=== PATIENT | male | born 1940 | race Caucasian/White ===

== ENCOUNTER → 2016-08-09 | Outpatient (CLI) | payer MEDICARE ==
[~2016-08-09] MED LIST: 'XANAX0.5 MG PO; ALPRAZOLAM0.5 M3 PO; AMIODARONE HCL200 MG PO; APRESOLINE25 MG PO; ASCORBIC ACID500 M2 PO; ASPIRIN ADULT L81 M1; ASPIRIN ADULT L81 M1 PO; ASPIRIN81 M1 PO; B-COMPLEX1 CAP PO; B12-METHYL1000 MCG PO; CARVEDILOL12.5 MG; CARVEDILOL12.5 MG PO; CLOPIDOGREL75 MG PO; COQ1060 MG; COREG12.5 M1 PO; COREG12.5 MG PO; COREG25 MG PO; COREG3.125 MG PO; COREG6.25 MG; COREG6.25 MG PO; COUMADIN; COUMADIN0.5 MG PO; COUMADIN2 MG PO; COUMADIN3 M1 PO; COUMADIN4 M1 PO; COUMADIN4 M2 PO; COUMADIN5 M2 PO; Coumadin3 MG PO; Coumadin5 MG PO; D-1000 185 MG-11 TAB PO; DIGOXIN0.125 MG; DOXYCYCLINE MO100 M1 PO; DOXYCYCLINE100 M3 PO; FENOFIBRATE145 M1 PO; FISH OIL 10001000 MG; FISH OIL 500MG500 MG PO; FLONASE 0.05% 121 EA NS; FUROSEMIDE10 MG/ML IV; FUROSEMIDE20 M1 PO; FUROSEMIDE40 MG PO; IMDUR SA30 MG PO; IRON325 M1 PO; KEFTAB500 MG PO; LANOXIN0.125 MG PO; LASIX20 MG PO; LASIX40 MG PO; LEVOFLOXACIN500 MG PO; LOVAZA1 GM; LOVAZA1 GM PO; LOVENOX EASYINJ1 DEV SC; MAGNESIUM400 MG PO; METFORMIN500 MG PO; MIDODRINE HCL2.5 MG PO; MIRALAX POWDER255 G1 PO; PACERONE200 MG PO; PANTOPRAZOLE SO40 MG PO; PAROXETIN10 MG; PAROXETINE HCL10 MG PO; PAROXETINE10 MG PO; PLAVIX75 MG; PLAVIX75 MG PO; PRAVACHOL40 MG; PRAVACHOL80 MG PO; PRAVASTATIN SOD80 MG PO; PREDNISONE10 MG PO; PRILOSEC40 MG PO; PROTONIX40 MG PO; PROVENTIL0.09 MG/A1 INH; Proamatine PO; RESTORIL15 MG; RESTORIL15 MG PO; RESTORIL30 M1 PO; TRICOR145 MG; TRICOR145 MG PO; TRICOR48 MG PO; TYLENOL325 M1 PO; VITAMIN B121000 MC1 PO; VITAMIN C500 M4 PO; VITAMIN D-32000 UNIT PO; VITAMIN D1000 IU PO; XANAX XR0.5 MG; XANAX0.25 MG PO; XANAX0.5 MG PO
== END | disposition home or self-care (01) ==
LOC: RAD 13:33
DX: M48.00 Spinal stenosis, site unspecified (principal)

== ENCOUNTER 2016-08-25 17:51 | Emergency (ER) | payer MEDICARE ==
[~2016-08-25] VITALS: Ht 177.8 cm; Wt 85.3 kg
[2016-08-25 18:08] LABS: BASO # 0.1 10*3/uL (0.0-0.1); BASO % 0.8 % (0.0-1.0); EOS # 0.2 10*3/uL (0.0-0.4); EOS % 2.2 % (1.0-4.0); HEMATOCRIT 37.4 % (42.0-52.0); HEMOGLOBIN 12.4 g/dl (14.0-18.0); LYMPH # 2.1 10*3/uL (1.3-4.4); LYMPH % 27.4 % (27.0-41.0); MEAN CELL VOLUME 92.1 fl (80.0-94.0); MEAN CORPUSCULAR HGB 30.5 pg (27.0-31.0); MEAN CORPUSCULAR HGB CONC 33.2 g/dl (33.0-37.0); MEAN PLATELET VOLUME 10.8 fl (9.6-12.3); MONO # 0.6 10*3/uL (0.1-1.0); MONO % 7.1 % (3.0-9.0); NEUT # 4.8 10*3/uL (2.3-7.9); NEUT % 62.4 % (47.0-73.0); PLATELET COUNT AUTOMATED 172 10*3/uL (130-400); RED BLOOD COUNT 4.06 10*6/uL (4.50-5.90); RED CELL DISTRI WIDTH 14.9 % (0-14.5); WHITE BLOOD COUNT 7.7 10*3/uL (4.8-10.8)
[2016-08-25 18:18] LABS: INTERNATIONAL NORM RATIO 2.9 (2.0-3.5); PROTHROMBIN TIME 32.3 SECONDS (9.0-12.4)
[2016-08-25 18:25] LABS: ALBUMIN 3.3 gm/dl (3.1-4.5); BILIRUBIN, TOTAL 0.7 mg/dl (0.2-1.0); MAGNESIUM 1.7 mg/dL (1.5-2.1); POTASSIUM 4.2 mmol/L (3.5-5.1); TOTAL PROTEIN 6.8 gm/dL (6.4-8.2); TROPONIN I 0.033 ng/ml (<0.045)
[2016-08-25 19:19] VITALS: BP 118/79
== END 2016-08-25 20:00 | disposition short-term general hospital (02) ==
LOC: ED 17:51
PROVIDERS: Emergency Medicine
DX: I20.0 Unstable angina (principal); I25.2 Old myocardial infarction; I50.9 Heart failure, unspecified; I48.91 Unspecified atrial fibrillation; I12.9 Hypertensive chronic kidney disease with stage 1 through stage 4 chronic kidney disease, or unspecified chronic kidney disease; N18.3 Chronic kidney disease, stage 3 (moderate); I50.22 Chronic systolic (congestive) heart failure; E11.9 Type 2 diabetes mellitus without complications; I25.5 Ischemic cardiomyopathy; D53.9 Nutritional anemia, unspecified; Z88.8 Allergy status to other drugs, medicaments and biological substances; Z79.899 Other long term (current) drug therapy; Z79.82 Long term (current) use of aspirin

== ENCOUNTER 2016-09-10 20:32 | Emergency (ER) | payer MEDICARE ==
[~2016-09-10] VITALS: Ht 177.8 cm; Wt 85.3 kg
[2016-09-10 20:41] VITALS: BP 105/80
[2016-09-10 21:39] LABS: BASO # 0.1 10*3/uL (0.0-0.1); BASO % 0.4 % (0.0-1.0); EOS # 0.1 10*3/uL (0.0-0.4); EOS % 0.9 % (1.0-4.0); HEMATOCRIT 38.2 % (42.0-52.0); HEMOGLOBIN 12.4 g/dl (14.0-18.0); LYMPH # 1.6 10*3/uL (1.3-4.4); LYMPH % 13.8 % (27.0-41.0); MEAN CELL VOLUME 93.2 fl (80.0-94.0); MEAN CORPUSCULAR HGB 30.2 pg (27.0-31.0); MEAN CORPUSCULAR HGB CONC 32.5 g/dl (33.0-37.0); MEAN PLATELET VOLUME 10.7 fl (9.6-12.3); MONO # 0.9 10*3/uL (0.1-1.0); MONO % 7.8 % (3.0-9.0); NEUT # 8.7 10*3/uL (2.3-7.9); NEUT % 76.8 % (47.0-73.0); PLATELET COUNT AUTOMATED 177 10*3/uL (130-400); RED CELL DISTRI WIDTH 14.7 % (0-14.5); WHITE BLOOD COUNT 11.3 10*3/uL (4.8-10.8)
[2016-09-10 21:56] LABS: ALBUMIN 3.2 gm/dl (3.1-4.5); BILIRUBIN, TOTAL 0.7 mg/dl (0.2-1.0); POTASSIUM 4.4 mmol/L (3.5-5.1); TOTAL PROTEIN 6.6 gm/dL (6.4-8.2)
[2016-09-10 22:02] LABS: TROPONIN I 0.049 ng/ml (<0.045)
[2016-09-10] MEDS ORDERED: DUONEB 3 MG/3 ML3 M1 INH (22:46)
[2016-09-10] MEDS ORDERED: ROBITUSSIN AC 110 ML PO (22:46)
[2016-09-10] MEDS ORDERED: PREDNISONE10 MG PO (22:46)
== END 2016-09-10 22:46 | disposition home or self-care (01) ==
LOC: ED 20:32
PROVIDERS: Nurse Practitioner Family
DX: J20.9 Acute bronchitis, unspecified (principal); I48.91 Unspecified atrial fibrillation; I12.9 Hypertensive chronic kidney disease with stage 1 through stage 4 chronic kidney disease, or unspecified chronic kidney disease; N18.3 Chronic kidney disease, stage 3 (moderate); E11.9 Type 2 diabetes mellitus without complications; Z95.810 Presence of automatic (implantable) cardiac defibrillator; Z95.5 Presence of coronary angioplasty implant and graft; Z95.1 Presence of aortocoronary bypass graft; Z87.891 Personal history of nicotine dependence; Z88.8 Allergy status to other drugs, medicaments and biological substances; Z79.01 Long term (current) use of anticoagulants; Z79.82 Long term (current) use of aspirin; Z79.899 Other long term (current) drug therapy

== ENCOUNTER 2016-09-19 12:18 | Inpatient (IN) | payer MEDICARE ==
[~2016-09-19] VITALS: Ht 177.8 cm; Wt 83.9 kg
[~2016-09-19 12:18] MED LIST changes: +DUONEB 3 MG/3 ML3 M1 INH; +ROBITUSSIN AC 110 ML PO
[2016-09-19 12:28] VITALS: BP 108/74
[2016-09-19 12:58] LABS: BASO % 0.3 % (0.0-1.0); EOS # 0.2 10*3/uL (0.0-0.4); EOS % 2.5 % (1.0-4.0); HEMATOCRIT 40.2 % (42.0-52.0); HEMOGLOBIN 13.2 g/dl (14.0-18.0); IG # 0.1 10*3/uL (0.0-0.1); LYMPH # 1.7 10*3/uL (1.3-4.4); LYMPH % 20.7 % (27.0-41.0); MEAN CELL VOLUME 91.8 fl (80.0-94.0); MEAN CORPUSCULAR HGB 30.1 pg (27.0-31.0); MEAN CORPUSCULAR HGB CONC 32.8 g/dl (33.0-37.0); MEAN PLATELET VOLUME 9.7 fl (9.6-12.3); MONO # 0.7 10*3/uL (0.1-1.0); MONO % 8.6 % (3.0-9.0); NEUT # 5.3 10*3/uL (2.3-7.9); NEUT % 66.8 % (47.0-73.0); PLATELET COUNT AUTOMATED 197 10*3/uL (130-400); RED BLOOD COUNT 4.38 10*6/uL (4.50-5.90); RED CELL DISTRI WIDTH 14.4 % (0-14.5)
[2016-09-19 13:00] VITALS: BP 121/67
[2016-09-19 13:21] LABS: POTASSIUM 3.9 mmol/L (3.5-5.1); TROPONIN I 0.044 ng/ml (<0.045)
[2016-09-19 13:58] VITALS: BP 115/75
[2016-09-19 14:31] VITALS: BP 120/67
[2016-09-19 16:34] VITALS: BP 125/77
[2016-09-19 20:01] VITALS: BP 98/52
[2016-09-20] VITALS: BP 107/68
[2016-09-20 04:00] VITALS: BP 116/72
[2016-09-20 05:33] LABS: CKMB 1.4 ng/ml (0.5-3.6)
[2016-09-20 05:36] LABS: TROPONIN I 0.05 ng/ml (<0.045)
[2016-09-20 05:48] LABS: ALBUMIN 2.7 gm/dl (3.1-4.5); BILIRUBIN, TOTAL 0.8 mg/dl (0.2-1.0); FREE T4 1.21 ng/dl (0.76-1.46); PHOSPHOROUS 2.6 mg/dL (2.5-4.9); POTASSIUM 4.2 mmol/L (3.5-5.1); TOTAL PROTEIN 5.7 gm/dL (6.4-8.2)
[2016-09-20 05:53] LABS: THYROID STIM HORMONE (HS) 1.09 uIU/ml (0.358-4.75)
[2016-09-20 06:13] LABS: BASO % 0.6 % (0.0-1.0); EOS # 0.2 10*3/uL (0.0-0.4); EOS % 2.5 % (1.0-4.0); HEMATOCRIT 37.2 % (42.0-52.0); HEMOGLOBIN 12.4 g/dl (14.0-18.0); IG # 0.1 10*3/uL (0.0-0.1); LYMPH # 1.8 10*3/uL (1.3-4.4); MEAN CELL VOLUME 92.1 fl (80.0-94.0); MEAN CORPUSCULAR HGB 30.7 pg (27.0-31.0); MEAN CORPUSCULAR HGB CONC 33.3 g/dl (33.0-37.0); MEAN PLATELET VOLUME 9.6 fl (9.6-12.3); MONO # 0.6 10*3/uL (0.1-1.0); MONO % 8.5 % (3.0-9.0); NEUT # 4.5 10*3/uL (2.3-7.9); NEUT % 62.4 % (47.0-73.0); PLATELET COUNT AUTOMATED 163 10*3/uL (130-400); RED BLOOD COUNT 4.04 10*6/uL (4.50-5.90); RED CELL DISTRI WIDTH 14.5 % (0-14.5); WHITE BLOOD COUNT 7.2 10*3/uL (4.8-10.8)
[2016-09-20 06:24] LABS: VITAMIN D, 25-HYDROXY 25.1 ng/mL (30-100)
[2016-09-20 06:25] LABS: FOLIC ACID 15.72 ng/mL (>5.38)
[2016-09-20 06:34] LABS: INTERNATIONAL NORM RATIO 2.2 (2.0-3.5); PROTHROMBIN TIME 24.5 SECONDS (9.0-12.4)
[2016-09-20 08:00] VITALS: BP 118/74
[2016-09-20 11:09] LABS: CKMB 1.8 ng/ml (0.5-3.6)
[2016-09-20 11:13] LABS: TROPONIN I 0.048 ng/ml (<0.045)
[2016-09-20 12:00] VITALS: BP 122/80
[2016-09-20 16:00] VITALS: BP 115/62
[2016-09-20 17:10] LABS: CKMB 1.9 ng/ml (0.5-3.6)
[2016-09-20 17:12] LABS: TROPONIN I 0.044 ng/ml (<0.045)
[2016-09-20 20:00] VITALS: BP 112/59
[2016-09-21] VITALS: BP 115/50
[2016-09-21 06:33] LABS: BASO % 0.3 % (0.0-1.0); EOS # 0.2 10*3/uL (0.0-0.4); EOS % 2.3 % (1.0-4.0); HEMATOCRIT 37.2 % (42.0-52.0); IG # 0.1 10*3/uL (0.0-0.1); LYMPH # 1.7 10*3/uL (1.3-4.4); LYMPH % 24.3 % (27.0-41.0); MEAN CORPUSCULAR HGB CONC 32.3 g/dl (33.0-37.0); MEAN PLATELET VOLUME 10.2 fl (9.6-12.3); MONO # 0.5 10*3/uL (0.1-1.0); MONO % 6.9 % (3.0-9.0); NEUT # 4.5 10*3/uL (2.3-7.9); NEUT % 64.9 % (47.0-73.0); PLATELET COUNT AUTOMATED 169 10*3/uL (130-400); RED CELL DISTRI WIDTH 14.6 % (0-14.5)
[2016-09-21 07:12] LABS: POTASSIUM 4.4 mmol/L (3.5-5.1)
[2016-09-21 07:27] LABS: INTERNATIONAL NORM RATIO 2.1 (2.0-3.5); PROTHROMBIN TIME 23.4 SECONDS (9.0-12.4)
[2016-09-21 08:00] VITALS: BP 121/71
[2016-09-21 12:00] VITALS: BP 102/59
== END 2016-09-21 16:42 | disposition short-term general hospital (02) | DRG 291 ==
LOC: ED 12:18 → EDHOLD 14:57 → 5E 14:57
PROVIDERS: Emergency Medicine; Internal Medicine Cardiovascular Disease; Internal Medicine Hospice and Palliative Medicine
DX: I13.0 Hypertensive heart and chronic kidney disease with heart failure and stage 1 through stage 4 chronic kidney disease, or unspecified chronic kidney disease (principal); I50.43 Acute on chronic combined systolic (congestive) and diastolic (congestive) heart failure; E43 Unspecified severe protein-calorie malnutrition; E11.65 Type 2 diabetes mellitus with hyperglycemia; E11.22 Type 2 diabetes mellitus with diabetic chronic kidney disease; I48.2 Chronic atrial fibrillation; N18.3 Chronic kidney disease, stage 3 (moderate); E11.9 Type 2 diabetes mellitus without complications; D63.8 Anemia in other chronic diseases classified elsewhere; J98.11 Atelectasis; I25.5 Ischemic cardiomyopathy; D72.810 Lymphocytopenia; I25.10 Atherosclerotic heart disease of native coronary artery without angina pectoris; E78.2 Mixed hyperlipidemia; E55.9 Vitamin D deficiency, unspecified; K57.90 Diverticulosis of intestine, part unspecified, without perforation or abscess without bleeding; E78.1 Pure hyperglyceridemia; I08.0 Rheumatic disorders of both mitral and aortic valves; Z96.642 Presence of left artificial hip joint; Z96.612 Presence of left artificial shoulder joint; R91.1 Solitary pulmonary nodule; I95.1 Orthostatic hypotension; J20.9 Acute bronchitis, unspecified; Z95.810 Presence of automatic (implantable) cardiac defibrillator; Z88.8 Allergy status to other drugs, medicaments and biological substances; I25.2 Old myocardial infarction; Z87.01 Personal history of pneumonia (recurrent); Z95.2 Presence of prosthetic heart valve; Z95.1 Presence of aortocoronary bypass graft; Z87.891 Personal history of nicotine dependence; Z79.82 Long term (current) use of aspirin; Z79.01 Long term (current) use of anticoagulants; Z79.899 Other long term (current) drug therapy; Z79.84 Long term (current) use of oral hypoglycemic drugs; Z68.25 Body mass index [BMI] 25.0-25.9, adult; Z82.3 Family history of stroke; Z82.49 Family history of ischemic heart disease and other diseases of the circulatory system

== ENCOUNTER → 2016-11-16 | Day surgery (SDC) | payer MEDICARE | END | disposition home or self-care (01) | LOC: SDC 09:00 | DX: Z45.2 Encounter for adjustment and management of vascular access device (principal); I25.5 Ischemic cardiomyopathy; I25.10 Atherosclerotic heart disease of native coronary artery without angina pectoris; N18.3 Chronic kidney disease, stage 3 (moderate) ==

== ENCOUNTER → 2016-11-16 | Outpatient (CLI) | payer MEDICARE ==
[2016-11-16 12:37] LABS: BASO # 0.1 10*3/uL (0.0-0.1); BASO % 0.7 % (0.0-1.0); EOS # 0.5 10*3/uL (0.0-0.4); EOS % 6.4 % (1.0-4.0); HEMATOCRIT 34.2 % (42.0-52.0); HEMOGLOBIN 11.2 g/dl (14.0-18.0); LYMPH % 13.4 % (27.0-41.0); MEAN CORPUSCULAR HGB 30.8 pg (27.0-31.0); MEAN CORPUSCULAR HGB CONC 32.7 g/dl (33.0-37.0); MEAN PLATELET VOLUME 10.2 fl (9.6-12.3); MONO # 0.5 10*3/uL (0.1-1.0); MONO % 7.4 % (3.0-9.0); NEUT # 5.1 10*3/uL (2.3-7.9); NEUT % 71.8 % (47.0-73.0); PLATELET COUNT AUTOMATED 226 10*3/uL (130-400); RED BLOOD COUNT 3.64 10*6/uL (4.50-5.90); RED CELL DISTRI WIDTH 15.5 % (0-14.5); WHITE BLOOD COUNT 7.1 10*3/uL (4.8-10.8)
== END | disposition home or self-care (01) ==
LOC: LAB 10:41
PROVIDERS: Specialist
DX: I42.0 Dilated cardiomyopathy (principal); I25.5 Ischemic cardiomyopathy; I44.2 Atrioventricular block, complete; N18.3 Chronic kidney disease, stage 3 (moderate); D63.1 Anemia in chronic kidney disease

== ENCOUNTER → 2016-11-30 | Day surgery (SDC) | payer MEDICARE ==
[2016-11-30 12:48] LABS: BASO # 0.1 10*3/uL (0.0-0.1); BASO % 0.8 % (0.0-1.0); EOS # 0.4 10*3/uL (0.0-0.4); EOS % 6.7 % (1.0-4.0); HEMATOCRIT 34.6 % (42.0-52.0); HEMOGLOBIN 11.4 g/dl (14.0-18.0); LYMPH # 1.2 10*3/uL (1.3-4.4); MEAN CELL VOLUME 93.3 fl (80.0-94.0); MEAN CORPUSCULAR HGB 30.7 pg (27.0-31.0); MEAN CORPUSCULAR HGB CONC 32.9 g/dl (33.0-37.0); MEAN PLATELET VOLUME 10.3 fl (9.6-12.3); MONO # 0.5 10*3/uL (0.1-1.0); MONO % 8.1 % (3.0-9.0); NEUT # 4.2 10*3/uL (2.3-7.9); NEUT % 65.1 % (47.0-73.0); PLATELET COUNT AUTOMATED 209 10*3/uL (130-400); RED BLOOD COUNT 3.71 10*6/uL (4.50-5.90); RED CELL DISTRI WIDTH 14.9 % (0-14.5); WHITE BLOOD COUNT 6.5 10*3/uL (4.8-10.8)
[2016-11-30 13:08] LABS: POTASSIUM 4.4 mmol/L (3.5-5.1)
== END | disposition home or self-care (01) ==
LOC: SDC 00:52
PROVIDERS: Specialist
DX: Z48.01 Encounter for change or removal of surgical wound dressing (principal); I25.5 Ischemic cardiomyopathy; I25.10 Atherosclerotic heart disease of native coronary artery without angina pectoris; N18.3 Chronic kidney disease, stage 3 (moderate); I42.0 Dilated cardiomyopathy; I44.2 Atrioventricular block, complete; D64.9 Anemia, unspecified

== ENCOUNTER → 2016-12-07 | Day surgery (SDC) | payer MEDICARE ==
[~2016-12-07] MED LIST changes: +MILRINONE IV
[2016-12-07 12:29] LABS: BASO # 0.1 10*3/uL (0.0-0.1); BASO % 0.7 % (0.0-1.0); EOS # 0.7 10*3/uL (0.0-0.4); EOS % 9.7 % (1.0-4.0); HEMATOCRIT 33.6 % (42.0-52.0); LYMPH # 1.2 10*3/uL (1.3-4.4); LYMPH % 18.1 % (27.0-41.0); MEAN CELL VOLUME 93.1 fl (80.0-94.0); MEAN CORPUSCULAR HGB 30.5 pg (27.0-31.0); MEAN CORPUSCULAR HGB CONC 32.7 g/dl (33.0-37.0); MEAN PLATELET VOLUME 10.3 fl (9.6-12.3); MONO # 0.6 10*3/uL (0.1-1.0); MONO % 8.7 % (3.0-9.0); NEUT # 4.3 10*3/uL (2.3-7.9); NEUT % 62.7 % (47.0-73.0); PLATELET COUNT AUTOMATED 205 10*3/uL (130-400); RED BLOOD COUNT 3.61 10*6/uL (4.50-5.90); RED CELL DISTRI WIDTH 14.8 % (0-14.5); WHITE BLOOD COUNT 6.8 10*3/uL (4.8-10.8)
[2016-12-07 12:55] LABS: CREATININE 2.27 mg/dL (0.70-1.30); POTASSIUM 4.5 mmol/L (3.5-5.1)
--- NOTE | 2016-12-07 14:08 | NUR ---
patient presents to outpatient for piccline dressing change and blood draw. dressing changed and caps as well tolerated well done under sterile conditions
== END | disposition home or self-care (01) ==
LOC: SDC 09:00
PROVIDERS: Specialist
DX: I50.9 Heart failure, unspecified (principal); I25.10 Atherosclerotic heart disease of native coronary artery without angina pectoris; I25.5 Ischemic cardiomyopathy; I42.0 Dilated cardiomyopathy; N18.3 Chronic kidney disease, stage 3 (moderate)

== ENCOUNTER 2016-12-11 13:47 | Emergency (ER) | payer MEDICARE ==
[~2016-12-11 13:47] MED LIST changes: -MILRINONE IV
[2016-12-11 14:39] LABS: BASO # 0.1 10*3/uL (0.0-0.1); BASO % 0.9 % (0.0-1.0); EOS # 0.4 10*3/uL (0.0-0.4); EOS % 6.5 % (1.0-4.0); HEMATOCRIT 32.5 % (42.0-52.0); HEMOGLOBIN 10.8 g/dl (14.0-18.0); LYMPH # 1.3 10*3/uL (1.3-4.4); LYMPH % 19.9 % (27.0-41.0); MEAN CELL VOLUME 92.6 fl (80.0-94.0); MEAN CORPUSCULAR HGB 30.8 pg (27.0-31.0); MEAN CORPUSCULAR HGB CONC 33.2 g/dl (33.0-37.0); MONO # 0.5 10*3/uL (0.1-1.0); MONO % 7.3 % (3.0-9.0); NEUT # 4.3 10*3/uL (2.3-7.9); NEUT % 65.2 % (47.0-73.0); PLATELET COUNT AUTOMATED 179 10*3/uL (130-400); RED BLOOD COUNT 3.51 10*6/uL (4.50-5.90); RED CELL DISTRI WIDTH 15.1 % (0-14.5); WHITE BLOOD COUNT 6.6 10*3/uL (4.8-10.8)
[2016-12-11 14:52] LABS: ACT PARTIAL THROMBO TIME 31.5 SECONDS (20.8-31.5); INTERNATIONAL NORM RATIO 1.7 (2.0-3.5)
[2016-12-11 14:55] LABS: ALBUMIN 2.9 gm/dl (3.1-4.5); CREATININE 2.5 mg/dL (0.70-1.30); POTASSIUM 4.3 mmol/L (3.5-5.1); TOTAL PROTEIN 5.9 gm/dL (6.4-8.2)
[2016-12-11 14:56] LABS: TROPONIN I 0.039 ng/ml (<0.045)
[2016-12-11] MEDS ORDERED: MILRINONE IV (19:52)
[2016-12-11 23:00] VITALS: BP 106/67
== END 2016-12-12 00:34 | disposition short-term general hospital (02) ==
LOC: ED 13:47
PROVIDERS: Physician Assistant
DX: I50.9 Heart failure, unspecified (principal); N28.9 Disorder of kidney and ureter, unspecified; Z88.8 Allergy status to other drugs, medicaments and biological substances; Z79.899 Other long term (current) drug therapy; Z79.02 Long term (current) use of antithrombotics/antiplatelets; Z79.82 Long term (current) use of aspirin; Z87.891 Personal history of nicotine dependence

== ENCOUNTER → 2016-12-21 | Outpatient (CLI) | payer MEDICARE ==
[~2016-12-21] MED LIST changes: +MILRINONE IV
[2016-12-21 11:55] LABS: BASO # 0.1 10*3/uL (0.0-0.1); BASO % 0.9 % (0.0-1.0); EOS # 0.4 10*3/uL (0.0-0.4); EOS % 5.8 % (1.0-4.0); HEMATOCRIT 34.7 % (42.0-52.0); HEMOGLOBIN 11.4 g/dl (14.0-18.0); LYMPH # 1.2 10*3/uL (1.3-4.4); LYMPH % 18.1 % (27.0-41.0); MEAN CELL VOLUME 92.5 fl (80.0-94.0); MEAN CORPUSCULAR HGB 30.4 pg (27.0-31.0); MEAN CORPUSCULAR HGB CONC 32.9 g/dl (33.0-37.0); MEAN PLATELET VOLUME 10.4 fl (9.6-12.3); MONO # 0.5 10*3/uL (0.1-1.0); MONO % 7.9 % (3.0-9.0); NEUT # 4.4 10*3/uL (2.3-7.9); NEUT % 67.1 % (47.0-73.0); PLATELET COUNT AUTOMATED 191 10*3/uL (130-400); RED BLOOD COUNT 3.75 10*6/uL (4.50-5.90); RED CELL DISTRI WIDTH 14.5 % (0-14.5); WHITE BLOOD COUNT 6.6 10*3/uL (4.8-10.8)
[2016-12-21 12:25] LABS: CREATININE 2.41 mg/dL (0.70-1.30); POTASSIUM 3.9 mmol/L (3.5-5.1)
== END | disposition home or self-care (01) ==
LOC: LAB 00:15 → SDC 09:00 → EDSTATUS 09:00 → LAB 09:00
PROVIDERS: Specialist
DX: Z45.2 Encounter for adjustment and management of vascular access device (principal); I25.10 Atherosclerotic heart disease of native coronary artery without angina pectoris

== ENCOUNTER → 2016-12-28 | Day surgery (SDC) | payer MEDICARE ==
--- NOTE | 2016-12-28 11:53 | NUR ---
PT HERE FOR PICC LINE DRESSING CHANGE AND BLOOD DRAW DONE ORDERED. PROMPT BLOOD RETURN. LABS SENT TO MAIN LAB WITH ORDER. TOLERATED WELL. SITE ASYMPTOMATIC. ORLANDO HOOD RN
== END | disposition home or self-care (01) ==
LOC: SDC 02:49
DX: I50.9 Heart failure, unspecified (principal)

== ENCOUNTER → 2017-01-04 | Outpatient (CLI) | payer MEDICARE ==
[2017-01-04 12:09] LABS: BASO # 0.1 10*3/uL (0.0-0.1); BASO % 0.8 % (0.0-1.0); EOS # 0.3 10*3/uL (0.0-0.4); EOS % 5.4 % (1.0-4.0); HEMATOCRIT 35.2 % (42.0-52.0); HEMOGLOBIN 11.9 g/dl (14.0-18.0); LYMPH # 1.1 10*3/uL (1.3-4.4); LYMPH % 18.6 % (27.0-41.0); MEAN CELL VOLUME 92.1 fl (80.0-94.0); MEAN CORPUSCULAR HGB 31.2 pg (27.0-31.0); MEAN CORPUSCULAR HGB CONC 33.8 g/dl (33.0-37.0); MEAN PLATELET VOLUME 10.3 fl (9.6-12.3); MONO # 0.5 10*3/uL (0.1-1.0); MONO % 8.4 % (3.0-9.0); NEUT # 3.9 10*3/uL (2.3-7.9); NEUT % 66.5 % (47.0-73.0); PLATELET COUNT AUTOMATED 192 10*3/uL (130-400); RED BLOOD COUNT 3.82 10*6/uL (4.50-5.90); RED CELL DISTRI WIDTH 14.5 % (0-14.5); WHITE BLOOD COUNT 5.9 10*3/uL (4.8-10.8)
[2017-01-04 12:23] LABS: CREATININE 2.8 mg/dL (0.70-1.30); POTASSIUM 3.9 mmol/L (3.5-5.1)
== END | disposition home or self-care (01) ==
LOC: EDSTATUS 10:00 → SDC 10:00 → LAB 11:07
PROVIDERS: Specialist
DX: I48.2 Chronic atrial fibrillation (principal); I25.10 Atherosclerotic heart disease of native coronary artery without angina pectoris; I25.5 Ischemic cardiomyopathy; N18.3 Chronic kidney disease, stage 3 (moderate); I42.0 Dilated cardiomyopathy

== ENCOUNTER → 2017-01-18 | Outpatient (CLI) | payer MEDICARE ==
--- NOTE | 2016-12-21 11:40 | NUR ---
PT. CAME TO OPS FOR DRESSING CHANGE UNDER STERILE POSITION PER POLICY SITE ASYMPTOMATIC. PT. TOLERATED WELL VITAL SIGNS STALBE.
--- NOTE | 2017-01-18 11:45 | NUR ---
PT HERE FOR LAB DRAW AND PICC DRESSING CHANGE. LABS TAKEN FROM PICC LINE WITHOUT DIFFUCULTY. SENT TO MAIN LAB. DRESSING APPLIED WITH NEW CAPS. MILRINONE INFUSION CONTINOUS. PT TOLERATED WELL. ORLANDO HOOD RN
[2017-01-18 12:02] LABS: BASO # 0.1 10*3/uL (0.0-0.1); BASO % 0.7 % (0.0-1.0); EOS # 0.4 10*3/uL (0.0-0.4); EOS % 4.9 % (1.0-4.0); HEMOGLOBIN 11.9 g/dl (14.0-18.0); LYMPH # 1.8 10*3/uL (1.3-4.4); LYMPH % 25.7 % (27.0-41.0); MEAN CELL VOLUME 90.5 fl (80.0-94.0); MEAN CORPUSCULAR HGB 29.9 pg (27.0-31.0); MEAN CORPUSCULAR HGB CONC 33.1 g/dl (33.0-37.0); MONO # 0.6 10*3/uL (0.1-1.0); MONO % 8.9 % (3.0-9.0); NEUT # 4.2 10*3/uL (2.3-7.9); NEUT % 59.5 % (47.0-73.0); PLATELET COUNT AUTOMATED 185 10*3/uL (130-400); RED BLOOD COUNT 3.98 10*6/uL (4.50-5.90); RED CELL DISTRI WIDTH 14.1 % (0-14.5); WHITE BLOOD COUNT 7.1 10*3/uL (4.8-10.8)
[2017-01-18 12:35] LABS: CREATININE 2.74 mg/dL (0.70-1.30); POTASSIUM 3.9 mmol/L (3.5-5.1)
== END | disposition home or self-care (01) ==
LOC: LAB 00:19 → EDSTATUS 10:00 → SDC 10:00
PROVIDERS: Specialist
DX: I25.10 Atherosclerotic heart disease of native coronary artery without angina pectoris (principal); I25.5 Ischemic cardiomyopathy; I42.0 Dilated cardiomyopathy; I48.2 Chronic atrial fibrillation; N18.3 Chronic kidney disease, stage 3 (moderate)

== ENCOUNTER → 2017-01-25 | Outpatient (CLI) | payer MEDICARE ==
--- NOTE | 2017-01-25 11:48 | NUR ---
patient presented for piccline dressing change. changed prepolicy. tolerated well. asymptomatic . done under sterlie technique. will return in one week.
[2017-01-25 12:07] LABS: BASO % 0.8 % (0.0-1.0); EOS # 0.1 10*3/uL (0.0-0.4); EOS % 2.1 % (1.0-4.0); HEMATOCRIT 36.9 % (42.0-52.0); HEMOGLOBIN 12.5 g/dl (14.0-18.0); LYMPH % 18.7 % (27.0-41.0); MEAN CELL VOLUME 91.1 fl (80.0-94.0); MEAN CORPUSCULAR HGB 30.9 pg (27.0-31.0); MEAN CORPUSCULAR HGB CONC 33.9 g/dl (33.0-37.0); MONO # 0.7 10*3/uL (0.1-1.0); MONO % 12.9 % (3.0-9.0); NEUT # 3.4 10*3/uL (2.3-7.9); NEUT % 65.3 % (47.0-73.0); PLATELET COUNT AUTOMATED 174 10*3/uL (130-400); RED BLOOD COUNT 4.05 10*6/uL (4.50-5.90); RED CELL DISTRI WIDTH 14.4 % (0-14.5); WHITE BLOOD COUNT 5.2 10*3/uL (4.8-10.8)
[2017-01-25 12:24] LABS: CREATININE 3.12 mg/dL (0.70-1.30)
== END | disposition home or self-care (01) ==
LOC: LAB 11:19
PROVIDERS: Specialist
DX: I25.10 Atherosclerotic heart disease of native coronary artery without angina pectoris (principal); I25.5 Ischemic cardiomyopathy; N18.3 Chronic kidney disease, stage 3 (moderate); R50.9 Fever, unspecified

== ENCOUNTER → 2017-01-31 | Day surgery (SDC) | payer MEDICARE ==
--- NOTE | 2017-01-31 12:22 | NUR ---
PATIENT PRESENTS TO OPS FOR PICC LINE DRESSING CHANGE. OLD DRESSING REMOVED UNDER STERILE CONDITIONS SITE CLEANED AND REDESSED TOLERATED WELL.
[2017-01-31 12:54] LABS: BASO # 0.1 10*3/uL (0.0-0.1); BASO % 0.7 % (0.0-1.0); EOS # 0.3 10*3/uL (0.0-0.4); EOS % 4.6 % (1.0-4.0); HEMATOCRIT 36.6 % (42.0-52.0); HEMOGLOBIN 11.9 g/dl (14.0-18.0); LYMPH # 1.3 10*3/uL (1.3-4.4); LYMPH % 18.8 % (27.0-41.0); MEAN CORPUSCULAR HGB 29.6 pg (27.0-31.0); MEAN CORPUSCULAR HGB CONC 32.5 g/dl (33.0-37.0); MONO # 0.5 10*3/uL (0.1-1.0); MONO % 6.8 % (3.0-9.0); NEUT # 4.8 10*3/uL (2.3-7.9); NEUT % 68.7 % (47.0-73.0); PLATELET COUNT AUTOMATED 206 10*3/uL (130-400); RED BLOOD COUNT 4.02 10*6/uL (4.50-5.90); RED CELL DISTRI WIDTH 14.6 % (0-14.5)
[2017-01-31 13:05] LABS: CREATININE 2.42 mg/dL (0.70-1.30); POTASSIUM 4.2 mmol/L (3.5-5.1)
== END | disposition home or self-care (01) ==
LOC: SDC 12:43
PROVIDERS: Specialist
DX: Z43.8 Encounter for attention to other artificial openings (principal); I50.9 Heart failure, unspecified

== ENCOUNTER → 2017-02-08 | Day surgery (SDC) | payer MEDICARE ==
--- NOTE | 2017-02-08 12:05 | NUR ---
CLIENT AMBULATORY TO TREATMENT AREA FOR BLOOD DRAW VIA PICC AND PICC DRESSING AND CAP CHANGE. PICC CAP WAS PREPPED AND ACCESSED BY SYRINGE. BRISK BLOOD RETURN WAS NOTED. APPROPRIATE AMOUNT OF BLOOD WAS WASTED THEN SPECIMEN WAS OBTAINED AND SENT TO LAB. PICC DRESSING AND CAPS WERE CHANGED USING STERILE TECHNIQUE. PICC WAS THEN FLUSHED WITH SALINE FOLLOWED BY HEPARIN. CLIENT THEN AMBULATED FROM TREATMENT AREA IN STABLE CONDITION.
[2017-02-08 12:07] LABS: BASO # 0.1 10*3/uL (0.0-0.1); BASO % 0.8 % (0.0-1.0); EOS # 0.2 10*3/uL (0.0-0.4); EOS % 3.8 % (1.0-4.0); HEMATOCRIT 34.3 % (42.0-52.0); HEMOGLOBIN 11.5 g/dl (14.0-18.0); LYMPH # 1.1 10*3/uL (1.3-4.4); LYMPH % 17.9 % (27.0-41.0); MEAN CELL VOLUME 89.8 fl (80.0-94.0); MEAN CORPUSCULAR HGB 30.1 pg (27.0-31.0); MEAN CORPUSCULAR HGB CONC 33.5 g/dl (33.0-37.0); MEAN PLATELET VOLUME 9.9 fl (9.6-12.3); MONO # 0.6 10*3/uL (0.1-1.0); MONO % 9.4 % (3.0-9.0); NEUT # 4.1 10*3/uL (2.3-7.9); NEUT % 67.9 % (47.0-73.0); PLATELET COUNT AUTOMATED 217 10*3/uL (130-400); RED BLOOD COUNT 3.82 10*6/uL (4.50-5.90); RED CELL DISTRI WIDTH 14.7 % (0-14.5); WHITE BLOOD COUNT 6.1 10*3/uL (4.8-10.8)
[2017-02-08 12:20] LABS: CREATININE 2.57 mg/dL (0.70-1.30); POTASSIUM 3.6 mmol/L (3.5-5.1)
== END | disposition home or self-care (01) ==
LOC: SDC 10:00
PROVIDERS: Specialist
DX: I50.9 Heart failure, unspecified (principal)

== ENCOUNTER → 2017-02-15 | Outpatient (CLI) | payer MEDICARE ==
[2017-02-15 12:27] LABS: BASO # 0.1 10*3/uL (0.0-0.1); EOS # 0.4 10*3/uL (0.0-0.4); EOS % 6.1 % (1.0-4.0); HEMATOCRIT 36.9 % (42.0-52.0); HEMOGLOBIN 12.1 g/dl (14.0-18.0); LYMPH # 1.2 10*3/uL (1.3-4.4); MEAN CELL VOLUME 91.8 fl (80.0-94.0); MEAN CORPUSCULAR HGB 30.1 pg (27.0-31.0); MEAN CORPUSCULAR HGB CONC 32.8 g/dl (33.0-37.0); MEAN PLATELET VOLUME 10.1 fl (9.6-12.3); MONO # 0.5 10*3/uL (0.1-1.0); MONO % 8.2 % (3.0-9.0); NEUT # 3.7 10*3/uL (2.3-7.9); NEUT % 64.4 % (47.0-73.0); PLATELET COUNT AUTOMATED 187 10*3/uL (130-400); RED BLOOD COUNT 4.02 10*6/uL (4.50-5.90); WHITE BLOOD COUNT 5.8 10*3/uL (4.8-10.8)
[2017-02-15 12:53] LABS: CREATININE 2.39 mg/dL (0.70-1.30); POTASSIUM 4.2 mmol/L (3.5-5.1)
== END | disposition home or self-care (01) ==
LOC: LAB 11:58
PROVIDERS: Specialist
DX: I44.2 Atrioventricular block, complete (principal); N18.3 Chronic kidney disease, stage 3 (moderate); I25.5 Ischemic cardiomyopathy; I42.0 Dilated cardiomyopathy; D64.9 Anemia, unspecified; I25.10 Atherosclerotic heart disease of native coronary artery without angina pectoris; I48.2 Chronic atrial fibrillation

== ENCOUNTER → 2017-02-22 | Day surgery (SDC) | payer MEDICARE ==
[2017-02-22 13:09] LABS: BASO # 0.1 10*3/uL (0.0-0.1); BASO % 0.7 % (0.0-1.0); EOS # 0.3 10*3/uL (0.0-0.4); EOS % 4.3 % (1.0-4.0); HEMATOCRIT 34.8 % (42.0-52.0); HEMOGLOBIN 11.5 g/dl (14.0-18.0); LYMPH # 1.4 10*3/uL (1.3-4.4); LYMPH % 19.5 % (27.0-41.0); MEAN CELL VOLUME 90.9 fl (80.0-94.0); MEAN PLATELET VOLUME 9.9 fl (9.6-12.3); MONO # 0.7 10*3/uL (0.1-1.0); MONO % 9.5 % (3.0-9.0); NEUT # 4.6 10*3/uL (2.3-7.9); NEUT % 65.7 % (47.0-73.0); PLATELET COUNT AUTOMATED 176 10*3/uL (130-400); RED BLOOD COUNT 3.83 10*6/uL (4.50-5.90); RED CELL DISTRI WIDTH 15.5 % (0-14.5)
--- NOTE | 2017-02-22 13:09 | NUR ---
1259-10CC OF BLOOD WITHDRAWN FROM PICC LINE AND DISCARDED BY ROBINSON LALA RN. ORDERED TUBES OF BLOOD DRAWN AND PICC FLUSHED PER POLICY. PICC DRESSING CHANGED USING STERILE TECHNIQUE. PICC SITE IS ASYMPTOMATIC. DISCHARGED AMBULATORY.
--- NOTE | 2017-02-28 11:50 | NUR ---
CLIENT AMBULATORY TO TREATMENT AREA FOR PICC BLOOD DRAW, DRESSING AND CAP CHANGE. NO BLOOD COULD BE ASPIRATED FROM PICC, SO CLIENT WAS REGISTERED FOR LAB TODAY. DRESSING AND CAPS WERE CHANGED USING ASEPTIC TECHNIQUE. PICC WAS FLUSHED PER POLICY THEN CLIENT LEFT TREATMENT AREA IN STABLE CONDITION
== END | disposition home or self-care (01) ==
LOC: EDSTATUS 10:00 → SDC 10:00
PROVIDERS: Specialist
DX: I50.9 Heart failure, unspecified (principal)

== ENCOUNTER → 2017-02-28 | Day surgery (SDC) | payer MEDICARE ==
[2017-02-28 12:13] LABS: BASO % 0.6 % (0.0-1.0); EOS # 0.3 10*3/uL (0.0-0.4); EOS % 4.3 % (1.0-4.0); LYMPH # 1.3 10*3/uL (1.3-4.4); LYMPH % 18.5 % (27.0-41.0); MEAN CELL VOLUME 91.6 fl (80.0-94.0); MEAN CORPUSCULAR HGB 30.5 pg (27.0-31.0); MEAN CORPUSCULAR HGB CONC 33.3 g/dl (33.0-37.0); MEAN PLATELET VOLUME 9.6 fl (9.6-12.3); MONO # 0.6 10*3/uL (0.1-1.0); MONO % 9.1 % (3.0-9.0); NEUT # 4.7 10*3/uL (2.3-7.9); NEUT % 67.4 % (47.0-73.0); PLATELET COUNT AUTOMATED 190 10*3/uL (130-400); RED BLOOD COUNT 3.93 10*6/uL (4.50-5.90); RED CELL DISTRI WIDTH 15.4 % (0-14.5); WHITE BLOOD COUNT 6.9 10*3/uL (4.8-10.8)
[2017-02-28 12:16] LABS: CREATININE 2.46 mg/dL (0.70-1.30); POTASSIUM 4.3 mmol/L (3.5-5.1)
--- NOTE | 2017-02-28 13:15 | NUR ---
CLIENT TO TREATMENT AREA FOR BLOOD DRAW VIA PICC THEN PICC DRESSING AND CAP CHANGE WELL PICC FLUSH. NO BLOOD WAS ABLE TO BE ASPIRATED FROM PICC AND LAB CAME TO TREATMENT AREA AND OBTAINED BLOOD ORDERED. PICC DRESSING AND CAPS WERE CHANGED USING ASEPTIC TECHNIQUE. PICC PORT WAS FLUSHED WITH SALINE FOLLOWED BY HEPARIN. ONE PICC PORT CONTINUOUSLY IN USE AND WAS NOT FLUSHED. CLIENT THEN AMBULATED FROM TREATMENT AREA IN STABLE CONDITION
== END | disposition home or self-care (01) ==
LOC: SDC 11:10
PROVIDERS: Specialist
DX: Z48.01 Encounter for change or removal of surgical wound dressing (principal); I50.9 Heart failure, unspecified

== ENCOUNTER → 2017-03-08 | Day surgery (SDC) | payer MEDICARE ==
--- NOTE | 2017-03-08 12:16 | NUR ---
1207- LABS DRAWN FROM PICC LINE PER ORDER AND SENT TO LAB VIA TUBE TRANSPORT SYSTEM. PICC FLUSHED PER POLICY. DRESSING CHANGED USING STERILE TECHNIQUE. SITE ASYMPTOMATIC.
[2017-03-08 13:01] LABS: BASO # 0.1 10*3/uL (0.0-0.1); BASO % 0.8 % (0.0-1.0); EOS # 0.3 10*3/uL (0.0-0.4); EOS % 5.1 % (1.0-4.0); HEMATOCRIT 35.9 % (42.0-52.0); HEMOGLOBIN 11.8 g/dl (14.0-18.0); LYMPH # 1.4 10*3/uL (1.3-4.4); MEAN CELL VOLUME 91.6 fl (80.0-94.0); MEAN CORPUSCULAR HGB 30.1 pg (27.0-31.0); MEAN CORPUSCULAR HGB CONC 32.9 g/dl (33.0-37.0); MEAN PLATELET VOLUME 10.2 fl (9.6-12.3); MONO # 0.6 10*3/uL (0.1-1.0); MONO % 8.9 % (3.0-9.0); NEUT # 4.3 10*3/uL (2.3-7.9); PLATELET COUNT AUTOMATED 209 10*3/uL (130-400); RED BLOOD COUNT 3.92 10*6/uL (4.50-5.90); RED CELL DISTRI WIDTH 15.6 % (0-14.5); WHITE BLOOD COUNT 6.7 10*3/uL (4.8-10.8)
[2017-03-08 13:36] LABS: POTASSIUM 4.7 mmol/L (3.5-5.1)
[2017-03-08 13:38] LABS: CREATININE 2.44 mg/dL (0.70-1.30)
== END | disposition home or self-care (01) ==
LOC: SDC 08:49
PROVIDERS: Specialist
DX: Z48.01 Encounter for change or removal of surgical wound dressing (principal); I50.9 Heart failure, unspecified; Z88.8 Allergy status to other drugs, medicaments and biological substances

== ENCOUNTER → 2017-03-14 | Day surgery (SDC) | payer MEDICARE ==
[2017-03-14 10:23] LABS: BASO # 0.1 10*3/uL (0.0-0.1); BASO % 1.1 % (0.0-1.0); EOS # 0.3 10*3/uL (0.0-0.4); EOS % 5.9 % (1.0-4.0); HEMATOCRIT 35.5 % (42.0-52.0); HEMOGLOBIN 11.6 g/dl (14.0-18.0); LYMPH # 1.1 10*3/uL (1.3-4.4); MEAN CELL VOLUME 91.5 fl (80.0-94.0); MEAN CORPUSCULAR HGB 29.9 pg (27.0-31.0); MEAN CORPUSCULAR HGB CONC 32.7 g/dl (33.0-37.0); MEAN PLATELET VOLUME 9.7 fl (9.6-12.3); MONO # 0.4 10*3/uL (0.1-1.0); MONO % 7.2 % (3.0-9.0); NEUT # 3.7 10*3/uL (2.3-7.9); NEUT % 66.4 % (47.0-73.0); PLATELET COUNT AUTOMATED 185 10*3/uL (130-400); RED BLOOD COUNT 3.88 10*6/uL (4.50-5.90); RED CELL DISTRI WIDTH 15.5 % (0-14.5); WHITE BLOOD COUNT 5.6 10*3/uL (4.8-10.8)
[2017-03-14 10:34] LABS: CREATININE 2.54 mg/dL (0.70-1.30); POTASSIUM 3.9 mmol/L (3.5-5.1)
--- NOTE | 2017-03-14 11:49 | NUR ---
CLIENT AMBULATORY TO TREATMENT AREA FOR PICC DRESSING AND CAP CHANGE WELL BLOOD DRAW FOR LAB. BRISK BLOOD RETURN WAS NOTED FROM PICC. APPROPRIATE AMOUNT OF BLOOD WAS WASTED THEN SPECIMEN OBTAINED AND SENT TO LAB. DRESSING AND CAP CHANGE WAS COMPLETED USING ASEPTIC TECHNIQUE. PORT X 1 WAS FLUSHED PER POLICY THEN CLIENT AMBULATED FROM TREATMENT AREA IN STABLE CONDITION
== END ==
LOC: SDC 02:16
PROVIDERS: Specialist
DX: Z48.01 Encounter for change or removal of surgical wound dressing (principal)

== ENCOUNTER → 2017-03-22 | Day surgery (SDC) | payer MEDICARE ==
--- NOTE | 2017-03-22 11:59 | NUR ---
CLIENT AMBULATORY TO TREATMENT AREA FOR LAB DRAW VIA PICC, PICC DRESSING AND PICC CAP CHANGE. BRISK BLOOD RETURN WAS NOTED FROM PICC. APPROPRIATE AMOUNT OF BLOOD WAS WASTED THEN SPECIMEN OBTAINED AND SENT TO LAB. DRESSING AND CAP CHANGE WAS COMPLETED USING ASEPTIC TECHNIQUE. CLIENT THEN AMBULATED FROM TREATMENT AREA IN STABLE CONDITION
[2017-03-22 12:50] LABS: BASO # 0.1 10*3/uL (0.0-0.1); BASO % 0.8 % (0.0-1.0); EOS # 0.2 10*3/uL (0.0-0.4); EOS % 3.6 % (1.0-4.0); HEMOGLOBIN 11.6 g/dl (14.0-18.0); LYMPH % 15.2 % (27.0-41.0); MEAN CELL VOLUME 91.4 fl (80.0-94.0); MEAN CORPUSCULAR HGB 30.3 pg (27.0-31.0); MEAN CORPUSCULAR HGB CONC 33.1 g/dl (33.0-37.0); MEAN PLATELET VOLUME 10.5 fl (9.6-12.3); MONO # 0.6 10*3/uL (0.1-1.0); MONO % 9.4 % (3.0-9.0); NEUT # 4.5 10*3/uL (2.3-7.9); NEUT % 70.7 % (47.0-73.0); PLATELET COUNT AUTOMATED 175 10*3/uL (130-400); RED BLOOD COUNT 3.83 10*6/uL (4.50-5.90); RED CELL DISTRI WIDTH 15.5 % (0-14.5); WHITE BLOOD COUNT 6.4 10*3/uL (4.8-10.8)
[2017-03-22 13:11] LABS: CREATININE 2.67 mg/dL (0.70-1.30); POTASSIUM 3.8 mmol/L (3.5-5.1)
== END | disposition home or self-care (01) ==
LOC: SDC 01:55
PROVIDERS: Specialist
DX: Z48.01 Encounter for change or removal of surgical wound dressing (principal); Z88.8 Allergy status to other drugs, medicaments and biological substances

== ENCOUNTER → 2017-03-27 | Outpatient (CLI) | payer MEDICARE | END | disposition home or self-care (01) | LOC: CT 16:41 | DX: G93.89 Other specified disorders of brain (principal); R79.1 Abnormal coagulation profile; H05.231 Hemorrhage of right orbit ==

== ENCOUNTER → 2017-03-29 | Day surgery (SDC) | payer MEDICARE ==
[2017-03-29 12:22] LABS: BASO # 0.1 10*3/uL (0.0-0.1); BASO % 0.8 % (0.0-1.0); EOS # 0.2 10*3/uL (0.0-0.4); EOS % 2.8 % (1.0-4.0); HEMATOCRIT 35.2 % (42.0-52.0); HEMOGLOBIN 11.8 g/dl (14.0-18.0); LYMPH % 16.1 % (27.0-41.0); MEAN CELL VOLUME 92.4 fl (80.0-94.0); MEAN CORPUSCULAR HGB CONC 33.5 g/dl (33.0-37.0); MEAN PLATELET VOLUME 9.8 fl (9.6-12.3); MONO # 0.5 10*3/uL (0.1-1.0); MONO % 8.3 % (3.0-9.0); NEUT # 4.3 10*3/uL (2.3-7.9); NEUT % 71.7 % (47.0-73.0); PLATELET COUNT AUTOMATED 186 10*3/uL (130-400); RED BLOOD COUNT 3.81 10*6/uL (4.50-5.90); RED CELL DISTRI WIDTH 15.5 % (0-14.5)
--- NOTE | 2017-03-29 12:22 | NUR ---
CLIENT AMBULATORY TO TREATMENT AREA FOR PICC BLOOD DRAW, DRESSING CHANGE AND FLUSH. BRISK BLOOD RETURN WAS NOTED FROM PICC. APPROPRIATE AMOUNT OF BLOOD WAS WASTED THEN SPECIMEN WAS OBTAINED AND SENT TO LAB. PICC WAS THEN FLUSHED PER POLICY. DRESSING WAS CHANGED USING ASEPTIC TECHNIQUE. CLIENT TOLERATED PROCEDURES WELL AND AMBULATED FROM TREATMENT AREA IN STABLE CONDITION
[2017-03-29 12:55] LABS: CREATININE 2.35 mg/dL (0.70-1.30); POTASSIUM 4.1 mmol/L (3.5-5.1)
== END | disposition home or self-care (01) ==
LOC: SDC 03-27 03:59
PROVIDERS: Specialist
DX: I50.9 Heart failure, unspecified (principal)

== ENCOUNTER → 2017-04-05 | Day surgery (SDC) | payer MEDICARE ==
[2017-04-05 11:31] LABS: BASO # 0.1 10*3/uL (0.0-0.1); BASO % 0.9 % (0.0-1.0); EOS # 0.2 10*3/uL (0.0-0.4); EOS % 2.6 % (1.0-4.0); HEMATOCRIT 34.8 % (42.0-52.0); HEMOGLOBIN 11.5 g/dl (14.0-18.0); LYMPH % 16.4 % (27.0-41.0); MEAN CELL VOLUME 92.6 fl (80.0-94.0); MEAN CORPUSCULAR HGB 30.6 pg (27.0-31.0); MEAN PLATELET VOLUME 9.7 fl (9.6-12.3); MONO # 0.5 10*3/uL (0.1-1.0); MONO % 8.6 % (3.0-9.0); NEUT # 4.2 10*3/uL (2.3-7.9); NEUT % 71.3 % (47.0-73.0); PLATELET COUNT AUTOMATED 178 10*3/uL (130-400); RED BLOOD COUNT 3.76 10*6/uL (4.50-5.90); RED CELL DISTRI WIDTH 15.4 % (0-14.5); WHITE BLOOD COUNT 5.8 10*3/uL (4.8-10.8)
[2017-04-05 11:58] LABS: CREATININE 2.46 mg/dL (0.70-1.30); POTASSIUM 4.2 mmol/L (3.5-5.1)
--- NOTE | 2017-04-05 12:38 | NUR ---
CLIENT AMBULATORY TO TREATMENT AREA FOR PICC FLUSH, CAP AND DRESSING CHANGE ALONG WITH BLOOD DRAW FROM PICC. BRISK BLOOD RETURN WAS NOTED FROM PICC. APPROPRIATE AMOUNT OF BLOOD WAS WASTED THEN SENT TO LAB. PICC WAS FLUSHED WITH SALINE FOLLOWED BY HEPARIN. DRESSING AND CAP WAS CHANGED USING ASEPTIC TECHNIQUE. CLIENT THEN AMBULATED FROM THE TREATMENT AREA IN STABLE CONDITION
== END | disposition home or self-care (01) ==
LOC: SDC 04-03 10:30
PROVIDERS: Specialist
DX: Z48.01 Encounter for change or removal of surgical wound dressing (principal); Z88.8 Allergy status to other drugs, medicaments and biological substances

== ENCOUNTER → 2017-04-19 | Day surgery (SDC) | payer MEDICARE ==
[2017-04-19 12:49] LABS: BASO # 0.1 10*3/uL (0.0-0.1); EOS # 0.2 10*3/uL (0.0-0.4); EOS % 3.8 % (1.0-4.0); HEMATOCRIT 35.2 % (42.0-52.0); HEMOGLOBIN 11.7 g/dl (14.0-18.0); LYMPH # 1.2 10*3/uL (1.3-4.4); LYMPH % 19.4 % (27.0-41.0); MEAN CELL VOLUME 94.6 fl (80.0-94.0); MEAN CORPUSCULAR HGB 31.5 pg (27.0-31.0); MEAN CORPUSCULAR HGB CONC 33.2 g/dl (33.0-37.0); MEAN PLATELET VOLUME 10.3 fl (9.6-12.3); MONO # 0.4 10*3/uL (0.1-1.0); MONO % 6.5 % (3.0-9.0); NEUT # 4.3 10*3/uL (2.3-7.9); PLATELET COUNT AUTOMATED 159 10*3/uL (130-400); RED BLOOD COUNT 3.72 10*6/uL (4.50-5.90); RED CELL DISTRI WIDTH 17.5 % (0-14.5); WHITE BLOOD COUNT 6.3 10*3/uL (4.8-10.8)
[2017-04-19 13:22] LABS: CREATININE 2.28 mg/dL (0.70-1.30); POTASSIUM 4.3 mmol/L (3.5-5.1)
== END | disposition home or self-care (01) ==
LOC: SDC 04-17 10:00
PROVIDERS: Specialist
DX: Z48.01 Encounter for change or removal of surgical wound dressing (principal); I50.9 Heart failure, unspecified

== ENCOUNTER → 2017-04-26 | Day surgery (SDC) | payer MEDICARE ==
[2017-04-26 12:29] LABS: BASO # 0.1 10*3/uL (0.0-0.1); BASO % 0.8 % (0.0-1.0); EOS # 0.2 10*3/uL (0.0-0.4); EOS % 3.2 % (1.0-4.0); HEMOGLOBIN 12.2 g/dl (14.0-18.0); LYMPH # 1.3 10*3/uL (1.3-4.4); MEAN CELL VOLUME 94.9 fl (80.0-94.0); MEAN CORPUSCULAR HGB 31.3 pg (27.0-31.0); MEAN PLATELET VOLUME 10.1 fl (9.6-12.3); MONO # 0.6 10*3/uL (0.1-1.0); MONO % 8.4 % (3.0-9.0); NEUT # 4.5 10*3/uL (2.3-7.9); NEUT % 67.1 % (47.0-73.0); PLATELET COUNT AUTOMATED 173 10*3/uL (130-400); RED CELL DISTRI WIDTH 17.6 % (0-14.5); WHITE BLOOD COUNT 6.7 10*3/uL (4.8-10.8)
[2017-04-26 12:55] LABS: CREATININE 2.48 mg/dL (0.70-1.30); POTASSIUM 4.6 mmol/L (3.5-5.1)
== END | disposition home or self-care (01) ==
LOC: SDC 12:00
PROVIDERS: Specialist
DX: Z48.01 Encounter for change or removal of surgical wound dressing (principal); I50.9 Heart failure, unspecified

== ENCOUNTER → 2017-05-03 | Day surgery (SDC) | payer MEDICARE ==
[2017-05-03 12:05] LABS: BASO % 0.7 % (0.0-1.0); EOS # 0.2 10*3/uL (0.0-0.4); EOS % 3.5 % (1.0-4.0); HEMOGLOBIN 11.5 g/dl (14.0-18.0); LYMPH # 1.1 10*3/uL (1.3-4.4); MEAN CELL VOLUME 94.1 fl (80.0-94.0); MEAN CORPUSCULAR HGB 30.9 pg (27.0-31.0); MEAN CORPUSCULAR HGB CONC 32.9 g/dl (33.0-37.0); MEAN PLATELET VOLUME 10.2 fl (9.6-12.3); MONO # 0.5 10*3/uL (0.1-1.0); MONO % 9.3 % (3.0-9.0); NEUT # 3.8 10*3/uL (2.3-7.9); PLATELET COUNT AUTOMATED 179 10*3/uL (130-400); RED BLOOD COUNT 3.72 10*6/uL (4.50-5.90); RED CELL DISTRI WIDTH 17.4 % (0-14.5); WHITE BLOOD COUNT 5.7 10*3/uL (4.8-10.8)
[2017-05-03 12:43] LABS: CREATININE 2.56 mg/dL (0.70-1.30); POTASSIUM 4.2 mmol/L (3.5-5.1)
== END ==
LOC: SDC 05-01 01:07
PROVIDERS: Specialist
DX: Z48.01 Encounter for change or removal of surgical wound dressing (principal); I50.9 Heart failure, unspecified; Z88.8 Allergy status to other drugs, medicaments and biological substances

== ENCOUNTER → 2017-05-10 | Day surgery (SDC) | payer MEDICARE ==
[2017-05-10 12:21] LABS: BASO % 0.7 % (0.0-1.0); EOS # 0.2 10*3/uL (0.0-0.4); EOS % 3.7 % (1.0-4.0); HEMATOCRIT 36.6 % (42.0-52.0); HEMOGLOBIN 12.1 g/dl (14.0-18.0); LYMPH % 16.3 % (27.0-41.0); MEAN CELL VOLUME 95.8 fl (80.0-94.0); MEAN CORPUSCULAR HGB 31.7 pg (27.0-31.0); MEAN CORPUSCULAR HGB CONC 33.1 g/dl (33.0-37.0); MEAN PLATELET VOLUME 9.8 fl (9.6-12.3); MONO # 0.5 10*3/uL (0.1-1.0); MONO % 7.6 % (3.0-9.0); NEUT # 4.2 10*3/uL (2.3-7.9); NEUT % 71.4 % (47.0-73.0); PLATELET COUNT AUTOMATED 184 10*3/uL (130-400); RED BLOOD COUNT 3.82 10*6/uL (4.50-5.90); WHITE BLOOD COUNT 5.9 10*3/uL (4.8-10.8)
[2017-05-10 12:44] LABS: CREATININE 2.3 mg/dL (0.70-1.30); POTASSIUM 4.6 mmol/L (3.5-5.1)
== END | disposition home or self-care (01) ==
LOC: SDC 05-08 10:00
PROVIDERS: Specialist
DX: Z48.01 Encounter for change or removal of surgical wound dressing (principal)

== ENCOUNTER → 2017-05-17 | Day surgery (SDC) | payer MEDICARE ==
[2017-05-17 12:39] LABS: BASO # 0.1 10*3/uL (0.0-0.1); EOS # 0.2 10*3/uL (0.0-0.4); EOS % 3.3 % (1.0-4.0); HEMATOCRIT 37.4 % (42.0-52.0); HEMOGLOBIN 12.5 g/dl (14.0-18.0); LYMPH # 1.1 10*3/uL (1.3-4.4); LYMPH % 19.8 % (27.0-41.0); MEAN CORPUSCULAR HGB 31.4 pg (27.0-31.0); MEAN CORPUSCULAR HGB CONC 33.4 g/dl (33.0-37.0); MEAN PLATELET VOLUME 10.1 fl (9.6-12.3); MONO # 0.5 10*3/uL (0.1-1.0); NEUT # 3.8 10*3/uL (2.3-7.9); NEUT % 66.6 % (47.0-73.0); PLATELET COUNT AUTOMATED 182 10*3/uL (130-400); RED BLOOD COUNT 3.98 10*6/uL (4.50-5.90); RED CELL DISTRI WIDTH 16.4 % (0-14.5); WHITE BLOOD COUNT 5.8 10*3/uL (4.8-10.8)
[2017-05-17 12:50] LABS: CREATININE 2.95 mg/dL (0.70-1.30)
== END ==
LOC: SDC 05-15 10:00
PROVIDERS: Specialist
DX: Z48.01 Encounter for change or removal of surgical wound dressing (principal); I50.9 Heart failure, unspecified

== ENCOUNTER → 2017-05-24 | Day surgery (SDC) | payer MEDICARE ==
[2017-05-24 12:34] LABS: BASO % 0.6 % (0.0-1.0); EOS # 0.2 10*3/uL (0.0-0.4); EOS % 3.4 % (1.0-4.0); HEMATOCRIT 36.2 % (42.0-52.0); LYMPH # 1.2 10*3/uL (1.3-4.4); LYMPH % 17.7 % (27.0-41.0); MEAN CELL VOLUME 95.3 fl (80.0-94.0); MEAN CORPUSCULAR HGB 31.6 pg (27.0-31.0); MEAN CORPUSCULAR HGB CONC 33.1 g/dl (33.0-37.0); MEAN PLATELET VOLUME 10.4 fl (9.6-12.3); MONO # 0.5 10*3/uL (0.1-1.0); MONO % 7.8 % (3.0-9.0); NEUT # 4.6 10*3/uL (2.3-7.9); NEUT % 70.2 % (47.0-73.0); PLATELET COUNT AUTOMATED 183 10*3/uL (130-400); RED CELL DISTRI WIDTH 15.9 % (0-14.5); WHITE BLOOD COUNT 6.5 10*3/uL (4.8-10.8)
[2017-05-24 12:55] LABS: CREATININE 2.3 mg/dL (0.70-1.30); POTASSIUM 4.1 mmol/L (3.5-5.1)
== END ==
LOC: SDC 02:27
PROVIDERS: Specialist
DX: Z48.01 Encounter for change or removal of surgical wound dressing (principal)

== ENCOUNTER 2017-05-30 17:08 | Emergency (ER) | payer MEDICARE ==
[~2017-05-30] VITALS: Ht 182.8 cm; Wt 90.7 kg
[2017-05-30 17:44] LABS: BASO # 0.1 10*3/uL (0.0-0.1); BASO % 0.9 % (0.0-1.0); EOS # 0.2 10*3/uL (0.0-0.4); EOS % 3.6 % (1.0-4.0); HEMATOCRIT 37.7 % (42.0-52.0); HEMOGLOBIN 12.8 g/dl (14.0-18.0); LYMPH # 1.7 10*3/uL (1.3-4.4); MEAN CELL VOLUME 92.6 fl (80.0-94.0); MEAN CORPUSCULAR HGB 31.4 pg (27.0-31.0); MEAN PLATELET VOLUME 9.9 fl (9.6-12.3); MONO # 0.6 10*3/uL (0.1-1.0); MONO % 8.3 % (3.0-9.0); NEUT # 4.1 10*3/uL (2.3-7.9); NEUT % 61.9 % (47.0-73.0); PLATELET COUNT AUTOMATED 193 10*3/uL (130-400); RED BLOOD COUNT 4.07 10*6/uL (4.50-5.90); RED CELL DISTRI WIDTH 15.5 % (0-14.5); WHITE BLOOD COUNT 6.6 10*3/uL (4.8-10.8)
[2017-05-30 17:51] LABS: INTERNATIONAL NORM RATIO 3.4 (2.0-3.5)
[2017-05-30 18:02] LABS: ALBUMIN 3.2 gm/dl (3.1-4.5); CREATININE 2.76 mg/dL (0.70-1.30); POTASSIUM 4.2 mmol/L (3.5-5.1); TOTAL PROTEIN 6.3 gm/dL (6.4-8.2)
[2017-05-30 18:08] LABS: TROPONIN I 0.056 ng/ml (<0.045)
[2017-05-30 19:18] VITALS: BP 109/60
== END 2017-05-30 22:20 | disposition short-term general hospital (02) ==
LOC: ED 17:08
PROVIDERS: Physician Assistant
DX: Z45.1 Encounter for adjustment and management of infusion pump (principal); I50.9 Heart failure, unspecified; I25.2 Old myocardial infarction; I48.91 Unspecified atrial fibrillation; Z95.1 Presence of aortocoronary bypass graft; Z96.642 Presence of left artificial hip joint; Z98.890 Other specified postprocedural states; Z87.891 Personal history of nicotine dependence; Z79.01 Long term (current) use of anticoagulants; Z79.82 Long term (current) use of aspirin; Z79.899 Other long term (current) drug therapy; Z88.8 Allergy status to other drugs, medicaments and biological substances

== ENCOUNTER → 2017-06-07 | Day surgery (SDC) | payer MEDICARE ==
[2017-06-07 11:42] LABS: BASO # 0.1 10*3/uL (0.0-0.1); BASO % 0.9 % (0.0-1.0); EOS # 0.3 10*3/uL (0.0-0.4); EOS % 4.6 % (1.0-4.0); HEMATOCRIT 36.2 % (42.0-52.0); HEMOGLOBIN 12.3 g/dl (14.0-18.0); LYMPH % 17.6 % (27.0-41.0); MEAN CELL VOLUME 94.3 fl (80.0-94.0); MEAN PLATELET VOLUME 9.8 fl (9.6-12.3); MONO # 0.5 10*3/uL (0.1-1.0); MONO % 9.4 % (3.0-9.0); NEUT # 3.8 10*3/uL (2.3-7.9); NEUT % 67.3 % (47.0-73.0); PLATELET COUNT AUTOMATED 166 10*3/uL (130-400); RED BLOOD COUNT 3.84 10*6/uL (4.50-5.90); RED CELL DISTRI WIDTH 15.2 % (0-14.5); WHITE BLOOD COUNT 5.6 10*3/uL (4.8-10.8)
[2017-06-07 11:52] LABS: CREATININE 2.44 mg/dL (0.70-1.30); POTASSIUM 4.2 mmol/L (3.5-5.1)
== END | disposition home or self-care (01) ==
LOC: SDC 01:35
PROVIDERS: Specialist
DX: Z48.01 Encounter for change or removal of surgical wound dressing (principal)

== ENCOUNTER → 2017-06-14 | Day surgery (SDC) | payer MEDICARE ==
[2017-06-14 12:10] LABS: BASO # 0.1 10*3/uL (0.0-0.1); BASO % 0.9 % (0.0-1.0); EOS # 0.3 10*3/uL (0.0-0.4); EOS % 4.4 % (1.0-4.0); HEMATOCRIT 39.2 % (42.0-52.0); LYMPH # 1.1 10*3/uL (1.3-4.4); LYMPH % 19.8 % (27.0-41.0); MEAN CELL VOLUME 93.8 fl (80.0-94.0); MEAN CORPUSCULAR HGB 31.1 pg (27.0-31.0); MEAN CORPUSCULAR HGB CONC 33.2 g/dl (33.0-37.0); MEAN PLATELET VOLUME 9.8 fl (9.6-12.3); MONO # 0.5 10*3/uL (0.1-1.0); MONO % 8.4 % (3.0-9.0); NEUT # 3.8 10*3/uL (2.3-7.9); NEUT % 66.2 % (47.0-73.0); PLATELET COUNT AUTOMATED 172 10*3/uL (130-400); RED BLOOD COUNT 4.18 10*6/uL (4.50-5.90); WHITE BLOOD COUNT 5.7 10*3/uL (4.8-10.8)
== END | disposition home or self-care (01) ==
LOC: SDC 00:34
PROVIDERS: Specialist
DX: Z48.01 Encounter for change or removal of surgical wound dressing (principal); I50.9 Heart failure, unspecified

== ENCOUNTER → 2017-06-21 | Day surgery (SDC) | payer MEDICARE ==
[2017-06-21 12:26] LABS: BASO # 0.1 10*3/uL (0.0-0.1); BASO % 0.7 % (0.0-1.0); EOS # 0.2 10*3/uL (0.0-0.4); EOS % 2.9 % (1.0-4.0); HEMATOCRIT 38.4 % (42.0-52.0); HEMOGLOBIN 12.7 g/dl (14.0-18.0); LYMPH # 1.1 10*3/uL (1.3-4.4); LYMPH % 15.8 % (27.0-41.0); MEAN CORPUSCULAR HGB 31.4 pg (27.0-31.0); MEAN CORPUSCULAR HGB CONC 33.1 g/dl (33.0-37.0); MEAN PLATELET VOLUME 10.3 fl (9.6-12.3); MONO # 0.7 10*3/uL (0.1-1.0); NEUT # 5.1 10*3/uL (2.3-7.9); NEUT % 71.2 % (47.0-73.0); PLATELET COUNT AUTOMATED 182 10*3/uL (130-400); RED BLOOD COUNT 4.04 10*6/uL (4.50-5.90); RED CELL DISTRI WIDTH 14.8 % (0-14.5); WHITE BLOOD COUNT 7.2 10*3/uL (4.8-10.8)
[2017-06-21 12:43] LABS: CREATININE 2.15 mg/dL (0.70-1.30); POTASSIUM 4.1 mmol/L (3.5-5.1)
== END ==
LOC: SDC 03:30
PROVIDERS: Specialist
DX: Z48.01 Encounter for change or removal of surgical wound dressing (principal); I48.2 Chronic atrial fibrillation; I25.10 Atherosclerotic heart disease of native coronary artery without angina pectoris; N18.3 Chronic kidney disease, stage 3 (moderate)

== ENCOUNTER → 2017-06-28 | Day surgery (SDC) | payer MEDICARE ==
[2017-06-28 12:01] LABS: BASO # 0.1 10*3/uL (0.0-0.1); BASO % 0.9 % (0.0-1.0); EOS # 0.2 10*3/uL (0.0-0.4); EOS % 2.6 % (1.0-4.0); HEMATOCRIT 37.6 % (42.0-52.0); HEMOGLOBIN 12.5 g/dl (14.0-18.0); LYMPH # 1.2 10*3/uL (1.3-4.4); LYMPH % 17.7 % (27.0-41.0); MEAN CELL VOLUME 94.7 fl (80.0-94.0); MEAN CORPUSCULAR HGB 31.5 pg (27.0-31.0); MEAN CORPUSCULAR HGB CONC 33.2 g/dl (33.0-37.0); MEAN PLATELET VOLUME 9.9 fl (9.6-12.3); MONO # 0.6 10*3/uL (0.1-1.0); MONO % 8.1 % (3.0-9.0); NEUT # 4.9 10*3/uL (2.3-7.9); NEUT % 70.4 % (47.0-73.0); PLATELET COUNT AUTOMATED 178 10*3/uL (130-400); RED BLOOD COUNT 3.97 10*6/uL (4.50-5.90); RED CELL DISTRI WIDTH 14.3 % (0-14.5); WHITE BLOOD COUNT 6.9 10*3/uL (4.8-10.8)
[2017-06-28 12:23] LABS: CREATININE 2.48 mg/dL (0.70-1.30); POTASSIUM 4.3 mmol/L (3.5-5.1)
== END | disposition home or self-care (01) ==
LOC: SDC 00:24
PROVIDERS: Specialist
DX: Z48.01 Encounter for change or removal of surgical wound dressing (principal); I50.9 Heart failure, unspecified

== ENCOUNTER → 2017-07-06 | Day surgery (SDC) | payer MEDICARE ==
[2017-07-06 12:24] VITALS: BP 104/50
== END | disposition home or self-care (01) ==
LOC: SDC 07-05 02:36
DX: Z48.01 Encounter for change or removal of surgical wound dressing (principal); Z88.8 Allergy status to other drugs, medicaments and biological substances; I25.10 Atherosclerotic heart disease of native coronary artery without angina pectoris; N18.3 Chronic kidney disease, stage 3 (moderate); I12.9 Hypertensive chronic kidney disease with stage 1 through stage 4 chronic kidney disease, or unspecified chronic kidney disease

== ENCOUNTER → 2017-07-12 | Day surgery (SDC) | payer MEDICARE ==
[2017-07-12 13:05] LABS: BASO # 0.1 10*3/uL (0.0-0.1); EOS # 0.2 10*3/uL (0.0-0.4); EOS % 3.4 % (1.0-4.0); HEMATOCRIT 38.7 % (42.0-52.0); HEMOGLOBIN 12.7 g/dl (14.0-18.0); LYMPH # 1.1 10*3/uL (1.3-4.4); LYMPH % 18.2 % (27.0-41.0); MEAN CELL VOLUME 95.3 fl (80.0-94.0); MEAN CORPUSCULAR HGB 31.3 pg (27.0-31.0); MEAN CORPUSCULAR HGB CONC 32.8 g/dl (33.0-37.0); MEAN PLATELET VOLUME 9.9 fl (9.6-12.3); MONO # 0.6 10*3/uL (0.1-1.0); MONO % 9.5 % (3.0-9.0); NEUT # 4.2 10*3/uL (2.3-7.9); NEUT % 67.4 % (47.0-73.0); PLATELET COUNT AUTOMATED 164 10*3/uL (130-400); RED BLOOD COUNT 4.06 10*6/uL (4.50-5.90); RED CELL DISTRI WIDTH 14.2 % (0-14.5); WHITE BLOOD COUNT 6.2 10*3/uL (4.8-10.8)
[2017-07-12 13:32] LABS: CREATININE 2.19 mg/dL (0.70-1.30); POTASSIUM 4.1 mmol/L (3.5-5.1)
== END | disposition home or self-care (01) ==
LOC: SDC 00:46
PROVIDERS: Specialist
DX: Z48.01 Encounter for change or removal of surgical wound dressing (principal); I50.9 Heart failure, unspecified; Z88.8 Allergy status to other drugs, medicaments and biological substances

== ENCOUNTER → 2017-07-19 | Day surgery (SDC) | payer MEDICARE | END | disposition home or self-care (01) | LOC: SDC 02:06 | DX: Z48.01 Encounter for change or removal of surgical wound dressing (principal); I48.2 Chronic atrial fibrillation; N18.3 Chronic kidney disease, stage 3 (moderate); I25.10 Atherosclerotic heart disease of native coronary artery without angina pectoris ==

== ENCOUNTER 2017-07-26 10:05 | Inpatient (IN) | payer MEDICARE ==
[~2017-07-26] VITALS: Ht 182.8 cm; Wt 86.7 kg
--- NOTE | ~2017-07-26 | PR ---
[place], [place] PROGRESS NOTE NAME: [id number] UNIT #: [id number] ROOM: 510 DOCTOR: DWAYNE ISABEL MD BIRTHDATE: [birth year] DOS: 08/04/2017 SUBJECTIVE: The patient noted comfortable at this time, resting in the bed, cough has been still noted. He has been planned for home discharge since the long-term facility denied for this patient because of the milrinone use on a daily basis. He has been noted without symptoms of acute shortness of breath. There was no chest pain. OBJECTIVE: VITAL SIGNS: For the patient which has been recorded showed normal temperature, respiratory rate 20, heart rate 69, blood pressure 119/64. Pulse oxygen saturation on room air 95% saturation. HEENT: Examination shows head was atraumatic. Eyes nonicterus. NECK: Supple. CARDIOVASCULAR: S1, S2 is audible. LUNGS: The patient was noted without any crackles, rhonchi, or wheezing. ABDOMEN: Soft, nontender. EXTREMITIES: Without acute edema. LABORATORY DATA: INR 2.7 today noted, which is in the therapeutic range. IMPRESSION: 1. Acute Staph aureus, tracheobronchitis as well as acute pneumonia. 2. History of chronic long-term systolic dysfunction, cardiomyopathy, on milrinone drip for this patient on a daily basis. 3. Chronic anticoagulation. The patient noted therapeutic INR. PLAN OF MANAGEMENT: The patient has been considered for home discharge on oral antibiotics. Milrinone will be continued. Continuation of bronchodilator as a treatment plan of management. Additional treatment changes to be made for the patient based on progression of the illness. The patient was ordered the cough medication in the form of Tessalon Perles 200 mg b.i.d. for the management of the cough. [place], [place] PROGRESS NOTE NAME: NORM DOWNS JR [facility] UNIT #: [id number] ROOM: 510 DOCTOR: DWAYNE ISABEL MD BIRTHDATE: [birth year] DWAYNE THOMAS MD CM:PNTRANS [id number] DWAYNE REID MD 08/05/17 0048 interface
--- NOTE | ~2017-07-26 | CON ---
[place], [place] REPORT OF CONSULTATION NAME: NORM DOWNS JR [facility] #: [id number] UNIT #: [id number] ROOM: 510 DOCTOR: DWAYNE ISABEL MD BIRTHDATE: [birth year] DOS: 07/30/2017 PULMONARY CONSULTATION, EVALUATION AND MANAGEMENT REASON FOR CONSULTATION: Assessment of symptoms of cough and other medical problem. HISTORY OF PRESENT ILLNESS: This is a 77-year-old white male with history of severe cardiomyopathy, known and getting intravenous milrinone infusion by pump for this patient for the past 1 year, under the care of a energy conservation technician. The patient developed symptoms of fever with the chills. He was seen as an outpatient in the office of primary care physician, rapid influenza testing was done, which was noted negative. The patient was started on Medrol Dosepak. He presented to the Emergency on 07/26/2017 accompanied with his . The patient's symptoms has been noted progressively worsened. He was also noted progressive general weakness, fatigue with excessive chest congestion with cough. The cough has been noted with minimal sputum expectoration. The patient's temperature was also described at home as 102 degrees Fahrenheit associated with chills. The patient has been hospitalized and currently treated as he was noted positive for influenza infection. This morning as the patient was seen, he was still noted chest congestion for the patient and unable to expectorate any sputum. Denies symptoms of hemoptysis. Denies any symptoms of chest pain, shortness breath was noted mild for the patient at rest. REVIEW OF SYSTEMS: CONSTITUTIONAL SYMPTOMS: Fatigue and tiredness still remains persistent at the present time. Symptoms of fever or chills for the patient noted previously on admission and was noted absent this morning. EYES: Denies any burning, redness, discharge, or pain. EARS, NOSE AND THROAT SYMPTOMS: No sore throat, hoarseness, otalgia, postnasal drainage or epistaxis. CARDIOVASCULAR SYSTEM: Denies angina pain, edema or pain of the lower extremities. GASTROINTESTINAL: Denies dysphagia, nausea, vomiting, diarrhea, abdominal pain, hematemesis, melena or hematochezia. GENITOURINARY: Denies dysuria, suprapubic pain, hematuria. MUSCULOSKELETAL SYMPTOMS: Denies acute symptoms of acute joint pain, redness, or tenderness. CENTRAL NERVOUS SYSTEM: General weakness and fatigue, recent imbalance of the patient with dizziness, but there were no focal neurologic deficits reported. Remaining systems were reviewed with the patient, they were noted all negative. PAST MEDICAL HISTORY: 1. Severe cardiomyopathy with systolic dysfunction. 2. Coronary artery disease. 3. Aortic stenosis. 4. Coronary artery disease with past myocardial infarction. 5. The mitral valve insufficiency. 6. Mixed hyperlipidemia. [place], [place] REPORT OF CONSULTATION NAME: NORM DOWNS JR [facility] #: [id number] UNIT #: [id number] ROOM: [facility] DOCTOR: STEPHANI ISABEL MDM BIRTHDATE: [birth year] 7. History of orthostatic hypotension. 8. Type 2 diabetes mellitus. 9. Vitamin D deficiency. PAST SURGICAL HISTORY: 1. Cardiac catheterization. 2. AICD insertion. 3. Left hip replacement. 4. The left shoulder replacement. 5. Surgery of the mandible. 6. Coronary artery bypass grafting for this patient as well as a mitral valve replacement as well. 7. Cardiac catheterization and coronary artery stents insertion. SOCIAL HISTORY: The patient is and lives at home. He has been noted history of tobacco use for the patient a pack of cigarettes per day, started as a teenager that was discontinued 25 years ago. He occasionally smokes cigars. There was no history of alcohol use or illicit drugs. FAMILY HISTORY: The patient's father at 61 years old, complication of myocardial infarction. Mother at the age of 7070 years old with complications of stroke. HOME MEDICATIONS: List on admission, use of Xanax, amiodarone, vitamin C, aspirin, Coreg, vitamin D, vitamin B12, fenofibrate, ferrous sulfate, fish oil, Lasix, magnesium oxide, Protonix, potassium chloride, pravastatin, sertraline, temazepam, Coumadin and intravenous milrinone infusions. DRUG ALLERGY HISTORY: REPORTED ALLERGY TO THE LISINOPRIL WITH SEVERE ANAPHYLAXIS. PHYSICAL EXAMINATION: GENERAL: This is a 77-year-old white male who has been noted currently awake and alert, lying in the bed without any acute distress. The patient has been noted with coughing, chest congestion, no sputum expectoration. Height for the patient noted 6 feet, weight of 199 pounds, BMI 27. VITAL SIGNS: Temperature 100.9 degrees Fahrenheit noted on 07/28/2017 and 103 degree Fahrenheit on 07/27/2017. After that, the patient was noted with low-grade fever of 99.9 degree Fahrenheit to normal temperature. Respiration 18-20, heart rate 72-69, blood pressure 136/65-128/57. The pulse oxygen saturation on 2-liter nasal cannula was 95% saturation. HEENT: Examination shows head was atraumatic. Eyes nonicterus, age-related changes. Oral mucosa was moist. CARDIOVASCULAR: S1, S2 is audible. LUNGS: The patient was noted without any wheezing or crackles at the present time. ABDOMEN: Soft, nontender. Bowel sounds present. EXTREMITIES: The patient was noted without any acute edema, clubbing or cyanosis. CENTRAL NERVOUS SYSTEM: The patient was noted generally weak and fatigued [place], [place] REPORT OF CONSULTATION NAME: NORM DOWNS JR UNIT #: [id number] ROOM: [facility] DOCTOR: WILLIAM REID MDDWAYNE BIRTHDATE: [birth year] without any focal neurologic deficit. MUSCULOSKELETAL SYMPTOMS: Without any acute deformities. LABORATORY DATA: Labs on this patient. Lactic acid on admission 0.9. CBC on admission, WBC count normal, platelet count normal, hemoglobin 12.5. CMP of the patient on 07/26/2017, BUN 42, creatinine 2.32. Troponin 0.894. Influenza A and B, nasal washing antigen noted positive, influenza B infection. The PT/INR for the patient on 07/28/2017 was 2.2. The BMP of the patient on 07/28/2017, BUN 41, creatinine 2.07. The PT/INR of the patient that was done this morning noted as 3.0. Yesterday, INR was 2.9. Blood cultures, no bacterial growth. Chest x-ray that was done for this patient on 07/27/2017, 1 view was noted cardiomegaly with the post coronary artery bypass grafting changes, the AICD noted in the left chest. Evidence of left shoulder arthroplasty as well. IMPRESSION: 1. The patient who has been currently noted with persistent respiratory symptoms, coughing with acute bronchitis for the patient, possibly retained secretion of the airways or any interval development of pneumonia cannot be completely excluded. 2. Acute influenza B infection. 3. Acute kidney injury for the patient, which is improving. 4. Chronic anticoagulation of the patient with history of cardiac dysrhythmias noted with a therapeutic PT/INR. PLAN OF MANAGEMENT: I have ordered a new chest x-ray for the patient to reassess the progression of any illness to assess for the current ongoing cough. Continue previous other medication as ordered. Sputum for Gram stain and culture will be ordered. Empirical use of antibiotic ____ superimposed infection such as doxycycline orally use of 100 mg p.o. b.i.d. will be ordered. After the assessment of chest x-ray of the patient, any additional treatment change if necessary will be ordered accordingly. If necessary, bronchoscopy could be considered and done on this admission if the symptom remains persistent and does not resolve for the patient to the conservative treatment. The flutter valve was also ordered. Thanks for allowing me to participate in the care of this patient. DWAYNE THOMAS MD CM:CONSTR:REPORT OF CONSULTATION [id number] 07/31/17 0013 interface
--- NOTE | ~2017-07-26 | PR ---
[place], [place] PROGRESS NOTE NAME: NORM DOWNS JR [facility] #: [id number] UNIT #: [id number] ROOM: 510 DOCTOR: WILLIAM REID MD,DWAYNE BIRTHDATE: [birth year] DOS: 08/03/2017 SUBJECTIVE: He has been noted with gradual reduction in symptoms of cough. Denies symptoms of chest pain or any hemoptysis. He was noted generalized weakness and fatigue, at the present time. Shortness of breath, the patient has been improving progressively. OBJECTIVE: VITAL SIGNS: Normal temperature, respiratory rate 20, heart rate of 70, blood pressure 114/52. Pulse oxygen saturation on room air 95% saturation. HEENT: Examination shows head was atraumatic. Eyes nonicterus. NECK: Supple. CARDIOVASCULAR: S1, S2 audible. LUNGS: The patient was noted scattered occasional wheezing, no crackles. ABDOMEN: Soft, nontender. EXTREMITIES: Without any acute edema. LABORATORY DATA: Culture of the bronchial washing also confirmed the presence of moderate growth of Staph aureus. The INR today noted as 2.2, which is therapeutic. IMPRESSION: Debility and acute pneumonia with Staphylococcus aureus. The patient with the respiratory symptoms after the influenza infection, which has been improving progressively. PLAN OF MANAGEMENT: Considered placement in the fpc facility for rehabilitation prior to final home discharge consideration. DWAYNE THOMAS MD CM:PNTRANS [id number] DWAYNE REID MD 08/03/172117 interface
--- NOTE | ~2017-07-26 | PR ---
[place], [place] PROGRESS NOTE NAME: NORM DOWNS JR [facility] #: [id number] UNIT #: [id number] ROOM: 510 DOCTOR: DHARA COURTNEY BIRTHDATE: [birth year] DOS: 08/01/2017 SUBJECTIVE: The patient is seen in his bed today, sitting upright. He is status post bronchoscopy at the time of the exam and is having a pretty persistent cough with some mucus production. The patient is still somewhat weak and fatigued, this may still be due in part to the sedation used for the bronchoscopy and also likely due in part to his infection with influenza. He denies any chest pain, fever, chills, nausea, vomiting at this time. OBJECTIVE: VITAL SIGNS: At time of exam, most recent temperature is 97.8, pulse 70, respirations 24, blood pressure 107/80, bedside pulse ox 96% on 3 liters via nasal cannula. HEENT: Normocephalic, atraumatic. Eyes are nonicteric. Nares are patent. NECK: Supple, nontender. CARDIOVASCULAR: Regular rate and rhythm with no rubs, murmurs or gallops. LUNGS: Coarse breath sounds bilaterally with some faint wheeze noted on expiration in the upper lung lozoya bilaterally. ABDOMEN: Soft, nontender, nondistended. Bowel sounds are positive. EXTREMITIES: No clubbing, no cyanosis, no erythema, no edema. NEUROLOGIC: Grossly intact without focal neuro deficits. Sensation grossly intact. SKIN: Warm and dry, no rashes. There are multiple areas of ecchymoses present to the extremities and trunk, particularly left posterior flank. LABORATORY AND DIAGNOSTIC DATA: CBC shows white blood cell count 6.7, hemoglobin 10.6, hematocrit 32.9, platelet count 207. PT and INR today showed PT at 19.9 and INR is 1.8. BMP today shows sodium 138, potassium 4.7, chloride 104, bicarbonate 26, BUN 36, creatinine 1.94, glucose 103, and calcium 9.4. Blood cultures are negative. Sputum culture shows moderate GPCs identified as Staph aureus that is sensitive to methicillin, also sensitive to Cipro, Levaquin, clindamycin, doxycycline, Bactrim and vancomycin, but resistant to penicillin. Bronchial washing cultures have been ordered and are pending. IMPRESSION: 1. Acute right lower lobe pneumonia. 2. Influenza B infection. 3. Atrial fibrillation with subtherapeutic INR, on Coumadin. 4. 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 PLAN OF MANAGEMENT AND TREATMENT PLAN: The patient is status post bronchoscopy today. Cultures have been sent from the bronchial washings. Added Mucinex DM 1 tab q. 12 to help the patient with his harsh cough. Continue antibiotics with p.o. doxycycline, and await results of bronchial washing cultures. Continue DuoNeb breathing treatments. COURTNEY JULES DO [place], [place] PROGRESS NOTE NAME: NORM DOWNS JR UNIT #: [id number] ROOM: [facility] DOCTOR: COURTNEY JULES DO BIRTHDATE: [birth year] DWAYNE THOMAS MD CM:LI [id number] COURTNEY JULES DO 08/01/17 1300 interface
--- NOTE | ~2017-07-26 | CON ---
[place], [place] REPORT OF CONSULTATION NAME: NORM DOWNS JR [facility] #: [id number] UNIT #: [id number] ROOM: 510 DOCTOR: TOVA GRANT MD BIRTHDATE: [birth year] DOS: 07/26/2017 REASON FOR CONSULTATION: Elevated troponin. HISTORY OF PRESENT ILLNESS: The patient is a 77-year-old gentleman with history of coronary artery disease, valvular heart disease, severe end-stage cardiomyopathy, presented to the Emergency Room because of malaise. He also comes in with shortness of breath and some cough. He noted to be in some congestive heart failure and also diagnosed with influenza B and was admitted to the hospital in a Cardiology consult for his elevated troponin. He has history of atrial fibrillation and chronic kidney disease after he had an ICD implanted in the past. He is also reportedly having high temperatures at home with some chills. He was seen by Dr. Baez, his family physician, and he was given some Medrol Dosepak, but he denies any PND, orthopnea. No nausea, vomiting, diarrhea. No blurred vision or double vision. No headache. No bladder symptoms. The patient was also having chronic borderline low blood pressures. He was on IV milrinone drip. REVIEW OF SYSTEMS: Review of the 10 system negative except as mentioned. PAST MEDICAL HISTORY: 1. Coronary artery disease, status post bypass surgery. 2. Valvular heart disease, status post mitral valve replacement. 3. Paroxysmal atrial fibrillation. 4. Severe ischemic cardiomyopathy. 5. Chronic kidney disease, stage 4. 6. Status post ICD with status post multiple generator replacements. 7. Anemia. PAST SURGICAL HISTORY: History of bypass surgery and history of mitral valve replacement and history of ICD implant. HOME MEDICATIONS: Reviewed. FAMILY HISTORY: Noncontributory due to his significant coronary artery disease. ALLERGIES: Reviewed. PHYSICAL EXAMINATION: VITAL SIGNS: Blood pressure 93/43, pulse 70, respiratory rate of 18, weight 90.2 kilos with a BMI of 27. GENERAL: Alert, comfortable, in no acute distress. NECK: Supple. No distended neck veins. No carotid bruit. CHEST: Nontender. LUNGS: A few scattered rhonchi. HEART: Regular rhythm, no S3, grade 2/6 systolic murmur. No palpable thrills. ABDOMEN: Benign, nontender. Bowel sounds normal. EXTREMITIES: Showed trace edema. Distal pulses palpable. SKIN: Warm and dry. No cyanosis, no clubbing. RECTAL: Deferred. [place], [place] REPORT OF CONSULTATION NAME: NORM DOWNS JR UNIT #: [id number] ROOM: [facility] DOCTOR: TOVA GRANT MD BIRTHDATE: [birth year] GENITOURINARY: Deferred. REVIEW OF THE DIAGNOSTIC TESTS: His rhythm strip showed ventricular pacing. His labs and imaging studies reviewed. Hemoglobin 12.1, creatinine 2.32. INR 2.4. Troponin 0.89. IMPRESSION: 1. Borderline elevation of troponin with normal CK-MB, most likely due to chronic kidney disease. However type 2 NSTEMI cannot be ruled out due to his influenza B with shortness of breath. The patient denies any chest pain. 2. Paroxysmal atrial fibrillation, on Coumadin with INR 2.4. 3. Influenza B. 4. Coronary artery disease, status post bypass surgery. 5. Valvular disease, status post mitral regurgitation. 6. Chronic kidney disease stage 4. 7. Anemia. 8. Chronic low blood pressure. 9. The patient is on milrinone IV drip. RECOMMENDATIONS: 1. He denies any chest pain. Blood pressure borderline low, which is his baseline. Resume his amiodarone 200 every other day and Coreg 6.125 twice a day and continue Coumadin at 2 mg per day until his next INR. 2. Again, the patient would like to go back on his home medications since the systolic pressures runs around 90-100, no further cardiac testing and the patient and his who is at bedside are agreeable for my recommendations. 3. Continue current cardiac medications and he will followed by his combination building inspector in [place]. 4. The patient is not on LILIANE, ARBS or Aldactone due to his chronic kidney disease. TOVA GRANT MD CM:CONSTR:REPORT OF CONSULTATION 2218 07/27/17 0023 interface
--- NOTE | ~2017-07-26 | PR ---
[place], [place] PROGRESS NOTE NAME: NORM DOWNS JR [facility] [facility] #: [id number] UNIT #: [id number] ROOM: 510 DOCTOR: DWAYNE ISABEL MD BIRTHDATE: [birth year] DOS: 08/02/2017 SUBJECTIVE: The patient had successful completion of bronchoscopy yesterday with copious amount of mucopurulent material removed from the endobronchial tree bilaterally. The patient has not been noted with any symptoms of chest pain or any abdominal pain. The shortness of breath of the patient has been still noted and is unchanged. Denies symptoms of abdominal pain. OBJECTIVE: VITAL SIGNS: For the patient, which have been recorded shows the temperature noted normal, respiratory rate 20, heart rate of 70, blood pressure 114/56-121/57. Pulse oxygen saturation on room air was 94% saturation. HEENT: Head was atraumatic. Eyes nonicterus. NECK: Supple. CARDIOVASCULAR: S1, S2 audible. LUNGS: Scattered crackles noted in the lungs bilaterally. ABDOMEN: Soft, nontender. Bowel sounds present. EXTREMITIES: Without any acute edema. LABORATORY DATA: The culture of the bronchial washing of the patient from yesterday shows moderate growth of gram-positive cocci. Gram stain, few epithelial cells, many white blood cells, moderate gram-positive cocci in pairs with few gram-positive cocci in clusters, rare budding yeast, and rare gram-negative bacilli. IMPRESSION: 1. Acute severe tracheobronchitis with acute pneumonia with Staphylococcus aureus and post-viral syndrome for the patient after the acute influenza infection. 2. History of chronic cardiomyopathy of the patient noted, treated with IV milrinone infusions. PLAN OF MANAGEMENT: Continue antibiotics of the, patient bronchodilators. Monitor respiratory status. Oxygen supplementation. Continuation of his anticoagulation. Supportive therapy, plan of management as previously. Usual care. [place], [place] PROGRESS NOTE NAME: DOWNS JRNORM [place] ACC #: [id number] UNIT #: [id number] ROOM: 510 DOCTOR: DWAYNE ISABEL MD BIRTHDATE: [birth year] DWAYNE THOMAS MD CM:PNTRANS [id number] DWAYNE REID MD 08/03/17 0042 interface
--- NOTE | ~2017-07-26 | EKG ---
[place], [place] ELECTROCARDIOGRAM REPORT NAME: NORM DOWNS JR UNIT #: [id number] ROOM: [facility] DOCTOR: WILLIAM REID MD,DWAYNE BIRTHDATE: [birth year] DOS: 07/31/2017 TIME: 9:34 a.m. EKG shows paced rhythm for the patient with ventricular pacing, heart rate of 70 beats per minute. DWAYNE THOMAS MD CM:EKGRPT:ELECTROCARDIOGRAM REPORT [id number] DWAYNE REID MD
--- NOTE | ~2017-07-26 | PROC NOTE ---
[place], [place] PROCEDURE NOTE NAME: N[facility] DOWNS JR [facility] [id number] UNIT #: [id number] ROOM: 510 DOCTOR: WILLIAM REID MD,DWAYNE BIRTHDATE: [birth year] DOS: 08/01/2017 PROCEDURE: Bronchoscopy note. PREOPERATIVE DIAGNOSES: The patient has excessive severe chest congestion and coughing. The patient with wheezing, not responding to current maximum medical therapy, recent isolation Staph aureus from the sputum culture for the acute pneumonia as well. POSTOPERATIVE DIAGNOSES: Severe purulent pneumonia for the patient was noted with copious amount of bilious secretions, removed the endobronchial tree much greater on the right than the left endobronchial tree. PROCEDURE DESCRIPTION: Informed consent obtained for the patient. The patient brought to the OR and placed in supine position. Conscious administered by the Anesthesia Department. After that, airway introduced the mouth. Bronchoscope advanced to the airway into laryngeal area. Epiglottis and vocal cords were seen. Vocal cord moving symmetrical movement. Bronchoscope entered vocal cords into the tracheal lumen. The tracheal lumen noted to be full of copious purulent secretion for this patient, which were noted very purulent patient up to the marybeth level. All secretions suctioned out with half normal saline wash. The patient was noted with similar secretion, which has been failing the right main stem bronchus significantly as impaction of the mucus and significant secretions. Right endobronchial tree. Small amount of secretion through the left endobronchial tree was noted all secretions. Findings clear of the patient after normal saline wash. Inflammatory changes noted in the mucosa of the trachea in the endobronchial tree. Procedure well tolerated by the patient except transient hypoxia, treated with additional supplementation of oxygen. Postoperative findings were discussed with patient's in detail. No change in treatment at this time will be necessary. Continue current plan of management for the patient as in progress. DWAYNE THOMAS MD CM:PROCNOTE:PROCEDURE NOTE [id number] DWAYNE REID MD
--- NOTE | ~2017-07-26 | PR ---
[place], [place] PROGRESS NOTE NAME: NORM DOWNS JR [facility] #: [id number] UNIT #: [id number] ROOM: 510 DOCTOR: DWAYNE ISABEL MD BIRTHDATE: [birth year] DOS: 08/01/2017 SUBJECTIVE: He has been n.p.o. past midnight for bronchoscopy. He was noted severe excessive chest congestion and coughing and inability to expectorate any sputum. He is n.p.o. past midnight. The patient denies symptoms of hemoptysis. There were symptoms of chest pain, shortness of breath, was not noted at rest. The patient was noted or decreased mobility with general weakness, fatigue. Denies symptoms of headache, nausea, vomiting, diarrhea, or hematuria. Remaining systems were reviewed. They were noted all negative. OBJECTIVE: VITAL SIGNS: Shows a normal temperature, respiratory rate of 20, heart rate 70, blood pressure 118/69 ____. Pulse oxygen saturation of the patient recorded on 3 liters nasal cannula was 96% saturation. HEENT: Examination shows head was atraumatic. Eye nonicterus. NECK: Supple. CARDIOVASCULAR: S1, S2 audible. LUNGS: Decreased breath sounds, scattered crackles in the lungs with expiratory wheezing. ABDOMEN: Soft, nontender. EXTREMITIES: Without any acute edema. SKIN: With the dryness of the skin scattered, bruising, which is chronic. MUSCULOSKELETAL: General weakness, fatigue. No focal deficit. GENITOURINARY: The patient was noted and otherwise intact. LABORATORY DATA: The culture of the sputum, the patient noted moderate growth of Staph aureus noted with methicillin-sensitive species. BMP this morning, BUN 36, creatinine 1.94, glucose 103. Remaining electrolytes normal. The INR noted 1.8, subtherapeutic. The patient administered oral vitamin K, low dose. CBC: WBC count 6.7, hemoglobin 10.6, hematocrit 32.9, and platelet count 207,000. IMPRESSION: 1. The patient is noted with acute viral illness with acute pneumonia with Staphylococcus aureus, superinfection. The patient has bacterial infection after current influenza infection would be considered very likely. 2. Severe chest congestion, if patient coughing with expectorate sputum, persistent respiratory symptoms with wheezing as well at times. PLAN OF MANAGEMENT: Continue bronchodilators, oxygen supplementation, antibiotics. The patient for the coverage of current infection. Proceed with the bronchoscopy. After bronchoscopy, additional changes in treatment if necessary will be made accordingly. The patient has been getting the doxycycline 100 mg p.o. b.i.d. that will be continued as the main antibiotic. The patient at this time changes the treatment to be done based on the new culture results of bronchial washings; other supportive therapy, plan of management and care. [place], [place] PROGRESS NOTE NAME[id number] UNIT #: [id number] ROOM: [facility] DOCTOR: DWAYNE ISABEL MD BIRTHDATE: [birth year] DWAYNE THOMAS MD CM:PNTRANS [id number] DWAYNE REID MD 08/02/17 0022 interface
--- NOTE | ~2017-07-26 | PR ---
[place], [place] PROGRESS NOTE NAME: NORM DOWNS JR [facility] #: [id number] UNIT #: [id number] ROOM: 510 DOCTOR: WILLIAM REID MDDWAYNE BIRTHDATE: [birth year] DOS: 07/31/2017 SUBJECTIVE: He was still noted excessive chest congestion at the present time. He has not been noted symptoms of abdominal pain, nausea, vomiting, diarrhea or any abdominal pain. The patient denies symptoms of hemoptysis and symptoms of fever or chills. The coughing has been noted moderate to severe, nonproductive. He has not reported any abdominal pain. General weakness, fatigue was reported with symptoms of dizziness, headache. Remaining systems were reviewed, they were noted all negative. OBJECTIVE: VITAL SIGNS: Normal temperature, respiratory rate 18, heart rate 79, blood pressure 97/55 to 153/73. Pulse oxygen saturation of the patient noted on 2 liters nasal cannula 95% saturation. HEENT: Examination shows head was atraumatic. Eyes nonicterus. NECK: Supple. CARDIOVASCULAR: S1, S2 is audible. LUNGS: The patient was noted with moderate decreased breath sounds in the lungs bilaterally. EXTREMITIES: Noted without any edema, clubbing, cyanosis. SKIN: Visible skin was noted without any lesions or rashes. MUSCULOSKELETAL SYMPTOMS: The patient noted without any acute deformities. CENTRAL NERVOUS SYSTEM: The patient's general weakness and fatigue was noted. LABORATORY DATA: The INR for the patient today was noted as 3.8 in the labs. The culture of the sputum for the patient preliminary showing normal aamir. Final culture results remain pending. IMPRESSION: 1. The patient with ongoing acute right lower lobe pneumonia. 2. Isolation of influenza infection. 3. The patient's Coumadin toxicity, secondary to drug interaction. 4. Acute kidney injury for the patient as well. 5. History of cardiac dysrhythmias. PLAN OF MANAGEMENT: The patient was suggested fiberoptic bronchoscopy because of severe chest congestion, coughing, not resolving at the present time with current medical management. Reversal of the PT/INR will be done for the patient ____ do the bronchoscopy tomorrow with the current Coumadin toxicity, a 2.5 mg oral vitamin K was administered. Risk and benefits of procedure have been discussed with the patient. Continue to monitor acute kidney injury for the patient and other medical management. Continuation of bronchodilators as previously ordered. No change in antibiotic would be necessary. Supportive therapy, plan of management and other care and treatment. Usual treatment, other supportive therapy and care plan. [place], [place] PROGRESS NOTE NAME: NORM DOWNS JR UNIT #: [id number] ROOM: [facility] DOCTOR: DWAYNE ISABEL MD BIRTHDATE: [birth year] DWAYNE THOMAS MD CM:PNTRANS 1259 DWAYNE REID MD 08/01/1750 interface
[2017-07-26 10:15] VITALS: BP 97/57
[2017-07-26 10:46] LABS: BASO % 0.1 % (0.0-1.0); EOS % 0.1 % (1.0-4.0); HEMATOCRIT 37.7 % (42.0-52.0); HEMOGLOBIN 12.5 g/dl (14.0-18.0); LYMPH # 1.1 10*3/uL (1.3-4.4); LYMPH % 11.1 % (27.0-41.0); MEAN CORPUSCULAR HGB 31.2 pg (27.0-31.0); MEAN CORPUSCULAR HGB CONC 33.2 g/dl (33.0-37.0); MEAN PLATELET VOLUME 9.9 fl (9.6-12.3); MONO # 0.8 10*3/uL (0.1-1.0); NEUT # 8.2 10*3/uL (2.3-7.9); NEUT % 80.4 % (47.0-73.0); PLATELET COUNT AUTOMATED 151 10*3/uL (130-400); RED BLOOD COUNT 4.01 10*6/uL (4.50-5.90); RED CELL DISTRI WIDTH 14.2 % (0-14.5); WHITE BLOOD COUNT 10.1 10*3/uL (4.8-10.8)
[2017-07-26 11:04] LABS: ALBUMIN 3.1 gm/dl (3.1-4.5); CREATININE 2.32 mg/dL (0.70-1.30); POTASSIUM 4.5 mmol/L (3.5-5.1); TOTAL PROTEIN 6.3 gm/dL (6.4-8.2)
[2017-07-26 11:07] LABS: TROPONIN I 0.894 ng/ml (<0.045)
[2017-07-26 12:19] LABS: INTERNATIONAL NORM RATIO 2.6 (2.0-3.5)
[2017-07-26] MEDS ORDERED: KLOR-CON M2020 ME1 PO (13:49)
[2017-07-26] MEDS ORDERED: MEDROL DOSEPAK4 MG PO (13:50)
[2017-07-26 14:00] VITALS: BP 122/62
[2017-07-26] MEDS ORDERED: OMEGA-3-ACID ETH1 GM PO (14:00)
[2017-07-26] MEDS ORDERED: FUROSEMIDE40 MG PO (14:02)
[2017-07-26] MEDS ORDERED: SERTRALINE HYDR25 MG PO (14:03)
[2017-07-26] MEDS ORDERED: FENOFIBRATE145 M1 PO (14:04)
[2017-07-26] MEDS ORDERED: PRAVASTATIN SOD80 MG PO (14:06)
[2017-07-26] MEDS ORDERED: COREG6.25 MG PO (14:06)
[2017-07-26] MEDS ORDERED: COUMADIN1 M1 PO (14:07)
[2017-07-26 14:30] VITALS: BP 93/45
[2017-07-26] MEDS ORDERED: PROTONIX40 MG PO (14:37)
[2017-07-26] MEDS ORDERED: MAGNESIUM400 M1 PO (14:57)
[2017-07-26 15:00] VITALS: BP 93/45
[2017-07-26] MEDS ORDERED: XANAX0.25 MG PO (15:00)
[2017-07-26] MEDS ORDERED: FISH OIL (15:02)
[2017-07-26 16:00] VITALS: BP 99/54
[2017-07-26 20:00] VITALS: BP 100/62
[2017-07-27] VITALS: BP 131/61
[2017-07-27 06:23] LABS: BASO % 0.3 % (0.0-1.0); EOS % 0.3 % (1.0-4.0); HEMOGLOBIN 12.2 g/dl (14.0-18.0); LYMPH # 0.7 10*3/uL (1.3-4.4); LYMPH % 10.3 % (27.0-41.0); MEAN CORPUSCULAR HGB 31.5 pg (27.0-31.0); MEAN CORPUSCULAR HGB CONC 33.9 g/dl (33.0-37.0); MEAN PLATELET VOLUME 10.3 fl (9.6-12.3); MONO # 0.6 10*3/uL (0.1-1.0); MONO % 7.9 % (3.0-9.0); NEUT # 5.8 10*3/uL (2.3-7.9); NEUT % 80.9 % (47.0-73.0); PLATELET COUNT AUTOMATED 143 10*3/uL (130-400); RED BLOOD COUNT 3.87 10*6/uL (4.50-5.90); RED CELL DISTRI WIDTH 13.9 % (0-14.5); WHITE BLOOD COUNT 7.2 10*3/uL (4.8-10.8)
[2017-07-27 07:01] LABS: CREATININE 2.53 mg/dL (0.70-1.30); PHOSPHOROUS 1.7 mg/dL (2.5-4.9); POTASSIUM 4.2 mmol/L (3.5-5.1)
[2017-07-27 07:07] LABS: THYROID STIM HORMONE (HS) 1.28 uIU/ml (0.358-4.75)
[2017-07-27 07:51] LABS: VITAMIN D, 25-HYDROXY 16.2 ng/mL (30-100)
[2017-07-27 08:00] VITALS: BP 135/62
[2017-07-27 13:00] VITALS: BP 109/50
[2017-07-27 14:00] VITALS: BP 118/57
[2017-07-27 20:00] VITALS: BP 142/59
[2017-07-28] VITALS: BP 113/49
[2017-07-28 06:51] LABS: BASO % 0.2 % (0.0-1.0); EOS % 0.1 % (1.0-4.0); HEMOGLOBIN 12.5 g/dl (14.0-18.0); LYMPH # 0.9 10*3/uL (1.3-4.4); LYMPH % 10.2 % (27.0-41.0); MEAN CELL VOLUME 93.4 fl (80.0-94.0); MEAN CORPUSCULAR HGB 31.6 pg (27.0-31.0); MEAN CORPUSCULAR HGB CONC 33.8 g/dl (33.0-37.0); MEAN PLATELET VOLUME 10.3 fl (9.6-12.3); MONO # 0.5 10*3/uL (0.1-1.0); MONO % 6.2 % (3.0-9.0); NEUT # 6.9 10*3/uL (2.3-7.9); NEUT % 82.9 % (47.0-73.0); PLATELET COUNT AUTOMATED 139 10*3/uL (130-400); RED BLOOD COUNT 3.96 10*6/uL (4.50-5.90); RED CELL DISTRI WIDTH 13.9 % (0-14.5); WHITE BLOOD COUNT 8.4 10*3/uL (4.8-10.8)
[2017-07-28 06:56] LABS: INTERNATIONAL NORM RATIO 2.2 (2.0-3.5)
[2017-07-28 07:05] LABS: CREATININE 2.07 mg/dL (0.70-1.30); POTASSIUM 4.4 mmol/L (3.5-5.1)
[2017-07-28 08:00] VITALS: BP 106/56
[2017-07-28 13:13] LABS: BILIRUBIN NEGATIVE (NEGATIVE); BLOOD NEGATIVE (NEGATIVE); CLARITY CLEAR (CLEAR); COLOR YELLOW (YELLOW); GLUCOSE NEGATIVE (NEGATIVE); KETONE NEGATIVE (NEGATIVE); LEUKO ESTERASE NEGATIVE (NEGATIVE); NITRITE NEGATIVE (NEGATIVE); PH 5.5 (5.0-9.0); UROBILINOGEN 0.2 E.U./dl (0.2-1.0)
[2017-07-28 13:25] LABS: BACTERIA TRACE
[2017-07-28 13:26] LABS: MUCOUS 1+
[2017-07-28 16:00] VITALS: BP 101/48
[2017-07-28 20:00] VITALS: BP 116/79
[2017-07-29 01:30] VITALS: BP 113/51
[2017-07-29 06:44] LABS: INTERNATIONAL NORM RATIO 2.9 (2.0-3.5)
[2017-07-29 08:00] VITALS: BP 126/52
[2017-07-29 12:00] VITALS: BP 110/70
[2017-07-29 16:00] VITALS: BP 128/57
[2017-07-29 20:00] VITALS: BP 168/68
[2017-07-30] VITALS: BP 168/68
[2017-07-30 08:00] VITALS: BP 136/65
[2017-07-30 12:00] VITALS: BP 100/45
[2017-07-30 16:00] VITALS: BP 109/51
[2017-07-30 20:00] VITALS: BP 108/48
[2017-07-31] VITALS: BP 153/73
[2017-07-31 07:26] LABS: INTERNATIONAL NORM RATIO 3.8 (2.0-3.5)
[2017-07-31 08:00] VITALS: BP 97/55
[2017-07-31 10:20] VITALS: BP 112/58
[2017-07-31 17:06] VITALS: BP 111/52
[2017-07-31 20:00] VITALS: BP 111/52
[2017-08-01] VITALS (8 sets, daily range): BP systolic 89–118; BP diastolic 54–80
[2017-08-01 06:56] LABS: BASO % 0.1 % (0.0-1.0); EOS # 0.1 10*3/uL (0.0-0.4); EOS % 1.3 % (1.0-4.0); HEMATOCRIT 32.9 % (42.0-52.0); HEMOGLOBIN 10.6 g/dl (14.0-18.0); LYMPH # 0.6 10*3/uL (1.3-4.4); LYMPH % 9.6 % (27.0-41.0); MEAN CORPUSCULAR HGB 30.3 pg (27.0-31.0); MEAN CORPUSCULAR HGB CONC 32.2 g/dl (33.0-37.0); MEAN PLATELET VOLUME 9.8 fl (9.6-12.3); MONO # 0.6 10*3/uL (0.1-1.0); MONO % 9.1 % (3.0-9.0); NEUT # 5.2 10*3/uL (2.3-7.9); PLATELET COUNT AUTOMATED 207 10*3/uL (130-400); RED CELL DISTRI WIDTH 13.3 % (0-14.5); WHITE BLOOD COUNT 6.7 10*3/uL (4.8-10.8)
[2017-08-01 07:13] LABS: INTERNATIONAL NORM RATIO 1.8 (2.0-3.5)
[2017-08-01 07:20] LABS: CREATININE 1.94 mg/dL (0.70-1.30); POTASSIUM 4.7 mmol/L (3.5-5.1)
[2017-08-02] VITALS: BP 121/57
[2017-08-02 08:00] VITALS: BP 114/56
[2017-08-02 12:00] VITALS: BP 117/53
[2017-08-02 12:09] LABS: ACID FAST SPEC PROCESSING Concentration (.)
[2017-08-02 20:00] VITALS: BP 103/58; BP 113/57
[2017-08-03] VITALS: BP 140/65
[2017-08-03 07:18] LABS: INTERNATIONAL NORM RATIO 2.2 (2.0-3.5)
[2017-08-03 08:00] VITALS: BP 114/52
[2017-08-03 12:00] VITALS: BP 128/69
[2017-08-03] MEDS ORDERED: COUMADIN2 M1 PO (14:20)
[2017-08-03] MEDS ORDERED: DUONEB 3 MG/3 ML3 M1 NEB (14:20)
[2017-08-03] MEDS ORDERED: DOXYCYCLINE MO100 M1 PO (14:20)
[2017-08-03] MEDS ORDERED: TEMAZEPAM15 M1 PO (14:22)
[2017-08-03] MEDS ORDERED: ALPRAZOLAM0.25 M2 PO (14:22)
[2017-08-03 16:00] VITALS: BP 132/50; BP 139/70
[2017-08-03 20:00] VITALS: BP 104/60
[2017-08-04] VITALS: BP 92/50; BP 98/62
[2017-08-04 04:00] VITALS: BP 119/61
[2017-08-04 06:29] LABS: INTERNATIONAL NORM RATIO 2.7 (2.0-3.5)
[2017-08-04 08:00] VITALS: BP 117/68
[2017-08-04 12:00] VITALS: BP 119/64
[2017-08-04] MEDS ORDERED: AVIDOXY100 MG PO (15:47)
[2017-08-04] MEDS ORDERED: COUMADIN2 MG PO (15:47)
[2017-08-04] MEDS ORDERED: DUONEB 3 MG/3 ML3 M1 INH (15:47)
== END 2017-08-04 16:26 | disposition home health service (06) | DRG 178 ==
LOC: ED 10:05 → EDHOLD 12:44 → 5E 12:44
PROVIDERS: Internal Medicine; Internal Medicine Critical Care Medicine; Physician Assistant; Student in an Organized Health Care Education/Training Program
PROC: 0BC18ZZ Extirpation of Matter from Trachea, Via Natural or Artificial Opening Endoscopic (ICD-10-PCS; principal; 2017-08-01)
PROC: 0BC98ZZ Extirpation of Matter from Lingula Bronchus, Via Natural or Artificial Opening Endoscopic (ICD-10-PCS; 2017-08-01)
PROC: 0BC48ZZ Extirpation of Matter from Right Upper Lobe Bronchus, Via Natural or Artificial Opening Endoscopic (ICD-10-PCS; 2017-08-01)
PROC: 0BC88ZZ Extirpation of Matter from Left Upper Lobe Bronchus, Via Natural or Artificial Opening Endoscopic (ICD-10-PCS; 2017-08-01)
PROC: 0BC58ZZ Extirpation of Matter from Right Middle Lobe Bronchus, Via Natural or Artificial Opening Endoscopic (ICD-10-PCS; 2017-08-01)
PROC: 0BC38ZZ Extirpation of Matter from Right Main Bronchus, Via Natural or Artificial Opening Endoscopic (ICD-10-PCS; 2017-08-01)
PROC: 0BC78ZZ Extirpation of Matter from Left Main Bronchus, Via Natural or Artificial Opening Endoscopic (ICD-10-PCS; 2017-08-01)
PROC: 0BC68ZZ Extirpation of Matter from Right Lower Lobe Bronchus, Via Natural or Artificial Opening Endoscopic (ICD-10-PCS; 2017-08-01)
PROC: 0BCB8ZZ Extirpation of Matter from Left Lower Lobe Bronchus, Via Natural or Artificial Opening Endoscopic (ICD-10-PCS; 2017-08-01)
DX: J10.08 Influenza due to other identified influenza virus with other specified pneumonia (principal); E44.0 Moderate protein-calorie malnutrition; J15.211 Pneumonia due to Methicillin susceptible Staphylococcus aureus; N18.4 Chronic kidney disease, stage 4 (severe); T17.590A Other foreign object in bronchus causing asphyxiation, initial encounter; T17.490A Other foreign object in trachea causing asphyxiation, initial encounter; I48.0 Paroxysmal atrial fibrillation; N17.9 Acute kidney failure, unspecified; E11.22 Type 2 diabetes mellitus with diabetic chronic kidney disease; I50.42 Chronic combined systolic (congestive) and diastolic (congestive) heart failure; I13.0 Hypertensive heart and chronic kidney disease with heart failure and stage 1 through stage 4 chronic kidney disease, or unspecified chronic kidney disease; E83.39 Other disorders of phosphorus metabolism; J44.0 Chronic obstructive pulmonary disease with (acute) lower respiratory infection; B34.9 Viral infection, unspecified; D64.9 Anemia, unspecified; D72.810 Lymphocytopenia; E78.2 Mixed hyperlipidemia; I25.5 Ischemic cardiomyopathy; I25.10 Atherosclerotic heart disease of native coronary artery without angina pectoris; J20.9 Acute bronchitis, unspecified; K57.90 Diverticulosis of intestine, part unspecified, without perforation or abscess without bleeding; R74.0 Nonspecific elevation of levels of transaminase and lactic acid dehydrogenase [LDH]; I35.0 Nonrheumatic aortic (valve) stenosis; J18.1 Lobar pneumonia, unspecified organism; T45.515A Adverse effect of anticoagulants, initial encounter; Z96.642 Presence of left artificial hip joint; R53.81 Other malaise; X58.XXXA Exposure to other specified factors, initial encounter; Z96.612 Presence of left artificial shoulder joint; Z95.2 Presence of prosthetic heart valve; Z95.5 Presence of coronary angioplasty implant and graft; Z82.49 Family history of ischemic heart disease and other diseases of the circulatory system; Z82.3 Family history of stroke; Z87.891 Personal history of nicotine dependence; I25.2 Old myocardial infarction; Z95.1 Presence of aortocoronary bypass graft; Y92.89 Other specified places as the place of occurrence of the external cause; Z79.899 Other long term (current) drug therapy; Z79.82 Long term (current) use of aspirin; Z88.8 Allergy status to other drugs, medicaments and biological substances; Z95.810 Presence of automatic (implantable) cardiac defibrillator; Z79.01 Long term (current) use of anticoagulants; Z68.27 Body mass index [BMI] 27.0-27.9, adult; Y93.89 Activity, other specified; Y99.8 Other external cause status

== ENCOUNTER → 2017-08-16 | Day surgery (SDC) | payer MEDICARE ==
[~2017-08-16] MED LIST changes: +ALPRAZOLAM0.25 M2 PO; +AVIDOXY100 MG PO; +COUMADIN1 M1 PO; +COUMADIN2 M1 PO; +DUONEB 3 MG/3 ML3 M1 NEB; +FISH OIL; +KLOR-CON M2020 ME1 PO; +MAGNESIUM400 M1 PO; +MEDROL DOSEPAK4 MG PO; +OMEGA-3-ACID ETH1 GM PO; +SERTRALINE HYDR25 MG PO; +TEMAZEPAM15 M1 PO
== END | disposition home or self-care (01) ==
LOC: SDC 04:19
DX: Z48.01 Encounter for change or removal of surgical wound dressing (principal)

== ENCOUNTER → 2017-08-23 | Day surgery (SDC) | payer MEDICARE ==
[2017-08-23 12:08] LABS: BASO % 0.8 % (0.0-1.0); EOS # 0.2 10*3/uL (0.0-0.4); EOS % 4.5 % (1.0-4.0); HEMATOCRIT 34.8 % (42.0-52.0); HEMOGLOBIN 11.4 g/dl (14.0-18.0); LYMPH # 1.1 10*3/uL (1.3-4.4); MEAN CELL VOLUME 95.6 fl (80.0-94.0); MEAN CORPUSCULAR HGB 31.3 pg (27.0-31.0); MEAN CORPUSCULAR HGB CONC 32.8 g/dl (33.0-37.0); MEAN PLATELET VOLUME 10.2 fl (9.6-12.3); MONO # 0.5 10*3/uL (0.1-1.0); MONO % 9.2 % (3.0-9.0); NEUT # 3.2 10*3/uL (2.3-7.9); NEUT % 63.1 % (47.0-73.0); PLATELET COUNT AUTOMATED 139 10*3/uL (130-400); RED BLOOD COUNT 3.64 10*6/uL (4.50-5.90); RED CELL DISTRI WIDTH 15.7 % (0-14.5); WHITE BLOOD COUNT 5.1 10*3/uL (4.8-10.8)
[2017-08-23 12:33] LABS: CREATININE 2.5 mg/dL (0.70-1.30); POTASSIUM 4.2 mmol/L (3.5-5.1)
== END | disposition home or self-care (01) ==
LOC: SDC 00:27
PROVIDERS: Specialist
DX: Z48.01 Encounter for change or removal of surgical wound dressing (principal); I50.9 Heart failure, unspecified

== ENCOUNTER → 2017-08-30 | Day surgery (SDC) | payer MEDICARE | END | disposition home or self-care (01) | LOC: SDC 02:27 | DX: Z48.01 Encounter for change or removal of surgical wound dressing (principal) ==

== ENCOUNTER → 2017-09-06 | Outpatient (CLI) | payer MEDICARE ==
[2017-09-06 11:38] VITALS: BP 105/68
== END | disposition home or self-care (01) ==
LOC: PICC 11:30
DX: I13.0 Hypertensive heart and chronic kidney disease with heart failure and stage 1 through stage 4 chronic kidney disease, or unspecified chronic kidney disease (principal); I50.22 Chronic systolic (congestive) heart failure; N18.3 Chronic kidney disease, stage 3 (moderate); N17.9 Acute kidney failure, unspecified; I25.10 Atherosclerotic heart disease of native coronary artery without angina pectoris; I48.2 Chronic atrial fibrillation; Z95.1 Presence of aortocoronary bypass graft

== ENCOUNTER → 2017-09-11 | Outpatient (CLI) | payer MEDICARE ==
[2017-09-11 12:36] LABS: CREATININE 2.6 mg/dL (0.70-1.30); POTASSIUM 4.3 mmol/L (3.5-5.1)
== END | disposition home or self-care (01) ==
LOC: LAB 11:13
PROVIDERS: Specialist
DX: I25.5 Ischemic cardiomyopathy (principal); I42.0 Dilated cardiomyopathy; I50.22 Chronic systolic (congestive) heart failure

== ENCOUNTER → 2017-09-21 | Day surgery (SDC) | payer MEDICARE ==
[~2017-09-21] MED LIST changes: +VANCO 1.751.75 GM/25 IV; +WARFARIN2 MG PO
== END | disposition home or self-care (01) ==
LOC: SDC 12:00
DX: Z48.01 Encounter for change or removal of surgical wound dressing (principal); I25.5 Ischemic cardiomyopathy; I25.10 Atherosclerotic heart disease of native coronary artery without angina pectoris; N18.3 Chronic kidney disease, stage 3 (moderate)

== ENCOUNTER → 2017-09-27 | Day surgery (SDC) | payer MEDICARE ==
[2017-09-27 11:54] LABS: BASO # 0.1 10*3/uL (0.0-0.1); BASO % 0.9 % (0.0-1.0); EOS # 0.2 10*3/uL (0.0-0.4); EOS % 3.3 % (1.0-4.0); HEMOGLOBIN 12.6 g/dl (14.0-18.0); LYMPH # 1.2 10*3/uL (1.3-4.4); LYMPH % 18.4 % (27.0-41.0); MEAN CELL VOLUME 95.6 fl (80.0-94.0); MEAN CORPUSCULAR HGB 30.9 pg (27.0-31.0); MEAN CORPUSCULAR HGB CONC 32.3 g/dl (33.0-37.0); MEAN PLATELET VOLUME 10.1 fl (9.6-12.3); MONO # 0.5 10*3/uL (0.1-1.0); MONO % 7.6 % (3.0-9.0); NEUT # 4.4 10*3/uL (2.3-7.9); NEUT % 69.6 % (47.0-73.0); PLATELET COUNT AUTOMATED 183 10*3/uL (130-400); RED BLOOD COUNT 4.08 10*6/uL (4.50-5.90); RED CELL DISTRI WIDTH 15.3 % (0-14.5); WHITE BLOOD COUNT 6.3 10*3/uL (4.8-10.8)
[2017-09-27 12:23] LABS: CREATININE 2.14 mg/dL (0.70-1.30); POTASSIUM 4.1 mmol/L (3.5-5.1)
== END | disposition home or self-care (01) ==
LOC: SDC 02:55
PROVIDERS: Specialist
DX: I50.9 Heart failure, unspecified (principal); Z88.8 Allergy status to other drugs, medicaments and biological substances

== ENCOUNTER → 2017-10-04 | Day surgery (SDC) | payer MEDICARE ==
[2017-10-04 12:46] LABS: ALBUMIN 3.3 gm/dl (3.1-4.5); BILIRUBIN, DIRECT 0.2 mg/dL (0.0-0.2); TOTAL PROTEIN 6.5 gm/dL (6.4-8.2)
== END | disposition home or self-care (01) ==
LOC: SDC 00:35
PROVIDERS: Specialist
DX: I50.9 Heart failure, unspecified (principal); Z88.8 Allergy status to other drugs, medicaments and biological substances

== ENCOUNTER → 2017-10-11 | Day surgery (SDC) | payer MEDICARE | END | disposition home or self-care (01) | LOC: SDC 07:45 | DX: Z48.01 Encounter for change or removal of surgical wound dressing (principal); I25.5 Ischemic cardiomyopathy; I25.10 Atherosclerotic heart disease of native coronary artery without angina pectoris; N18.3 Chronic kidney disease, stage 3 (moderate) ==

== ENCOUNTER → 2017-10-18 | Day surgery (SDC) | payer MEDICARE | END | disposition home or self-care (01) | LOC: SDC 01:08 | DX: Z48.01 Encounter for change or removal of surgical wound dressing (principal); I25.5 Ischemic cardiomyopathy; I25.10 Atherosclerotic heart disease of native coronary artery without angina pectoris; N18.3 Chronic kidney disease, stage 3 (moderate) ==

== ENCOUNTER → 2017-10-26 | Day surgery (SDC) | payer MEDICARE ==
[2017-10-26 12:52] LABS: BASO # 0.1 10*3/uL (0.0-0.1); BASO % 0.7 % (0.0-1.0); EOS # 0.3 10*3/uL (0.0-0.4); EOS % 3.7 % (1.0-4.0); HEMATOCRIT 37.1 % (42.0-52.0); HEMOGLOBIN 12.4 g/dl (14.0-18.0); LYMPH % 14.5 % (27.0-41.0); MEAN CELL VOLUME 94.2 fl (80.0-94.0); MEAN CORPUSCULAR HGB 31.5 pg (27.0-31.0); MEAN CORPUSCULAR HGB CONC 33.4 g/dl (33.0-37.0); MONO # 0.6 10*3/uL (0.1-1.0); MONO % 8.3 % (3.0-9.0); NEUT % 72.5 % (47.0-73.0); PLATELET COUNT AUTOMATED 181 10*3/uL (130-400); RED BLOOD COUNT 3.94 10*6/uL (4.50-5.90); RED CELL DISTRI WIDTH 14.8 % (0-14.5)
[2017-10-26 13:10] LABS: CREATININE 2.2 mg/dL (0.70-1.30); POTASSIUM 4.5 mmol/L (3.5-5.1)
== END | disposition home or self-care (01) ==
LOC: SDC 10-25 04:16
PROVIDERS: Specialist
DX: Z48.01 Encounter for change or removal of surgical wound dressing (principal); I50.9 Heart failure, unspecified

== ENCOUNTER 2017-10-29 11:12 | Inpatient (IN) | payer MEDICARE ==
[~2017-10-29] VITALS: Ht 177.8 cm; Wt 87.1 kg
[2017-10-29] VITALS (7 sets, daily range): BP systolic 102–130; BP diastolic 49–78
[~2017-10-29 11:12] MED LIST changes: -VANCO 1.751.75 GM/25 IV; -WARFARIN2 MG PO
[2017-10-29 12:03] LABS: BASO # 0.1 10*3/uL (0.0-0.1); BASO % 0.7 % (0.0-1.0); EOS # 0.2 10*3/uL (0.0-0.4); EOS % 3.1 % (1.0-4.0); HEMATOCRIT 36.2 % (42.0-52.0); LYMPH # 1.1 10*3/uL (1.3-4.4); LYMPH % 14.8 % (27.0-41.0); MEAN CELL VOLUME 94.3 fl (80.0-94.0); MEAN CORPUSCULAR HGB 31.3 pg (27.0-31.0); MEAN CORPUSCULAR HGB CONC 33.1 g/dl (33.0-37.0); MEAN PLATELET VOLUME 9.7 fl (9.6-12.3); MONO # 0.7 10*3/uL (0.1-1.0); MONO % 9.4 % (3.0-9.0); NEUT # 5.3 10*3/uL (2.3-7.9); NEUT % 71.6 % (47.0-73.0); PLATELET COUNT AUTOMATED 171 10*3/uL (130-400); RED BLOOD COUNT 3.84 10*6/uL (4.50-5.90); RED CELL DISTRI WIDTH 14.5 % (0-14.5); WHITE BLOOD COUNT 7.4 10*3/uL (4.8-10.8)
[2017-10-29 12:12] LABS: ACT PARTIAL THROMBO TIME 29.9 SECONDS (20.8-31.5); INTERNATIONAL NORM RATIO 1.9 (2.0-3.5)
[2017-10-29 12:15] LABS: ALBUMIN 3.1 gm/dl (3.1-4.5); CREATININE 2.19 mg/dL (0.70-1.30); TOTAL PROTEIN 6.4 gm/dL (6.4-8.2); TROPONIN I 0.037 ng/ml (<0.045)
[2017-10-29 12:19] LABS: BILIRUBIN NEGATIVE (NEGATIVE); BLOOD NEGATIVE (NEGATIVE); CLARITY CLEAR (CLEAR); COLOR YELLOW (YELLOW); GLUCOSE NEGATIVE (NEGATIVE); KETONE NEGATIVE (NEGATIVE); LEUKO ESTERASE NEGATIVE (NEGATIVE); NITRITE NEGATIVE (NEGATIVE); PH 5.5 (5.0-9.0); UROBILINOGEN 0.2 E.U./dl (0.2-1.0)
[2017-10-29 12:28] LABS: BACTERIA 1+; EPITHELIAL CELLS 0-2; WBC 0-2 wbc/hpf (0-5)
[2017-10-29] MEDS ORDERED: MILRINONE IV (13:44)
[2017-10-30] VITALS: BP 131/71
[2017-10-30 07:07] LABS: BASO # 0.1 10*3/uL (0.0-0.1); BASO % 0.8 % (0.0-1.0); EOS # 0.4 10*3/uL (0.0-0.4); EOS % 5.7 % (1.0-4.0); HEMATOCRIT 37.9 % (42.0-52.0); HEMOGLOBIN 12.5 g/dl (14.0-18.0); LYMPH # 1.3 10*3/uL (1.3-4.4); LYMPH % 19.4 % (27.0-41.0); MEAN CELL VOLUME 93.3 fl (80.0-94.0); MEAN CORPUSCULAR HGB 30.8 pg (27.0-31.0); MEAN PLATELET VOLUME 9.2 fl (9.6-12.3); MONO # 0.6 10*3/uL (0.1-1.0); MONO % 9.5 % (3.0-9.0); NEUT # 4.2 10*3/uL (2.3-7.9); NEUT % 64.1 % (47.0-73.0); PLATELET COUNT AUTOMATED 172 10*3/uL (130-400); RED BLOOD COUNT 4.06 10*6/uL (4.50-5.90); RED CELL DISTRI WIDTH 14.1 % (0-14.5); WHITE BLOOD COUNT 6.5 10*3/uL (4.8-10.8)
[2017-10-30 07:29] LABS: CREATININE 2.03 mg/dL (0.70-1.30); PHOSPHOROUS 2.1 mg/dL (2.5-4.9); POTASSIUM 4.2 mmol/L (3.5-5.1)
[2017-10-30 08:00] VITALS: BP 135/72
== END 2017-10-30 13:48 | disposition home or self-care (01) | DRG 312 ==
LOC: ED 11:12 → EDHOLD 13:03 → 4E 13:03
PROVIDERS: Emergency Medicine; Student in an Organized Health Care Education/Training Program
DX: I95.1 Orthostatic hypotension (principal); E44.0 Moderate protein-calorie malnutrition; E11.65 Type 2 diabetes mellitus with hyperglycemia; E11.22 Type 2 diabetes mellitus with diabetic chronic kidney disease; N18.4 Chronic kidney disease, stage 4 (severe); I13.0 Hypertensive heart and chronic kidney disease with heart failure and stage 1 through stage 4 chronic kidney disease, or unspecified chronic kidney disease; I48.0 Paroxysmal atrial fibrillation; D63.8 Anemia in other chronic diseases classified elsewhere; I50.42 Chronic combined systolic (congestive) and diastolic (congestive) heart failure; D72.810 Lymphocytopenia; E86.0 Dehydration; R79.1 Abnormal coagulation profile; R79.82 Elevated C-reactive protein (CRP); R79.89 Other specified abnormal findings of blood chemistry; R82.71 Bacteriuria; I25.10 Atherosclerotic heart disease of native coronary artery without angina pectoris; E78.2 Mixed hyperlipidemia; J44.9 Chronic obstructive pulmonary disease, unspecified; K57.90 Diverticulosis of intestine, part unspecified, without perforation or abscess without bleeding; Z96.642 Presence of left artificial hip joint; Z96.612 Presence of left artificial shoulder joint; I25.2 Old myocardial infarction; Z95.810 Presence of automatic (implantable) cardiac defibrillator; Z95.2 Presence of prosthetic heart valve; Z95.1 Presence of aortocoronary bypass graft; Z88.8 Allergy status to other drugs, medicaments and biological substances; Z79.899 Other long term (current) drug therapy; Z79.82 Long term (current) use of aspirin; Z79.01 Long term (current) use of anticoagulants; Z82.49 Family history of ischemic heart disease and other diseases of the circulatory system; Z82.3 Family history of stroke; Z68.27 Body mass index [BMI] 27.0-27.9, adult

== ENCOUNTER → 2017-11-01 | Day surgery (SDC) | payer MEDICARE ==
[~2017-11-01] MED LIST changes: +VANCO 1.751.75 GM/25 IV; +WARFARIN2 MG PO
== END | disposition home or self-care (01) ==
LOC: SDC 01:45
DX: Z48.01 Encounter for change or removal of surgical wound dressing (principal); I25.10 Atherosclerotic heart disease of native coronary artery without angina pectoris; I25.5 Ischemic cardiomyopathy; N18.3 Chronic kidney disease, stage 3 (moderate)

== ENCOUNTER 2017-11-04 07:35 | Inpatient (IN) | payer MEDICARE ==
[2017-11-04] VITALS (11 sets, daily range): BP systolic 82–128; BP diastolic 50–65
[~2017-11-04] VITALS: Ht 177.8 cm; Wt 93.2 kg
--- NOTE | ~2017-11-04 | EKG ---
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
[~2017-11-04 07:35] MED LIST changes: -VANCO 1.751.75 GM/25 IV; -WARFARIN2 MG PO
[2017-11-04 08:01] LABS: BASO % 0.3 % (0.0-1.0); EOS % 0.2 % (1.0-4.0); HEMATOCRIT 37.4 % (42.0-52.0); HEMOGLOBIN 12.2 g/dl (14.0-18.0); LYMPH # 0.4 10*3/uL (1.3-4.4); LYMPH % 4.3 % (27.0-41.0); MEAN CELL VOLUME 93.5 fl (80.0-94.0); MEAN CORPUSCULAR HGB 30.5 pg (27.0-31.0); MEAN CORPUSCULAR HGB CONC 32.6 g/dl (33.0-37.0); MEAN PLATELET VOLUME 8.8 fl (9.6-12.3); MONO # 0.6 10*3/uL (0.1-1.0); MONO % 5.9 % (3.0-9.0); NEUT # 8.8 10*3/uL (2.3-7.9); PLATELET COUNT AUTOMATED 145 10*3/uL (130-400); RED CELL DISTRI WIDTH 14.3 % (0-14.5); WHITE BLOOD COUNT 9.9 10*3/uL (4.8-10.8)
[2017-11-04 08:10] LABS: ACT PARTIAL THROMBO TIME 25.9 SECONDS (20.8-31.5); INTERNATIONAL NORM RATIO 1.7 (2.0-3.5)
[2017-11-04 08:19] LABS: ALBUMIN 2.9 gm/dl (3.1-4.5); CREATININE 2.46 mg/dL (0.70-1.30); POTASSIUM 4.4 mmol/L (3.5-5.1); TOTAL PROTEIN 6.2 gm/dL (6.4-8.2)
[2017-11-04 08:21] LABS: TROPONIN I 0.088 ng/ml (<0.045)
[2017-11-04 09:39] LABS: BILIRUBIN NEGATIVE (NEGATIVE); BLOOD NEGATIVE (NEGATIVE); CLARITY CLEAR (CLEAR); COLOR YELLOW (YELLOW); GLUCOSE NEGATIVE (NEGATIVE); KETONE NEGATIVE (NEGATIVE); LEUKO ESTERASE NEGATIVE (NEGATIVE); NITRITE NEGATIVE (NEGATIVE); PH 5.5 (5.0-9.0); SPECIFIC GRAVITY 1.015 (1.005-1.030); UROBILINOGEN 0.2 E.U./dl (0.2-1.0)
[2017-11-04 09:49] LABS: EPITHELIAL CELLS 0-2; WBC 0-2 wbc/hpf (0-5)
[2017-11-04] MEDS ORDERED: WARFARIN2 MG PO (10:21)
[2017-11-05] VITALS: BP 104/52
[2017-11-05 01:00] VITALS: BP 102/56
[2017-11-05 05:00] VITALS: BP 122/62
[2017-11-05 06:37] LABS: BASO % 0.4 % (0.0-1.0); EOS % 0.3 % (1.0-4.0); HEMATOCRIT 36.2 % (42.0-52.0); HEMOGLOBIN 11.7 g/dl (14.0-18.0); LYMPH # 0.6 10*3/uL (1.3-4.4); LYMPH % 8.1 % (27.0-41.0); MEAN CELL VOLUME 94.5 fl (80.0-94.0); MEAN CORPUSCULAR HGB 30.5 pg (27.0-31.0); MEAN CORPUSCULAR HGB CONC 32.3 g/dl (33.0-37.0); MEAN PLATELET VOLUME 9.3 fl (9.6-12.3); MONO # 0.5 10*3/uL (0.1-1.0); MONO % 6.6 % (3.0-9.0); NEUT % 84.3 % (47.0-73.0); PLATELET COUNT AUTOMATED 111 10*3/uL (130-400); RED BLOOD COUNT 3.83 10*6/uL (4.50-5.90); RED CELL DISTRI WIDTH 14.2 % (0-14.5); WHITE BLOOD COUNT 7.2 10*3/uL (4.8-10.8)
[2017-11-05 07:00] LABS: ALBUMIN 2.6 gm/dl (3.1-4.5); POTASSIUM 4.2 mmol/L (3.5-5.1)
[2017-11-05 07:14] LABS: CREATININE 2.29 mg/dL (0.70-1.30); PHOSPHOROUS 2.1 mg/dL (2.5-4.9); THYROID STIM HORMONE (HS) 1.2 uIU/ml (0.358-4.75); TOTAL PROTEIN 5.9 gm/dL (6.4-8.2)
[2017-11-05 07:20] LABS: INTERNATIONAL NORM RATIO 1.9 (2.0-3.5)
[2017-11-05 08:00] VITALS: BP 142/64
[2017-11-05 12:00] VITALS: BP 152/70
[2017-11-05] MEDS ORDERED: VANCO 1.751.75 GM/25 IV (14:59)
[2017-11-05 16:00] VITALS: BP 110/53
== END 2017-11-05 18:32 | disposition short-term general hospital (02) | DRG 314 ==
LOC: ED 07:35 → 4E 08:40 → EDHOLD 08:40 → 4E 09:28
PROVIDERS: Emergency Medicine; Internal Medicine
DX: T82.7XXA Infection and inflammatory reaction due to other cardiac and vascular devices, implants and grafts, initial encounter (principal); A41.9 Sepsis, unspecified organism; E44.0 Moderate protein-calorie malnutrition; G93.41 Metabolic encephalopathy; E11.65 Type 2 diabetes mellitus with hyperglycemia; E11.22 Type 2 diabetes mellitus with diabetic chronic kidney disease; I42.9 Cardiomyopathy, unspecified; I48.2 Chronic atrial fibrillation; I13.0 Hypertensive heart and chronic kidney disease with heart failure and stage 1 through stage 4 chronic kidney disease, or unspecified chronic kidney disease; I50.42 Chronic combined systolic (congestive) and diastolic (congestive) heart failure; N18.4 Chronic kidney disease, stage 4 (severe); E55.9 Vitamin D deficiency, unspecified; I25.10 Atherosclerotic heart disease of native coronary artery without angina pectoris; E78.2 Mixed hyperlipidemia; Y83.8 Other surgical procedures as the cause of abnormal reaction of the patient, or of later complication, without mention of misadventure at the time of the procedure; J44.9 Chronic obstructive pulmonary disease, unspecified; Z96.642 Presence of left artificial hip joint; Z96.612 Presence of left artificial shoulder joint; R74.8 Abnormal levels of other serum enzymes; Z79.01 Long term (current) use of anticoagulants; Z88.8 Allergy status to other drugs, medicaments and biological substances; Z79.82 Long term (current) use of aspirin; Z95.810 Presence of automatic (implantable) cardiac defibrillator; Z95.1 Presence of aortocoronary bypass graft; I25.2 Old myocardial infarction; Z95.2 Presence of prosthetic heart valve; Z95.5 Presence of coronary angioplasty implant and graft; Z82.49 Family history of ischemic heart disease and other diseases of the circulatory system; Z82.3 Family history of stroke; Y92.89 Other specified places as the place of occurrence of the external cause; Z68.28 Body mass index [BMI] 28.0-28.9, adult

== ENCOUNTER → 2018-01-10 | Day surgery (SDC) | payer MEDICARE ==
[~2018-01-10] MED LIST changes: +AMIODARONE HYD200 MG PO; -FISH OIL; +FISH OIL PO; +MERREM IV1 GM IV; +VANCO 1.751.75 GM/25 IV; +WARFARIN2 MG PO
[2018-01-10 12:05] LABS: BASO % 0.7 % (0.0-1.0); EOS # 0.3 10*3/uL (0.0-0.4); EOS % 4.8 % (1.0-4.0); HEMATOCRIT 37.2 % (42.0-52.0); HEMOGLOBIN 12.3 g/dl (14.0-18.0); LYMPH # 1.1 10*3/uL (1.3-4.4); LYMPH % 20.4 % (27.0-41.0); MEAN CELL VOLUME 95.6 fl (80.0-94.0); MEAN CORPUSCULAR HGB 31.6 pg (27.0-31.0); MEAN CORPUSCULAR HGB CONC 33.1 g/dl (33.0-37.0); MEAN PLATELET VOLUME 9.5 fl (9.6-12.3); MONO # 0.5 10*3/uL (0.1-1.0); MONO % 9.5 % (3.0-9.0); NEUT # 3.5 10*3/uL (2.3-7.9); NEUT % 64.4 % (47.0-73.0); PLATELET COUNT AUTOMATED 173 10*3/uL (130-400); RED BLOOD COUNT 3.89 10*6/uL (4.50-5.90); RED CELL DISTRI WIDTH 14.6 % (0-14.5); WHITE BLOOD COUNT 5.4 10*3/uL (4.8-10.8)
[2018-01-10 12:19] LABS: CREATININE 2.49 mg/dL (0.70-1.30); POTASSIUM 4.1 mmol/L (3.5-5.1)
== END | disposition home or self-care (01) ==
LOC: SDC 03:45
PROVIDERS: Specialist
DX: Z48.01 Encounter for change or removal of surgical wound dressing (principal); I48.2 Chronic atrial fibrillation; I25.10 Atherosclerotic heart disease of native coronary artery without angina pectoris; I42.0 Dilated cardiomyopathy; N18.3 Chronic kidney disease, stage 3 (moderate)

== ENCOUNTER → 2018-01-24 | Day surgery (SDC) | payer MEDICARE ==
[2018-01-24 12:02] LABS: BASO # 0.1 10*3/uL (0.0-0.1); BASO % 0.8 % (0.0-1.0); EOS # 0.4 10*3/uL (0.0-0.4); EOS % 5.5 % (1.0-4.0); HEMATOCRIT 36.3 % (42.0-52.0); HEMOGLOBIN 11.9 g/dl (14.0-18.0); LYMPH # 1.3 10*3/uL (1.3-4.4); LYMPH % 19.8 % (27.0-41.0); MEAN CELL VOLUME 95.8 fl (80.0-94.0); MEAN CORPUSCULAR HGB 31.4 pg (27.0-31.0); MEAN CORPUSCULAR HGB CONC 32.8 g/dl (33.0-37.0); MEAN PLATELET VOLUME 9.6 fl (9.6-12.3); MONO # 0.6 10*3/uL (0.1-1.0); MONO % 8.4 % (3.0-9.0); NEUT # 4.3 10*3/uL (2.3-7.9); NEUT % 65.2 % (47.0-73.0); PLATELET COUNT AUTOMATED 202 10*3/uL (130-400); RED BLOOD COUNT 3.79 10*6/uL (4.50-5.90); RED CELL DISTRI WIDTH 14.2 % (0-14.5); WHITE BLOOD COUNT 6.6 10*3/uL (4.8-10.8)
[2018-01-24 12:24] LABS: CREATININE 2.1 mg/dL (0.70-1.30); POTASSIUM 4.8 mmol/L (3.5-5.1)
== END | disposition home or self-care (01) ==
LOC: SDC 04:43
PROVIDERS: Specialist
DX: Z48.01 Encounter for change or removal of surgical wound dressing (principal); Z88.8 Allergy status to other drugs, medicaments and biological substances

== ENCOUNTER → 2018-01-30 | Day surgery (SDC) | payer MEDICARE ==
[2018-01-30 14:09] LABS: BASO # 0.1 10*3/uL (0.0-0.1); BASO % 1.2 % (0.0-1.0); EOS # 0.3 10*3/uL (0.0-0.4); EOS % 4.4 % (1.0-4.0); HEMATOCRIT 35.8 % (42.0-52.0); HEMOGLOBIN 11.9 g/dl (14.0-18.0); LYMPH # 1.3 10*3/uL (1.3-4.4); LYMPH % 20.5 % (27.0-41.0); MEAN CORPUSCULAR HGB 31.6 pg (27.0-31.0); MEAN CORPUSCULAR HGB CONC 33.2 g/dl (33.0-37.0); MEAN PLATELET VOLUME 10.1 fl (9.6-12.3); MONO # 0.7 10*3/uL (0.1-1.0); MONO % 10.2 % (3.0-9.0); NEUT # 4.1 10*3/uL (2.3-7.9); NEUT % 62.8 % (47.0-73.0); PLATELET COUNT AUTOMATED 186 10*3/uL (130-400); RED BLOOD COUNT 3.77 10*6/uL (4.50-5.90); RED CELL DISTRI WIDTH 13.8 % (0-14.5); WHITE BLOOD COUNT 6.6 10*3/uL (4.8-10.8)
[2018-01-30 14:33] LABS: CREATININE 2.08 mg/dL (0.70-1.30); POTASSIUM 4.9 mmol/L (3.5-5.1)
== END | disposition home or self-care (01) ==
LOC: SDC 08:44
PROVIDERS: Specialist
DX: Z48.01 Encounter for change or removal of surgical wound dressing (principal); Z88.8 Allergy status to other drugs, medicaments and biological substances

== ENCOUNTER → 2018-02-06 | Day surgery (SDC) | payer MEDICARE ==
[2018-02-06 11:36] LABS: BASO # 0.1 10*3/uL (0.0-0.1); BASO % 1.3 % (0.0-1.0); EOS # 0.3 10*3/uL (0.0-0.4); EOS % 6.1 % (1.0-4.0); HEMATOCRIT 37.1 % (42.0-52.0); HEMOGLOBIN 12.2 g/dl (14.0-18.0); LYMPH # 1.2 10*3/uL (1.3-4.4); LYMPH % 21.4 % (27.0-41.0); MEAN CELL VOLUME 96.1 fl (80.0-94.0); MEAN CORPUSCULAR HGB 31.6 pg (27.0-31.0); MEAN CORPUSCULAR HGB CONC 32.9 g/dl (33.0-37.0); MEAN PLATELET VOLUME 10.3 fl (9.6-12.3); MONO # 0.6 10*3/uL (0.1-1.0); MONO % 10.8 % (3.0-9.0); NEUT # 3.3 10*3/uL (2.3-7.9); NEUT % 60.2 % (47.0-73.0); PLATELET COUNT AUTOMATED 174 10*3/uL (130-400); RED BLOOD COUNT 3.86 10*6/uL (4.50-5.90); RED CELL DISTRI WIDTH 13.6 % (0-14.5); WHITE BLOOD COUNT 5.6 10*3/uL (4.8-10.8)
[2018-02-06 11:54] LABS: POTASSIUM 4.8 mmol/L (3.5-5.1)
== END | disposition home or self-care (01) ==
LOC: SDC 10:00
PROVIDERS: Specialist
DX: Z48.01 Encounter for change or removal of surgical wound dressing (principal); I48.2 Chronic atrial fibrillation; I25.10 Atherosclerotic heart disease of native coronary artery without angina pectoris; I42.0 Dilated cardiomyopathy; N18.3 Chronic kidney disease, stage 3 (moderate); I50.22 Chronic systolic (congestive) heart failure; Z45.2 Encounter for adjustment and management of vascular access device

== ENCOUNTER → 2018-02-28 | Day surgery (SDC) | payer MEDICARE ==
[2018-02-28 11:23] LABS: BASO # 0.1 10*3/uL (0.0-0.1); EOS # 0.2 10*3/uL (0.0-0.4); EOS % 4.2 % (1.0-4.0); HEMATOCRIT 36.7 % (42.0-52.0); HEMOGLOBIN 12.3 g/dl (14.0-18.0); MEAN CELL VOLUME 93.9 fl (80.0-94.0); MEAN CORPUSCULAR HGB 31.5 pg (27.0-31.0); MEAN CORPUSCULAR HGB CONC 33.5 g/dl (33.0-37.0); MONO # 0.5 10*3/uL (0.1-1.0); MONO % 8.3 % (3.0-9.0); NEUT % 69.3 % (47.0-73.0); PLATELET COUNT AUTOMATED 179 10*3/uL (130-400); RED BLOOD COUNT 3.91 10*6/uL (4.50-5.90); RED CELL DISTRI WIDTH 13.5 % (0-14.5); WHITE BLOOD COUNT 5.8 10*3/uL (4.8-10.8)
[2018-02-28 11:55] LABS: CREATININE 2.64 mg/dL (0.70-1.30); POTASSIUM 4.1 mmol/L (3.5-5.1)
== END | disposition home or self-care (01) ==
LOC: SDC 07:46
PROVIDERS: Specialist
DX: Z48.01 Encounter for change or removal of surgical wound dressing (principal); Z88.8 Allergy status to other drugs, medicaments and biological substances

== ENCOUNTER → 2018-03-05 | Outpatient (CLI) | payer MEDICARE | END | disposition home or self-care (01) | LOC: RESCLI 02:36 | DX: I25.810 Atherosclerosis of coronary artery bypass graft(s) without angina pectoris (principal); R68.89 Other general symptoms and signs; R53.1 Weakness; E83.41 Hypermagnesemia; R74.0 Nonspecific elevation of levels of transaminase and lactic acid dehydrogenase [LDH]; N18.4 Chronic kidney disease, stage 4 (severe); I50.22 Chronic systolic (congestive) heart failure; I15.0 Renovascular hypertension; I48.2 Chronic atrial fibrillation; F33.41 Major depressive disorder, recurrent, in partial remission; E78.2 Mixed hyperlipidemia; F51.04 Psychophysiologic insomnia; Z79.899 Other long term (current) drug therapy ==

== ENCOUNTER → 2018-03-07 | Day surgery (SDC) | payer MEDICARE ==
[2018-03-07 13:14] LABS: BASO # 0.1 10*3/uL (0.0-0.1); BASO % 1.3 % (0.0-1.0); EOS # 0.3 10*3/uL (0.0-0.4); EOS % 4.1 % (1.0-4.0); HEMATOCRIT 37.5 % (42.0-52.0); HEMOGLOBIN 12.3 g/dl (14.0-18.0); LYMPH # 1.2 10*3/uL (1.3-4.4); LYMPH % 19.2 % (27.0-41.0); MEAN CELL VOLUME 95.2 fl (80.0-94.0); MEAN CORPUSCULAR HGB 31.2 pg (27.0-31.0); MEAN CORPUSCULAR HGB CONC 32.8 g/dl (33.0-37.0); MEAN PLATELET VOLUME 10.1 fl (9.6-12.3); MONO # 0.6 10*3/uL (0.1-1.0); MONO % 9.8 % (3.0-9.0); NEUT # 4.2 10*3/uL (2.3-7.9); NEUT % 65.1 % (47.0-73.0); PLATELET COUNT AUTOMATED 184 10*3/uL (130-400); RED BLOOD COUNT 3.94 10*6/uL (4.50-5.90); RED CELL DISTRI WIDTH 13.5 % (0-14.5); WHITE BLOOD COUNT 6.4 10*3/uL (4.8-10.8)
[2018-03-07 13:16] LABS: CREATININE 2.26 mg/dL (0.70-1.30); POTASSIUM 4.4 mmol/L (3.5-5.1)
== END | disposition home or self-care (01) ==
LOC: SDC 00:55
PROVIDERS: Specialist
DX: Z48.01 Encounter for change or removal of surgical wound dressing (principal); I48.2 Chronic atrial fibrillation; I25.10 Atherosclerotic heart disease of native coronary artery without angina pectoris; I42.0 Dilated cardiomyopathy; N18.3 Chronic kidney disease, stage 3 (moderate)

== ENCOUNTER → 2018-03-15 | Day surgery (SDC) | payer MEDICARE ==
[2018-03-15 12:27] LABS: CREATININE 2.39 mg/dL (0.70-1.30); POTASSIUM 4.2 mmol/L (3.5-5.1)
[2018-03-15 12:29] LABS: BASO % 0.6 % (0.0-1.0); EOS # 0.2 10*3/uL (0.0-0.4); EOS % 3.7 % (1.0-4.0); HEMATOCRIT 36.3 % (42.0-52.0); HEMOGLOBIN 11.5 g/dl (14.0-18.0); LYMPH % 18.8 % (27.0-41.0); MEAN CELL VOLUME 95.5 fl (80.0-94.0); MEAN CORPUSCULAR HGB 30.3 pg (27.0-31.0); MEAN CORPUSCULAR HGB CONC 31.7 g/dl (33.0-37.0); MONO # 0.5 10*3/uL (0.1-1.0); MONO % 8.8 % (3.0-9.0); NEUT # 3.5 10*3/uL (2.3-7.9); NEUT % 67.9 % (47.0-73.0); PLATELET COUNT AUTOMATED 162 10*3/uL (130-400); WHITE BLOOD COUNT 5.1 10*3/uL (4.8-10.8)
== END | disposition home or self-care (01) ==
LOC: SDC 03-13 07:52
PROVIDERS: Specialist
DX: Z48.01 Encounter for change or removal of surgical wound dressing (principal); I48.2 Chronic atrial fibrillation; I25.10 Atherosclerotic heart disease of native coronary artery without angina pectoris; I42.0 Dilated cardiomyopathy; N18.3 Chronic kidney disease, stage 3 (moderate)

== ENCOUNTER → 2018-03-21 | Day surgery (SDC) | payer MEDICARE ==
[2018-03-21 12:28] LABS: BASO # 0.1 10*3/uL (0.0-0.1); BASO % 1.2 % (0.0-1.0); EOS # 0.3 10*3/uL (0.0-0.4); EOS % 5.7 % (1.0-4.0); HEMATOCRIT 33.9 % (42.0-52.0); HEMOGLOBIN 11.3 g/dl (14.0-18.0); LYMPH # 0.9 10*3/uL (1.3-4.4); LYMPH % 18.2 % (27.0-41.0); MEAN CELL VOLUME 94.4 fl (80.0-94.0); MEAN CORPUSCULAR HGB 31.5 pg (27.0-31.0); MEAN CORPUSCULAR HGB CONC 33.3 g/dl (33.0-37.0); MEAN PLATELET VOLUME 10.1 fl (9.6-12.3); MONO # 0.5 10*3/uL (0.1-1.0); MONO % 10.2 % (3.0-9.0); NEUT # 3.2 10*3/uL (2.3-7.9); NEUT % 64.3 % (47.0-73.0); PLATELET COUNT AUTOMATED 163 10*3/uL (130-400); RED BLOOD COUNT 3.59 10*6/uL (4.50-5.90); RED CELL DISTRI WIDTH 14.1 % (0-14.5); WHITE BLOOD COUNT 4.9 10*3/uL (4.8-10.8)
[2018-03-21 12:48] LABS: CREATININE 2.16 mg/dL (0.70-1.30)
== END | disposition home or self-care (01) ==
LOC: SDC 01:15
PROVIDERS: Specialist
DX: Z48.01 Encounter for change or removal of surgical wound dressing (principal); I48.2 Chronic atrial fibrillation; I25.10 Atherosclerotic heart disease of native coronary artery without angina pectoris; I42.0 Dilated cardiomyopathy; N18.3 Chronic kidney disease, stage 3 (moderate)

== ENCOUNTER → 2018-03-28 | Day surgery (SDC) | payer MEDICARE ==
[2018-03-28 12:07] LABS: BASO # 0.1 10*3/uL (0.0-0.1); BASO % 1.4 % (0.0-1.0); EOS # 0.2 10*3/uL (0.0-0.4); EOS % 4.5 % (1.0-4.0); HEMATOCRIT 37.9 % (42.0-52.0); HEMOGLOBIN 12.6 g/dl (14.0-18.0); LYMPH % 19.6 % (27.0-41.0); MEAN CELL VOLUME 93.3 fl (80.0-94.0); MEAN CORPUSCULAR HGB CONC 33.2 g/dl (33.0-37.0); MONO # 0.4 10*3/uL (0.1-1.0); MONO % 8.5 % (3.0-9.0); NEUT # 3.4 10*3/uL (2.3-7.9); NEUT % 65.6 % (47.0-73.0); PLATELET COUNT AUTOMATED 206 10*3/uL (130-400); RED BLOOD COUNT 4.06 10*6/uL (4.50-5.90); RED CELL DISTRI WIDTH 14.4 % (0-14.5); WHITE BLOOD COUNT 5.2 10*3/uL (4.8-10.8)
[2018-03-28 12:27] LABS: CREATININE 2.66 mg/dL (0.70-1.30); POTASSIUM 3.6 mmol/L (3.5-5.1)
== END | disposition home or self-care (01) ==
LOC: SDC 04:01
PROVIDERS: Specialist
DX: Z48.01 Encounter for change or removal of surgical wound dressing (principal)

== ENCOUNTER → 2018-04-04 | Day surgery (SDC) | payer MEDICARE ==
[2018-04-04 12:22] LABS: BASO % 0.8 % (0.0-1.0); EOS # 0.2 10*3/uL (0.0-0.4); EOS % 3.2 % (1.0-4.0); HEMATOCRIT 37.4 % (42.0-52.0); LYMPH # 0.9 10*3/uL (1.3-4.4); LYMPH % 19.7 % (27.0-41.0); MEAN CELL VOLUME 94.2 fl (80.0-94.0); MEAN CORPUSCULAR HGB 30.2 pg (27.0-31.0); MEAN CORPUSCULAR HGB CONC 32.1 g/dl (33.0-37.0); MEAN PLATELET VOLUME 10.1 fl (9.6-12.3); MONO # 0.4 10*3/uL (0.1-1.0); MONO % 8.5 % (3.0-9.0); NEUT # 3.2 10*3/uL (2.3-7.9); NEUT % 67.6 % (47.0-73.0); PLATELET COUNT AUTOMATED 167 10*3/uL (130-400); RED BLOOD COUNT 3.97 10*6/uL (4.50-5.90); RED CELL DISTRI WIDTH 14.5 % (0-14.5); WHITE BLOOD COUNT 4.7 10*3/uL (4.8-10.8)
[2018-04-04 12:44] LABS: CREATININE 2.53 mg/dL (0.70-1.30)
== END | disposition home or self-care (01) ==
LOC: SDC 01:20
PROVIDERS: Specialist
DX: Z48.01 Encounter for change or removal of surgical wound dressing (principal); I50.9 Heart failure, unspecified

== ENCOUNTER → 2018-04-11 | Day surgery (SDC) | payer MEDICARE ==
[~2018-04-11] MED LIST changes: +FISH OIL 1,0001 EAC1 PO
--- NOTE | 2018-04-11 11:20 | NUR ---
PATIENT ARRIVED TO OPS WALKING W/ NO C/O. CONDITION STABLE. PATIENT FOR BLOOD DRAW VIA PICC LINE. BLOOD SAMPLE OBTAINED PER POLICY AND SENT TO LAB. LAB PHONED TO INFORM BLOOD IN TUBES. DRESSING CHANGED TO PICC LINE SITE PER POLICY/PROCEDURE. SITE ASYMPTOMATIC.
[2018-04-11 12:10] LABS: BASO # 0.1 10*3/uL (0.0-0.1); BASO % 0.9 % (0.0-1.0); EOS # 0.2 10*3/uL (0.0-0.4); HEMATOCRIT 34.8 % (42.0-52.0); HEMOGLOBIN 11.3 g/dl (14.0-18.0); LYMPH # 0.9 10*3/uL (1.3-4.4); LYMPH % 15.7 % (27.0-41.0); MEAN CELL VOLUME 94.3 fl (80.0-94.0); MEAN CORPUSCULAR HGB 30.6 pg (27.0-31.0); MEAN CORPUSCULAR HGB CONC 32.5 g/dl (33.0-37.0); MEAN PLATELET VOLUME 10.4 fl (9.6-12.3); MONO # 0.6 10*3/uL (0.1-1.0); MONO % 9.8 % (3.0-9.0); NEUT % 69.3 % (47.0-73.0); PLATELET COUNT AUTOMATED 180 10*3/uL (130-400); RED BLOOD COUNT 3.69 10*6/uL (4.50-5.90); WHITE BLOOD COUNT 5.7 10*3/uL (4.8-10.8)
[2018-04-11 12:48] LABS: CREATININE 2.33 mg/dL (0.70-1.30); POTASSIUM 4.4 mmol/L (3.5-5.1)
== END | disposition home or self-care (01) ==
LOC: SDC 04:05
PROVIDERS: Specialist
DX: Z48.00 Encounter for change or removal of nonsurgical wound dressing (principal)

== ENCOUNTER 2018-04-25 14:38 | Inpatient (IN) | payer MEDICARE ==
[~2018-04-25] VITALS: Ht 177.8 cm; Wt 88.6 kg
--- NOTE | ~2018-04-25 | EKG ---
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
--- NOTE | ~2018-04-25 | EKG ---
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
--- NOTE | ~2018-04-25 | CON ---
[place], [place] REPORT OF CONSULTATION NAME: NORM DOWNS JR [facility] #: [id number] UNIT #: [id number] ROOM: 405 DOCTOR: KAYCE XIE MD BIRTHDATE: [birth year] DOS: 04/26/2018 CHIEF COMPLAINT: Lightheadedness and chest discomfort. 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 The patient is status post mitral valve replacement utilizing a tissue prosthesis, bypass surgery, and placement of a biventricular ICD. He is in permanent atrial fibrillation. He does have a continuous infusion of milrinone, which has been in place for several months. Despite his poor left ventricular function, he has been doing well and has been relatively stable with this regimen over the last several months. He presented to the hospital on this occasion after feeling poorly yesterday. He noted that he felt fluid overloaded and therefore took an extra dose of furosemide on 04/24/2018. With that he became lightheaded and developed some chest heaviness with some abdominal discomfort. His blood pressure was low and therefore he came to the Emergency Room. He denied any fevers or chills and did not have nausea, vomiting, diarrhea or urinary complaints. Since he has been in the hospital, his troponin levels have been stable. He does have mild chronic elevation in troponin, but this has not increased over his baseline. His chest x-ray does not show any acute changes, although it does show the presence of his biventricular pacemaker, cardiomegaly, and slight blunting of his costophrenic angles. All these findings were present in the past. His weight has been stable lately and he denies any orthopnea or peripheral edema. PAST MEDICAL HISTORY: Includes: 1. Atherosclerotic heart disease, status post bypass surgery in 1982 at [facility] with left internal mammary artery graft to LAD, saphenous vein graft to obtuse marginal and saphenous vein graft to right coronary artery. 2. Essential hypertension. 3. Hyperlipidemia. 4. Chronic renal insufficiency. Baseline creatinine is about 2.5. 5. Permanent atrial fibrillation, on warfarin anticoagulation. 6. History of transient ischemic attack in the past. 7. Type 2 diabetes mellitus. 8. History of mitral valve replacement and bypass surgery at [facility]. A tissue prosthesis was used in the mitral position. 9. Status post placement of biventricular ICD. 10. Type 2 diabetes mellitus. 11. Chronic heart failure therapy with milrinone infusion. 12. Echocardiogram 01/14/2018, moderately dilated left ventricle with left ventricular apical thrombus present. Ejection fraction 15-20%, stage 1 diastolic relaxation abnormalities. Borderline dilation of right ventricle, mildly dilated left atrium, prosthetic valve in the mitral position appeared to be functioning normally. [place], [place] REPORT OF CONSULTATION NAME: NORM DOWNS JR UNIT #: [id number] ROOM: 405 DOCTOR: KAYCE XIE MD BIRTHDATE: [birth year] REVIEW OF SYSTEMS: The patient denies diplopia or loss of vision. He denies lightheadedness or syncope today, but he was lightheaded on admission. He denies fevers, chills, sweats or recent weight change and does monitor his weight on a daily basis. He denies nausea or vomiting. He denies change in bowel or bladder habits. He denies blood in his stools or urine. He denies any focal weakness. He denies hemoptysis or hematemesis. He denies any skin rashes. He denies any peripheral edema, orthopnea or PND. He has not had any palpitations or syncope. He did have some chest heaviness prior to admission, but this has since resolved. Remainder of the review of systems is negative except as noted above. MEDICATIONS: Prior to admission, milrinone by continuous infusion 46 mg per 24 hours, alprazolam 0.25 mg at bedtime, amiodarone 200 mg daily, ascorbic acid 500 mg daily, aspirin 81 mg daily, carvedilol 6.25 mg b.i.d., cholecalciferol 2000 units daily, cyanocobalamin 1000 mcg p.o. daily, fenofibrate 145 mg daily, iron sulfate 325 mg daily, furosemide 40 mg p.o. every other day, magnesium oxide 400 mg b.i.d., omega-3 fish oil b.i.d., pantoprazole 40 mg daily, potassium 20 mEq b.i.d., pravastatin 80 mg at bedtime, sertraline 50 mg daily, temazepam 30 mg at bedtime p.r.n. insomnia and warfarin on an adjusted dose schedule to maintain an INR between 2 and 3. ALLERGIES: HE LISTED AN ALLERGY TO LISINOPRIL. FAMILY HISTORY: Negative for early coronary artery disease. SOCIAL HISTORY: The patient is and lives with his . He was a smoker in the distant past, but has quit. He does not consume alcohol or illegal substances. PHYSICAL EXAMINATION: GENERAL: The patient is a well-nourished white male who is awake, alert and oriented. VITAL SIGNS: Pulse is 72 and regular, blood pressure is 110/47. He is afebrile. He weighs 88.6 kg and has a body mass index of 28. HEENT: Normocephalic and atraumatic. Extraocular muscles are intact. Sclerae are clear. Pupils equal, round and react to light. The oral mucosa is moist. Tongue is midline. NECK: His neck is supple. He has no jugular distention or hepatojugular reflux. Carotids are full. There are no bruits. He has no neck or supraclavicular masses and no thyromegaly. LUNGS: Respirations are unlabored. His chest has decreased breath sounds at the bases, but no wheezes or rales. He has no presacral edema or chest wall tenderness. HEART: His heart has a regular rhythm. He does have a grade 2/6 systolic murmur along the left sternal border. There is no diastolic murmur. He has a third heart sound, but no fourth heart sound. The PMI is laterally displaced, but there is no precordial heave, lift or thrill. ABDOMEN: Soft and normally active without masses, organomegaly or bruits. EXTREMITIES: Showed no edema. Peripheral pulses are diminished, but palpable in the feet. [place], [place] REPORT OF CONSULTATION NAME: NORM DOWNS JR UNIT #: [id number] ROOM: 405 DOCTOR: KAYCE XIE MD BIRTHDATE: [birth year] I reviewed his electrocardiogram, it showed an underlying atrial fibrillation. The ventricle is 100% paced. LABORATORY DATA: Hemoglobin is 11.6, white count 5800, platelet count 180,000. Blood gases showed a pH of 7.44 with a pCO2 of 34.5 and a pO2 of 97.2. INR is 3.9 today, it was 4.3 on admission. Sodium is 142, potassium 3.7, chloride 108, CO2 of 27, BUN 42, creatinine 2.6. Estimated GFR is 24. Troponin levels are 0.04 x 3. IMPRESSION: 1. Ischemic cardiomyopathy. 2. Chronic heart failure with reduced ejection fraction. 3. Valvular heart disease, status post mitral valve replacement utilizing tissue prosthesis. 4. History of coronary artery disease, status post bypass surgery. 5. Left ventricular apical thrombus. 6. Status post biventricular ICD placement for cardiac resynchronization therapy. 7. End-stage heart failure with reduced ejection fraction on milrinone therapy followed by heart failure specialist in [facility]. PLAN: The patient appears clinically stable at this time and shows no signs of acute decompensation or acute myocardial injury. No other cardiac evaluation is appropriate at this time and I think he may be discharged to home for further followup with his heart failure specialist. We remain available to see him if needed. He should continue his previous medications including his milrinone infusion. He should remain on hold with his warfarin until the INR is between 2 and 3. I thank the hospitalist physicians for asking our advice regarding his care. KAYCE XIE MD CM:CONSTR:REPORT OF CONSULTATION 1107 04/27/18 0826 interface
--- NOTE | ~2018-04-25 | EKG ---
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
[~2018-04-25 14:38] MED LIST changes: -FISH OIL 1,0001 EAC1 PO
[2018-04-25 14:40] VITALS: BP 110/55
[2018-04-25 15:00] VITALS: BP 110/55; BP 98/80
[2018-04-25 15:20] LABS: BASO # 0.1 10*3/uL (0.0-0.1); BASO % 0.9 % (0.0-1.0); EOS # 0.3 10*3/uL (0.0-0.4); EOS % 4.1 % (1.0-4.0); HEMATOCRIT 38.1 % (42.0-52.0); HEMOGLOBIN 12.6 g/dl (14.0-18.0); LYMPH # 1.1 10*3/uL (1.3-4.4); LYMPH % 17.1 % (27.0-41.0); MEAN CELL VOLUME 93.8 fl (80.0-94.0); MEAN CORPUSCULAR HGB CONC 33.1 g/dl (33.0-37.0); MEAN PLATELET VOLUME 9.2 fl (9.6-12.3); MONO # 0.6 10*3/uL (0.1-1.0); MONO % 8.7 % (3.0-9.0); NEUT # 4.4 10*3/uL (2.3-7.9); NEUT % 68.9 % (47.0-73.0); PLATELET COUNT AUTOMATED 181 10*3/uL (130-400); RED BLOOD COUNT 4.06 10*6/uL (4.50-5.90); RED CELL DISTRI WIDTH 15.4 % (0-14.5); WHITE BLOOD COUNT 6.3 10*3/uL (4.8-10.8)
[2018-04-25 15:30] VITALS: BP 101/59
[2018-04-25 15:36] LABS: ALBUMIN 3.3 gm/dl (3.1-4.5); CREATININE 2.87 mg/dL (0.70-1.30); POTASSIUM 4.4 mmol/L (3.5-5.1); TOTAL PROTEIN 6.7 gm/dL (6.4-8.2)
[2018-04-25 15:37] LABS: TROPONIN I 0.042 ng/ml (<0.045)
[2018-04-25 15:40] LABS: INTERNATIONAL NORM RATIO 4.3 (2.0-3.5)
--- NOTE | 2018-04-25 18:07 | NUR ---
PATIENT DENIES ANY WOUNDS AT THIS TIME. A&OX4 AT THIS TIME.
[2018-04-25 19:18] VITALS: BP 88/53
[2018-04-25 19:30] VITALS: BP 95/56
--- NOTE | 2018-04-25 19:30 | NUR ---
Time: A 78 year old M admitted to 4E under services of ALEJANDRA NÚÑEZ DO, Pt. arrived via bed from ER. Chief complaint: ANGINA. 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
[2018-04-25 20:00] VITALS: BP 95/50
[2018-04-25] MEDS ORDERED: FISH OIL 1,0001 EAC1 PO (21:11)
--- NOTE | 2018-04-25 21:30 | NUR ---
RESIDENT NOTIFIED OF UPDATED MEDRX. ORDERS PENDING.
--- NOTE | 2018-04-25 22:02 | NUR ---
DR. GUERRA NOTIFIED OF CONSULT. NO ORDERS AT THIS TIME. WILL CONTNIUE TO MONITOR
[2018-04-25 23:08] LABS: ABG HCO3 23.3 mmol/l (22-26); ABG O2 SATURATION 97.4 % (95-97); ARTERIAL BLOOD GAS PCO2 34.5 mmHg (35-45); ARTERIAL BLOOD GAS PH 7.442 (7.35-7.45); ARTERIAL BLOOD GAS PO2 97.2 mmHg (80-90)
[2018-04-25] MEDS ORDERED: RESTORIL30 M1 PO (23:26)
[2018-04-26] VITALS: BP 110/47
--- NOTE | 2018-04-26 04:45 | NUR ---
INTO SEE PT. PT RESTING AT THIS TIME. BREATHING EASY
[2018-04-26 06:27] LABS: BASO # 0.1 10*3/uL (0.0-0.1); BASO % 0.9 % (0.0-1.0); EOS # 0.3 10*3/uL (0.0-0.4); HEMATOCRIT 36.3 % (42.0-52.0); HEMOGLOBIN 11.6 g/dl (14.0-18.0); LYMPH # 1.2 10*3/uL (1.3-4.4); LYMPH % 20.2 % (27.0-41.0); MEAN CELL VOLUME 93.1 fl (80.0-94.0); MEAN CORPUSCULAR HGB 29.7 pg (27.0-31.0); MEAN PLATELET VOLUME 9.7 fl (9.6-12.3); MONO # 0.5 10*3/uL (0.1-1.0); MONO % 9.2 % (3.0-9.0); NEUT # 3.7 10*3/uL (2.3-7.9); NEUT % 64.4 % (47.0-73.0); PLATELET COUNT AUTOMATED 180 10*3/uL (130-400); RED CELL DISTRI WIDTH 15.1 % (0-14.5); WHITE BLOOD COUNT 5.8 10*3/uL (4.8-10.8)
[2018-04-26 06:36] LABS: ACT PARTIAL THROMBO TIME 37.6 SECONDS (20.8-31.5); INTERNATIONAL NORM RATIO 3.9 (2.0-3.5)
[2018-04-26 06:38] LABS: CREATININE 2.6 mg/dL (0.70-1.30); PHOSPHOROUS 2.8 mg/dL (2.5-4.9); POTASSIUM 3.7 mmol/L (3.5-5.1); TOTAL PROTEIN 6.1 gm/dL (6.4-8.2)
[2018-04-26 06:40] LABS: FREE T4 1.33 ng/dl (0.76-1.46)
[2018-04-26 06:44] LABS: THYROID STIM HORMONE (HS) 2.87 uIU/ml (0.358-4.75)
--- NOTE | 2018-04-26 09:00 | NUR ---
Metal Hanging Helper in to talk to patient. Patient states lives at home with . There are few steps in the home. Physician: [facility] Home health services: none Patient's level of ADLs: INDEPENDENT Patient has working utilities: all working DME: none Follow-up physician's appointment after d/c: will be made by hospitalist nurse director upon discharge Does patient want to access PORTAL?: no Discharge plan discussed with patient, patient states he lives at home with , patient stated he will be going back home when able. discussed with him VNA and he stated that he had [place] in the past but didn't want any services at this time. FUAD BABIN
[2018-04-26 09:38] LABS: VITAMIN D, 25-HYDROXY 20.9 ng/mL (30-100)
[2018-04-26 12:00] VITALS: BP 113/58
--- NOTE | 2018-04-26 12:15 | NUR ---
Discharge instructions reviewed with patient/family. Patient receptive and verbalizes understanding. Follow-up care arranged. Written instructions given to patient/family. KAREN GARCIA
== END 2018-04-26 12:15 | disposition home or self-care (01) | DRG 682 ==
LOC: ED 14:38 → 4E 17:51 → EDHOLD 17:51 → 4E 18:44
PROVIDERS: Emergency Medicine; Family Medicine; ADMIT Internal Medicine
DX: N17.0 Acute kidney failure with tubular necrosis (principal); J96.01 Acute respiratory failure with hypoxia; K21.9 Gastro-esophageal reflux disease without esophagitis; I13.0 Hypertensive heart and chronic kidney disease with heart failure and stage 1 through stage 4 chronic kidney disease, or unspecified chronic kidney disease; I50.42 Chronic combined systolic (congestive) and diastolic (congestive) heart failure; E44.0 Moderate protein-calorie malnutrition; I51.3 Intracardiac thrombosis, not elsewhere classified; D68.9 Coagulation defect, unspecified; N18.4 Chronic kidney disease, stage 4 (severe); R07.89 Other chest pain; I35.0 Nonrheumatic aortic (valve) stenosis; I48.2 Chronic atrial fibrillation; E55.9 Vitamin D deficiency, unspecified; E11.65 Type 2 diabetes mellitus with hyperglycemia; Z96.642 Presence of left artificial hip joint; E11.22 Type 2 diabetes mellitus with diabetic chronic kidney disease; Z96.612 Presence of left artificial shoulder joint; E78.2 Mixed hyperlipidemia; K57.90 Diverticulosis of intestine, part unspecified, without perforation or abscess without bleeding; F41.9 Anxiety disorder, unspecified; J44.9 Chronic obstructive pulmonary disease, unspecified; E78.5 Hyperlipidemia, unspecified; I25.5 Ischemic cardiomyopathy; I25.708 Atherosclerosis of coronary artery bypass graft(s), unspecified, with other forms of angina pectoris; I34.0 Nonrheumatic mitral (valve) insufficiency; D63.8 Anemia in other chronic diseases classified elsewhere; Z95.810 Presence of automatic (implantable) cardiac defibrillator; Z88.8 Allergy status to other drugs, medicaments and biological substances; I25.2 Old myocardial infarction; Z95.1 Presence of aortocoronary bypass graft; Z95.2 Presence of prosthetic heart valve; Z95.5 Presence of coronary angioplasty implant and graft; Z87.891 Personal history of nicotine dependence; Z83.438 Family history of other disorder of lipoprotein metabolism and other lipidemia; Z82.3 Family history of stroke; Z86.73 Personal history of transient ischemic attack (TIA), and cerebral infarction without residual deficits; Z79.899 Other long term (current) drug therapy; Z79.82 Long term (current) use of aspirin; Z68.28 Body mass index [BMI] 28.0-28.9, adult

== ENCOUNTER → 2018-05-02 | Day surgery (SDC) | payer MEDICARE ==
[~2018-05-02] MED LIST changes: +FISH OIL 1,0001 EAC1 PO
--- NOTE | 2018-05-02 12:12 | NUR ---
PT HERE FOR PICC LINE DRESSING CHANGE AND LAB DRAW. PROMPT BLOOD RETURN NOTED FROM PICC LINE. LABS SENT TO MAIN LAB. PICC SITE ASYMPTOMATIC. NO SWELLING OR DRAINAGE NOTED FROM SITE. STERILE DRESSING APPLIED ALONG WITH STERILE CAPS. TOLERATED WELL. ORLANDO HOOD RN
[2018-05-02 12:27] LABS: BASO # 0.1 10*3/uL (0.0-0.1); BASO % 0.9 % (0.0-1.0); EOS # 0.2 10*3/uL (0.0-0.4); EOS % 3.8 % (1.0-4.0); HEMOGLOBIN 12.2 g/dl (14.0-18.0); LYMPH # 0.9 10*3/uL (1.3-4.4); LYMPH % 14.7 % (27.0-41.0); MEAN CELL VOLUME 95.1 fl (80.0-94.0); MEAN CORPUSCULAR HGB 31.4 pg (27.0-31.0); MONO # 0.5 10*3/uL (0.1-1.0); MONO % 8.3 % (3.0-9.0); NEUT # 4.2 10*3/uL (2.3-7.9); NEUT % 71.8 % (47.0-73.0); PLATELET COUNT AUTOMATED 172 10*3/uL (130-400); RED BLOOD COUNT 3.89 10*6/uL (4.50-5.90); RED CELL DISTRI WIDTH 15.6 % (0-14.5); WHITE BLOOD COUNT 5.8 10*3/uL (4.8-10.8)
[2018-05-02 12:38] LABS: CREATININE 2.3 mg/dL (0.70-1.30); POTASSIUM 4.2 mmol/L (3.5-5.1)
== END | disposition home or self-care (01) ==
LOC: SDC 02:48
PROVIDERS: Specialist
DX: Z45.2 Encounter for adjustment and management of vascular access device (principal)

== ENCOUNTER → 2018-05-09 | Day surgery (SDC) | payer MEDICARE ==
--- NOTE | 2018-05-09 12:00 | NUR ---
PT HERE FOR PICC LINE DRESSING CHANGE AND LAB DRAW. LABS SENT TO MAIN LAB WITH ORDER. SITE ASYMPTOMATIC NO REDNESS OR DRAINAGE NOTED. STERILE DRESSING APPLIED. CAPS CHANGED. PATIENT TOLERATED WELL. OR[place]O HOOD RN
[2018-05-09 12:36] LABS: BASO % 0.7 % (0.0-1.0); EOS # 0.2 10*3/uL (0.0-0.4); EOS % 3.6 % (1.0-4.0); HEMATOCRIT 37.7 % (42.0-52.0); HEMOGLOBIN 11.9 g/dl (14.0-18.0); LYMPH # 0.9 10*3/uL (1.3-4.4); LYMPH % 15.5 % (27.0-41.0); MEAN CELL VOLUME 96.4 fl (80.0-94.0); MEAN CORPUSCULAR HGB 30.4 pg (27.0-31.0); MEAN CORPUSCULAR HGB CONC 31.6 g/dl (33.0-37.0); MONO # 0.4 10*3/uL (0.1-1.0); MONO % 7.3 % (3.0-9.0); NEUT # 4.2 10*3/uL (2.3-7.9); NEUT % 72.6 % (47.0-73.0); PLATELET COUNT AUTOMATED 187 10*3/uL (130-400); RED BLOOD COUNT 3.91 10*6/uL (4.50-5.90); RED CELL DISTRI WIDTH 15.6 % (0-14.5); WHITE BLOOD COUNT 5.8 10*3/uL (4.8-10.8)
[2018-05-09 12:46] LABS: CREATININE 2.43 mg/dL (0.70-1.30); POTASSIUM 4.2 mmol/L (3.5-5.1)
== END | disposition home or self-care (01) ==
LOC: SDC 02:01
PROVIDERS: Specialist
DX: Z45.2 Encounter for adjustment and management of vascular access device (principal)

== ENCOUNTER → 2018-05-16 | Outpatient (CLI) | payer MEDICARE | END | disposition home or self-care (01) | LOC: RESCLI 01:39 → ORTHO 20:02 → RESCLI 20:04 | DX: I25.810 Atherosclerosis of coronary artery bypass graft(s) without angina pectoris (principal); I15.0 Renovascular hypertension; E11.22 Type 2 diabetes mellitus with diabetic chronic kidney disease; N18.4 Chronic kidney disease, stage 4 (severe); I50.22 Chronic systolic (congestive) heart failure; I48.2 Chronic atrial fibrillation; F33.41 Major depressive disorder, recurrent, in partial remission; E78.2 Mixed hyperlipidemia; R68.89 Other general symptoms and signs; R53.1 Weakness; E83.41 Hypermagnesemia; R74.0 Nonspecific elevation of levels of transaminase and lactic acid dehydrogenase [LDH]; F51.04 Psychophysiologic insomnia; F41.9 Anxiety disorder, unspecified; Z79.899 Other long term (current) drug therapy; Z95.1 Presence of aortocoronary bypass graft; Z88.8 Allergy status to other drugs, medicaments and biological substances ==

== ENCOUNTER → 2018-05-16 | Day surgery (SDC) | payer MEDICARE ==
[2018-05-16 12:21] LABS: BASO # 0.1 10*3/uL (0.0-0.1); EOS # 0.2 10*3/uL (0.0-0.4); EOS % 3.3 % (1.0-4.0); HEMATOCRIT 38.2 % (42.0-52.0); HEMOGLOBIN 12.3 g/dl (14.0-18.0); LYMPH # 1.3 10*3/uL (1.3-4.4); MEAN CORPUSCULAR HGB 30.9 pg (27.0-31.0); MEAN CORPUSCULAR HGB CONC 32.2 g/dl (33.0-37.0); MEAN PLATELET VOLUME 9.6 fl (9.6-12.3); MONO # 0.6 10*3/uL (0.1-1.0); MONO % 8.8 % (3.0-9.0); NEUT # 4.9 10*3/uL (2.3-7.9); NEUT % 68.6 % (47.0-73.0); PLATELET COUNT AUTOMATED 186 10*3/uL (130-400); RED BLOOD COUNT 3.98 10*6/uL (4.50-5.90); RED CELL DISTRI WIDTH 15.7 % (0-14.5); WHITE BLOOD COUNT 7.2 10*3/uL (4.8-10.8)
[2018-05-16 12:53] LABS: CREATININE 2.33 mg/dL (0.70-1.30); POTASSIUM 4.6 mmol/L (3.5-5.1)
== END | disposition home or self-care (01) ==
LOC: SDC 05-09 11:00
PROVIDERS: Specialist
DX: Z45.2 Encounter for adjustment and management of vascular access device (principal)

== ENCOUNTER → 2018-05-24 | Day surgery (SDC) | payer MEDICARE ==
--- NOTE | 2018-05-24 13:41 | NUR ---
1330- PICC LINE DRESSING CHANGED USING STERILE TECHNIQUE. SITE IS ASYMPTOMATIC.
[2018-05-24 13:46] LABS: BASO # 0.1 10*3/uL (0.0-0.1); EOS # 0.2 10*3/uL (0.0-0.4); HEMATOCRIT 39.4 % (42.0-52.0); HEMOGLOBIN 12.5 g/dl (14.0-18.0); LYMPH # 1.1 10*3/uL (1.3-4.4); LYMPH % 17.6 % (27.0-41.0); MEAN CELL VOLUME 96.3 fl (80.0-94.0); MEAN CORPUSCULAR HGB 30.6 pg (27.0-31.0); MEAN CORPUSCULAR HGB CONC 31.7 g/dl (33.0-37.0); MEAN PLATELET VOLUME 10.3 fl (9.6-12.3); MONO # 0.7 10*3/uL (0.1-1.0); MONO % 10.4 % (3.0-9.0); NEUT # 4.2 10*3/uL (2.3-7.9); NEUT % 67.7 % (47.0-73.0); PLATELET COUNT AUTOMATED 191 10*3/uL (130-400); RED BLOOD COUNT 4.09 10*6/uL (4.50-5.90); RED CELL DISTRI WIDTH 15.5 % (0-14.5); WHITE BLOOD COUNT 6.3 10*3/uL (4.8-10.8)
[2018-05-24 13:53] LABS: CREATININE 2.64 mg/dL (0.70-1.30); POTASSIUM 4.4 mmol/L (3.5-5.1)
--- NOTE | 2018-05-24 14:27 | NUR ---
CLIENT AMBULATORY TO TREATMENT AREA FOR PICC BLOOD DRAW FROM PICC THEN PICC DRESSING AND CAP CHANGE. BRISK BLOOD RETURN WAS NOTED FROM PICC. 10ML OF BLOOD WAS WASTED THEN SPECIMEN WAS OBTAINED AND SENT TO LAB. DRESSING AND CAP CHANGE WAS COMPLETED USING ASEPTIC TECHNIQUE AND WAS TOLERATED WELL. CLIENT THEN LEFT TREATMENT AREA IN STABLE CONDITION
== END | disposition home or self-care (01) ==
LOC: SDC 05-23 03:19
PROVIDERS: Specialist
DX: Z45.2 Encounter for adjustment and management of vascular access device (principal)

== ENCOUNTER → 2018-05-31 | Day surgery (SDC) | payer MEDICARE ==
--- NOTE | 2018-05-31 12:27 | NUR ---
client ambulatory to treatment area for picc blood draw then picc cap and dressing change. procedure was completed using aseptic technique and was tolerated well. client then left treatment area in stable condiion
[2018-05-31 12:37] LABS: BASO % 0.7 % (0.0-1.0); EOS # 0.2 10*3/uL (0.0-0.4); EOS % 3.7 % (1.0-4.0); HEMATOCRIT 37.5 % (42.0-52.0); HEMOGLOBIN 12.4 g/dl (14.0-18.0); LYMPH % 17.9 % (27.0-41.0); MEAN CELL VOLUME 95.9 fl (80.0-94.0); MEAN CORPUSCULAR HGB 31.7 pg (27.0-31.0); MEAN CORPUSCULAR HGB CONC 33.1 g/dl (33.0-37.0); MEAN PLATELET VOLUME 10.3 fl (9.6-12.3); MONO # 0.5 10*3/uL (0.1-1.0); MONO % 8.9 % (3.0-9.0); NEUT # 3.9 10*3/uL (2.3-7.9); NEUT % 68.4 % (47.0-73.0); PLATELET COUNT AUTOMATED 180 10*3/uL (130-400); RED CELL DISTRI WIDTH 15.5 % (0-14.5); WHITE BLOOD COUNT 5.6 10*3/uL (4.8-10.8)
[2018-05-31 12:46] LABS: CREATININE 2.52 mg/dL (0.70-1.30); POTASSIUM 4.6 mmol/L (3.5-5.1)
[2018-05-31 13:08] LABS: RED BLOOD COUNT 3.91 10*6/uL (4.50-5.90)
== END | disposition home or self-care (01) ==
LOC: SDC 05-30 08:03
PROVIDERS: Specialist
DX: Z48.01 Encounter for change or removal of surgical wound dressing (principal); I48.2 Chronic atrial fibrillation; I25.10 Atherosclerotic heart disease of native coronary artery without angina pectoris; I42.0 Dilated cardiomyopathy; N18.3 Chronic kidney disease, stage 3 (moderate)

== ENCOUNTER → 2018-06-06 | Day surgery (SDC) | payer MEDICARE ==
[2018-06-06 12:43] LABS: BASO # 0.1 10*3/uL (0.0-0.1); BASO % 0.9 % (0.0-1.0); EOS # 0.2 10*3/uL (0.0-0.4); EOS % 4.2 % (1.0-4.0); HEMATOCRIT 37.5 % (42.0-52.0); HEMOGLOBIN 12.2 g/dl (14.0-18.0); LYMPH % 17.4 % (27.0-41.0); MEAN CELL VOLUME 95.9 fl (80.0-94.0); MEAN CORPUSCULAR HGB 31.2 pg (27.0-31.0); MEAN CORPUSCULAR HGB CONC 32.5 g/dl (33.0-37.0); MEAN PLATELET VOLUME 10.3 fl (9.6-12.3); MONO # 0.5 10*3/uL (0.1-1.0); MONO % 9.4 % (3.0-9.0); NEUT # 3.7 10*3/uL (2.3-7.9); NEUT % 67.7 % (47.0-73.0); PLATELET COUNT AUTOMATED 184 10*3/uL (130-400); RED BLOOD COUNT 3.91 10*6/uL (4.50-5.90); RED CELL DISTRI WIDTH 15.4 % (0-14.5); WHITE BLOOD COUNT 5.5 10*3/uL (4.8-10.8)
--- NOTE | 2018-06-06 12:45 | NUR ---
PT HERE FOR PICC LINE FLUSH DRESSING CHANGE AND LAB DRAW. ALL COMPLETE UNDER STERILE TECHNIQUE. PT TOLERATED WELL. JUANA HAYES RN
[2018-06-06 13:19] LABS: CREATININE 2.52 mg/dL (0.70-1.30); POTASSIUM 4.1 mmol/L (3.5-5.1)
== END | disposition home or self-care (01) ==
LOC: SDC 11:00
PROVIDERS: Specialist
DX: Z45.2 Encounter for adjustment and management of vascular access device (principal)

== ENCOUNTER → 2018-06-14 | Day surgery (SDC) | payer MEDICARE ==
--- NOTE | 2018-06-14 14:35 | NUR ---
CLIENT TO TREATMENT AREA VIA WHEELCHAIR WITH ASSISTANCE FROM HIS FOR PICC BLOOD DRAW AND PICC DRESSING AND CAP CHANGE. BRISK BLOOD RETURN WAS NOTED FROM PICC. 10ML BLOOD WAS WASTED THEN SPECIMEN WAS OBTAINED AND SENT TO LAB. PICC DRESSING, CAP CHANGE AND FLUSH WERE COMPLETED USING ASEPTIC TECHNIQUE AND WERE TOLERATED WELL. CLIENT C/O SOB. PULSE OX UPPER 90'S ON ROOM AIR. HEART RATE WAS NORMAL AND BP112/50. CLIENT WAS INSTRUCTED TO GO TO ER, BUT CLIENT AND SPOUSE ELECTED TO GO HOME AND REST FIRST. CLIENT AND THEN LEFT TREATMENT AREA IN FAIR CONDITION
[2018-06-14 14:45] LABS: BASO % 0.7 % (0.0-1.0); EOS # 0.3 10*3/uL (0.0-0.4); EOS % 4.3 % (1.0-4.0); HEMATOCRIT 37.3 % (42.0-52.0); HEMOGLOBIN 12.1 g/dl (14.0-18.0); LYMPH # 1.1 10*3/uL (1.3-4.4); LYMPH % 19.5 % (27.0-41.0); MEAN CELL VOLUME 95.2 fl (80.0-94.0); MEAN CORPUSCULAR HGB 30.9 pg (27.0-31.0); MEAN CORPUSCULAR HGB CONC 32.4 g/dl (33.0-37.0); MEAN PLATELET VOLUME 10.1 fl (9.6-12.3); MONO # 0.5 10*3/uL (0.1-1.0); MONO % 8.5 % (3.0-9.0); NEUT # 3.9 10*3/uL (2.3-7.9); NEUT % 66.7 % (47.0-73.0); PLATELET COUNT AUTOMATED 187 10*3/uL (130-400); RED BLOOD COUNT 3.92 10*6/uL (4.50-5.90); RED CELL DISTRI WIDTH 14.9 % (0-14.5); WHITE BLOOD COUNT 5.8 10*3/uL (4.8-10.8)
[2018-06-14 15:09] LABS: CREATININE 2.92 mg/dL (0.70-1.30); POTASSIUM 4.7 mmol/L (3.5-5.1)
== END | disposition home or self-care (01) ==
LOC: SDC 06-13 11:00
PROVIDERS: Specialist
DX: Z48.01 Encounter for change or removal of surgical wound dressing (principal); I48.2 Chronic atrial fibrillation; I25.10 Atherosclerotic heart disease of native coronary artery without angina pectoris; I42.0 Dilated cardiomyopathy; N18.3 Chronic kidney disease, stage 3 (moderate)

== ENCOUNTER → 2018-06-20 | Day surgery (SDC) | payer MEDICARE ==
--- NOTE | 2018-06-20 11:40 | NUR ---
PATIENT ARRIVED TO OPS WALKING W/ NO C/O. CONDITION STABLE. PATIENT FOR BLOOD DRAW VIA PICC LINE. SPECIMEN OBTAINED PER [facility] POLICY/PROCEDURE AND SENT TO LAB. CALLED LAB TO INFORM SPECIMEN IN TUBES. DRESSING TO PICC LINE CHANGED PER [facility] POLICY/PROCEDURE. SITE ASYMPTOMATIC.
[2018-06-20 12:25] LABS: CREATININE 2.35 mg/dL (0.70-1.30); POTASSIUM 4.4 mmol/L (3.5-5.1)
[2018-06-20 12:27] LABS: BASO % 0.7 % (0.0-1.0); EOS # 0.2 10*3/uL (0.0-0.4); EOS % 4.5 % (1.0-4.0); HEMATOCRIT 37.5 % (42.0-52.0); LYMPH # 0.9 10*3/uL (1.3-4.4); LYMPH % 17.4 % (27.0-41.0); MEAN CELL VOLUME 95.7 fl (80.0-94.0); MEAN CORPUSCULAR HGB 30.6 pg (27.0-31.0); MEAN PLATELET VOLUME 10.4 fl (9.6-12.3); MONO # 0.5 10*3/uL (0.1-1.0); NEUT # 3.7 10*3/uL (2.3-7.9); PLATELET COUNT AUTOMATED 168 10*3/uL (130-400); RED BLOOD COUNT 3.92 10*6/uL (4.50-5.90); RED CELL DISTRI WIDTH 14.6 % (0-14.5); WHITE BLOOD COUNT 5.4 10*3/uL (4.8-10.8)
== END | disposition home or self-care (01) ==
LOC: SDC 01:10
PROVIDERS: Specialist
DX: Z45.2 Encounter for adjustment and management of vascular access device (principal)

== ENCOUNTER → 2018-07-04 | Day surgery (SDC) | payer MEDICARE ==
[2018-07-04 11:35] LABS: BASO # 0.1 10*3/uL (0.0-0.1); BASO % 0.9 % (0.0-1.0); EOS # 0.2 10*3/uL (0.0-0.4); EOS % 3.8 % (1.0-4.0); HEMATOCRIT 39.9 % (42.0-52.0); HEMOGLOBIN 13.2 g/dl (14.0-18.0); LYMPH % 16.7 % (27.0-41.0); MEAN CELL VOLUME 93.2 fl (80.0-94.0); MEAN CORPUSCULAR HGB 30.8 pg (27.0-31.0); MEAN CORPUSCULAR HGB CONC 33.1 g/dl (33.0-37.0); MONO # 0.6 10*3/uL (0.1-1.0); MONO % 9.7 % (3.0-9.0); NEUT % 68.6 % (47.0-73.0); PLATELET COUNT AUTOMATED 194 10*3/uL (130-400); RED BLOOD COUNT 4.28 10*6/uL (4.50-5.90); RED CELL DISTRI WIDTH 14.6 % (0-14.5); WHITE BLOOD COUNT 5.8 10*3/uL (4.8-10.8)
--- NOTE | 2018-07-04 11:35 | NUR ---
PT HERE FOR BLOOD DRAW AND PICC LINE DRESSING CHANGE ORDERED. LAB DRAW FROM [facility] PICC LINE. SENT TO MAIN LAB. PICC LINE DRESSING AND END CAPS CHANGED PER POLICY. SITE ASYMPTOMACTIC. TOLERATED WELL. ORLANDO HOOD RN
[2018-07-04 12:13] LABS: CREATININE 2.97 mg/dL (0.70-1.30); POTASSIUM 3.8 mmol/L (3.5-5.1)
== END | disposition home or self-care (01) ==
LOC: SDC 03:03
PROVIDERS: Specialist
DX: Z45.2 Encounter for adjustment and management of vascular access device (principal)

== ENCOUNTER → 2018-07-10 | Day surgery (SDC) | payer MEDICARE ==
[2018-07-10 12:02] LABS: BASO # 0.1 10*3/uL (0.0-0.1); EOS # 0.2 10*3/uL (0.0-0.4); EOS % 4.2 % (1.0-4.0); HEMATOCRIT 38.3 % (42.0-52.0); HEMOGLOBIN 12.4 g/dl (14.0-18.0); LYMPH % 18.8 % (27.0-41.0); MEAN CELL VOLUME 95.5 fl (80.0-94.0); MEAN CORPUSCULAR HGB 30.9 pg (27.0-31.0); MEAN CORPUSCULAR HGB CONC 32.4 g/dl (33.0-37.0); MEAN PLATELET VOLUME 10.3 fl (9.6-12.3); MONO # 0.5 10*3/uL (0.1-1.0); MONO % 9.3 % (3.0-9.0); NEUT # 3.4 10*3/uL (2.3-7.9); NEUT % 66.3 % (47.0-73.0); PLATELET COUNT AUTOMATED 182 10*3/uL (130-400); RED BLOOD COUNT 4.01 10*6/uL (4.50-5.90); WHITE BLOOD COUNT 5.1 10*3/uL (4.8-10.8)
[2018-07-10 12:37] LABS: CREATININE 2.5 mg/dL (0.70-1.30); POTASSIUM 4.3 mmol/L (3.5-5.1)
== END | disposition home or self-care (01) ==
LOC: SDC 10:25
PROVIDERS: Specialist
DX: Z48.01 Encounter for change or removal of surgical wound dressing (principal); I48.2 Chronic atrial fibrillation; I25.10 Atherosclerotic heart disease of native coronary artery without angina pectoris; I42.0 Dilated cardiomyopathy; N18.3 Chronic kidney disease, stage 3 (moderate); Z98.890 Other specified postprocedural states; Z79.899 Other long term (current) drug therapy

== ENCOUNTER → 2018-08-01 | Day surgery (SDC) | payer MEDICARE ==
[2018-08-01 12:18] LABS: BASO # 0.1 10*3/uL (0.0-0.1); BASO % 0.9 % (0.0-1.0); EOS # 0.2 10*3/uL (0.0-0.4); EOS % 2.8 % (1.0-4.0); HEMOGLOBIN 13.1 g/dl (14.0-18.0); LYMPH # 1.2 10*3/uL (1.3-4.4); LYMPH % 15.3 % (27.0-41.0); MEAN CELL VOLUME 93.8 fl (80.0-94.0); MEAN PLATELET VOLUME 10.3 fl (9.6-12.3); MONO # 0.8 10*3/uL (0.1-1.0); MONO % 9.8 % (3.0-9.0); NEUT # 5.6 10*3/uL (2.3-7.9); NEUT % 70.9 % (47.0-73.0); PLATELET COUNT AUTOMATED 195 10*3/uL (130-400); RED BLOOD COUNT 4.37 10*6/uL (4.50-5.90); WHITE BLOOD COUNT 7.8 10*3/uL (4.8-10.8)
[2018-08-01 12:30] LABS: CREATININE 2.4 mg/dL (0.70-1.30); POTASSIUM 4.6 mmol/L (3.5-5.1)
== END | disposition home or self-care (01) ==
LOC: SDC 10:51
PROVIDERS: Specialist
DX: Z45.2 Encounter for adjustment and management of vascular access device (principal)

== ENCOUNTER → 2018-08-15 | Day surgery (SDC) | payer MEDICARE ==
--- NOTE | 2018-08-15 11:45 | NUR ---
PT HERE FOR PICC LINE DRESSING CHANGE AND LAB WORK. SITE ASYMPTOMACTIC AT PRESENT. STERILE DRESSING APPLIED. LABS SENT TO MAIN LAB. PATIENT TOLERATED WELL. ORLANDO HOOD RN
[2018-08-15 11:59] LABS: BASO # 0.1 10*3/uL (0.0-0.1); BASO % 0.9 % (0.0-1.0); EOS # 0.2 10*3/uL (0.0-0.4); EOS % 3.3 % (1.0-4.0); HEMATOCRIT 38.9 % (42.0-52.0); HEMOGLOBIN 12.6 g/dl (14.0-18.0); LYMPH # 1.2 10*3/uL (1.3-4.4); LYMPH % 19.3 % (27.0-41.0); MEAN CELL VOLUME 93.5 fl (80.0-94.0); MEAN CORPUSCULAR HGB 30.3 pg (27.0-31.0); MEAN CORPUSCULAR HGB CONC 32.4 g/dl (33.0-37.0); MEAN PLATELET VOLUME 9.5 fl (9.6-12.3); MONO # 0.7 10*3/uL (0.1-1.0); MONO % 11.1 % (3.0-9.0); NEUT # 4.2 10*3/uL (2.3-7.9); NEUT % 64.9 % (47.0-73.0); PLATELET COUNT AUTOMATED 177 10*3/uL (130-400); RED BLOOD COUNT 4.16 10*6/uL (4.50-5.90); WHITE BLOOD COUNT 6.4 10*3/uL (4.8-10.8)
[2018-08-15 12:29] LABS: CREATININE 2.32 mg/dL (0.70-1.30); POTASSIUM 4.6 mmol/L (3.5-5.1)
== END | disposition home or self-care (01) ==
LOC: SDC 01:34
PROVIDERS: Specialist
DX: Z45.2 Encounter for adjustment and management of vascular access device (principal)

== ENCOUNTER → 2018-08-29 | Day surgery (SDC) | payer MEDICARE ==
--- NOTE | 2018-08-29 11:54 | NUR ---
PT PRESENTED FOR LAB DRAW AND PICC LINE DRESSING CHANGE. LABS OBTAINED VIA PICC LINE WITH FLUSH BEING PROVIDED PRIOR TO AND AFTER BLOOD OBTAINED PER PROTOCOL. PICC SITE DRESSING CHANGED PER PROTOCOL, SITE ASYMPTOMATIC PRE AND POST DRESSING CHANGE. PT TOLERATED WELL AND SPECIMENS SENT TO LAB. THE LAB WAS CALLED TO NOTIFY THEM THAT BLOOD WAS ON THE WAY. PT WILL RETURN NEXT WEEK ORDERED.-VALORIE SNIDER RN
[2018-08-29 12:15] LABS: BASO # 0.1 10*3/uL (0.0-0.1); BASO % 0.8 % (0.0-1.0); EOS # 0.2 10*3/uL (0.0-0.4); EOS % 3.2 % (1.0-4.0); HEMATOCRIT 37.5 % (42.0-52.0); HEMOGLOBIN 12.2 g/dl (14.0-18.0); LYMPH % 16.4 % (27.0-41.0); MEAN CELL VOLUME 94.9 fl (80.0-94.0); MEAN CORPUSCULAR HGB 30.9 pg (27.0-31.0); MEAN CORPUSCULAR HGB CONC 32.5 g/dl (33.0-37.0); MEAN PLATELET VOLUME 10.3 fl (9.6-12.3); MONO # 0.6 10*3/uL (0.1-1.0); NEUT # 4.2 10*3/uL (2.3-7.9); NEUT % 69.3 % (47.0-73.0); PLATELET COUNT AUTOMATED 170 10*3/uL (130-400); RED BLOOD COUNT 3.95 10*6/uL (4.50-5.90); RED CELL DISTRI WIDTH 14.9 % (0-14.5)
[2018-08-29 12:35] LABS: CREATININE 2.69 mg/dL (0.70-1.30); POTASSIUM 3.7 mmol/L (3.5-5.1)
== END | disposition home or self-care (01) ==
LOC: SDC 08-22 11:46
PROVIDERS: Specialist
DX: Z45.2 Encounter for adjustment and management of vascular access device (principal); Z88.8 Allergy status to other drugs, medicaments and biological substances

== ENCOUNTER → 2018-09-04 | Day surgery (SDC) | payer MEDICARE ==
--- NOTE | 2018-09-04 10:40 | NUR ---
PATIENT ARRIVED TO OPS WALKING W/ NO C/O. CONDITION STABLE. PATIENT FOR DRESSING CHANGE TO PICC LINE AND BLOOD DRAW. SPECIMEN OBTAINED VIA PICC LINE DIRECTED. SPECIMEN SENT TO LAB AND LAB INFORMED SPECIMEN IN TUBES. DRESSING CHANGED TO PICC LINE PER [facility] POLICY/PROCEDURE. SITE ASYMPTOMATIC.
[2018-09-04 11:02] LABS: BASO % 0.8 % (0.0-1.0); EOS # 0.2 10*3/uL (0.0-0.4); HEMATOCRIT 37.3 % (42.0-52.0); HEMOGLOBIN 12.2 g/dl (14.0-18.0); LYMPH # 0.9 10*3/uL (1.3-4.4); LYMPH % 16.6 % (27.0-41.0); MEAN CELL VOLUME 95.2 fl (80.0-94.0); MEAN CORPUSCULAR HGB 31.1 pg (27.0-31.0); MEAN CORPUSCULAR HGB CONC 32.7 g/dl (33.0-37.0); MEAN PLATELET VOLUME 9.6 fl (9.6-12.3); MONO # 0.5 10*3/uL (0.1-1.0); NEUT # 3.6 10*3/uL (2.3-7.9); NEUT % 68.2 % (47.0-73.0); PLATELET COUNT AUTOMATED 172 10*3/uL (130-400); RED BLOOD COUNT 3.92 10*6/uL (4.50-5.90); RED CELL DISTRI WIDTH 15.2 % (0-14.5); WHITE BLOOD COUNT 5.3 10*3/uL (4.8-10.8)
[2018-09-04 11:29] LABS: CREATININE 2.72 mg/dL (0.70-1.30)
== END | disposition home or self-care (01) ==
LOC: SDC 10:51
PROVIDERS: Specialist
DX: Z45.2 Encounter for adjustment and management of vascular access device (principal); Z88.8 Allergy status to other drugs, medicaments and biological substances

== ENCOUNTER → 2018-09-19 | Day surgery (SDC) | payer MEDICARE ==
[2018-09-19 13:27] LABS: BASO # 0.1 10*3/uL (0.0-0.1); BASO % 1.1 % (0.0-1.0); EOS # 0.3 10*3/uL (0.0-0.4); HEMOGLOBIN 12.7 g/dl (14.0-18.0); LYMPH # 0.9 10*3/uL (1.3-4.4); LYMPH % 14.9 % (27.0-41.0); MEAN CELL VOLUME 95.1 fl (80.0-94.0); MEAN CORPUSCULAR HGB CONC 32.6 g/dl (33.0-37.0); MEAN PLATELET VOLUME 10.4 fl (9.6-12.3); MONO # 0.6 10*3/uL (0.1-1.0); MONO % 9.2 % (3.0-9.0); NEUT # 4.4 10*3/uL (2.3-7.9); NEUT % 70.5 % (47.0-73.0); PLATELET COUNT AUTOMATED 195 10*3/uL (130-400); RED CELL DISTRI WIDTH 15.1 % (0-14.5); WHITE BLOOD COUNT 6.3 10*3/uL (4.8-10.8)
[2018-09-19 13:42] LABS: CREATININE 2.62 mg/dL (0.70-1.30); POTASSIUM 4.2 mmol/L (3.5-5.1)
== END | disposition home or self-care (01) ==
LOC: SDC 00:58
PROVIDERS: Specialist
DX: Z45.2 Encounter for adjustment and management of vascular access device (principal); Z88.8 Allergy status to other drugs, medicaments and biological substances

== ENCOUNTER → 2018-09-26 | Day surgery (SDC) | payer MEDICARE ==
--- NOTE | 2018-09-26 11:35 | NUR ---
PT HERE FOR PICC LINE DRESSING CHANGE AND BLOOD DRAW. SITE ASYMPTOMATIC. STERILE DRESSING APPLIED. BLOOD DRAW SENT TO LAB. TOLERATED WELL. ORLANDO HOOD RN
[2018-09-26 12:03] LABS: BASO # 0.1 10*3/uL (0.0-0.1); EOS # 0.2 10*3/uL (0.0-0.4); EOS % 3.1 % (1.0-4.0); HEMATOCRIT 40.5 % (42.0-52.0); HEMOGLOBIN 13.2 g/dl (14.0-18.0); LYMPH # 1.1 10*3/uL (1.3-4.4); LYMPH % 16.7 % (27.0-41.0); MEAN CORPUSCULAR HGB 31.3 pg (27.0-31.0); MEAN CORPUSCULAR HGB CONC 32.6 g/dl (33.0-37.0); MONO # 0.7 10*3/uL (0.1-1.0); NEUT # 4.7 10*3/uL (2.3-7.9); NEUT % 68.8 % (47.0-73.0); PLATELET COUNT AUTOMATED 197 10*3/uL (130-400); RED BLOOD COUNT 4.22 10*6/uL (4.50-5.90); RED CELL DISTRI WIDTH 15.3 % (0-14.5); WHITE BLOOD COUNT 6.8 10*3/uL (4.8-10.8)
[2018-09-26 12:28] LABS: CREATININE 2.5 mg/dL (0.70-1.30); POTASSIUM 4.6 mmol/L (3.5-5.1)
== END | disposition home or self-care (01) ==
LOC: SDC 08:25
PROVIDERS: Specialist
DX: Z45.2 Encounter for adjustment and management of vascular access device (principal); Z88.8 Allergy status to other drugs, medicaments and biological substances

== ENCOUNTER → 2018-10-03 | Outpatient (CLI) | payer MEDICARE | END | disposition home or self-care (01) | LOC: RESCLI 00:53 | DX: I25.810 Atherosclerosis of coronary artery bypass graft(s) without angina pectoris (principal); R68.89 Other general symptoms and signs; R53.1 Weakness; E83.41 Hypermagnesemia; R74.0 Nonspecific elevation of levels of transaminase and lactic acid dehydrogenase [LDH]; I48.2 Chronic atrial fibrillation; F33.41 Major depressive disorder, recurrent, in partial remission; E78.2 Mixed hyperlipidemia; F51.04 Psychophysiologic insomnia; N18.4 Chronic kidney disease, stage 4 (severe); I50.22 Chronic systolic (congestive) heart failure; F41.9 Anxiety disorder, unspecified; K21.9 Gastro-esophageal reflux disease without esophagitis; G47.00 Insomnia, unspecified; Z79.899 Other long term (current) drug therapy ==

== ENCOUNTER → 2018-10-10 | Day surgery (SDC) | payer MEDICARE ==
--- NOTE | 2018-10-10 12:44 | NUR ---
1215- PT. ARRIVED FOR PICC LINE DRESSING CHANGE AND BLOOD DRAW C/O "NOT FEELING WELL" TODAY AND ALSO C/O SOME MIDSTERNAL CHEST DISCOMFORT. HE STATES "THIS HAPPENS SOMETIMES". [facility] CALLED AND PT. TO BE SEEN AT 1300 TODAY. BP 114/54, HR 66 POX 94% TEMP ORALLY 98.5. RESTING IN LOUNGE CHAIR WITH PRESENT. PICC LINE DRESSING CHANGED USING STERILE TECHNIQUE. SITE IS ASYMPTOMATIC. WAITING TO DRAW LABS UNTIL BEING SEEN IN CLINIC.
== END | disposition home or self-care (01) ==
LOC: SDC 10-03 08:27
DX: Z45.2 Encounter for adjustment and management of vascular access device (principal); I25.10 Atherosclerotic heart disease of native coronary artery without angina pectoris; I48.2 Chronic atrial fibrillation; I42.0 Dilated cardiomyopathy; N18.3 Chronic kidney disease, stage 3 (moderate)

== ENCOUNTER → 2018-10-22 | Day surgery (SDC) | payer MEDICARE ==
--- NOTE | 2018-10-22 15:18 | NUR ---
PICC LINE DRESSING CHANGED USING STERILE TECHNIQUE. SITE IS ASYMPTOMATIC. 10CC OF BLOOD WITHDRAWN AND DISCARDED. PURPLE AND GREEN TOP TUBES FILLED AND SENT TO LAB VIA TUBE TRANSPORT SYSTEM. PORT FLUSHED PER POLICY, END CAP APPLIED , AND DISCHARGED AMBULATORY.
[2018-10-22 17:33] LABS: BASO # 0.1 10*3/uL (0.0-0.1); BASO % 0.8 % (0.0-1.0); EOS # 0.3 10*3/uL (0.0-0.4); EOS % 3.9 % (1.0-4.0); HEMATOCRIT 39.1 % (42.0-52.0); HEMOGLOBIN 12.6 g/dl (14.0-18.0); LYMPH # 1.1 10*3/uL (1.3-4.4); LYMPH % 17.1 % (27.0-41.0); MEAN CELL VOLUME 95.8 fl (80.0-94.0); MEAN CORPUSCULAR HGB 30.9 pg (27.0-31.0); MEAN CORPUSCULAR HGB CONC 32.2 g/dl (33.0-37.0); MEAN PLATELET VOLUME 10.5 fl (9.6-12.3); MONO # 0.6 10*3/uL (0.1-1.0); MONO % 9.5 % (3.0-9.0); NEUT # 4.6 10*3/uL (2.3-7.9); NEUT % 68.2 % (47.0-73.0); PLATELET COUNT AUTOMATED 200 10*3/uL (130-400); RED BLOOD COUNT 4.08 10*6/uL (4.50-5.90); RED CELL DISTRI WIDTH 15.1 % (0-14.5); WHITE BLOOD COUNT 6.7 10*3/uL (4.8-10.8)
[2018-10-22 17:42] LABS: CREATININE 2.81 mg/dL (0.70-1.30); POTASSIUM 4.4 mmol/L (3.5-5.1)
== END | disposition home or self-care (01) ==
LOC: SDC 11:00
PROVIDERS: Specialist
DX: Z48.01 Encounter for change or removal of surgical wound dressing (principal); I48.2 Chronic atrial fibrillation; I25.10 Atherosclerotic heart disease of native coronary artery without angina pectoris; I42.0 Dilated cardiomyopathy; N18.3 Chronic kidney disease, stage 3 (moderate); Z79.01 Long term (current) use of anticoagulants

== ENCOUNTER 2018-11-15 13:33 | Inpatient (IN) | payer MEDICARE ==
[~2018-11-15] VITALS: Ht 177.8 cm; Wt 87.3 kg
--- NOTE | ~2018-11-15 | CON ---
[place], [place] REPORT OF CONSULTATION [id number] #: [id number] ROOM: 406 DOCTOR: KATHY DAVIS MD BIRTHDATE: [birth year] DOS: 11/16/2018 REASON FOR CONSULTATION: Bloodstream infection. HISTORY OF PRESENT ILLNESS: This is a 78-year-old male who has past medical history of heart failure, end-stage, currently on Primacor for last 1 year through a right arm PICC line that has not been changed and is following with Dr. Dunbar heart failure specialist at [facility]. He presented to the hospital when he had 1-day history of shaking chills, abdominal pain. After his presentation, he was having dysuria with micturition throughout the duration. No hematuria. He has no history of UTIs in the past. His UA shows 0-2 wbc's, hyaline cast. Labs revealed no leukocytosis. His blood cultures on admission 07/25 bottles drawn from peripheral venous were negative; however, repeat blood culture on , one set from the PICC line, one set from peripheral venous were positive for gram-negative bacilli. Urine cultures have not been sent. He underwent a CT scan of abdomen and pelvis without contrast that was unremarkable, although did mention multiple cysts anterior inferior to the right kidney. Suboptimal evaluation of kidneys because of noncontrast imaging. Currently, the patient is on vancomycin and Zosyn. ID has been consulted for further management. PAST MEDICAL HISTORY: Significant for aortic stenosis, atherosclerotic heart disease, combined systolic, diastolic heart failure, CKD, ICD in place. Diverticulosis, type 2 diabetes. PAST SURGICAL HISTORY: Includes ICD placement, left hip replacement, left shoulder replacement, mandibular surgery, open heart surgery, mitral valve replacement, CABG in 10/2015. History of coronary artery bypass graft in 2001. SOCIAL HISTORY: Previous smoker, quit 25 years ago, nonalcoholic, no illicit drug use. FAMILY HISTORY: Father at the age of 61 because of HI. Mother at the age of 70 because of stroke. ALLERGIES: LISINOPRIL CAUSES SEVERE ANAPHYLAXIS. HOME MEDICATIONS: Reviewed. REVIEW OF SYSTEMS: A 12-point review of systems has been done. Pertinent negative positive included in HPI, rest are noncontributory. PHYSICAL EXAMINATION: CURRENT VITAL SIGNS: Temperature 98.9, pulse rate 69, respiratory rate 18, blood pressure 120/64, oxygen saturation 96% on room air. GENERAL: The patient is alert, oriented x 3, not in acute distress. HEENT: Atraumatic, normocephalic. PERRLA, EOMI. RESPIRATORY: Air entry bilaterally equal. No wheeze or crackles. CARDIOVASCULAR: S1, S2 normal. No murmur, rubs or gallop. ABDOMEN: Soft, tender to deep palpation over the bilateral lower quadrants. [place], [place] REPORT OF CONSULTATION NAME: NORM DOWNS JR UNIT #: [id number] ROOM: [facility] DOCTOR: KATHY DAVIS MD BIRTHDATE: [birth year] SKIN: Facial redness, questionable sunburn. Right upper arm PICC line in place. Currently, no redness, minimal tenderness around the exit site, no drainage. LABORATORY DATA AND IMAGING: Reviewed in HPI. ASSESSMENT AND PLAN: 1. Gram-negative bacteremia, urinary tract infection versus catheter-related bloodstream infection. 2. Coronary artery disease. 3. Aortic stenosis/mitral valve replacement. 4. Coronary artery bypass graft. 5. ICD placement. 6. UTI suspected. PLAN: At this time, the patient does have urinary symptoms, although his UA was not impressive. He has dysuria, lower abdominal pain and tenderness on palpation. I would wait and finalize what is a gram-negative bacilli growing. Typically PICC lines do not get infected with gram negatives commonly, especially for the line which has been functioning well for the last 1 year; however, he has shortness of breath and with his ICD in place and valve replacement he will end up needing a MATHEUS to rule out ICD infection. At this time, I would request is transfer to [facility] and call Dr. Dunbar about his current status: I discussed the case with Cardiology in detail. Thank you for your consult. Please call for any questions. Kathy Davis MD CM:CONSTR:REPORT OF CONSULTATION 2130 11/17/18 0148 interface
--- NOTE | ~2018-11-15 | PR ---
[place], [place] PROGRESS NOTE NAME: NORM DOWNS JR [facility] #: [id number] UNIT #: [id number] ROOM: 406 DOCTOR: TOVA GRANT MD BIRTHDATE: [birth year] DOS: 11/17/2018 REASON FOR VISIT: Congestive heart failure. HISTORY OF PRESENT ILLNESS: The patient denies any chest pain. His breathing is about the same or slightly better. No PND, no orthopnea. He feels like his abdomen is bloated. No fever or chills. No palpitation or dizziness. Dr. Lyon, his admitting physician told him that the patient will be transferred to [place] for further management due to his positive blood cultures. REVIEW OF SYSTEMS: Review of 10 systems negative except as mentioned above. PHYSICAL EXAMINATION: VITAL SIGNS: Blood pressure 130/60, pulse 70, respiratory rate 18, weight 87.3 kilos. RHYTHM STRIPS: The patient was ventricular pacing with underlying atrial fibrillation, occasional PVCs. GENERAL: Alert, comfortable, in no acute distress. HEENT: Pupils are round and equal. No jaundice. Tongue was moist. NECK: Supple, no distended neck veins, no carotid bruit. CHEST: Symmetrical, nontender. ICD site is unremarkable near the left infraclavicular area. LUNGS: A few scattered rhonchi, but good air entry bilaterally. HEART: Mostly regular, no S3. Grade 1/6 systolic murmur. ABDOMEN: Slightly distended, nontender. Bowel sounds normal. EXTREMITIES: Showed trace edema. Distal pulses palpable. SKIN: Warm and dry. The patient had dressing to the right arm with some mild swelling of his upper extremities. Distal pulses are fair. NEUROLOGIC: He is alert with no focal neurologic deficit. RECTAL: Deferred. GENITOURINARY: Deferred. PSYCHIATRIC: The patient is alert with good mood and affect. REVIEW OF DIAGNOSTIC TESTS: Labs and medications reviewed. IMPRESSION: 1. Acute on chronic systolic heart failure. 2. Severe ischemic cardiomyopathy, EF 15-20%. 3. Coronary artery disease, status post bypass in the remote past, status post 2-vessel bypass along with mitral valve replacement in 09/2016. 4. Valvular heart disease, status post mitral valve replacement with bioprosthetic valve in September 2016. 5. Status post ICD implant, status post generator replacements. 6. Permanent atrial fibrillation. 7. History of left ventricular apical thrombus. 8. Chronic kidney disease. 9. Bacteremia with gram-negative bacilli. 10. Dysuria, possible urinary tract infection, currently symptoms improved. 11. Diabetes type 2. [place], [place] PROGRESS NOTE NAME: NORM DOWNS JR UNIT #: [id number] ROOM: [facility] DOCTOR: RUDY DUMONT,TOVA BIRTHDATE: [birth year] RECOMMENDATIONS: 1. Continue current medications including his diuretics and Primacor. 2. His labs today revealed a white cell count 7000, hemoglobin 12.5 and creatinine 2.5 and this also discussed with him and his at bedside. 3. Per ID consultants and ____ Dr. Lyon, the patient will be transferred to [place] due to his multiple comorbidities and high risk profile for any interventional procedures. 4. The patient to follow up with his supervisor force adjustment, Dr. Dunbar after his transfer. 5. The decision regarding his PICC and a MATHEUS will be discussed in [place]. 6. Above recommendations and treatment plan discussed with the patient and his and all questions were answered. TOVA GRANT MD CM:LI [id number] TOVA GRANT MD 11/18/18 1304 interface
--- NOTE | ~2018-11-15 | EKG ---
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 Sinus rhythm Bundle branch block vs. Ventricular paced Baseline wander in lead(s) I,II,aVR Compared to ECG 10/10/2018 19:51:27 Short RI interval now present Left bundle-branch block now present Ventricular-paced complex(es) or rhythm no longer present Electronically Signed On 11-17-2018 8:54:57 PDT by Jimmy Javier CM:EKGRPT:ELECTROCARDIOGRAM REPORT [id number] KILEY TRIPATHI DRAFT REPORT KILEY ARTEAGA MD
--- NOTE | ~2018-11-15 | EKG ---
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
--- NOTE | ~2018-11-15 | EKG ---
[place], [place] ELECTROCARDIOGRAM REPORT NAME: NORM DOWNS JR UNIT #: [id number] ROOM: 406 DOCTOR: DEUCE DRAFT REPORT BIRTHDATE: [birth year] [facility] Test Date: 2018-11-15 Test Time: 19:49:16 Pat Name: NORM DOWNS Department: Room: 406 Gender: M Case Management Director: : 1940 Requested By: KILEY ARTEAGA Order Number: [id number] Reading MD: Jimmy Javier Measurements Intervals [place] Rate: 69 P: 0 MO: 262 QRS: -76 QRSD: 163 T: 125 QT: 469 QTc: 503 Interpretive Statements Ventricular-paced complexes A Fib Compared to ECG 10/10/2018 19:51:27 No significant changes Electronically Signed On 11-17-2018 8:57:12 PDT by Jimmy Javier CM:EKGRPT:ELECTROCARDIOGRAM REPORT [id number] KILEY TRIPATHI DRAFT REPORT KILEY ARTEAGA MD
--- NOTE | ~2018-11-15 | CON ---
[place], [place] REPORT OF CONSULTATION NAME: NORM DOWNS JR [facility] #: [id number] UNIT #: [id number] ROOM: 406 DOCTOR: TOVA GRANT MD BIRTHDATE: [birth year] DOS: 11/16/2018 REASON FOR CONSULTATION: CHF and elevated troponin. HISTORY OF PRESENT ILLNESS: The patient is a 78-year-old gentleman with extensive cardiac history including coronary artery disease, status post bypass, redo bypass, status post mitral valve replacement, severe ischemic cardiomyopathy, status post ICD implant with multiple device changes, chronic kidney disease, was presented to the hospital for chills and some abdominal pain. He noted a sudden onset of chills all over his body as well as some pain in the abdomen and was admitted to the hospital and Cardiology consulted for his chronic CHF as well as elevated troponin. His temperature was 103 in the Emergency Room. He denies any chest pain but he is complaining of mild shortness of breath on exertion, which is chronic due to severe ischemic cardiomyopathy. He denies any PND or orthopnea. No nausea, vomiting, or diarrhea. No chest pain or palpitations. No syncope. No neurologic symptoms. The patient did have some mild dysuria, but no hematuria. Again, from the cardiac standpoint, only the patient complains of chronic dyspnea which is slightly worse recently. REVIEW OF SYSTEMS: Review of 10 systems negative except as mentioned above. PAST MEDICAL HISTORY: 1. Coronary artery disease, status post bypass surgery, status post redo bypass with mitral valve replacement in 09/2016. 2. Valvular heart disease, status post mitral valve replacement in 09/2016. 3. Severe ischemic cardiomyopathy with EF 15-20%. 4. Status post ICD. 5. History of apical thrombus. 6. Chronic kidney disease. 7. Aortic stenosis. 8. Diverticulosis. 9. Diabetes type 2. 10. Dyslipidemia. PAST SURGICAL HISTORY: History of bypass surgery, history of mitral valve replacement, history of ICD implant, history of left shoulder surgery, left hip replacement. SOCIAL HISTORY: The patient does not smoke, does not drink, does not use illicit drugs. FAMILY HISTORY: Nil contributory due to his extensive history. Father at age 61 from heart attack. Mother in her 70s from a stroke. ALLERGIES: The patient is allergic to LISINOPRIL. HOME MEDICATIONS: Reviewed including Lasix, amiodarone, Coreg, Coumadin, pravastatin and Primacor infusion. [place], [place] REPORT OF CON[facility]ULTATION [facility]: [id number] #: [id number] ROOM: 406 DOCTOR: RUDY DUMONT,TOVA BIRTHDATE: [birth year] PHYSICAL EXAMINATION: VITAL SIGNS: Blood pressure 108/60, pulse 70, respiratory rate 18, weight 87.3 kg, BMI 27.6. GENERAL: Alert, comfortable, in no acute distress. HEENT: Pupils are round and equal. No jaundice. Tongue was moist. NECK: Supple. The patient has elevated neck veins. No carotid bruit. CHEST: Symmetrical, nontender. LUNGS: A few basilar rales. HEART: Mostly irregular, grade 1/6 systolic murmur. No palpable thrills. ABDOMEN: Benign, nontender. Bowel sounds normal. EXTREMITIES: Showed trace to 1+ edema. Distal pulses palpable. SKIN: Warm and dry. No cyanosis, no clubbing. RECTAL: Deferred. GENITOURINARY: Deferred. NEUROLOGIC: The patient is alert. No focal neurologic deficit. SKIN: The patient has dressing to the right arm as well as some swelling of his upper extremities. PSYCHIATRIC: The patient is alert with good mood and affect. REVIEW OF THE DIAGNOSTIC TESTS: EKG, sinus rhythm with bundle branch block. CBC, chemistry, labs and imaging studies reviewed. Cardiac troponins showed 0.066, 0.139, 0.112. His cardiac troponins also found to be elevated in 08/2016, 07/2017 and 10/2017 admissions. INR 4.4. IMPRESSION: 1. Acute on chronic systolic heart failure. 2. Borderline elevation of troponin, which is chronic. The patient is chest pain free, likely due to his chronic kidney disease. 3. Febrile illness, rule out sepsis. 4. Severe ischemic cardiomyopathy, EF 15-20%. 5. Status post ICD, status post mitral valve replacement in 09/2016. 6. Coronary artery disease, status post bypass surgery and redo bypass in 09/2016. 7. History of apical laminated thrombus. 8. Chronic kidney disease. 9. Dyslipidemia. 10. Diabetes type 2. 11. Coagulopathy. RECOMMENDATIONS: The patient's fever came down. He denies any chest pain. The patient is slightly short of breath. Continue his Lasix 20 mg and 40 mg alternating. Based on his symptoms tomorrow, I might give IV Lasix 1 dose tomorrow. Continue current cardiac medications. Hold his Coumadin since his INR is 4.4. If the patient is persistently febrile and positive blood cultures, he will need [place], [place] REPORT OF CONSULTATION NAME: NORM DOWNS JR UNIT #: [id number] ROOM: [facility] DOCTOR: TOVA GRANT MD BIRTHDATE: [birth year] a MATHEUS to rule out endocarditis. 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 Dunbar if he needs any further invasive testing. Above recommendation discussed with the patient and his who is at bedside and all questions were answered. ID was consulted for his febrile illness. TOVA GRANT MD CM:CONSTR:REPORT OF CONSULTATION 1632 12/02/18 0734 interface
[2018-11-15 14:31] LABS: HEMATOCRIT 43.9 % (42.0-52.0); HEMOGLOBIN 14.2 g/dl (14.0-18.0); MEAN CELL VOLUME 96.5 fl (80.0-94.0); MEAN CORPUSCULAR HGB 31.2 pg (27.0-31.0); MEAN CORPUSCULAR HGB CONC 32.3 g/dl (33.0-37.0); MEAN PLATELET VOLUME 9.8 fl (9.6-12.3); PLATELET COUNT AUTOMATED 214 10*3/uL (130-400); RED BLOOD COUNT 4.55 10*6/uL (4.50-5.90); RED CELL DISTRI WIDTH 14.7 % (0-14.5); WHITE BLOOD COUNT 9.9 10*3/uL (4.8-10.8)
[2018-11-15 14:41] LABS: ACT PARTIAL THROMBO TIME 31.2 SECONDS (20.0-32.1); INTERNATIONAL NORM RATIO 4.5 (2.0-3.5)
[2018-11-15 14:55] LABS: BASOPHILS 1 % (0-1); PLATELET SUFFICIENCY NORMAL (NORMAL); TOTAL CELLS COUNTED 100 #CELLS
[2018-11-15 14:56] LABS: OVALOCYTES FEW
[2018-11-15 15:01] VITALS: BP 140/52
[2018-11-15 15:08] LABS: ALBUMIN 3.4 gm/dl (3.1-4.5); CREATININE 2.34 mg/dL (0.70-1.30)
[2018-11-15 15:09] LABS: TROPONIN I 0.043 ng/ml (<0.045)
[2018-11-15 15:18] LABS: POTASSIUM 5.2 mmol/L (3.5-5.1)
[2018-11-15 15:40] VITALS: BP 168/52
[2018-11-15 15:55] VITALS: BP 129/57
[2018-11-15] MEDS ORDERED: LASIX20 MG PO (17:05)
[2018-11-15] MEDS ORDERED: COUMADIN2 MG PO (17:07)
[2018-11-15 18:58] LABS: BILIRUBIN NEGATIVE (NEGATIVE); BLOOD NEGATIVE (NEGATIVE); CLARITY CLEAR (CLEAR); COLOR YELLOW (YELLOW); GLUCOSE NEGATIVE (NEGATIVE); KETONE NEGATIVE (NEGATIVE); LEUKO ESTERASE NEGATIVE (NEGATIVE); NITRITE NEGATIVE (NEGATIVE); PH 5.5 (5.0-9.0); SPECIFIC GRAVITY 1.015 (1.005-1.030); UROBILINOGEN 0.2 E.U./dl (0.2-1.0)
[2018-11-15 19:24] LABS: HYALINE CAST 0-2
[2018-11-15 19:25] LABS: MUCOUS 1+; WBC 0-2 wbc/hpf (0-5)
[2018-11-15 20:00] VITALS: BP 90/40
[2018-11-15 22:30] VITALS: BP 102/42
[2018-11-16] VITALS (7 sets, daily range): BP systolic 89–142; BP diastolic 48–72
[2018-11-16 07:08] LABS: BASO % 0.4 % (0.0-1.0); EOS # 0.1 10*3/uL (0.0-0.4); EOS % 0.6 % (1.0-4.0); LYMPH # 0.5 10*3/uL (1.3-4.4); LYMPH % 4.6 % (27.0-41.0); MEAN CORPUSCULAR HGB 31.1 pg (27.0-31.0); MEAN CORPUSCULAR HGB CONC 32.7 g/dl (33.0-37.0); MEAN PLATELET VOLUME 10.3 fl (9.6-12.3); MONO # 0.5 10*3/uL (0.1-1.0); MONO % 4.7 % (3.0-9.0); NEUT # 8.8 10*3/uL (2.3-7.9); NEUT % 89.4 % (47.0-73.0); PLATELET COUNT AUTOMATED 158 10*3/uL (130-400); RED BLOOD COUNT 3.83 10*6/uL (4.50-5.90); RED CELL DISTRI WIDTH 14.9 % (0-14.5); WHITE BLOOD COUNT 9.9 10*3/uL (4.8-10.8)
[2018-11-16 07:11] LABS: HEMATOCRIT 36.4 % (42.0-52.0); HEMOGLOBIN 11.9 g/dl (14.0-18.0)
[2018-11-16 07:12] LABS: CREATININE 2.67 mg/dL (0.70-1.30); PHOSPHOROUS 2.8 mg/dL (2.5-4.9)
[2018-11-16 07:15] LABS: INTERNATIONAL NORM RATIO 4.4 (2.0-3.5)
[2018-11-16 07:18] LABS: THYROID STIM HORMONE (HS) 0.943 uIU/ml (0.358-4.75)
[2018-11-16 07:20] LABS: VITAMIN D, 25-HYDROXY 22.4 ng/mL (30-100)
[2018-11-16 07:30] LABS: POTASSIUM 4.1 mmol/L (3.5-5.1)
[2018-11-17] VITALS: BP 144/64
[2018-11-17 06:47] LABS: BASO % 0.6 % (0.0-1.0); EOS # 0.3 10*3/uL (0.0-0.4); EOS % 4.7 % (1.0-4.0); HEMATOCRIT 37.7 % (42.0-52.0); HEMOGLOBIN 12.5 g/dl (14.0-18.0); LYMPH # 0.8 10*3/uL (1.3-4.4); LYMPH % 11.8 % (27.0-41.0); MEAN CELL VOLUME 93.1 fl (80.0-94.0); MEAN CORPUSCULAR HGB 30.9 pg (27.0-31.0); MEAN CORPUSCULAR HGB CONC 33.2 g/dl (33.0-37.0); MEAN PLATELET VOLUME 9.7 fl (9.6-12.3); MONO # 0.6 10*3/uL (0.1-1.0); MONO % 8.5 % (3.0-9.0); NEUT # 5.2 10*3/uL (2.3-7.9); NEUT % 74.1 % (47.0-73.0); PLATELET COUNT AUTOMATED 157 10*3/uL (130-400); RED BLOOD COUNT 4.05 10*6/uL (4.50-5.90); RED CELL DISTRI WIDTH 14.6 % (0-14.5)
[2018-11-17 06:56] LABS: BILIRUBIN NEGATIVE (NEGATIVE); BLOOD NEGATIVE (NEGATIVE); CLARITY CLEAR (CLEAR); COLOR YELLOW (YELLOW); GLUCOSE NEGATIVE (NEGATIVE); KETONE NEGATIVE (NEGATIVE); LEUKO ESTERASE NEGATIVE (NEGATIVE); NITRITE NEGATIVE (NEGATIVE); UROBILINOGEN 0.2 E.U./dl (0.2-1.0)
[2018-11-17 07:13] LABS: INTERNATIONAL NORM RATIO 3.2 (2.0-3.5)
[2018-11-17 07:13] LABS: BACTERIA TRACE; EPITHELIAL CELLS 0-2; RBC 0-2 rbc/hpf (0-2); WBC 0-2 wbc/hpf (0-5)
[2018-11-17 07:15] LABS: ALBUMIN 2.8 gm/dl (3.1-4.5); CREATININE 2.51 mg/dL (0.70-1.30); PHOSPHOROUS 2.1 mg/dL (2.5-4.9); POTASSIUM 3.8 mmol/L (3.5-5.1)
[2018-11-17 08:00] VITALS: BP 130/60
[2018-11-17 12:00] VITALS: BP 139/65
== END 2018-11-17 15:49 | disposition short-term general hospital (02) | DRG 871 ==
LOC: ED 13:33 → EDHOLD 15:09 → 4E 15:09
PROVIDERS: Emergency Medicine; Internal Medicine; ADMIT Emergency Medicine
DX: R78.81 Bacteremia (principal); N17.0 Acute kidney failure with tubular necrosis; I50.43 Acute on chronic combined systolic (congestive) and diastolic (congestive) heart failure; N18.4 Chronic kidney disease, stage 4 (severe); D68.59 Other primary thrombophilia; I13.0 Hypertensive heart and chronic kidney disease with heart failure and stage 1 through stage 4 chronic kidney disease, or unspecified chronic kidney disease; D68.9 Coagulation defect, unspecified; K57.90 Diverticulosis of intestine, part unspecified, without perforation or abscess without bleeding; R10.84 Generalized abdominal pain; E87.5 Hyperkalemia; E87.8 Other disorders of electrolyte and fluid balance, not elsewhere classified; R30.0 Dysuria; Z96.612 Presence of left artificial shoulder joint; Z96.642 Presence of left artificial hip joint; I08.0 Rheumatic disorders of both mitral and aortic valves; E55.9 Vitamin D deficiency, unspecified; N28.1 Cyst of kidney, acquired; D75.89 Other specified diseases of blood and blood-forming organs; I44.7 Left bundle-branch block, unspecified; E78.2 Mixed hyperlipidemia; E11.22 Type 2 diabetes mellitus with diabetic chronic kidney disease; I48.2 Chronic atrial fibrillation; B96.89 Other specified bacterial agents as the cause of diseases classified elsewhere; I25.10 Atherosclerotic heart disease of native coronary artery without angina pectoris; I25.5 Ischemic cardiomyopathy; Z95.1 Presence of aortocoronary bypass graft; Z95.5 Presence of coronary angioplasty implant and graft; Z87.891 Personal history of nicotine dependence; Z95.810 Presence of automatic (implantable) cardiac defibrillator; Z95.2 Presence of prosthetic heart valve; Z79.01 Long term (current) use of anticoagulants; Z88.8 Allergy status to other drugs, medicaments and biological substances; Z82.49 Family history of ischemic heart disease and other diseases of the circulatory system; Z82.3 Family history of stroke; Z79.899 Other long term (current) drug therapy; Z79.82 Long term (current) use of aspirin

== ENCOUNTER → 2018-11-25 | Outpatient (CLI) | payer MEDICARE ==
[2018-11-25 13:49] LABS: BASO % 0.5 % (0.0-1.0); EOS # 0.3 10*3/uL (0.0-0.4); EOS % 3.2 % (1.0-4.0); HEMATOCRIT 38.1 % (42.0-52.0); HEMOGLOBIN 12.4 g/dl (14.0-18.0); LYMPH # 1.2 10*3/uL (1.3-4.4); LYMPH % 15.1 % (27.0-41.0); MEAN CELL VOLUME 94.5 fl (80.0-94.0); MEAN CORPUSCULAR HGB 30.8 pg (27.0-31.0); MEAN CORPUSCULAR HGB CONC 32.5 g/dl (33.0-37.0); MONO # 0.7 10*3/uL (0.1-1.0); MONO % 9.1 % (3.0-9.0); NEUT # 5.7 10*3/uL (2.3-7.9); NEUT % 71.5 % (47.0-73.0); PLATELET COUNT AUTOMATED 193 10*3/uL (130-400); RED BLOOD COUNT 4.03 10*6/uL (4.50-5.90); RED CELL DISTRI WIDTH 14.8 % (0-14.5)
[2018-11-25 14:15] LABS: CREATININE 2.33 mg/dL (0.70-1.30); POTASSIUM 5.3 mmol/L (3.5-5.1)
== END | disposition home or self-care (01) ==
LOC: LAB 12:26
PROVIDERS: Specialist
DX: A41.9 Sepsis, unspecified organism (principal); I50.20 Unspecified systolic (congestive) heart failure

== ENCOUNTER → 2018-11-28 | Day surgery (SDC) | payer MEDICARE ==
--- NOTE | 2018-11-28 12:37 | NUR ---
PICC LINE DRESSING VIA USING ASEPTIC TECHNIQUE. PT TOLERATED PROCEDURE WELL. SITE AYSMPTOMATIC. PICC LINE FLUSHES WELL. NO BLOOD RETURN.
[2018-11-28 13:15] LABS: BASO % 0.6 % (0.0-1.0); EOS # 0.3 10*3/uL (0.0-0.4); EOS % 3.7 % (1.0-4.0); HEMATOCRIT 35.9 % (42.0-52.0); HEMOGLOBIN 11.7 g/dl (14.0-18.0); LYMPH % 14.1 % (27.0-41.0); MEAN CELL VOLUME 95.7 fl (80.0-94.0); MEAN CORPUSCULAR HGB 31.2 pg (27.0-31.0); MEAN CORPUSCULAR HGB CONC 32.6 g/dl (33.0-37.0); MEAN PLATELET VOLUME 9.6 fl (9.6-12.3); MONO # 0.7 10*3/uL (0.1-1.0); MONO % 9.5 % (3.0-9.0); NEUT # 5.2 10*3/uL (2.3-7.9); NEUT % 71.7 % (47.0-73.0); PLATELET COUNT AUTOMATED 169 10*3/uL (130-400); RED BLOOD COUNT 3.75 10*6/uL (4.50-5.90); RED CELL DISTRI WIDTH 14.8 % (0-14.5); WHITE BLOOD COUNT 7.2 10*3/uL (4.8-10.8)
[2018-11-28 13:39] LABS: CREATININE 2.11 mg/dL (0.70-1.30); POTASSIUM 4.9 mmol/L (3.5-5.1)
== END | disposition home or self-care (01) ==
LOC: SDC 03:45
PROVIDERS: Specialist
DX: Z45.2 Encounter for adjustment and management of vascular access device (principal); I48.0 Paroxysmal atrial fibrillation; I42.0 Dilated cardiomyopathy; I25.10 Atherosclerotic heart disease of native coronary artery without angina pectoris; N18.3 Chronic kidney disease, stage 3 (moderate)

== ENCOUNTER → 2018-12-06 | Outpatient (CLI) | payer MEDICARE ==
[2018-12-06 14:44] LABS: BASO # 0.1 10*3/uL (0.0-0.1); EOS # 0.3 10*3/uL (0.0-0.4); EOS % 4.5 % (1.0-4.0); HEMATOCRIT 39.6 % (42.0-52.0); HEMOGLOBIN 12.9 g/dl (14.0-18.0); LYMPH # 1.1 10*3/uL (1.3-4.4); LYMPH % 18.1 % (27.0-41.0); MEAN CELL VOLUME 95.2 fl (80.0-94.0); MEAN CORPUSCULAR HGB CONC 32.6 g/dl (33.0-37.0); MEAN PLATELET VOLUME 9.8 fl (9.6-12.3); MONO # 0.4 10*3/uL (0.1-1.0); NEUT # 4.2 10*3/uL (2.3-7.9); NEUT % 69.1 % (47.0-73.0); PLATELET COUNT AUTOMATED 173 10*3/uL (130-400); RED BLOOD COUNT 4.16 10*6/uL (4.50-5.90); RED CELL DISTRI WIDTH 14.9 % (0-14.5)
[2018-12-06 14:55] LABS: CREATININE 2.23 mg/dL (0.70-1.30); POTASSIUM 3.9 mmol/L (3.5-5.1)
== END | disposition home or self-care (01) ==
LOC: LAB 11:17
PROVIDERS: Nurse Practitioner
DX: I25.5 Ischemic cardiomyopathy (principal); I42.0 Dilated cardiomyopathy; D72.829 Elevated white blood cell count, unspecified

== ENCOUNTER → 2018-12-12 | Day surgery (SDC) | payer MEDICARE ==
--- NOTE | 2018-12-12 12:00 | NUR ---
1140- ORDERED LABS DRAWN FROM PICC PER POLICY AND SENT TO LAB VIA TUBE TRANSPORT SYSTEM. PICC DRESSING LEFT ARM CHANGED PER POLICY USING STERILE TECHNIQUE. SITE IS ASYMPMTOMATIC. DISCHARGED AMBULATORY.
[2018-12-12 13:16] LABS: CREATININE 2.3 mg/dL (0.70-1.30)
[2018-12-12 13:18] LABS: BASO % 0.8 % (0.0-1.0); EOS # 0.2 10*3/uL (0.0-0.4); EOS % 4.4 % (1.0-4.0); HEMATOCRIT 36.8 % (42.0-52.0); HEMOGLOBIN 11.9 g/dl (14.0-18.0); LYMPH % 18.4 % (27.0-41.0); MEAN CELL VOLUME 95.3 fl (80.0-94.0); MEAN CORPUSCULAR HGB 30.8 pg (27.0-31.0); MEAN CORPUSCULAR HGB CONC 32.3 g/dl (33.0-37.0); MEAN PLATELET VOLUME 10.5 fl (9.6-12.3); MONO # 0.5 10*3/uL (0.1-1.0); MONO % 9.3 % (3.0-9.0); NEUT # 3.5 10*3/uL (2.3-7.9); NEUT % 66.3 % (47.0-73.0); PLATELET COUNT AUTOMATED 160 10*3/uL (130-400); RED BLOOD COUNT 3.86 10*6/uL (4.50-5.90); RED CELL DISTRI WIDTH 14.7 % (0-14.5); WHITE BLOOD COUNT 5.3 10*3/uL (4.8-10.8)
== END | disposition home or self-care (01) ==
LOC: SDC 00:39
PROVIDERS: Specialist
DX: Z45.2 Encounter for adjustment and management of vascular access device (principal); I48.2 Chronic atrial fibrillation; I25.10 Atherosclerotic heart disease of native coronary artery without angina pectoris; N18.3 Chronic kidney disease, stage 3 (moderate); I42.0 Dilated cardiomyopathy

== ENCOUNTER → 2018-12-19 | Day surgery (SDC) | payer MEDICARE ==
--- NOTE | 2018-12-19 12:00 | NUR ---
PT HERE FOR PICC LINE DRESSING CHANGE AND BLOOD DRAW ORDERED. SITE ASYMPTOMACTIC. BLOOD DRAW SENT TO MAIN LAB. STERILE DRESSING AND CAPS CHANGED. TOLERATED WELL. ORLANDO HOOD RN
[2018-12-19 12:34] LABS: BASO # 0.1 10*3/uL (0.0-0.1); BASO % 0.7 % (0.0-1.0); EOS # 0.2 10*3/uL (0.0-0.4); EOS % 3.6 % (1.0-4.0); HEMATOCRIT 37.9 % (42.0-52.0); HEMOGLOBIN 12.4 g/dl (14.0-18.0); LYMPH # 0.9 10*3/uL (1.3-4.4); LYMPH % 13.8 % (27.0-41.0); MEAN CELL VOLUME 94.3 fl (80.0-94.0); MEAN CORPUSCULAR HGB 30.8 pg (27.0-31.0); MEAN CORPUSCULAR HGB CONC 32.7 g/dl (33.0-37.0); MEAN PLATELET VOLUME 10.4 fl (9.6-12.3); MONO # 0.5 10*3/uL (0.1-1.0); MONO % 7.1 % (3.0-9.0); NEUT % 74.1 % (47.0-73.0); PLATELET COUNT AUTOMATED 181 10*3/uL (130-400); RED BLOOD COUNT 4.02 10*6/uL (4.50-5.90); RED CELL DISTRI WIDTH 14.6 % (0-14.5); WHITE BLOOD COUNT 6.7 10*3/uL (4.8-10.8)
[2018-12-19 12:56] LABS: CREATININE 2.19 mg/dL (0.70-1.30); POTASSIUM 3.9 mmol/L (3.5-5.1)
== END | disposition home or self-care (01) ==
LOC: SDC 01:47
PROVIDERS: Specialist
DX: Z45.2 Encounter for adjustment and management of vascular access device (principal); I25.10 Atherosclerotic heart disease of native coronary artery without angina pectoris; N18.3 Chronic kidney disease, stage 3 (moderate); I42.0 Dilated cardiomyopathy; I48.2 Chronic atrial fibrillation

== ENCOUNTER → 2018-12-26 | Outpatient (CLI) | payer MEDICARE | END | disposition home or self-care (01) | LOC: RESCLI 01:51 | DX: G47.00 Insomnia, unspecified (principal); F41.9 Anxiety disorder, unspecified; R91.1 Solitary pulmonary nodule; I25.810 Atherosclerosis of coronary artery bypass graft(s) without angina pectoris; I48.2 Chronic atrial fibrillation; F33.41 Major depressive disorder, recurrent, in partial remission; K21.9 Gastro-esophageal reflux disease without esophagitis; E78.5 Hyperlipidemia, unspecified; I50.22 Chronic systolic (congestive) heart failure; F17.210 Nicotine dependence, cigarettes, uncomplicated; Z79.899 Other long term (current) drug therapy ==

== ENCOUNTER → 2018-12-26 | Day surgery (SDC) | payer MEDICARE ==
[~2018-12-26] MED LIST changes: +ATIVAN1 MG PO
[2018-12-26 12:03] LABS: BASO # 0.1 10*3/uL (0.0-0.1); EOS # 0.2 10*3/uL (0.0-0.4); EOS % 3.2 % (1.0-4.0); HEMATOCRIT 37.8 % (42.0-52.0); HEMOGLOBIN 12.5 g/dl (14.0-18.0); LYMPH # 0.9 10*3/uL (1.3-4.4); LYMPH % 14.9 % (27.0-41.0); MEAN CELL VOLUME 92.6 fl (80.0-94.0); MEAN CORPUSCULAR HGB 30.6 pg (27.0-31.0); MEAN CORPUSCULAR HGB CONC 33.1 g/dl (33.0-37.0); MEAN PLATELET VOLUME 10.2 fl (9.6-12.3); MONO # 0.6 10*3/uL (0.1-1.0); MONO % 9.2 % (3.0-9.0); NEUT # 4.4 10*3/uL (2.3-7.9); NEUT % 71.4 % (47.0-73.0); PLATELET COUNT AUTOMATED 197 10*3/uL (130-400); RED BLOOD COUNT 4.08 10*6/uL (4.50-5.90); RED CELL DISTRI WIDTH 14.8 % (0-14.5); WHITE BLOOD COUNT 6.2 10*3/uL (4.8-10.8)
--- NOTE | 2018-12-26 12:07 | NUR ---
LABS DRAWN FROM PICC LINE AND DRESSING CHANGED AND LINE FLUSHED UNDER ASEPTIC TECHNIQUE. PT TOLERATED WELL. LAB TUBES LABLED AND SENT TO MAIN LAB. JUANA HAYES RN.
[2018-12-26 12:29] LABS: CREATININE 2.73 mg/dL (0.70-1.30)
== END | disposition home or self-care (01) ==
LOC: SDC 01:52
PROVIDERS: Specialist
DX: Z45.2 Encounter for adjustment and management of vascular access device (principal); I48.2 Chronic atrial fibrillation; I25.10 Atherosclerotic heart disease of native coronary artery without angina pectoris; N18.3 Chronic kidney disease, stage 3 (moderate); I42.0 Dilated cardiomyopathy

== ENCOUNTER → 2019-01-02 | Day surgery (SDC) | payer MEDICARE ==
--- NOTE | 2019-01-02 12:04 | NUR ---
Patient here for PICC line dressing change. Changed per policy. Site asymptomatic. LAB draw done and sent to main lab. Patient tolerated well. Nakia Macias RN
[2019-01-02 14:03] LABS: BASO # 0.1 10*3/uL (0.0-0.1); BASO % 0.9 % (0.0-1.0); EOS # 0.3 10*3/uL (0.0-0.4); EOS % 5.1 % (1.0-4.0); HEMATOCRIT 35.7 % (42.0-52.0); HEMOGLOBIN 11.7 g/dl (14.0-18.0); LYMPH # 0.9 10*3/uL (1.3-4.4); LYMPH % 15.2 % (27.0-41.0); MEAN CELL VOLUME 95.5 fl (80.0-94.0); MEAN CORPUSCULAR HGB 31.3 pg (27.0-31.0); MEAN CORPUSCULAR HGB CONC 32.8 g/dl (33.0-37.0); MEAN PLATELET VOLUME 10.4 fl (9.6-12.3); MONO # 0.5 10*3/uL (0.1-1.0); MONO % 8.1 % (3.0-9.0); NEUT % 70.3 % (47.0-73.0); PLATELET COUNT AUTOMATED 182 10*3/uL (130-400); RED BLOOD COUNT 3.74 10*6/uL (4.50-5.90); RED CELL DISTRI WIDTH 14.9 % (0-14.5); WHITE BLOOD COUNT 5.7 10*3/uL (4.8-10.8)
[2019-01-02 14:30] LABS: CREATININE 2.37 mg/dL (0.70-1.30); POTASSIUM 3.8 mmol/L (3.5-5.1)
== END | disposition home or self-care (01) ==
LOC: SDC 11:00
PROVIDERS: Specialist
DX: Z43.2 Encounter for attention to ileostomy (principal); N18.3 Chronic kidney disease, stage 3 (moderate); I48.2 Chronic atrial fibrillation; I25.10 Atherosclerotic heart disease of native coronary artery without angina pectoris; I42.0 Dilated cardiomyopathy

== ENCOUNTER → 2019-01-09 | Day surgery (SDC) | payer MEDICARE ==
--- NOTE | 2019-01-09 11:55 | NUR ---
Pt here for PICC LINE dressing change and lab draw. Site asymptomatic. Sterile dressing reapplied. Blood brian from PICC LINE and sent to main lab. Tolerated well. Tolerated well. Nakia Macias Rn
[2019-01-09 12:08] LABS: BASO % 0.4 % (0.0-1.0); EOS # 0.2 10*3/uL (0.0-0.4); EOS % 3.3 % (1.0-4.0); HEMATOCRIT 35.8 % (42.0-52.0); HEMOGLOBIN 11.7 g/dl (14.0-18.0); LYMPH % 13.5 % (27.0-41.0); MEAN CELL VOLUME 94.7 fl (80.0-94.0); MEAN CORPUSCULAR HGB CONC 32.7 g/dl (33.0-37.0); MEAN PLATELET VOLUME 9.9 fl (9.6-12.3); MONO # 0.7 10*3/uL (0.1-1.0); MONO % 9.6 % (3.0-9.0); NEUT # 5.2 10*3/uL (2.3-7.9); NEUT % 72.9 % (47.0-73.0); PLATELET COUNT AUTOMATED 182 10*3/uL (130-400); RED BLOOD COUNT 3.78 10*6/uL (4.50-5.90); RED CELL DISTRI WIDTH 15.1 % (0-14.5); WHITE BLOOD COUNT 7.2 10*3/uL (4.8-10.8)
[2019-01-09 12:39] LABS: CREATININE 2.72 mg/dL (0.70-1.30); POTASSIUM 3.9 mmol/L (3.5-5.1)
== END | disposition home or self-care (01) ==
LOC: SDC 11:00
PROVIDERS: Specialist
DX: Z45.2 Encounter for adjustment and management of vascular access device (principal); I48.2 Chronic atrial fibrillation; I25.10 Atherosclerotic heart disease of native coronary artery without angina pectoris; I42.0 Dilated cardiomyopathy; N18.3 Chronic kidney disease, stage 3 (moderate)

== ENCOUNTER → 2019-01-17 | Day surgery (SDC) | payer MEDICARE ==
--- NOTE | 2019-01-17 11:43 | NUR ---
PATIENT AMBULATED IN TO OUTPATIENT TREATMENT AREA FOR A PICC LINE DRESSING CHANGE AND FOR A BLOOD DRAW. REMOVED DRESSING AND CLEANED AREA PER POLICY. APPLIED NEW DRESSING. CHANGED CAPS ON ENDS. THEN PROCEEDED TO DRAW BLOOD PER POLICY. FINISHED WITH A HEPARIN FLUSH. PATIENT TOLERATED WELL. PATIENT DENIES ANY PAIN OR DISCOMFORT. PATIENT AMBULATED TO THE EXIT WITHOUT DIFFICULTY WITH HIS . PATIENT IS DISCHARGED HOME.
[2019-01-17 11:53] LABS: BASO # 0.1 10*3/uL (0.0-0.1); EOS # 0.2 10*3/uL (0.0-0.4); EOS % 4.5 % (1.0-4.0); HEMATOCRIT 34.8 % (42.0-52.0); HEMOGLOBIN 11.5 g/dl (14.0-18.0); LYMPH # 0.8 10*3/uL (1.3-4.4); LYMPH % 15.7 % (27.0-41.0); MEAN CELL VOLUME 94.8 fl (80.0-94.0); MEAN CORPUSCULAR HGB 31.3 pg (27.0-31.0); MEAN PLATELET VOLUME 9.6 fl (9.6-12.3); MONO # 0.5 10*3/uL (0.1-1.0); MONO % 10.4 % (3.0-9.0); NEUT # 3.3 10*3/uL (2.3-7.9); PLATELET COUNT AUTOMATED 193 10*3/uL (130-400); RED BLOOD COUNT 3.67 10*6/uL (4.50-5.90); RED CELL DISTRI WIDTH 15.2 % (0-14.5); WHITE BLOOD COUNT 4.9 10*3/uL (4.8-10.8)
[2019-01-17 12:15] LABS: CREATININE 2.62 mg/dL (0.70-1.30)
== END | disposition home or self-care (01) ==
LOC: SDC 01-16 11:00
PROVIDERS: Specialist
DX: Z48.01 Encounter for change or removal of surgical wound dressing (principal); Z88.8 Allergy status to other drugs, medicaments and biological substances

== ENCOUNTER → 2019-01-23 | Day surgery (SDC) | payer MEDICARE ==
--- NOTE | 2019-01-23 11:45 | NUR ---
PATIENT PRESENTED TO OUTPATIENT AREA FOR PICCLINE DRESSING CHANGE. PATIENT TOLERATED WELL. AREA IS ASYMPTOMATIC . WILL RETURN IN ONE WEEK FOR DRESSING CHANGE.
[2019-01-23 12:20] LABS: BASO # 0.1 10*3/uL (0.0-0.1); BASO % 0.9 % (0.0-1.0); EOS # 0.3 10*3/uL (0.0-0.4); HEMATOCRIT 34.9 % (42.0-52.0); HEMOGLOBIN 11.3 g/dl (14.0-18.0); LYMPH % 15.4 % (27.0-41.0); MEAN CELL VOLUME 95.9 fl (80.0-94.0); MEAN CORPUSCULAR HGB CONC 32.4 g/dl (33.0-37.0); MONO # 0.6 10*3/uL (0.1-1.0); MONO % 9.1 % (3.0-9.0); NEUT # 4.6 10*3/uL (2.3-7.9); NEUT % 70.1 % (47.0-73.0); PLATELET COUNT AUTOMATED 201 10*3/uL (130-400); RED BLOOD COUNT 3.64 10*6/uL (4.50-5.90); RED CELL DISTRI WIDTH 15.5 % (0-14.5); WHITE BLOOD COUNT 6.6 10*3/uL (4.8-10.8)
[2019-01-23 12:36] LABS: CREATININE 2.59 mg/dL (0.70-1.30); POTASSIUM 4.1 mmol/L (3.5-5.1)
== END | disposition home or self-care (01) ==
LOC: SDC 10:11
PROVIDERS: Specialist
DX: Z48.01 Encounter for change or removal of surgical wound dressing (principal); Z98.890 Other specified postprocedural states

== ENCOUNTER 2019-01-24 21:10 | Emergency (ER) | payer MEDICARE ==
[~2019-01-24] VITALS: Ht 172.7 cm; Wt 86.2 kg
[~2019-01-24 21:10] MED LIST changes: -ATIVAN1 MG PO
[2019-01-24 21:30] LABS: BASO # 0.1 10*3/uL (0.0-0.1); EOS # 0.3 10*3/uL (0.0-0.4); EOS % 4.6 % (1.0-4.0); HEMATOCRIT 35.1 % (42.0-52.0); HEMOGLOBIN 11.5 g/dl (14.0-18.0); LYMPH # 1.2 10*3/uL (1.3-4.4); LYMPH % 17.4 % (27.0-41.0); MEAN CELL VOLUME 94.1 fl (80.0-94.0); MEAN CORPUSCULAR HGB 30.8 pg (27.0-31.0); MEAN CORPUSCULAR HGB CONC 32.8 g/dl (33.0-37.0); MEAN PLATELET VOLUME 9.7 fl (9.6-12.3); MONO # 0.6 10*3/uL (0.1-1.0); MONO % 7.8 % (3.0-9.0); NEUT # 4.8 10*3/uL (2.3-7.9); NEUT % 68.6 % (47.0-73.0); PLATELET COUNT AUTOMATED 215 10*3/uL (130-400); RED BLOOD COUNT 3.73 10*6/uL (4.50-5.90); RED CELL DISTRI WIDTH 15.2 % (0-14.5)
[2019-01-24 21:41] LABS: ACT PARTIAL THROMBO TIME 35.5 SECONDS (20.0-32.1)
[2019-01-24 21:47] LABS: ALBUMIN 3.3 gm/dl (3.1-4.5); CREATININE 2.95 mg/dL (0.70-1.30); POTASSIUM 4.2 mmol/L (3.5-5.1); TOTAL PROTEIN 6.8 gm/dL (6.4-8.2)
[2019-01-24 21:49] LABS: TROPONIN I 0.065 ng/ml (<0.045)
[2019-01-25 00:11] LABS: BILIRUBIN NEGATIVE (NEGATIVE); BLOOD NEGATIVE (NEGATIVE); CLARITY CLEAR (CLEAR); COLOR YELLOW (YELLOW); GLUCOSE NEGATIVE (NEGATIVE); KETONE NEGATIVE (NEGATIVE); LEUKO ESTERASE NEGATIVE (NEGATIVE); NITRITE NEGATIVE (NEGATIVE); PH 6.5 (5.0-9.0); SPECIFIC GRAVITY <= 1.005 (1.005-1.030); UROBILINOGEN 0.2 E.U./dl (0.2-1.0)
[2019-01-25 00:17] VITALS: BP 102/51; BP 103/52; BP 116/46; BP 123/48; BP 124/46
[2019-01-25 00:28] LABS: EPITHELIAL CELLS 0-2; WBC 0-2 wbc/hpf (0-5)
[2019-01-25 01:39] VITALS: BP 111/52; BP 123/56
== END 2019-01-25 01:34 | disposition short-term general hospital (02) ==
LOC: ED 21:10
PROVIDERS: Emergency Medicine Emergency Medical Services
DX: R07.89 Other chest pain (principal); I25.5 Ischemic cardiomyopathy; I48.91 Unspecified atrial fibrillation; I13.0 Hypertensive heart and chronic kidney disease with heart failure and stage 1 through stage 4 chronic kidney disease, or unspecified chronic kidney disease; E11.22 Type 2 diabetes mellitus with diabetic chronic kidney disease; N18.4 Chronic kidney disease, stage 4 (severe); I50.9 Heart failure, unspecified; J44.9 Chronic obstructive pulmonary disease, unspecified; F17.210 Nicotine dependence, cigarettes, uncomplicated; E78.2 Mixed hyperlipidemia; Z98.890 Other specified postprocedural states; Z95.1 Presence of aortocoronary bypass graft; Z79.82 Long term (current) use of aspirin; Z79.01 Long term (current) use of anticoagulants; Z79.899 Other long term (current) drug therapy; Z88.8 Allergy status to other drugs, medicaments and biological substances

== ENCOUNTER → 2019-02-06 | Day surgery (SDC) | payer MEDICARE ==
[~2019-02-06] MED LIST changes: +ATIVAN1 MG PO
--- NOTE | 2019-02-06 12:37 | NUR ---
1225- LABS DRAWN VIA PICC LINE AND TUBES TO LAB VIA TUBE TRANSPORT SYSTEM. PICC LINE DRESSING CHANGED USING STERILE TECHNIQUE. SMALL AMT. OF SKIN IS NOTED TO BE MISSING ABOVE PICC LINE INSERTION SITE. NO DRAINAGE OR SIGNS OF INFECTION ARE NOTED.
[2019-02-06 13:16] LABS: BASO # 0.1 10*3/uL (0.0-0.1); EOS # 0.3 10*3/uL (0.0-0.4); EOS % 3.9 % (1.0-4.0); HEMATOCRIT 36.6 % (42.0-52.0); HEMOGLOBIN 11.8 g/dl (14.0-18.0); LYMPH % 14.1 % (27.0-41.0); MEAN CELL VOLUME 95.8 fl (80.0-94.0); MEAN CORPUSCULAR HGB 30.9 pg (27.0-31.0); MEAN CORPUSCULAR HGB CONC 32.2 g/dl (33.0-37.0); MEAN PLATELET VOLUME 9.8 fl (9.6-12.3); MONO # 0.6 10*3/uL (0.1-1.0); MONO % 8.9 % (3.0-9.0); NEUT % 71.7 % (47.0-73.0); PLATELET COUNT AUTOMATED 208 10*3/uL (130-400); RED BLOOD COUNT 3.82 10*6/uL (4.50-5.90); RED CELL DISTRI WIDTH 15.4 % (0-14.5)
[2019-02-06 13:42] LABS: CREATININE 2.14 mg/dL (0.70-1.30); POTASSIUM 3.5 mmol/L (3.5-5.1)
== END | disposition home or self-care (01) ==
LOC: SDC 11:00
PROVIDERS: Specialist
DX: Z48.01 Encounter for change or removal of surgical wound dressing (principal)

== ENCOUNTER → 2019-02-13 | Day surgery (SDC) | payer MEDICARE ==
--- NOTE | 2019-02-13 12:27 | NUR ---
1210- BLOOD DRAWN FROM PICC LINE AND SENT TO ;AB VIA TUBE TRANSPORT SYSTEM. PICC LINE FLUSHED PER POLICY. PICC DRESSING CHANGED USING STERILE TECHNIQUE. SITE IS ASYYMPTOMATIC. DICHAGED AMBULATORY WITH .
[2019-02-13 12:57] LABS: BASO % 0.6 % (0.0-1.0); EOS # 0.3 10*3/uL (0.0-0.4); EOS % 3.7 % (1.0-4.0); HEMATOCRIT 35.4 % (42.0-52.0); HEMOGLOBIN 11.3 g/dl (14.0-18.0); LYMPH # 0.8 10*3/uL (1.3-4.4); LYMPH % 12.4 % (27.0-41.0); MEAN CELL VOLUME 95.4 fl (80.0-94.0); MEAN CORPUSCULAR HGB 30.5 pg (27.0-31.0); MEAN CORPUSCULAR HGB CONC 31.9 g/dl (33.0-37.0); MEAN PLATELET VOLUME 9.8 fl (9.6-12.3); MONO # 0.6 10*3/uL (0.1-1.0); MONO % 9.5 % (3.0-9.0); NEUT % 73.4 % (47.0-73.0); PLATELET COUNT AUTOMATED 223 10*3/uL (130-400); RED BLOOD COUNT 3.71 10*6/uL (4.50-5.90); RED CELL DISTRI WIDTH 15.2 % (0-14.5); WHITE BLOOD COUNT 6.8 10*3/uL (4.8-10.8)
[2019-02-13 13:26] LABS: CREATININE 2.39 mg/dL (0.70-1.30); POTASSIUM 3.8 mmol/L (3.5-5.1)
== END | disposition home or self-care (01) ==
LOC: SDC 11:00
PROVIDERS: Specialist
DX: Z48.01 Encounter for change or removal of surgical wound dressing (principal)

== ENCOUNTER 2019-02-14 14:13 | Emergency (ER) | payer MEDICARE ==
[~2019-02-14] VITALS: Ht 177.8 cm; Wt 85.3 kg
--- NOTE | ~2019-02-14 | EKG ---
[place], [place] ELECTROCARDIOGRAM REPORT NAME: NORM DOWNS JR UNIT #: [id number] ROOM: DOCTOR: EPIPHANY DRAFT REPORT BIRTHDATE: [birth year] [facility] Test Date: 2019-02-14 Test Time: 14:16:14 Pat Name: NORM DOWNS Department: Room: Gender: Business Process Lead: : 1940 Requested By: AILYN PAULINO Order Number: [id number] Reading MD: Keven Casillas MD Measurements Intervals [place] Rate: 76 P: OR: QRS: 154 QRSD: 210 T: -33 QT: 523 QTc: 589 Interpretive Statements Afib/flut and V-paced complexes No further analysis attempted due to paced rhythm Compared to ECG 01/24/2019 21:12:17 No significant changes Electronically Signed On 02-17-2019 13:00:45 PDT by Keven Casillas MD CM:EKGRPT:ELECTROCARDIOGRAM REPORT 1416 1300 AILYN TRIPATHI DRAFT REPORT AILYN PAULINO M.D.
[~2019-02-14 14:13] MED LIST changes: -ATIVAN1 MG PO
[2019-02-14 14:39] LABS: BASO # 0.1 10*3/uL (0.0-0.1); BASO % 1.1 % (0.0-1.0); EOS # 0.4 10*3/uL (0.0-0.4); EOS % 5.4 % (1.0-4.0); HEMATOCRIT 34.9 % (42.0-52.0); HEMOGLOBIN 11.6 g/dl (14.0-18.0); LYMPH # 1.2 10*3/uL (1.3-4.4); LYMPH % 18.3 % (27.0-41.0); MEAN CELL VOLUME 94.6 fl (80.0-94.0); MEAN CORPUSCULAR HGB 31.4 pg (27.0-31.0); MEAN CORPUSCULAR HGB CONC 33.2 g/dl (33.0-37.0); MEAN PLATELET VOLUME 9.9 fl (9.6-12.3); MONO # 0.7 10*3/uL (0.1-1.0); MONO % 10.2 % (3.0-9.0); NEUT # 4.2 10*3/uL (2.3-7.9); NEUT % 64.5 % (47.0-73.0); PLATELET COUNT AUTOMATED 215 10*3/uL (130-400); RED BLOOD COUNT 3.69 10*6/uL (4.50-5.90); WHITE BLOOD COUNT 6.5 10*3/uL (4.8-10.8)
[2019-02-14 14:55] LABS: CREATININE 2.49 mg/dL (0.70-1.30); POTASSIUM 3.9 mmol/L (3.5-5.1); TOTAL PROTEIN 6.6 gm/dL (6.4-8.2)
[2019-02-14 15:07] LABS: INTERNATIONAL NORM RATIO 3.3 (2.0-3.5)
[2019-02-14 15:09] LABS: TROPONIN I 0.082 ng/ml (<0.045)
[2019-02-14 16:45] VITALS: BP 135/66
[2019-02-14] MEDS ORDERED: ATIVAN1 MG PO (17:02)
== END 2019-02-14 17:04 | disposition home or self-care (01) ==
LOC: ED 14:13
PROVIDERS: Emergency Medicine
DX: F41.9 Anxiety disorder, unspecified (principal); R06.00 Dyspnea, unspecified; I48.91 Unspecified atrial fibrillation; J44.9 Chronic obstructive pulmonary disease, unspecified; I25.10 Atherosclerotic heart disease of native coronary artery without angina pectoris; E11.9 Type 2 diabetes mellitus without complications; E78.2 Mixed hyperlipidemia; I11.0 Hypertensive heart disease with heart failure; I50.42 Chronic combined systolic (congestive) and diastolic (congestive) heart failure; Z88.8 Allergy status to other drugs, medicaments and biological substances; Z79.899 Other long term (current) drug therapy; Z79.82 Long term (current) use of aspirin; Z95.0 Presence of cardiac pacemaker; Z95.1 Presence of aortocoronary bypass graft

== ENCOUNTER → 2019-02-19 | Day surgery (SDC) | payer MEDICARE ==
[~2019-02-19] MED LIST changes: +ATIVAN1 MG PO
[2019-02-19 10:55] LABS: BASO # 0.1 10*3/uL (0.0-0.1); BASO % 0.9 % (0.0-1.0); EOS # 0.3 10*3/uL (0.0-0.4); EOS % 4.1 % (1.0-4.0); HEMATOCRIT 35.9 % (42.0-52.0); HEMOGLOBIN 11.5 g/dl (14.0-18.0); LYMPH # 0.9 10*3/uL (1.3-4.4); LYMPH % 12.2 % (27.0-41.0); MEAN CELL VOLUME 95.7 fl (80.0-94.0); MEAN CORPUSCULAR HGB 30.7 pg (27.0-31.0); MEAN PLATELET VOLUME 9.9 fl (9.6-12.3); MONO # 0.7 10*3/uL (0.1-1.0); MONO % 8.9 % (3.0-9.0); NEUT # 5.6 10*3/uL (2.3-7.9); NEUT % 73.5 % (47.0-73.0); PLATELET COUNT AUTOMATED 232 10*3/uL (130-400); RED BLOOD COUNT 3.75 10*6/uL (4.50-5.90); RED CELL DISTRI WIDTH 14.7 % (0-14.5); WHITE BLOOD COUNT 7.6 10*3/uL (4.8-10.8)
--- NOTE | 2019-02-19 11:10 | NUR ---
PT HERE FOR PICC LINE DRESSING CHANGE AND LAB DRAW ORDERED. BLOOD SENT TO MAIN LAB. PICC DRESSING REMOVED, SITE ASYMPTOMACTIC, NO REDNESS OR SWELLING NOTED. STERILE DRESSING REAPPLIED. PATIENT TOLERATED WELL. ORLANDO HOOD RN
[2019-02-19 11:27] LABS: CREATININE 3.16 mg/dL (0.70-1.30); POTASSIUM 3.9 mmol/L (3.5-5.1)
== END | disposition home or self-care (01) ==
LOC: SDC 10:21
PROVIDERS: Specialist
DX: Z45.2 Encounter for adjustment and management of vascular access device (principal); I48.20 Chronic atrial fibrillation, unspecified; I25.10 Atherosclerotic heart disease of native coronary artery without angina pectoris; I47.0 Re-entry ventricular arrhythmia; N18.3 Chronic kidney disease, stage 3 (moderate)

== ENCOUNTER → 2019-02-27 | Day surgery (SDC) | payer MEDICARE ==
--- NOTE | 2019-02-27 11:46 | NUR ---
1144- picc line dressing changed using sterile technique. site is asymptomatic. Labs drawn as ordered and sent to lab via tube transport system. discharged ambulatory.
[2019-02-27 11:57] LABS: BASO # 0.1 10*3/uL (0.0-0.1); BASO % 0.9 % (0.0-1.0); EOS # 0.3 10*3/uL (0.0-0.4); EOS % 3.9 % (1.0-4.0); HEMATOCRIT 35.9 % (42.0-52.0); HEMOGLOBIN 11.3 g/dl (14.0-18.0); LYMPH # 1.1 10*3/uL (1.3-4.4); LYMPH % 15.4 % (27.0-41.0); MEAN CELL VOLUME 95.5 fl (80.0-94.0); MEAN CORPUSCULAR HGB 30.1 pg (27.0-31.0); MEAN CORPUSCULAR HGB CONC 31.5 g/dl (33.0-37.0); MEAN PLATELET VOLUME 10.2 fl (9.6-12.3); MONO # 0.5 10*3/uL (0.1-1.0); MONO % 7.5 % (3.0-9.0); PLATELET COUNT AUTOMATED 223 10*3/uL (130-400); RED BLOOD COUNT 3.76 10*6/uL (4.50-5.90); RED CELL DISTRI WIDTH 14.7 % (0-14.5)
[2019-02-27 12:46] LABS: CREATININE 2.64 mg/dL (0.70-1.30); POTASSIUM 3.6 mmol/L (3.5-5.1)
== END | disposition home or self-care (01) ==
LOC: SDC 08:53
PROVIDERS: Specialist
DX: Z45.2 Encounter for adjustment and management of vascular access device (principal)

== ENCOUNTER → 2019-03-04 | Outpatient (CLI) | payer MEDICARE ==
[2019-03-04 14:02] LABS: ALBUMIN 3.2 gm/dl (3.1-4.5); BILIRUBIN, DIRECT 0.2 mg/dL (0.0-0.2); THYROXINE (T4) TOTAL 10.5 ug/dl (4.5-12.1); TOTAL PROTEIN 6.9 gm/dL (6.4-8.2)
[2019-03-04 14:07] LABS: THYROID STIM HORMONE (HS) 2.9 uIU/ml (0.358-4.75)
== END | disposition home or self-care (01) ==
LOC: LAB 00:18 → RESCLI 00:18
PROVIDERS: Internal Medicine Clinical Cardiac Electrophysiology
DX: I25.5 Ischemic cardiomyopathy (principal); I42.0 Dilated cardiomyopathy; Z95.810 Presence of automatic (implantable) cardiac defibrillator

== ENCOUNTER → 2019-03-06 | Day surgery (SDC) | payer MEDICARE ==
--- NOTE | 2019-03-06 11:40 | NUR ---
PT HERE FOR PICC LINE DRESSING CHANGE AND LAB DRAW. LABS SENT TO MAIN LAB. STERILE DRESSING REAPPLIED. SITE ASYMPTOMATIC. STERILE DRESSING REAPPLIED. TOLERATED WELL. ORLANDO HOOD,RN
[2019-03-06 12:25] LABS: BASO # 0.1 10*3/uL (0.0-0.1); BASO % 0.8 % (0.0-1.0); EOS # 0.3 10*3/uL (0.0-0.4); EOS % 5.1 % (1.0-4.0); HEMATOCRIT 36.8 % (42.0-52.0); HEMOGLOBIN 11.9 g/dl (14.0-18.0); MEAN CELL VOLUME 96.3 fl (80.0-94.0); MEAN CORPUSCULAR HGB 31.2 pg (27.0-31.0); MEAN CORPUSCULAR HGB CONC 32.3 g/dl (33.0-37.0); MEAN PLATELET VOLUME 9.9 fl (9.6-12.3); MONO # 0.6 10*3/uL (0.1-1.0); MONO % 9.2 % (3.0-9.0); NEUT # 4.3 10*3/uL (2.3-7.9); NEUT % 68.4 % (47.0-73.0); PLATELET COUNT AUTOMATED 227 10*3/uL (130-400); RED BLOOD COUNT 3.82 10*6/uL (4.50-5.90); RED CELL DISTRI WIDTH 14.9 % (0-14.5); WHITE BLOOD COUNT 6.3 10*3/uL (4.8-10.8)
[2019-03-06 12:50] LABS: CREATININE 2.73 mg/dL (0.70-1.30); POTASSIUM 4.3 mmol/L (3.5-5.1)
== END | disposition home or self-care (01) ==
LOC: SDC 01:18
PROVIDERS: Specialist
DX: Z45.2 Encounter for adjustment and management of vascular access device (principal)

== ENCOUNTER → 2019-03-13 | Day surgery (SDC) | payer MEDICARE ==
--- NOTE | 2019-03-13 11:59 | NUR ---
1158- Picc line dressing changed using sterile technique. Site is asymptomatic. Unable to draw blood from picc line but it flushes easily. peripheral blood draw ordered. Pt. spouse states that she will contact physician regarding order for medication to unclot picc line as they do not wish to wait today.
[2019-03-13 12:17] LABS: BASO # 0.1 10*3/uL (0.0-0.1); BASO % 0.9 % (0.0-1.0); EOS # 0.3 10*3/uL (0.0-0.4); EOS % 4.7 % (1.0-4.0); HEMATOCRIT 38.2 % (42.0-52.0); HEMOGLOBIN 12.1 g/dl (14.0-18.0); LYMPH # 1.3 10*3/uL (1.3-4.4); LYMPH % 18.8 % (27.0-41.0); MEAN CELL VOLUME 97.2 fl (80.0-94.0); MEAN CORPUSCULAR HGB 30.8 pg (27.0-31.0); MEAN CORPUSCULAR HGB CONC 31.7 g/dl (33.0-37.0); MEAN PLATELET VOLUME 9.6 fl (9.6-12.3); MONO # 0.7 10*3/uL (0.1-1.0); MONO % 10.5 % (3.0-9.0); NEUT # 4.5 10*3/uL (2.3-7.9); NEUT % 64.7 % (47.0-73.0); PLATELET COUNT AUTOMATED 210 10*3/uL (130-400); RED BLOOD COUNT 3.93 10*6/uL (4.50-5.90); RED CELL DISTRI WIDTH 14.8 % (0-14.5)
[2019-03-13 12:31] LABS: CREATININE 2.65 mg/dL (0.70-1.30); POTASSIUM 4.7 mmol/L (3.5-5.1)
== END | disposition home or self-care (01) ==
LOC: SDC 11:00
PROVIDERS: Specialist
DX: Z45.2 Encounter for adjustment and management of vascular access device (principal)

== ENCOUNTER → 2019-03-18 | Day surgery (SDC) | payer MEDICARE ==
--- NOTE | 2019-03-18 11:41 | NUR ---
patient presented ops for labwork and piccline dressing change. dressing removed understerile conditions. site is asymptomatic. dressing changed per protocol patient tolerated well.
--- NOTE | 2019-03-18 12:00 | NUR ---
attempted to withdraw blood without success. will await 120 minute marina
--- NOTE | 2019-03-18 14:21 | NUR ---
attempted to withdraw blood from piccline at 1400 without success. 2ndose of cathflow instilled
[2019-03-18 14:33] LABS: BASO # 0.1 10*3/uL (0.0-0.1); BASO % 0.9 % (0.0-1.0); EOS # 0.3 10*3/uL (0.0-0.4); EOS % 4.2 % (1.0-4.0); HEMATOCRIT 37.7 % (42.0-52.0); HEMOGLOBIN 11.9 g/dl (14.0-18.0); LYMPH # 1.2 10*3/uL (1.3-4.4); LYMPH % 17.1 % (27.0-41.0); MEAN CELL VOLUME 97.7 fl (80.0-94.0); MEAN CORPUSCULAR HGB 30.8 pg (27.0-31.0); MEAN CORPUSCULAR HGB CONC 31.6 g/dl (33.0-37.0); MEAN PLATELET VOLUME 9.9 fl (9.6-12.3); MONO # 0.5 10*3/uL (0.1-1.0); MONO % 7.6 % (3.0-9.0); NEUT # 4.8 10*3/uL (2.3-7.9); NEUT % 69.9 % (47.0-73.0); PLATELET COUNT AUTOMATED 228 10*3/uL (130-400); RED BLOOD COUNT 3.86 10*6/uL (4.50-5.90); RED CELL DISTRI WIDTH 14.8 % (0-14.5); WHITE BLOOD COUNT 6.9 10*3/uL (4.8-10.8)
[2019-03-18 15:20] LABS: CREATININE 2.95 mg/dL (0.70-1.30); POTASSIUM 4.7 mmol/L (3.5-5.1)
--- NOTE | 2019-03-19 07:57 | NUR ---
ATTEMPTED TO ASPERATE RED TIPPED PORT OF PICC LINE. UNSUCCESSFUL ATTEMPT. LINE WAS FLUSHED WITH HEPERINE.
== END | disposition home or self-care (01) ==
LOC: SDC 11:00
PROVIDERS: Specialist
DX: Z45.2 Encounter for adjustment and management of vascular access device (principal)

== ENCOUNTER → 2019-03-25 | Outpatient (CLI) | payer MEDICARE ==
--- NOTE | ~2019-03-25 | PF ---
[place], [place] PULMONARY FUNCTION TEST NAME: [facility] #: [id number] UNIT #: [id number] ROOM: DOCTOR: WILLIAM REID MD,DWAYNE BIRTHDATE: [birth year] DOS: 03/25/2019 HISTORY: The patient is a 79-year-old male, height of 70 inches, weight 180 pounds, BMI 27, has pulmonary function test requested by the primary care attending, Dr. Wilfred Clemente. The patient noted tobacco use 1 pack of cigarettes per day for 29 years. Tobacco cessation reported 30 years ago. SPIROMETRY: FVC 2.80 liters, 70% predicted value, FEV1 1.96 liters, 65% predicted value. The ratio of FEV1/FVC was recorded 75%. There was no significant improvement noted post-bronchodilator. Flow volume loop was noted with some hesitancy with inspiratory and expiratory portion of the flow volume loop as well, most likely effort dependent. LUNG VOLUME: Thoracic gas volume was noted as 85%, residual volume 104%, total lung capacity 75%. RV/TLC ratio 134%. Lung diffusion was noted with mild air trapping. The patient lung diffusion noted at 48%, which was moderate to severely decreased without correction of carbon monoxide, hemoglobin values, abnormal airway resistance and passive conductance were noted with partial improvement noted in the airway resistance. FINAL IMPRESSION: Current test was noted somewhat suboptimal testing; however, nonspecific reduction of the FEV1, FVC noted decreased lung capacity with mild airtrapping, certainly restrictive lung disease would be considered in the differential diagnosis to be correlated with the patient's clinical history and radiology data. DWAYNE THOMAS MD CM:PFREPORT:PULMONARY FUNCTION TEST [id number] DWAYNE REID MD
== END | disposition home or self-care (01) ==
LOC: CP 10:43
DX: I25.5 Ischemic cardiomyopathy (principal); Z95.810 Presence of automatic (implantable) cardiac defibrillator

== ENCOUNTER → 2019-03-27 | Day surgery (SDC) | payer MEDICARE ==
--- NOTE | 2019-03-27 12:05 | NUR ---
PT HERE FOR PICC LINE DRESSING CHANGE AND LAB DRAW. LABS SENT TO MAIN LAB. STERILE DRESSING REAPPLIED. SITE ASYMPTOMATIIC. TOLERATED WELL. ORLANDO HOOD RN
[2019-03-27 12:40] LABS: BASO # 0.1 10*3/uL (0.0-0.1); EOS # 0.3 10*3/uL (0.0-0.4); EOS % 3.7 % (1.0-4.0); HEMATOCRIT 38.4 % (42.0-52.0); HEMOGLOBIN 12.3 g/dl (14.0-18.0); LYMPH # 1.3 10*3/uL (1.3-4.4); LYMPH % 18.2 % (27.0-41.0); MEAN CELL VOLUME 94.8 fl (80.0-94.0); MEAN CORPUSCULAR HGB 30.4 pg (27.0-31.0); MEAN PLATELET VOLUME 10.1 fl (9.6-12.3); MONO # 0.7 10*3/uL (0.1-1.0); MONO % 9.4 % (3.0-9.0); NEUT # 4.9 10*3/uL (2.3-7.9); NEUT % 67.6 % (47.0-73.0); PLATELET COUNT AUTOMATED 209 10*3/uL (130-400); RED BLOOD COUNT 4.05 10*6/uL (4.50-5.90); WHITE BLOOD COUNT 7.3 10*3/uL (4.8-10.8)
[2019-03-27 13:07] LABS: CREATININE 2.75 mg/dL (0.70-1.30); POTASSIUM 4.3 mmol/L (3.5-5.1)
== END | disposition home or self-care (01) ==
LOC: SDC 00:19
PROVIDERS: Specialist
DX: Z45.2 Encounter for adjustment and management of vascular access device (principal)

== ENCOUNTER → 2019-04-03 | Day surgery (SDC) | payer MEDICARE ==
--- NOTE | 2019-04-03 11:53 | NUR ---
LABS DRAWN FROM PICC LINE P/P. PICC LINE DRESSING CHANGED PER P/P. PICC LINE SITE ASYMPTAMATIC. HEPARIN FLUSH PER P/P. PT TOLERATED VERY WELL. JUANA HAYES RN
[2019-04-03 12:08] LABS: BASO % 0.6 % (0.0-1.0); EOS # 0.3 10*3/uL (0.0-0.4); EOS % 3.9 % (1.0-4.0); HEMATOCRIT 36.2 % (42.0-52.0); HEMOGLOBIN 11.8 g/dl (14.0-18.0); LYMPH # 0.9 10*3/uL (1.3-4.4); LYMPH % 13.2 % (27.0-41.0); MEAN CELL VOLUME 94.3 fl (80.0-94.0); MEAN CORPUSCULAR HGB 30.7 pg (27.0-31.0); MEAN CORPUSCULAR HGB CONC 32.6 g/dl (33.0-37.0); MEAN PLATELET VOLUME 9.9 fl (9.6-12.3); MONO # 0.7 10*3/uL (0.1-1.0); MONO % 10.1 % (3.0-9.0); NEUT # 5.1 10*3/uL (2.3-7.9); NEUT % 71.8 % (47.0-73.0); PLATELET COUNT AUTOMATED 219 10*3/uL (130-400); RED BLOOD COUNT 3.84 10*6/uL (4.50-5.90); RED CELL DISTRI WIDTH 14.8 % (0-14.5); WHITE BLOOD COUNT 7.1 10*3/uL (4.8-10.8)
[2019-04-03 12:24] LABS: CREATININE 2.37 mg/dL (0.70-1.30); POTASSIUM 4.1 mmol/L (3.5-5.1)
== END | disposition home or self-care (01) ==
LOC: SDC 10:11
PROVIDERS: Specialist
DX: Z45.2 Encounter for adjustment and management of vascular access device (principal)

== ENCOUNTER → 2019-04-10 | Day surgery (SDC) | payer MEDICARE ==
--- NOTE | 2019-04-10 11:50 | NUR ---
PT ARRIVED TO OPS. PICC LINE DRESSING CHANGED PER PROTOCOL ORDERED. PT PICC FLUSHED BUT AND SEVERAL ATTEMPTS MADE TO DRAW BLOOD FROM PICC LINE BUT COULD NOT. PICC FLUSHES VERY EASILY HOWEVER. DRESSING CHANGED AND LAB TO BEDSIDE AND WEEKLY LAB WORK DRAWN PER ORDERS. PT DISCHARGED AMBULATORY AT THIS TIME.
[2019-04-10 12:01] LABS: BASO # 0.1 10*3/uL (0.0-0.1); BASO % 0.9 % (0.0-1.0); EOS # 0.3 10*3/uL (0.0-0.4); EOS % 3.9 % (1.0-4.0); HEMATOCRIT 37.5 % (42.0-52.0); HEMOGLOBIN 11.9 g/dl (14.0-18.0); LYMPH # 1.1 10*3/uL (1.3-4.4); MEAN CELL VOLUME 97.2 fl (80.0-94.0); MEAN CORPUSCULAR HGB 30.8 pg (27.0-31.0); MEAN CORPUSCULAR HGB CONC 31.7 g/dl (33.0-37.0); MEAN PLATELET VOLUME 9.9 fl (9.6-12.3); MONO # 0.6 10*3/uL (0.1-1.0); MONO % 8.2 % (3.0-9.0); NEUT # 4.9 10*3/uL (2.3-7.9); NEUT % 70.7 % (47.0-73.0); PLATELET COUNT AUTOMATED 212 10*3/uL (130-400); RED BLOOD COUNT 3.86 10*6/uL (4.50-5.90); RED CELL DISTRI WIDTH 14.7 % (0-14.5); WHITE BLOOD COUNT 6.9 10*3/uL (4.8-10.8)
[2019-04-10 12:15] LABS: CREATININE 2.93 mg/dL (0.70-1.30); POTASSIUM 4.5 mmol/L (3.5-5.1)
== END | disposition home or self-care (01) ==
LOC: SDC 00:52
PROVIDERS: Specialist
DX: Z45.2 Encounter for adjustment and management of vascular access device (principal)

== ENCOUNTER → 2019-04-18 | Day surgery (SDC) | payer MEDICARE ==
--- NOTE | 2019-04-18 11:30 | NUR ---
PT HERE FOR PICC LINE DRESSING CHANGE PER POLICY. SITE ASYMPTOMATIC. UNABLE TO DRAW BLOOD FOR LABS FROM PICC. LABS AWARE AND PERIPHERAL STICK PER AUTOMOTIVE FUEL INJECTION SERVICER COMPLETE. TOLERATED WELL. ORLANDO HOOD RN
[2019-04-18 12:14] LABS: BASO % 0.6 % (0.0-1.0); EOS # 0.2 10*3/uL (0.0-0.4); EOS % 3.6 % (1.0-4.0); HEMATOCRIT 37.2 % (42.0-52.0); HEMOGLOBIN 11.8 g/dl (14.0-18.0); LYMPH # 1.1 10*3/uL (1.3-4.4); LYMPH % 17.2 % (27.0-41.0); MEAN CELL VOLUME 96.9 fl (80.0-94.0); MEAN CORPUSCULAR HGB 30.7 pg (27.0-31.0); MEAN CORPUSCULAR HGB CONC 31.7 g/dl (33.0-37.0); MEAN PLATELET VOLUME 9.6 fl (9.6-12.3); MONO # 0.6 10*3/uL (0.1-1.0); MONO % 9.2 % (3.0-9.0); NEUT # 4.4 10*3/uL (2.3-7.9); NEUT % 69.1 % (47.0-73.0); PLATELET COUNT AUTOMATED 189 10*3/uL (130-400); RED BLOOD COUNT 3.84 10*6/uL (4.50-5.90); RED CELL DISTRI WIDTH 14.9 % (0-14.5); WHITE BLOOD COUNT 6.4 10*3/uL (4.8-10.8)
[2019-04-18 12:25] LABS: CREATININE 2.39 mg/dL (0.70-1.30); POTASSIUM 4.4 mmol/L (3.5-5.1)
== END | disposition home or self-care (01) ==
LOC: SDC 04-17 11:00
PROVIDERS: Specialist
DX: Z45.2 Encounter for adjustment and management of vascular access device (principal)

== ENCOUNTER → 2019-04-25 | Day surgery (SDC) | payer MEDICARE ==
[2019-04-25 12:08] LABS: BASO # 0.1 10*3/uL (0.0-0.1); EOS # 0.2 10*3/uL (0.0-0.4); HEMATOCRIT 35.5 % (42.0-52.0); HEMOGLOBIN 11.3 g/dl (14.0-18.0); LYMPH # 0.9 10*3/uL (1.3-4.4); LYMPH % 15.1 % (27.0-41.0); MEAN CELL VOLUME 96.2 fl (80.0-94.0); MEAN CORPUSCULAR HGB 30.6 pg (27.0-31.0); MEAN CORPUSCULAR HGB CONC 31.8 g/dl (33.0-37.0); MEAN PLATELET VOLUME 10.3 fl (9.6-12.3); MONO # 0.5 10*3/uL (0.1-1.0); MONO % 9.2 % (3.0-9.0); NEUT # 4.1 10*3/uL (2.3-7.9); NEUT % 70.5 % (47.0-73.0); PLATELET COUNT AUTOMATED 193 10*3/uL (130-400); RED BLOOD COUNT 3.69 10*6/uL (4.50-5.90); RED CELL DISTRI WIDTH 14.9 % (0-14.5); WHITE BLOOD COUNT 5.8 10*3/uL (4.8-10.8)
[2019-04-25 12:40] LABS: CREATININE 2.67 mg/dL (0.70-1.30); POTASSIUM 4.4 mmol/L (3.5-5.1)
== END | disposition home or self-care (01) ==
LOC: SDC 04-24 01:00
PROVIDERS: Specialist
DX: Z45.2 Encounter for adjustment and management of vascular access device (principal)

== ENCOUNTER → 2019-05-02 | Day surgery (SDC) | payer MEDICARE ==
[2019-05-02 11:41] LABS: BASO # 0.1 10*3/uL (0.0-0.1); BASO % 0.7 % (0.0-1.0); EOS # 0.3 10*3/uL (0.0-0.4); EOS % 4.2 % (1.0-4.0); HEMATOCRIT 38.7 % (42.0-52.0); HEMOGLOBIN 12.6 g/dl (14.0-18.0); LYMPH # 1.2 10*3/uL (1.3-4.4); LYMPH % 16.8 % (27.0-41.0); MEAN CELL VOLUME 93.9 fl (80.0-94.0); MEAN CORPUSCULAR HGB 30.6 pg (27.0-31.0); MEAN CORPUSCULAR HGB CONC 32.6 g/dl (33.0-37.0); MEAN PLATELET VOLUME 10.1 fl (9.6-12.3); MONO # 0.7 10*3/uL (0.1-1.0); MONO % 9.3 % (3.0-9.0); NEUT % 68.7 % (47.0-73.0); PLATELET COUNT AUTOMATED 216 10*3/uL (130-400); RED BLOOD COUNT 4.12 10*6/uL (4.50-5.90); RED CELL DISTRI WIDTH 14.9 % (0-14.5); WHITE BLOOD COUNT 7.2 10*3/uL (4.8-10.8)
[2019-05-02 12:06] LABS: CREATININE 2.64 mg/dL (0.70-1.30)
== END | disposition home or self-care (01) ==
LOC: SDC 05-01 11:00
PROVIDERS: Specialist
DX: Z45.2 Encounter for adjustment and management of vascular access device (principal)

== ENCOUNTER → 2019-05-08 | Day surgery (SDC) | payer MEDICARE ==
--- NOTE | 2019-05-08 12:00 | NUR ---
PT HERE FOR PICC LINE DRESSING CHANGE AND BLOOD DRAW FROM PICC LINE. PROMPT BLOOD RETURN NOTED. SITE ASYMPTOMATIC. DRESSING CHANGED PER POLICY. TOLERATED WELL. SITE ASYMPTOMACTIC ORLANDO HOOD RN
[2019-05-08 12:29] LABS: BASO % 0.3 % (0.0-1.0); EOS # 0.2 10*3/uL (0.0-0.4); EOS % 2.8 % (1.0-4.0); HEMATOCRIT 37.4 % (42.0-52.0); HEMOGLOBIN 12.1 g/dl (14.0-18.0); LYMPH % 13.1 % (27.0-41.0); MEAN CELL VOLUME 94.2 fl (80.0-94.0); MEAN CORPUSCULAR HGB 30.5 pg (27.0-31.0); MEAN CORPUSCULAR HGB CONC 32.4 g/dl (33.0-37.0); MEAN PLATELET VOLUME 9.8 fl (9.6-12.3); MONO # 0.6 10*3/uL (0.1-1.0); MONO % 8.6 % (3.0-9.0); NEUT # 5.4 10*3/uL (2.3-7.9); NEUT % 73.8 % (47.0-73.0); PLATELET COUNT AUTOMATED 220 10*3/uL (130-400); RED BLOOD COUNT 3.97 10*6/uL (4.50-5.90); RED CELL DISTRI WIDTH 14.8 % (0-14.5); WHITE BLOOD COUNT 7.3 10*3/uL (4.8-10.8)
[2019-05-08 13:10] LABS: CREATININE 2.41 mg/dL (0.70-1.30); POTASSIUM 4.1 mmol/L (3.5-5.1)
== END | disposition home or self-care (01) ==
LOC: SDC 01:11
PROVIDERS: Specialist
DX: Z45.2 Encounter for adjustment and management of vascular access device (principal)

== ENCOUNTER → 2019-05-08 | Outpatient (CLI) | payer MEDICARE | END | disposition home or self-care (01) | LOC: RAD 11:37 | DX: M43.17 Spondylolisthesis, lumbosacral region (principal) ==

== ENCOUNTER → 2019-05-14 | Outpatient (CLI) | payer MEDICARE ==
[~2019-05-14] MED LIST changes: +ATORVASTATIN CA20 M1 PO; +HYDROCODONE-AC1 EAC2 PO; +PREDNISONE50 MG PO; +TESSALON PERLE100 MG PO
== END | disposition home or self-care (01) ==
LOC: RESCLI 01:42
DX: G47.00 Insomnia, unspecified (principal); F41.9 Anxiety disorder, unspecified; E11.22 Type 2 diabetes mellitus with diabetic chronic kidney disease; N18.4 Chronic kidney disease, stage 4 (severe); I50.22 Chronic systolic (congestive) heart failure; I25.810 Atherosclerosis of coronary artery bypass graft(s) without angina pectoris; I48.20 Chronic atrial fibrillation, unspecified; F33.41 Major depressive disorder, recurrent, in partial remission; K21.9 Gastro-esophageal reflux disease without esophagitis; R91.1 Solitary pulmonary nodule; Z88.8 Allergy status to other drugs, medicaments and biological substances; Z79.899 Other long term (current) drug therapy

== ENCOUNTER → 2019-05-16 | Day surgery (SDC) | payer MEDICARE ==
--- NOTE | 2019-05-16 11:26 | NUR ---
PT HERE FOR PICC LINE DRESSING CHANGE AND LAB DRAW. SITE ASYMTOMATIC. DRESSING CHANGED PER POLICY. BLOOD SENT TO MAIN LAB. TOLERATED WELL ORLANDO HOOD RN
[2019-05-16 12:00] LABS: BASO % 0.4 % (0.0-1.0); EOS # 0.2 10*3/uL (0.0-0.4); EOS % 2.6 % (1.0-4.0); HEMATOCRIT 37.2 % (42.0-52.0); HEMOGLOBIN 11.9 g/dl (14.0-18.0); LYMPH # 0.9 10*3/uL (1.3-4.4); MEAN CELL VOLUME 94.9 fl (80.0-94.0); MEAN CORPUSCULAR HGB 30.4 pg (27.0-31.0); MEAN PLATELET VOLUME 9.9 fl (9.6-12.3); MONO # 0.6 10*3/uL (0.1-1.0); MONO % 8.2 % (3.0-9.0); NEUT # 5.6 10*3/uL (2.3-7.9); NEUT % 76.3 % (47.0-73.0); PLATELET COUNT AUTOMATED 189 10*3/uL (130-400); RED BLOOD COUNT 3.92 10*6/uL (4.50-5.90); RED CELL DISTRI WIDTH 15.5 % (0-14.5); WHITE BLOOD COUNT 7.4 10*3/uL (4.8-10.8)
[2019-05-16 12:29] LABS: CREATININE 2.22 mg/dL (0.70-1.30); POTASSIUM 4.2 mmol/L (3.5-5.1)
== END | disposition home or self-care (01) ==
LOC: SDC 05-15 11:00
PROVIDERS: Specialist
DX: Z45.2 Encounter for adjustment and management of vascular access device (principal)

== ENCOUNTER → 2019-05-23 | Day surgery (SDC) | payer MEDICARE ==
--- NOTE | 2019-05-23 12:00 | NUR ---
PT HERE FOR PICC LINE DRESSING CHANGE AND LAB DRAW. PROMPT BLOOD RETURN RECEIVED FROM PORT. WASTED DISCHARGE AND BLOOD SENT TO MAIN LAB. PICC DRESSING CHANGED PER P&P. SITE ASYMPTOMATIC. NO SWELLING OR DRAINAGE NOTE. PATIENT TOLERATED WELL. ORLANDO HOOD RN
[2019-05-23 12:19] LABS: BASO % 0.6 % (0.0-1.0); EOS # 0.2 10*3/uL (0.0-0.4); EOS % 3.3 % (1.0-4.0); HEMATOCRIT 38.8 % (42.0-52.0); HEMOGLOBIN 12.5 g/dl (14.0-18.0); LYMPH # 0.9 10*3/uL (1.3-4.4); LYMPH % 14.5 % (27.0-41.0); MEAN CELL VOLUME 95.1 fl (80.0-94.0); MEAN CORPUSCULAR HGB 30.6 pg (27.0-31.0); MEAN CORPUSCULAR HGB CONC 32.2 g/dl (33.0-37.0); MEAN PLATELET VOLUME 9.9 fl (9.6-12.3); MONO # 0.5 10*3/uL (0.1-1.0); MONO % 7.2 % (3.0-9.0); NEUT # 4.6 10*3/uL (2.3-7.9); NEUT % 74.1 % (47.0-73.0); PLATELET COUNT AUTOMATED 154 10*3/uL (130-400); RED BLOOD COUNT 4.08 10*6/uL (4.50-5.90); RED CELL DISTRI WIDTH 15.7 % (0-14.5); WHITE BLOOD COUNT 6.3 10*3/uL (4.8-10.8)
[2019-05-23 13:12] LABS: CREATININE 2.83 mg/dL (0.70-1.30); POTASSIUM 4.3 mmol/L (3.5-5.1)
== END | disposition home or self-care (01) ==
LOC: SDC 11:55
PROVIDERS: Specialist
DX: Z45.2 Encounter for adjustment and management of vascular access device (principal)

== ENCOUNTER → 2019-05-23 | Outpatient (CLI) | payer MEDICARE | END | disposition home or self-care (01) | LOC: RAD 11:38 | DX: M50.30 Other cervical disc degeneration, unspecified cervical region (principal); M48.02 Spinal stenosis, cervical region ==

== ENCOUNTER → 2019-05-29 | Day surgery (SDC) | payer MEDICARE ==
[2019-05-29 12:31] LABS: BASO # 0.1 10*3/uL (0.0-0.1); BASO % 0.8 % (0.0-1.0); EOS # 0.3 10*3/uL (0.0-0.4); EOS % 4.6 % (1.0-4.0); HEMATOCRIT 39.4 % (42.0-52.0); HEMOGLOBIN 12.6 g/dl (14.0-18.0); LYMPH # 1.1 10*3/uL (1.3-4.4); LYMPH % 17.4 % (27.0-41.0); MEAN CORPUSCULAR HGB 30.1 pg (27.0-31.0); MEAN PLATELET VOLUME 10.1 fl (9.6-12.3); MONO # 0.5 10*3/uL (0.1-1.0); MONO % 7.9 % (3.0-9.0); NEUT # 4.2 10*3/uL (2.3-7.9); PLATELET COUNT AUTOMATED 176 10*3/uL (130-400); RED BLOOD COUNT 4.19 10*6/uL (4.50-5.90); RED CELL DISTRI WIDTH 15.6 % (0-14.5); WHITE BLOOD COUNT 6.1 10*3/uL (4.8-10.8)
[2019-05-29 13:08] LABS: CREATININE 2.4 mg/dL (0.70-1.30)
== END | disposition home or self-care (01) ==
LOC: SDC 08:26
PROVIDERS: Specialist
DX: Z45.2 Encounter for adjustment and management of vascular access device (principal)

== ENCOUNTER 2019-06-03 11:26 | Inpatient (IN) | payer MEDICARE ==
[~2019-06-03] VITALS: Ht 177.8 cm; Wt 86.8 kg
[~2019-06-03 11:26] MED LIST changes: -ATORVASTATIN CA20 M1 PO; -HYDROCODONE-AC1 EAC2 PO; -PREDNISONE50 MG PO; -TESSALON PERLE100 MG PO
[2019-06-03 11:31] VITALS: BP 115/55
[2019-06-03 12:13] LABS: BASO # 0.1 10*3/uL (0.0-0.1); BASO % 0.9 % (0.0-1.0); EOS # 0.2 10*3/uL (0.0-0.4); EOS % 3.8 % (1.0-4.0); HEMATOCRIT 37.6 % (42.0-52.0); HEMOGLOBIN 12.2 g/dl (14.0-18.0); LYMPH # 1.1 10*3/uL (1.3-4.4); LYMPH % 18.8 % (27.0-41.0); MEAN CELL VOLUME 95.2 fl (80.0-94.0); MEAN CORPUSCULAR HGB 30.9 pg (27.0-31.0); MEAN CORPUSCULAR HGB CONC 32.4 g/dl (33.0-37.0); MONO # 0.7 10*3/uL (0.1-1.0); MONO % 11.9 % (3.0-9.0); NEUT # 3.8 10*3/uL (2.3-7.9); NEUT % 64.3 % (47.0-73.0); PLATELET COUNT AUTOMATED 196 10*3/uL (130-400); RED BLOOD COUNT 3.95 10*6/uL (4.50-5.90); RED CELL DISTRI WIDTH 15.7 % (0-14.5); WHITE BLOOD COUNT 5.9 10*3/uL (4.8-10.8)
[2019-06-03 12:28] LABS: CREATININE 2.35 mg/dL (0.70-1.30); POTASSIUM 4.6 mmol/L (3.5-5.1); TOTAL PROTEIN 6.1 gm/dL (6.4-8.2)
[2019-06-03 12:30] LABS: TROPONIN I 0.052 ng/ml (<0.045)
[2019-06-03 12:31] LABS: ACT PARTIAL THROMBO TIME 34.5 SECONDS (20.0-32.1); INTERNATIONAL NORM RATIO 2.3 (2.0-3.5)
[2019-06-03 13:26] VITALS: BP 139/58
[2019-06-03 14:31] VITALS: BP 144/75; BP 153/90
[2019-06-03 16:00] VITALS: BP 142/78
--- NOTE | 2019-06-03 16:26 | NUR ---
[facility] 79, admitted to , under the services of ALBERTA Killian DO with a diagnosis of CHEST PAIN. Chief complaint is SOB. Patient arrived via bed from ER. Monitor applied. Initial assessment completed. Vital signs taken and recorded. ALBERTA KILLIAN DO notified of admission to the unit. Orders received. See assessment for past medical history, medications and allergies. Patient and/or family oriented to unit. [facility] visitation policy reviewed. Clothing/patient valuable form completed. FIORELLA MADRID
--- NOTE | 2019-06-03 16:48 | NUR ---
DR. GRANT'S ANSWERING SERVICE NOTIFIED OF CONSULT.
[2019-06-03 20:00] VITALS: BP 131/44
--- NOTE | 2019-06-03 20:36 | NUR ---
CONFIRMED WITH PATIENTS DOSAGES ON LASIX AND COUMADIN AND LAST DOSES. PHARMACY NOTIFIED.
--- NOTE | 2019-06-03 23:52 | NUR ---
PT. GIVEN SLEEPING PILL PER REQUEST AT 2300, CURRENTLY SLEEPING, RESTORIL EFFECTIVE.
[2019-06-04] VITALS: BP 122/56
--- NOTE | 2019-06-04 04:38 | NUR ---
PT. GIVEN XANAX ORDERED PER PT REQUEST. JAMES HWANG RN
--- NOTE | 2019-06-04 05:27 | NUR ---
PT. SLEEPING, XANAX EFFECTIVE FOR ANXIETY.
--- NOTE | 2019-06-04 07:00 | NUR ---
REPORT RECEIVED. PT SLEEPING AT THIS TIME. IV INTACT. RESPIRATIONS EASY AND UNLABORED. CALL LIGHT IN REACH.
[2019-06-04 07:18] LABS: BASO % 0.2 % (0.0-1.0); EOS # 0.2 10*3/uL (0.0-0.4); EOS % 2.3 % (1.0-4.0); HEMATOCRIT 37.3 % (42.0-52.0); LYMPH # 0.8 10*3/uL (1.3-4.4); LYMPH % 12.9 % (27.0-41.0); MEAN CORPUSCULAR HGB 29.9 pg (27.0-31.0); MEAN CORPUSCULAR HGB CONC 32.2 g/dl (33.0-37.0); MEAN PLATELET VOLUME 10.2 fl (9.6-12.3); MONO # 0.5 10*3/uL (0.1-1.0); MONO % 7.6 % (3.0-9.0); NEUT % 76.5 % (47.0-73.0); PLATELET COUNT AUTOMATED 206 10*3/uL (130-400); RED BLOOD COUNT 4.01 10*6/uL (4.50-5.90); RED CELL DISTRI WIDTH 15.2 % (0-14.5); WHITE BLOOD COUNT 6.5 10*3/uL (4.8-10.8)
[2019-06-04 07:33] LABS: ALBUMIN 2.9 gm/dl (3.1-4.5); CREATININE 2.53 mg/dL (0.70-1.30); PHOSPHOROUS 2.2 mg/dL (2.5-4.9); POTASSIUM 4.9 mmol/L (3.5-5.1); TOTAL PROTEIN 5.9 gm/dL (6.4-8.2)
[2019-06-04 08:00] VITALS: BP 130/64
[2019-06-04 08:09] LABS: VITAMIN D, 25-HYDROXY 29.9 ng/mL (30-100)
[2019-06-04 08:27] LABS: INTERNATIONAL NORM RATIO 1.9 (2.0-3.5)
--- NOTE | 2019-06-04 09:00 | NUR ---
Can Filling Machine Operator in to talk to patient. Patient states lives at home with . There are mp steps in the home. Physician: [facility] Home health services: none Patient's level of ADLs: INDEPENDENT Patient has working utilities: all working DME: none Follow-up physician's appointment after d/c: will be made by hospitalist nurse director upon discharge Does patient want to access PORTAL?: no Discharge plan discussed with patient, he lives at home with , he is independent in adls and ambualtion, drives, he states he will return to home when medically stable and denies any home needs, case management will follow. FUAD BABIN
--- NOTE | 2019-06-04 10:00 | NUR ---
DR. BAUMAN NOTIFIED OF LEFT PORT OCCLUSION OF PT PICC. ORDERS RECEIVED.
[2019-06-04 12:00] VITALS: BP 117/57
--- NOTE | 2019-06-04 14:00 | NUR ---
PT LYING IN BED AT THIS TIME. VOICES NO COMPLAINTS. CALL LIGHT IN REACH
[2019-06-04 16:00] VITALS: BP 124/51
[2019-06-04 20:00] VITALS: BP 127/50
--- NOTE | 2019-06-04 20:00 | NUR ---
PT RESTING ON BED WITH EASY RESPIRATIONS. PT REPORTING HEADACHE MEDICATED PER ORDER WITH TYLENOL 650MG. PT HOME MEDICATION MILRINONE ORDERED FROM PHARMACY. TO BE GIVEN VIA IV PER ORDERS.
--- NOTE | 2019-06-04 21:06 | NUR ---
PAIN MEDICATION REPORTED BEING EFFECTIVE.
[2019-06-05] VITALS: BP 116/49
[2019-06-05 06:17] LABS: HEMATOCRIT 34.7 % (42.0-52.0); HEMOGLOBIN 11.4 g/dl (14.0-18.0); MEAN CELL VOLUME 92.5 fl (80.0-94.0); MEAN CORPUSCULAR HGB 30.4 pg (27.0-31.0); MEAN CORPUSCULAR HGB CONC 32.9 g/dl (33.0-37.0); MEAN PLATELET VOLUME 10.2 fl (9.6-12.3); PLATELET COUNT AUTOMATED 201 10*3/uL (130-400); RED BLOOD COUNT 3.75 10*6/uL (4.50-5.90); RED CELL DISTRI WIDTH 15.3 % (0-14.5); WHITE BLOOD COUNT 7.9 10*3/uL (4.8-10.8)
[2019-06-05 06:28] LABS: CREATININE 2.51 mg/dL (0.70-1.30); POTASSIUM 4.4 mmol/L (3.5-5.1)
[2019-06-05 06:29] LABS: INTERNATIONAL NORM RATIO 2.1 (2.0-3.5)
[2019-06-05 06:56] LABS: TOTAL CELLS COUNTED 100 #CELLS
[2019-06-05 06:57] LABS: PLATELET SUFFICIENCY NORMAL (NORMAL)
[2019-06-05 08:00] VITALS: BP 132/62
--- NOTE | 2019-06-05 09:00 | NUR ---
case management visits with patient, he states he will return home when able and denies any home needs
[2019-06-05 12:00] VITALS: BP 127/56
[2019-06-05 16:00] VITALS: BP 120/80
--- NOTE | 2019-06-05 19:37 | NUR ---
PATIENT LYING IN BED, STATES HE IS DOING BETTER. PATIENT STATED LESS COUGHING. DENIES ANY PAIN AT THIS TIME. PATIENT AWARE OF STRESS TEST TOMORROW AND NPO STATUS. PATIENT LEFT WITH CALL LIGHT IN [facility].
[2019-06-05 20:00] VITALS: BP 123/66
--- NOTE | 2019-06-05 21:45 | NUR ---
PATIENT REQUESTED XANAX AND SLEEPING PILL. WAS GIVEN. WILL MONITOR AND REASSESS.
--- NOTE | 2019-06-05 23:41 | NUR ---
24 HR chart check completed.
[2019-06-06] VITALS: BP 133/53
--- NOTE | 2019-06-06 | NUR ---
PATIENT RESTING, NO SIGNS OF DISTRESS. XANAX AND RESTORIL EFFECTIVE.
[2019-06-06 07:26] LABS: INTERNATIONAL NORM RATIO 2.1 (2.0-3.5)
[2019-06-06 07:30] VITALS: BP 134/78
[2019-06-06 07:34] LABS: CREATININE 2.26 mg/dL (0.70-1.30); POTASSIUM 4.4 mmol/L (3.5-5.1)
--- NOTE | 2019-06-06 08:15 | NUR ---
VITALS AND ASSESSMENT COMPLETED AND DOCUMENTED. PATIENT HAS NO COMPLAINTS OF PAIN A THIS TIME. PATIENT IS NPO, COMFORTABLE IN BED WAITNG TO GO DOWN TO GET STRESS TEST. TORRES DEAN
--- NOTE | 2019-06-06 09:00 | NUR ---
case management visits with patient, he will return home when medically stable and denies any home needs, case management will follow
--- NOTE | 2019-06-06 10:00 | NUR ---
PATIENT RESTING IN BED. NO COMPLAINTS AT THIS TIME. YO LALA SPNRCC
--- NOTE | 2019-06-06 10:07 | NUR ---
TO STRESS TEST VIA W/C WITH TRANSPORT.
--- NOTE | 2019-06-06 10:46 | NUR ---
INFORMED CONSENT SIGNED FOR LEXISCAN STRESS TEST WITH DR. GRANT. RESTING EKG PACED/AFIB, HR 71, BP 126/70. PULSE OX 93% AND RHONCHI THROUGHT BILATERALLY. COMPLETED ONE MINUED OF LEXISCAN PROTOCOL RECEIVING LEXISCAN 0.4MG OVER 10 SECONDS. RARE PVC'S NOTED WITH NONDIAGNOSTIC ST CHANGES. PT C/O ODD FEELING. LAST RECOVERY HR 71, BP 102/48. WAITING NUCLEAR SCANNING IN STABLE CONDITION.
[2019-06-06 12:00] VITALS: BP 123/58
--- NOTE | 2019-06-06 13:20 | NUR ---
VITALS AND ASSESSMENT COMPLETED AND DOCUMENTED. PATIENT HAS NO COMPLAINTS AT THIS TIME. IN BED EATING LUNCH WHILE VISITING WITH FAMILY. YO LALA SPCAITLYNCC
--- NOTE | 2019-06-06 13:24 | NUR ---
PATIENT IN BEDE VISTING WITH FAMILY. PATIENT HAS NO COMPLAINTS AT THIS TIME. REPORT GIVEN TO CROW LALA SPCC
[2019-06-06] MEDS ORDERED: DOXYCYCLINE100 M3 PO (14:16)
[2019-06-06] MEDS ORDERED: PREDNISONE50 MG PO (14:16)
[2019-06-06] MEDS ORDERED: TESSALON PERLE100 MG PO (14:29)
--- NOTE | 2019-06-06 15:20 | NUR ---
Discharge instructions reviewed with patient/family. Patient receptive and verbalizes understanding. Follow-up care arranged. Written instructions given to patient/family. CROW AUGUSTINE
== END 2019-06-06 15:20 | disposition home or self-care (01) | DRG 280 ==
LOC: ED 11:26 → 4E 12:55 → EDHOLD 12:55 → 4E 15:25
PROVIDERS: Emergency Medicine; Internal Medicine; ADMIT Family Medicine
PROC: 4A02XM4 Measurement of Cardiac Total Activity, External Approach (ICD-10-PCS; principal; 2019-06-06)
PROC: 3E073KZ Introduction of Other Diagnostic Substance into Coronary Artery, Percutaneous Approach (ICD-10-PCS; principal; 2019-06-06)
DX: I13.0 Hypertensive heart and chronic kidney disease with heart failure and stage 1 through stage 4 chronic kidney disease, or unspecified chronic kidney disease (principal); I21.9 Acute myocardial infarction, unspecified; I50.23 Acute on chronic systolic (congestive) heart failure; E44.0 Moderate protein-calorie malnutrition; N18.4 Chronic kidney disease, stage 4 (severe); E11.22 Type 2 diabetes mellitus with diabetic chronic kidney disease; I25.10 Atherosclerotic heart disease of native coronary artery without angina pectoris; D53.9 Nutritional anemia, unspecified; E87.8 Other disorders of electrolyte and fluid balance, not elsewhere classified; E83.41 Hypermagnesemia; I25.5 Ischemic cardiomyopathy; Z95.1 Presence of aortocoronary bypass graft; E11.69 Type 2 diabetes mellitus with other specified complication; J40 Bronchitis, not specified as acute or chronic; I48.0 Paroxysmal atrial fibrillation; Z95.5 Presence of coronary angioplasty implant and graft; Z95.810 Presence of automatic (implantable) cardiac defibrillator; Z86.73 Personal history of transient ischemic attack (TIA), and cerebral infarction without residual deficits; I25.2 Old myocardial infarction; Z88.8 Allergy status to other drugs, medicaments and biological substances; Z79.899 Other long term (current) drug therapy; Z79.01 Long term (current) use of anticoagulants; Z79.82 Long term (current) use of aspirin; Z87.891 Personal history of nicotine dependence; Z82.3 Family history of stroke; Z82.49 Family history of ischemic heart disease and other diseases of the circulatory system; Z95.2 Presence of prosthetic heart valve

== ENCOUNTER 2019-06-09 12:22 | Inpatient (IN) | payer MEDICARE ==
[~2019-06-09] VITALS: Ht 177.8 cm; Wt 85.3 kg
[~2019-06-09 12:22] MED LIST changes: +PREDNISONE50 MG PO; +TESSALON PERLE100 MG PO
[2019-06-09 12:25] VITALS: BP 108/52
[2019-06-09 13:11] LABS: BASO % 0.1 % (0.0-1.0); HEMATOCRIT 36.5 % (42.0-52.0); HEMOGLOBIN 11.8 g/dl (14.0-18.0); LYMPH # 0.6 10*3/uL (1.3-4.4); LYMPH % 7.2 % (27.0-41.0); MEAN CELL VOLUME 93.4 fl (80.0-94.0); MEAN CORPUSCULAR HGB 30.2 pg (27.0-31.0); MEAN CORPUSCULAR HGB CONC 32.3 g/dl (33.0-37.0); MEAN PLATELET VOLUME 9.9 fl (9.6-12.3); MONO # 0.8 10*3/uL (0.1-1.0); MONO % 8.8 % (3.0-9.0); NEUT # 7.4 10*3/uL (2.3-7.9); NEUT % 83.2 % (47.0-73.0); PLATELET COUNT AUTOMATED 175 10*3/uL (130-400); RED BLOOD COUNT 3.91 10*6/uL (4.50-5.90); RED CELL DISTRI WIDTH 15.1 % (0-14.5); WHITE BLOOD COUNT 8.8 10*3/uL (4.8-10.8)
[2019-06-09 13:22] LABS: ACT PARTIAL THROMBO TIME 31.5 SECONDS (20.0-32.1); INTERNATIONAL NORM RATIO 1.6 (2.0-3.5)
[2019-06-09 13:26] LABS: ALBUMIN 2.6 gm/dl (3.1-4.5); CREATININE 2.34 mg/dL (0.70-1.30); POTASSIUM 4.5 mmol/L (3.5-5.1); TOTAL PROTEIN 5.6 gm/dL (6.4-8.2)
[2019-06-09 13:35] LABS: TROPONIN I 0.06 ng/ml (<0.045)
--- NOTE | 2019-06-09 15:36 | NUR ---
SPOKE TO CARDIAC REHAB, ADVISED THAT NM BONE SCAN WILL BE TOMM 06/10/19.
--- NOTE | 2019-06-09 15:57 | NUR ---
CALLED TO TRASPORT PATIENT TO FLOOR, ADMITTING NURSE ADVISED SHE WILL NEED 30 MIN BEFORE BRINGING PATIENT UP. PATIENT RESTING IN BED, NO VOICED COMPLAINTS. WILL CONTINUE TO MONITOR.
--- NOTE | 2019-06-09 16:31 | NUR ---
ATTEMPTED TO TRANSPORT PATIENT TO FLOOR. NURSE ADVISED WOULD HAVE TO WAIT.
[2019-06-09 17:00] VITALS: BP 129/61
--- NOTE | 2019-06-09 17:13 | NUR ---
Time: 0 A 79 year old MALE admitted to 5E under services of MARIA L HERNANDEZ DO. Pt. arrived via bed from ER. Chief complaint: COMPRESSION FRACTURE OF L1. PATIENT FORMS REVIEWED AND COMPLETED. CALLIGHT REVIEWED AND DEMONSTRATED GERI MATHIS
--- NOTE | 2019-06-09 17:20 | NUR ---
dr. pitts notified that med rec is up-to-date.
--- NOTE | 2019-06-09 18:05 | NUR ---
CALL PLACED TO DR. THOMAS ADVISED OF CONSULT FOR COPD, HE VERSED HE WILL BE IN TOMORROW.
--- NOTE | 2019-06-09 18:08 | NUR ---
CALL PLACED TO DR. NUÑEZ, SPOKE WITH JOVON AT ANSWERING SERVICE, LEFT VOICEMAIL.
--- NOTE | 2019-06-09 19:31 | NUR ---
CALL PLACED TO PHARMACY INQUIRED IF OKAY TO GIVE PATIENTS ORDERED ANTIBIOTICS IN PICC LINE AT THE SAME TIME HIS JERAMIE WAS RUNNING, ADVISED IT WAS COMP[ATABLE AND OKAY TO RUN TOGETHER.
[2019-06-09 20:00] VITALS: BP 95/51
--- NOTE | 2019-06-09 21:28 | NUR ---
MEDICATED WITH TYLENOL FOR C/O BACK PAIN RATED AN 8/10.
[2019-06-10] VITALS: BP 113/62
--- NOTE | 2019-06-10 02:00 | NUR ---
RESTING IN BED WITH EYES CLOSED. TYLENOL EFFECTIVE.
[2019-06-10 06:17] LABS: BASO % 0.1 % (0.0-1.0); HEMATOCRIT 36.8 % (42.0-52.0); HEMOGLOBIN 11.8 g/dl (14.0-18.0); LYMPH # 0.6 10*3/uL (1.3-4.4); LYMPH % 8.3 % (27.0-41.0); MEAN CELL VOLUME 93.2 fl (80.0-94.0); MEAN CORPUSCULAR HGB 29.9 pg (27.0-31.0); MEAN CORPUSCULAR HGB CONC 32.1 g/dl (33.0-37.0); MEAN PLATELET VOLUME 9.6 fl (9.6-12.3); MONO # 0.5 10*3/uL (0.1-1.0); MONO % 6.8 % (3.0-9.0); NEUT # 6.2 10*3/uL (2.3-7.9); NEUT % 83.7 % (47.0-73.0); PLATELET COUNT AUTOMATED 175 10*3/uL (130-400); RED BLOOD COUNT 3.95 10*6/uL (4.50-5.90); RED CELL DISTRI WIDTH 14.9 % (0-14.5); WHITE BLOOD COUNT 7.4 10*3/uL (4.8-10.8)
[2019-06-10 06:27] LABS: INTERNATIONAL NORM RATIO 1.5 (2.0-3.5)
[2019-06-10 06:39] LABS: ALBUMIN 2.6 gm/dl (3.1-4.5); CREATININE 2.27 mg/dL (0.70-1.30); POTASSIUM 4.8 mmol/L (3.5-5.1); TOTAL PROTEIN 5.6 gm/dL (6.4-8.2)
--- NOTE | 2019-06-10 07:10 | NUR ---
ARRIVED ON SHIFT, INTRODUCED TO PATIENT, BED IN LOW POSITION, WITH WHEEL LOCKS ENGAGED, CALL LIGHT WITHIN REACH, NO NEEDS VOICED AT THIS TIME. WHITE BOARD UPDATED.
[2019-06-10 08:00] VITALS: BP 121/70
--- NOTE | 2019-06-10 09:00 | NUR ---
Solar Thermal Technician in to talk to patient. Patient states lives at home with . There are no steps in the home. Physician[facility] Home health services: none Patient's level of ADLs: MINIMAL ASSIST Patient has working utilities: all working DME: none Follow-up physician's appointment after d/c: will be made by hospitalist nurse director upon discharge Does patient want to access PORTAL?: no Discharge plan discussed with patient he lives at home with , he states he is normally independent in adls and ambulation but recently had a fall, discussed with him a short term group home for rehab prior to returning home, educated him on the area facilities that he would go to for SNF, he declined, also discussed with him VNA and educated him on the services they proved, he also declined this, he stated he wanted to go to outpatient rehab and his would be able to transport him, case management will follow on patient's progress and see if he will be able to participate in outpatient rehab vs short term skilled. FUAD BABIN
--- NOTE | 2019-06-10 10:05 | NUR ---
Occupational therapy orders received and OT evaluation completed in full on floor five. Patient precautions include spinal precautions, L1 compression fx, fall risk, ww use, bed/chair alarm, cough, IV. Per OT eval, OT recommends SNF. If refused, home with HH SN, OT, and PT. Patient complexity is high, [id number]. Thank you for the referral. Ness Randhawa, OTR/L
--- NOTE | 2019-06-10 10:45 | NUR ---
PHYSICAL THERAPY Ada completed moderate level of complexity 84402 recomend SNF at discharge PT to work on transfers,amb,strengthening, balance/safety Basia Miller PT
[2019-06-10 12:00] VITALS: BP 116/73
--- NOTE | 2019-06-10 13:40 | NUR ---
OT NOTE Upon OT arrival, patient was in the bathroom with his , walker left near the window. Patient educated on the importance of using call alberto for assistance to maximize patient safety. Patient verbalized a fair understanding. Patient performed functional mobility back to the chair using the wheeled walker. At the recliner, patient required min verbal and physical cues for safety. Patient sat for a rest break and performed a second functional chair transfer to change recliners. Patient demonstrated improved safety with the second chair transfer. Patient's chair alarm was donned, lap tray nearby, all needs within reach, and reported mod pain in his back. Patient able to recall 3/3 spinal precautions and demonstrated fair carryover during OT treatment. Patient would benefit from continued OT treatment to maximize independence with ADLs, transfers, and mobility. Thank you. Ness Randhawa OTR/Nirav
--- NOTE | 2019-06-10 13:40 | NUR ---
PHYSICAL THERAPY Pt seen in room pt in BR with , assisted back to chair STS min assist x 1 Amb 1 x 12 ft w fww min x 1 remained seated in chair after activity w call alberto and chair alarm on. in room spoke with pt/ reg calling for nurse to assist with activity also spoke w nurse Artemio. Pt states LBP 09/30 Will follow per JACQUELINE Miller PT
--- NOTE | 2019-06-10 15:21 | NUR ---
Shift chart check completed.
[2019-06-10 16:00] VITALS: BP 107/50
[2019-06-10 20:00] VITALS: BP 121/60
--- NOTE | 2019-06-10 20:00 | NUR ---
RESTING IN BED. LUNGS WITH RHONCHI; MOIST NONPRODUCTIVE COUGH NOTED. INFORMED PATIENT OF NPO STATUS FOR BRONCHOSCOPY IN THE MORNING. PT. VERBALIZED UNDERSTANDING. VOICES NO C/O AT THIS TIME; CALL LIGHT WITHIN REACH. WILL CONTINUE TO MONITOR.
--- NOTE | 2019-06-10 23:31 | NUR ---
MEDICATED WITH RESTORIL FOR C/O INSOMNIA.
[2019-06-11] VITALS (15 sets, daily range): BP systolic 96–143; BP diastolic 54–86
--- NOTE | 2019-06-11 03:00 | NUR ---
RESTING IN BED WITH EYES CLOSED; RESTORIL EFFECTIVE.
--- NOTE | 2019-06-11 05:45 | NUR ---
FLEETS ENEMA GIVEN TO PATIENT; PATIENT HAD A LOOSE BROWN STOOL.
--- NOTE | 2019-06-11 06:15 | NUR ---
IV started left hand with #24 protective cath after 3 attempts. Site prepped with Chloroprep. Sterile dressing applied. Patient tolerated procedure well. IV infusing at cc/hr. MEHREEN GASCA
--- NOTE | 2019-06-11 06:30 | NUR ---
TAP WATER ENEMA STARTED; PT. TOLERATING WELL.
[2019-06-11 07:10] LABS: BASO % 0.2 % (0.0-1.0); EOS % 0.1 % (1.0-4.0); HEMATOCRIT 38.6 % (42.0-52.0); HEMOGLOBIN 12.5 g/dl (14.0-18.0); LYMPH # 1.1 10*3/uL (1.3-4.4); MEAN CELL VOLUME 94.1 fl (80.0-94.0); MEAN CORPUSCULAR HGB 30.5 pg (27.0-31.0); MEAN CORPUSCULAR HGB CONC 32.4 g/dl (33.0-37.0); MEAN PLATELET VOLUME 10.2 fl (9.6-12.3); MONO # 0.9 10*3/uL (0.1-1.0); MONO % 9.9 % (3.0-9.0); NEUT # 6.7 10*3/uL (2.3-7.9); NEUT % 76.1 % (47.0-73.0); PLATELET COUNT AUTOMATED 189 10*3/uL (130-400); WHITE BLOOD COUNT 8.8 10*3/uL (4.8-10.8)
[2019-06-11 07:17] LABS: INTERNATIONAL NORM RATIO 1.5 (2.0-3.5)
[2019-06-11 07:26] LABS: ALBUMIN 2.7 gm/dl (3.1-4.5); CREATININE 2.05 mg/dL (0.70-1.30); POTASSIUM 4.6 mmol/L (3.5-5.1); TOTAL PROTEIN 5.8 gm/dL (6.4-8.2)
--- NOTE | 2019-06-11 07:48 | NUR ---
PHYSICAL THERAPY Screen and PT eval received, pt evaluated and is on caseload thank you Basia Miller PT
--- NOTE | 2019-06-11 09:00 | NUR ---
case management visits with patient, discussed with him a short term retirement for rehab prior to returning home, he declines, states he feels he is able to return home and do outpatient therapy, case management will follow
--- NOTE | 2019-06-11 13:59 | NUR ---
OT NOTE Attempted to see pt this P.M. for OT session and upon arrival pt was out of the room for a medical procedure. Will check back at a later date and continue with POC as able. KHALIF Collins
--- NOTE | 2019-06-11 14:43 | NUR ---
PHYSICAL THERAPY Patient was out of his room for a medical procedure this pm when approached for therapy visit and unavailable at this time. Will continue per POC as able. Montrell Sloan, JIRA DEVELOPER
--- NOTE | 2019-06-11 14:43 | NUR ---
REPORT GIVEN TO MELISSA
--- NOTE | 2019-06-11 15:43 | NUR ---
PT EDUCATED ON HAVING 2 HOURS OF BED REST.
--- NOTE | 2019-06-11 20:22 | NUR ---
PATIENT REFUSING TO HAVE BED ALARM ON. DISCUSSED THE REASONING OF HAVING IT ON. PATIENT STILL REFUSING STATES IF HE NEEDS HELP HE KNOWS TO USE THE CALL LIGHT FOR HELP BUT DOESNT NEED HELP GOING TO THE RESTROOM. NON SKID SOCKS APPLIED. WILL CONTINUE TO MONITOR.
[2019-06-12] VITALS: BP 108/56
--- NOTE | 2019-06-12 | NUR ---
PATIENT C/O BACK PAIN, RATES 7/10.. PATIENT ALSO REQUESTING RESORTIL TO HELP SLEEP. MEDICATED WITH BOTH,NORCO AND RESTORTIL AT THIS TIME. WILL CHECK EFFECTIVENESS.
--- NOTE | 2019-06-12 02:00 | NUR ---
PATIENT SLEEPING, NO SIGNS OF DISTRESS. MEDICATIONS GIVEN EFFECTIVE. WILL CONTINUE TO MONITOR.
[2019-06-12 06:25] LABS: INTERNATIONAL NORM RATIO 1.4 (2.0-3.5)
--- NOTE | 2019-06-12 09:00 | NUR ---
case management visits with patient, he states he will return home when medically stable and denies any home needs, case management will follow
[2019-06-12 12:00] VITALS: BP 141/67
--- NOTE | 2019-06-12 14:19 | NUR ---
PHYSICAL THERAPY TREATMENT TIME: 2:10 PM 20 MINUTES Patient presented to therapy in supine with head of bed elevated and visitng with patient in room. Patient gives informed consent for treatment. Patient was identified by name and on wristband. Patient was on spO2 BUT HE WAS NOT WEARING IT. Patient reports 7/10 pain in the low back. Patient performed supine to sitting at EOB with CGA. Patient sat on EOB with SBA- CGA. Patient completed sit to stand transfer with MIN A X 1- CGA. Patient required verbal cues for pushing off the bed with one hand. Patient stood at Walker and CGA for 1 minute the first attempt and 3 minutes the 2nd attempt with complaint of increased dizziness during standing tolerances. Patient performed 4 sit to stands from EOB with CGA - MIN A X 1. Patient ambulated with Walker and CGA for 50' x 1 with no LOB and no SOB with no spO2. Patient transferred back to supine in bed SBA. Patient was left in supine in bed with call light within within reach, head of bed elevated, bed alarm activated, and visiting in room with patient. Patient was 1:1 with this SENIOR COMPENSATION CONSULTANT for 20 minutes total. BREANNE DEAN SENIOR COMPENSATION CONSULTANT
--- NOTE | 2019-06-12 14:43 | NUR ---
OT NOTE PATIENT SEEN OT THIS DATE. PATIENT IDENTIFIED BY NAME AND DATE . PATIENT IN BED UPON ARRIVAL WITH PRESENT. PATIENT COMPLETED SUPINE TO SIT EOB CGA. COMPLETED SIT TO STAND FROM BED CGA VERBAL CUES PROPER HAND PLACEMENT. PATIENT COMPLETED STAND TOLERANCE STATIC 1 MINUTE X 1 AND 3 MINUTE X 1 WITH COMPLAIN OF FEELING LIGHT HEADED. PATIENT COMPLETED DYNAMIC STAND TOLERANCE USE FWW SUPPORT AMBULATING WITH APPROX 3 MINUTE STAND TOLERANCE. PATIENT REPORTS 7/10 PAIN LOWER BACK. PATIENT IN BED END OF SESSION WITH CALL LIGHT WITIN REACH. CONTINUE TOWARDS PLAN OF CARE. DUNG HERNADEZ/Nirav
[2019-06-12 16:00] VITALS: BP 148/72
[2019-06-12 16:08] LABS: ACID FAST SPEC PROCESSING Concentration (.)
[2019-06-12 20:00] VITALS: BP 128/60
--- NOTE | 2019-06-12 21:05 | NUR ---
PATIENT RESTING IN BED, RESPIRATIONS EASY, NON LABORED. DENIES PAIN AT THIS TIME. VITALS WNL. BED IN LOWEST POSITION, CALL LIGHT WITHIN REACH. BED ALARM ON. WILL CONTINUE TO MONITOR.
--- NOTE | 2019-06-12 23:58 | NUR ---
PATIENT C/O BACK PAIN AND REQUESTING RESTORIL. RATES 09/30. MEDICATED WITH NORCO AND RESTORIL. WILL CHECK EFFECTIVENESS.
[2019-06-13] VITALS: BP 112/66
--- NOTE | 2019-06-13 02:00 | NUR ---
PATIENT SLEEPING, NORCO AND RESTORIL EFFECTIVE. WILL CONTINUE TO MONTIOR.
--- NOTE | 2019-06-13 04:00 | NUR ---
PATIENT ASLEEP. NO SIGNS OF DISTRESS. RESPIRATIONS EASY,NON LABORED. BED IN LOWEST POSITION, CALL LIGHT WITHIN REACH. BED ALARM ON. WILL CONTINUE TO MONITOR.
[2019-06-13 06:33] LABS: CREATININE 2.22 mg/dL (0.70-1.30); POTASSIUM 4.4 mmol/L (3.5-5.1)
[2019-06-13 06:53] LABS: INTERNATIONAL NORM RATIO 1.4 (2.0-3.5)
--- NOTE | 2019-06-13 07:49 | NUR ---
PHYSICAL THERAPY CO-SIGN I approve of the Physical Therapy notes written above. Basia Miller PT
[2019-06-13 08:00] VITALS: BP 140/72
--- NOTE | 2019-06-13 08:45 | NUR ---
PHYSICAL THERAPY PT SUPINE IN BED WITH BED ALARM ON UPON ARRIVAL. PT C/O 7/10 PAIN IN LB. PT PERFORMED BED MOBILITY SUPINE TO SITTING EOB WITH Nathan AND VC'S FOR PRECAUTIONS. ONCE AT EOB PT C/O SIGHT DIZZINESS AND REQUIRED A SHORT SEATED BREAK. PT THEN PERFORMED STS WITH CGA AND VC'S FOR SAFETY AND TECHNIQUE. PT ONCE STANDING REQUEST TO SIT DUE TO C/O INCREASED DIZZINESS. PT THEN SAT FOR A COUPLE SECONDS AND PREFORMED ANOTHER STS WITH CGA. PT WAS ABLE TO STAND A FEW SECONDS LONGER THEN REQUESTED TO SIT ONCE AGAIN DUE TO C/O DIZZINESS. PT SEAT FOR ABOUT 30SEC AND ATTEMPTED STS ONCE AGAIN WITH CGA. PT WAS ABLE TO STAND FOR ABOUT 1 MIN AND REQUESTED TO SIT DUE TO C/O DIZZINESS. AT THIS TIME DR CAME IN AND THIS PEST CONTROL APPLICATOR CONCULTED WITH DR ABOUT DIZZINESS AND NOT FEELING THE SAME TODAY. UPDATED PT. PT THEN REQUESTED TO STAND AND TRY AND WALK. PT PREFORMED STS ONCE AGIAN WITH CGA AND VC'S FOR SAFETY. PT GAIT TRAINED 15FTX1 WITH CGA, FWW, CHAIR FOLLOW AND VERY SLOW GAIT. PT THEN PERFORMED STS TO CHAIR AND WAS WHEELED BACK TO ROOM WHERE HE REMAINED IN RECLINER WITH BODY ALARM ON. PT HAD NO REPORT OF OTHER NEEDS AT THIS TIME. CONT WITH POC TOWARD MEETING GOALS. PT SEEN 1:1 FOR 25MIN. DEANDRA KING PEST CONTROL APPLICATOR
--- NOTE | 2019-06-13 09:52 | NUR ---
OT NOTE PATIENT SEEN OT THIS DATE 34 MINUTES. PAIENT IDENTIFIED BY NAME AND DATE OF . PATIENT IN BED UPON ARRIVAL AND RATES LOWER BACK PAIN 10/30. PATIENT COMPLETED SUPINE TO SIT EOB MIN A VERBAL CUES PROPER HAND PLACEEMENT. PATIENT REPORTS FEELING DIZZY TRANSITIONING SUPINE TO SIT EOB EDUCATION VISUAL FIXATION AND DISSIPATION OF DIZZINESS SEATED REST BREAK. COMPLETED LB DRESSING MIN A EDUCATION USE AE AND MIN VERBAL CUES SAFETY CARRYOVER OF SPINAL PRECAUTIONS. PATIENT PROVIDED WITH FASHION SUPERVISOR AND SOCK AIDE WITH FURTHER NEED EDUCATION PROPER USE. COMPLETED STAND TOLERANCE ACTIVITY CGA APPROX 35 SECONDS X 1 AND 2 MINUTES X SECOND STAND USE FWW SUPPORT AND COMPLAIN OF DIZZINES WITH DISSIPATION UPON SEATED REST BREAK MOMENTS LATER. COMPLETED DYANMIC STAND TOLERANCE/BALANCE USE FWW SUPPORT APPROX 2 MINUTE TOLERANCE WITH NEED SEATED REST BREAK COMPLAIN PAIN IN LOWER BACK AND DIZZINESS. BOGDAN JOHANSEN BED AND BREAKFAST INNKEEPER CONSULTED OF PATIENT'S COMPLAIN OF PAIN LOWER BACK AND DIZZINESS THIS DATE DURING SESSION. PATIENT SITTING UP IN RECLINER END OF SESSION WITH CALL LIGHT AND CHAIR ALARM INTACT. NO FURTHER NEEDS VERBALIZED. CONTINUE TOWARDS PLAN OF CARE. DUNG CUADRA
[2019-06-13 12:00] VITALS: BP 144/76
--- NOTE | 2019-06-13 15:49 | NUR ---
OCCUPATIONAL THERAPY CO-SIGN I approve of the Occupational Therapy notes written above. NIDIA CLEMENTE OTR/Nirav
[2019-06-13 16:00] VITALS: BP 109/52
[2019-06-13 20:00] VITALS: BP 138/63
[2019-06-14] VITALS: BP 144/69
--- NOTE | 2019-06-14 00:08 | NUR ---
PATIENT C/O OF BACK PAIN, AND REQUESTING A SLEEPING PILL. RATES PAIN 6/10. MEDICATED WITH NORCO AND RESTORIL. WILL CHECK EFFECTIVENESS.
[2019-06-14 06:59] LABS: HEMATOCRIT 36.6 % (42.0-52.0); MEAN CELL VOLUME 93.1 fl (80.0-94.0); MEAN CORPUSCULAR HGB 30.5 pg (27.0-31.0); MEAN CORPUSCULAR HGB CONC 32.8 g/dl (33.0-37.0); MEAN PLATELET VOLUME 9.5 fl (9.6-12.3); PLATELET COUNT AUTOMATED 199 10*3/uL (130-400); RED BLOOD COUNT 3.93 10*6/uL (4.50-5.90); RED CELL DISTRI WIDTH 14.8 % (0-14.5); WHITE BLOOD COUNT 10.1 10*3/uL (4.8-10.8)
[2019-06-14 07:27] LABS: ALBUMIN 2.5 gm/dl (3.1-4.5); CREATININE 1.99 mg/dL (0.70-1.30); POTASSIUM 4.8 mmol/L (3.5-5.1)
[2019-06-14 07:30] LABS: TOTAL PROTEIN 5.6 gm/dL (6.4-8.2)
[2019-06-14 08:08] LABS: PLATELET SUFFICIENCY NORMAL (NORMAL); POLYCHROMASIA SLIGHT; TARGET CELLS FEW; TOTAL CELLS COUNTED 100 #CELLS
--- NOTE | 2019-06-14 10:00 | NUR ---
PATIENT STATES HE IS HAVING BACK PAIN AND REQUESTED TYLENOL. PRN TYLENOL ADMINISTERED. WILL MONITOR FOR EFFECTIVNESS.
--- NOTE | 2019-06-14 11:00 | NUR ---
DR. CHAIDEZ NOTIFIED OF PT REQUESTING A K PAD. DR. CHAIDEZ DENIED REQUEST.
[2019-06-14 12:00] VITALS: BP 150/77
--- NOTE | 2019-06-14 14:02 | NUR ---
PHYSICAL THERAPY Patient supine in bed at time of arrival. Patient provided name/ and consent for therapy session this date. Patient reports pain in low back 11/30. Performance of bed mobility- patient transitions supine->sit requiring supervision. Patient sat unsupported EOB for ~5 minutes with completion of dressing tasks. Transfer training- patient completed STS transfer EOB->FWW requiring Fabiano with cues for placement of hands due to patient grabbing walker upon standing. Gait training with use of FWW and CGA-Fabiano, over level surfaces for strength, endurance and balance ~75'x2. Cues provided for walker management/proximity, safety and technique. SPT transfer completed to bedside chair with use of FWW and CGA-Fabiano for directional assist and safety. Seated B LE ther-ex, AROM- working to increase overall strength, ROM and endurance needed to complete functional mobility: marches, LAQ, hip ABD/ADD, ankle PF/DF x 10 reps. Intermittent rest breaks provided, due to fatigue. ENTRY LEVEL ACCOUNT EXECUTIVE Monitoring patient tolerance and pain level throughout with no change post session. Patient sitting in recliner chair at session end with present in room. Call light within reach. Jessica Gracia, ENTRY LEVEL ACCOUNT EXECUTIVE
[2019-06-14 16:00] VITALS: BP 133/66
[2019-06-14 20:00] VITALS: BP 115/57
--- NOTE | 2019-06-14 22:08 | NUR ---
NORCO ADMINISTERED FOR PT C/O 10/30 BACK PAIN. WILL CONTINUE TO MONITOR AND REASSESS.
--- NOTE | 2019-06-14 23:00 | NUR ---
PT ASLEEP AT THIS TIME. NO SIGNS OF DISCOMFORT OR DISTRESS NOTED.
[2019-06-15] VITALS: BP 107/67
--- NOTE | 2019-06-15 05:09 | NUR ---
PATIENTS MILRINONE NOT AVAILABLE ON THE FLOOR. NOT IN THE PATIENTS BIN OR REFRIGERATOR. PATIENT STATES THAT HE HAS PLENTY LEFT IN THIS BAG UNTIL HIS CAN BRING IN ANOTHER THIS MORNING. WILL RELAY TO MORNING SHIFT NURSE AT SHIFT CHANGE.
[2019-06-15 06:59] LABS: INTERNATIONAL NORM RATIO 2.7 (2.0-3.5)
[2019-06-15 08:00] VITALS: BP 124/66
--- NOTE | 2019-06-15 08:00 | NUR ---
IN TO ROOM. PATIENT AWAKE, ALERT AND ORIENTED. PLEASANT AND COOPERATIVE WITH CARE. RESPIRATIONS ARE EASY AND REGULAR, NO DISTRESS NOTED. HHR ON MONITOR. BED IN LOWEST LOCKED POSITION AND CALL LIGHT WITHIN REACH.
--- NOTE | 2019-06-15 10:16 | NUR ---
PATIENT COMPLAINS OF BACK PAIN RATED AT A 7. WHEN RE ENTERING ROOM WITH MARIA ELENA UPTON PATIENT WAS SLEEPING IN BED. NO S/S OF DISTRESS AT THIS TIME. WILL REASSESS FOR PAIN AT A LATER TIME.
--- NOTE | 2019-06-15 10:31 | NUR ---
Dr Corea met with this FORMS BUILDER-S and stated that pt is agreeable to SNF. Met with pt and spoke with pt's Mary via speakerphone while in pt's room. Mary stated that there have been previous attempts for SNF placement of pt but pt was declined due to his medication requiring 24 hr RN coverage. Pt and Mary both stated that they would prefer that pt return home with home PT or outpt PT. However, they will consider SNF with the preference being [facility]. Mary would like to discuss further with pt and would like to meet with case management rn tomorrow between 10:00-11:00 to discuss options. Will notify case management rn.
[2019-06-15 12:00] VITALS: BP 136/63
--- NOTE | 2019-06-15 15:43 | NUR ---
PT INSTRUCTED ON USE OF FLUTTER VLAVE. PT DEMONSTRATED PROPER TECHNIQUE. PT INSTRUCTED TO USE Q 1-2 HRS W/A.
[2019-06-15 16:00] VITALS: BP 120/57
--- NOTE | 2019-06-15 19:30 | NUR ---
PT AWAKE IN BED. IV ABX INFUSION COMPLETE. IV SITE TO R FOREARM PATENT AND FLUSHES WITHOUT ISSUE. PATIENT SELF CARES FOR MILRINONE PUMP. EXTRA MEDICATION BAG IN MEDICATION REFRIDGERATOR PROVIDED FROM HOME. PT DENIES ANY NEEDS. WILL MONITOR.
[2019-06-15 20:00] VITALS: BP 137/72
--- NOTE | 2019-06-15 21:05 | NUR ---
PT MEDICATED WITH PO NORCO PER PRN ORDER FOR C/O BACK PAIN RATED 7/10. SCHEDULED PO ATIVAN ALSO GIVEN PER ORDER. WILL MONITOR EFFECTIVENESS. CALL LIGHT LEFT IN REACH.
--- NOTE | 2019-06-15 22:30 | NUR ---
PT ASSISTED UP TO BATHROOM BY AIDE. PATIENT INSTRUCTED TO USE CALL STRING WHEN FINISHED. PT USED CALL GREEN. AIDE ENTERED ROOM. PT SITTING ON TOILET WAITING FOR STAFF. AIDE NOTICED PATIENT'S L ELBOW BLEEDING. PATIENT STATES HE HIT HIS ARM OFF OF THE WALL/BAR IN THE BATHROOM WHILE REACHING AROUND LOOKING FOR CALL LIGHT. AIDE CALLED RN IN TO ASSESS INJURY. SKIN TEAR NOTED. AREA CLEANED WITH NSS. PHOTOS TAKEN PER POLICY. OPTIFOAM DRESSING APPLIED. WILL NOTIFY DR REGARDING SITUATION AND WOUND ORDERS.
--- NOTE | 2019-06-15 23:06 | NUR ---
NOTIFIED OF SKIN TEAR. NEW WOUND CARE ORDERS RECEIVED.
[2019-06-16] VITALS: BP 110/55
--- NOTE | 2019-06-16 05:32 | NUR ---
PO NORCO ADMINISTERED PER PRN ORDER FOR C/O PAIN IN BACK RATED 8/10. SCHEDULED PO ATIVAN ALSO ADMINISTERED PER ORDER. WILL MONITOR EFFECTIVENESS. PT STATES HE HAS A GOOD AMOUNT OF MILRINONE IN INFUSION PUMP. STATES BAG IN REFRIDGERATOR NOT YET NEEDED. WILL NOTIFY RN WHEN SUPPLY BEGINS TO RUN LOW.
[2019-06-16 06:45] LABS: HEMATOCRIT 36.5 % (42.0-52.0); HEMOGLOBIN 11.9 g/dl (14.0-18.0); MEAN CELL VOLUME 91.5 fl (80.0-94.0); MEAN CORPUSCULAR HGB 29.8 pg (27.0-31.0); MEAN CORPUSCULAR HGB CONC 32.6 g/dl (33.0-37.0); MEAN PLATELET VOLUME 9.7 fl (9.6-12.3); PLATELET COUNT AUTOMATED 216 10*3/uL (130-400); RED BLOOD COUNT 3.99 10*6/uL (4.50-5.90); RED CELL DISTRI WIDTH 14.9 % (0-14.5); WHITE BLOOD COUNT 10.2 10*3/uL (4.8-10.8)
[2019-06-16 06:52] LABS: CREATININE 2.4 mg/dL (0.70-1.30); POTASSIUM 4.2 mmol/L (3.5-5.1)
[2019-06-16 06:57] LABS: INTERNATIONAL NORM RATIO 3.3 (2.0-3.5)
[2019-06-16 07:19] LABS: TOTAL CELLS COUNTED 100 #CELLS
[2019-06-16 07:20] LABS: OVALOCYTES FEW; PLATELET SUFFICIENCY NORMAL (NORMAL); POLYCHROMASIA SLIGHT; SCHISTOCYTES FEW
--- NOTE | 2019-06-16 07:30 | NUR ---
REPORT RECEIVED. PT SLEEPING. CALL LIGHT IN REACH
[2019-06-16 08:00] VITALS: BP 135/74
--- NOTE | 2019-06-16 08:14 | NUR ---
PHYSICAL THERAPY Screen received pt has already been evaluated and is on caseload thank you Basia Miller PT
--- NOTE | 2019-06-16 09:23 | NUR ---
Nursing screen received. Patient is currently on caseload. Thank you. Ness Randhawa, OTR/L
--- NOTE | 2019-06-16 10:00 | NUR ---
DR. CHAIDEZ NOTIFIED OF PT COMPLAINT "I FEEL IN AND OUT OF IT". ALSO NOTIFIED OF PRESSURE OF 108/50. ORDERED TO HOLD LASIX AT THIS TIME. NO OTHER ORDERS
[2019-06-16 10:10] VITALS: BP 108/50
--- NOTE | 2019-06-16 10:45 | NUR ---
case management visits with patient, present. discussed with them a short term custodial for rehab prior to returning home, patient stated he would like to return home, but was not opposed to going to a SNF, stated he had been at [facility] previously and if he absolutely needed to go she would prefer he be referred to [facility] as first choice and [facility] as second, he is was able to return home she would like [facility] nursing, physical therapy and occupational. stated due to patient's Milron infusion most facilities do not want to accept him discussed with her that planner/scheduler will send referral to both [facility] and [facility] and case management will keep her informed of whether they will accept patient or not
[2019-06-16 12:00] VITALS: BP 118/58
--- NOTE | 2019-06-16 12:00 | NUR ---
PT PERSONAL PUMP SWITCHED OVER AT THIS TIME WITH OWN MEDICATION BROUGHT FROM HOME. NO OTHER COMPLAINTS. CALL LIGHT IN REACH
--- NOTE | 2019-06-16 12:18 | NUR ---
HIMANSHU GUNTERNORM [id number] Please refer to the physician's history and physical for past medical history, comorbid conditions, and allergies. Diagnosis: COMPRESSION FRACTURE OF L1 VERTEBRA INTRACTABLE Desmond Score: 16,AT RISK WOUND DESCRIPTIONS: Wound Number: 1 Location of the wound: left elbow Type of wound: skin tear Thickness: Partial Size: 2.7cm x 1.8cm x 0.1cm Tunneling: none Undermining: none Sinus Tract: none Presence of Exudate: Serosanguineous Amount: Light Color: Red Odor: None Periwound Skin Appearance: Normal Wound edges: approximated Pain (associated with wound): none at time of assessment How does patient state this happened? pt stated this happened this morning by bumping his elbow off the wall Intact scabbed area to top of head patient's stated that he had surgery a while ago and he picks it open on and off. Surface the patient is resting on: Isoflex SKIN PREVENTION RECOMMENDATION: 1. Pressure redistribution support surface as appropriate 2. Elevate heels 3. Remove boots/TEDS every shift and reapply 4. Head of bed 30 degrees as tolerated 5. Assess nutrition and hydration 6. Manage moisture 7. Avoid the use of containment devices while in bed 8. Use absorptive products on surfaces limit layers of linens on bed 9. Turn and reposition every 1-2 hours in bed and every 1 hour in chair as tolerated 10. Weight shifts every 15 minutes while up in chair 11. Offloading with pillows or device to keep heels elevated off bed 12. Monitor skin at least every shift 13. Inspect under medical devices twice a day WOUND TREATMENT RECOMMENDATIONS: Continue skin tear guidelines to left elbow.
--- NOTE | 2019-06-16 12:21 | NUR ---
Patient and stating they would be agreeable to snf placement at the [facility]. Contacted facility and faxed referral. Waiting on review/acceptance.
--- NOTE | 2019-06-16 12:55 | NUR ---
PHYSICAL THERAPY Patient seen this pm 1:1 for therapy visit and was semi reclined in bedside chair upon therapist arrival. Patient identified by name / and was joined by his during entire therapy session. Patient reports 8/10 c/o low back pain and transfers sit to stand with MIN A. Patient was a little unsteady upon initial rise with use of wh walker standing support. Patient needed v/c to keep head / shoulders forward over walker to prevent retrograde posture. Patient ambulated [facility], walker, 20'x 1 to bathroom, demonstrating very slow, cautious gait pattern, decreased stride and increased fatigue secondary to generalized LE weakness. Patient returned to EOB sit 10'x 1, with c/o of feeling a bit light headed / dizzy. Patient instructed on visual fixation technique and reported no new c/o's within 45 seconds. Patient transfered sit to supine, [facility] and remained in bed with call light, tray table, cell phone and bed alarm for safety. Will continue per POC as tolerated, total treatment time 16 minutes. Montrell Sloan, LEATHER GRADER
--- NOTE | 2019-06-16 13:20 | NUR ---
OT NOTE Pt was seen this P.M. 1:1 for 20 minute OT session. Upon arrival pt was sitting upright in the recliner. Pt identified by name and and had complaints of 6/10 back pain at rest and 8/10 back pain with activity. Prior to start of any activities requested for pt to verbalize his spinal precautions and pt was unable. Pt was re-educated on spinal precautions and was then able to verbalize. While seated pt donned pants and B socks with SBA and good back protection. Sit to stand completed from chair level with Fabiano and use of w/w for UE support. Functional mobility was then completed to the bathroom with CGA and use of w/w with one standing rest break due to quick onset of fatigue. There pt transferred on/off standard commode with Fabiano due to low surface. Functional mobility was then completed back to the EOB pt then had complaints of being light headed and dizzy. Pt was educated on visual fixation and after aprox 60 seconds pt had no other complaints. Pt was left supine in bed with call light in hand, tray table in place, and bed alarm activated for safety. Continue with POC as able. SATYA Collins/Nirav
[2019-06-16 16:00] VITALS: BP 139/67
[2019-06-16 20:00] VITALS: BP 135/58
--- NOTE | 2019-06-16 22:34 | NUR ---
NOTIFIED OF PT'S REQUEST FOR RESTORIL AND ORDER AUTO DCed DUE TO PT BEING HERE 1 WEEK. OKAY TO REORDER PER .
[2019-06-17] VITALS: BP 156/79
--- NOTE | 2019-06-17 02:45 | NUR ---
PT ASLEEP IN BED. RESPIRATIONS EASY. NO S/S OF DISTRESS NOTED. WILL MONITOR. CALL LIGHT IN REACH.
[2019-06-17 07:19] LABS: INTERNATIONAL NORM RATIO 3.2 (2.0-3.5)
[2019-06-17 07:33] LABS: CREATININE 2.12 mg/dL (0.70-1.30); POTASSIUM 5.1 mmol/L (3.5-5.1)
--- NOTE | 2019-06-17 07:40 | NUR ---
PT RESTING IN BED. RESP-EASY AND REGULAR. C/O BACK PAIN AT 7 OR 8 ON PAIN SCALE 0-10. MEDICATED WITH NORCO PO PER PRN ORDER, SEE EMAR. FLUTTER ON TABLE PT VOICED USING. CALL LIGHT IN REACH. SEE SHIFT ASSESSMENT.
--- NOTE | 2019-06-17 09:43 | NUR ---
Nutritional Support Services Note: Pt is on a regular diet consuming 100% of meals. Skin tear noted to L elbow. CBW: 188# Ht: 5'10. Staff to continue to encourage good PO intakes to promote wound healing. No nutrition intervention needed at this time. Jennifer BUSTAMANTE paid internship
--- NOTE | 2019-06-17 09:58 | NUR ---
PHYSICAL THERAPY TREATMENT TIME: 08:39 AM - 09:00 21 MINUTES TOTAL. Patient presented to therapy in supine in bed with head of bed elevated and infusing heart medication running. Patient was identified by name and on wristband. Patient gives informed consent for treatment. Patient reports 10/30 LBP. Patient transferred supine to sitting on EOB with SBA. Patient sat on EOB with SBA. Patient completed sit to stand from EOB with CGA- MIN A X 1. Patient stood for 1 minute with increased dizziness, which caused the patient to have to sit EOB. Patient sit to stand again from EOB with MIN A X 1. Patient verbal cued to push off the EOB with hands. Patient performed ambulation with Wh Walker and CGA for 10' x 1 and then sit in low chair with CGA. Patient completed sit to stand from LOW CHAIR with MIN A X 1. Patient ambulated back to EOB with CGA 10' X 1. Patient became dizzy and had to sit again on EOB. Patient performed sit to supine transfer with SBA. Patient scooted himself up in bed SBA. Patient was left in supine in bed with head of bed elevated, call light within reach and bed alarm activated. Patient was 1:1 with this SALON PROFESSIONAL for 21 minutes total. BREANNE DEAN SALON PROFESSIONAL
--- NOTE | 2019-06-17 10:00 | NUR ---
Pt was seen for OT x 15 minutes beginning with supine to sit at EOB with SBA/CGA. Needed a rest period while sitting at EOB due to "lightheaded". Pt donned socks with difficulty. Sit to stand required CGA & fxl mobility to bathroom was also CGA using w/walker. Toilet t/f & bed t/f was CGA. Continue with OT POC. Call light within reach. Victoria CRUZ/Nirav
--- NOTE | 2019-06-17 11:56 | NUR ---
patient accepted to the [facility]. hospital exemption complete. 3 night stay complete. patient is ok to go if medically stable for discharge.
[2019-06-17 12:00] VITALS: BP 115/59
[2019-06-17] MEDS ORDERED: ATORVASTATIN CA20 M1 PO (12:52)
[2019-06-17] MEDS ORDERED: LASIX20 MG PO (12:52)
[2019-06-17] MEDS ORDERED: COUMADIN3 M1 PO (12:52)
[2019-06-17] MEDS ORDERED: PREDNISONE10 MG PO (13:13)
[2019-06-17] MEDS ORDERED: HYDROCODONE-AC1 EAC2 PO (13:13)
[2019-06-17] MEDS ORDERED: RESTORIL30 M1 PO (13:18)
[2019-06-17] MEDS ORDERED: ATIVAN1 MG PO ×2 (13:18→13:20)
--- NOTE | 2019-06-17 14:42 | NUR ---
RACHEL MCCOY GAVE REPORT TO CROW REGARDING PT COMING TO FACILITY.
--- NOTE | 2019-06-17 14:42 | NUR ---
Discharge instructions reviewed with patient/family. Patient receptive and verbalizes understanding. Follow-up care arranged. Written instructions given to patient/family. HEPLOCK IN RIGHT ARM REMOVED 2X2 APPLIED. PICC IN LEFT UPPER ARM LEFT IN. HOLTER MONITOR REMOVED. AT HIS SIDE. ESCORTED VIA WHEELCHAIR FOR DISCHARGE TO [facility]. MASOUD FORBES R
--- NOTE | 2019-06-18 07:41 | NUR ---
OCCUPATIONAL THERAPY CO-SIGN I approve of the Occupational Therapy notes written above. VALORIE GREEN, OTR/L
--- NOTE | 2019-06-18 07:54 | NUR ---
PHYSICAL THERAPY CO-SIGN I approve of the Physical Therapy notes written above. Basia Miller PT
== END 2019-06-17 14:45 | disposition other institution (70) | DRG 515 ==
LOC: ED 12:22 → 5E 15:17 → EDHOLD 15:17 → 5E 15:46
PROVIDERS: Emergency Medicine; Family Medicine; Internal Medicine; Internal Medicine Critical Care Medicine; Registered Nurse; ADMIT Internal Medicine
PROC: 0QU03JZ Supplement Lumbar Vertebra with Synthetic Substitute, Percutaneous Approach (ICD-10-PCS; principal; 2019-06-11)
PROC: 0BC28ZZ Extirpation of Matter from Carina, Via Natural or Artificial Opening Endoscopic (ICD-10-PCS; 2019-06-11)
PROC: 0BCB8ZZ Extirpation of Matter from Left Lower Lobe Bronchus, Via Natural or Artificial Opening Endoscopic (ICD-10-PCS; 2019-06-11)
PROC: 0BC18ZZ Extirpation of Matter from Trachea, Via Natural or Artificial Opening Endoscopic (ICD-10-PCS; 2019-06-11)
PROC: 0BC88ZZ Extirpation of Matter from Left Upper Lobe Bronchus, Via Natural or Artificial Opening Endoscopic (ICD-10-PCS; 2019-06-11)
PROC: 0BC58ZZ Extirpation of Matter from Right Middle Lobe Bronchus, Via Natural or Artificial Opening Endoscopic (ICD-10-PCS; 2019-06-11)
PROC: 0BC48ZZ Extirpation of Matter from Right Upper Lobe Bronchus, Via Natural or Artificial Opening Endoscopic (ICD-10-PCS; 2019-06-11)
PROC: 0BC68ZZ Extirpation of Matter from Right Lower Lobe Bronchus, Via Natural or Artificial Opening Endoscopic (ICD-10-PCS; 2019-06-11)
PROC: 0BC78ZZ Extirpation of Matter from Left Main Bronchus, Via Natural or Artificial Opening Endoscopic (ICD-10-PCS; 2019-06-11)
PROC: 0BC98ZZ Extirpation of Matter from Lingula Bronchus, Via Natural or Artificial Opening Endoscopic (ICD-10-PCS; 2019-06-11)
PROC: 0BC38ZZ Extirpation of Matter from Right Main Bronchus, Via Natural or Artificial Opening Endoscopic (ICD-10-PCS; 2019-06-11)
DX: S32.010A Wedge compression fracture of first lumbar vertebra, initial encounter for closed fracture (principal); I50.43 Acute on chronic combined systolic (congestive) and diastolic (congestive) heart failure; E43 Unspecified severe protein-calorie malnutrition; J44.1 Chronic obstructive pulmonary disease with (acute) exacerbation; I48.21 Permanent atrial fibrillation; J44.0 Chronic obstructive pulmonary disease with (acute) lower respiratory infection; I13.0 Hypertensive heart and chronic kidney disease with heart failure and stage 1 through stage 4 chronic kidney disease, or unspecified chronic kidney disease; N18.4 Chronic kidney disease, stage 4 (severe); I38 Endocarditis, valve unspecified; J20.9 Acute bronchitis, unspecified; J98.09 Other diseases of bronchus, not elsewhere classified; I25.5 Ischemic cardiomyopathy; E11.65 Type 2 diabetes mellitus with hyperglycemia; E78.2 Mixed hyperlipidemia; I25.10 Atherosclerotic heart disease of native coronary artery without angina pectoris; E87.8 Other disorders of electrolyte and fluid balance, not elsewhere classified; E83.41 Hypermagnesemia; D64.9 Anemia, unspecified; F41.9 Anxiety disorder, unspecified; K57.90 Diverticulosis of intestine, part unspecified, without perforation or abscess without bleeding; E11.22 Type 2 diabetes mellitus with diabetic chronic kidney disease; Z96.642 Presence of left artificial hip joint; Z96.612 Presence of left artificial shoulder joint; W19.XXXA Unspecified fall, initial encounter; Y93.89 Activity, other specified; Y92.89 Other specified places as the place of occurrence of the external cause; Y99.8 Other external cause status; Z95.810 Presence of automatic (implantable) cardiac defibrillator; Z68.27 Body mass index [BMI] 27.0-27.9, adult; Z88.8 Allergy status to other drugs, medicaments and biological substances; Z79.01 Long term (current) use of anticoagulants; Z95.5 Presence of coronary angioplasty implant and graft; Z95.1 Presence of aortocoronary bypass graft; Z95.2 Presence of prosthetic heart valve; Z87.891 Personal history of nicotine dependence; I25.2 Old myocardial infarction; Z82.3 Family history of stroke; Z79.82 Long term (current) use of aspirin; Z79.899 Other long term (current) drug therapy

== ENCOUNTER → 2019-06-27 | Day surgery (SDC) | payer MEDICARE ==
[~2019-06-27] MED LIST changes: +ATORVASTATIN CA20 M1 PO; +HYDROCODONE-AC1 EAC2 PO
--- NOTE | 2019-06-27 14:33 | NUR ---
PICC LINE DRESSING CHANGE, LABS DRAWN AND LINE FLUSHED. ALL PER P/P. PT TOLERATED WELL. JUANA HAYES RN
[2019-06-27 14:51] LABS: BASO % 0.3 % (0.0-1.0); EOS # 0.2 10*3/uL (0.0-0.4); EOS % 2.5 % (1.0-4.0); HEMATOCRIT 37.5 % (42.0-52.0); HEMOGLOBIN 11.8 g/dl (14.0-18.0); LYMPH # 0.8 10*3/uL (1.3-4.4); LYMPH % 11.7 % (27.0-41.0); MEAN CELL VOLUME 96.2 fl (80.0-94.0); MEAN CORPUSCULAR HGB 30.3 pg (27.0-31.0); MEAN CORPUSCULAR HGB CONC 31.5 g/dl (33.0-37.0); MEAN PLATELET VOLUME 10.2 fl (9.6-12.3); MONO # 0.4 10*3/uL (0.1-1.0); MONO % 5.8 % (3.0-9.0); NEUT # 5.3 10*3/uL (2.3-7.9); NEUT % 78.7 % (47.0-73.0); PLATELET COUNT AUTOMATED 160 10*3/uL (130-400); RED CELL DISTRI WIDTH 16.8 % (0-14.5); WHITE BLOOD COUNT 6.8 10*3/uL (4.8-10.8)
[2019-06-27 15:23] LABS: CREATININE 2.15 mg/dL (0.70-1.30); POTASSIUM 4.8 mmol/L (3.5-5.1)
== END | disposition home or self-care (01) ==
LOC: SDC 06:41
PROVIDERS: Specialist
DX: Z45.2 Encounter for adjustment and management of vascular access device (principal)

== ENCOUNTER → 2019-07-03 | Day surgery (SDC) | payer MEDICARE ==
--- NOTE | 2019-07-03 12:37 | NUR ---
1220- LABS DRAWN FROM PICC LINE ORDERED BY [facility] PER POLICY. PICC LINE DRESSING CHANGED USING STERILE TECHNIQUE. SITE IS SLIGHTLY REDDENED. DISCHARGED VIA WC.
[2019-07-03 12:55] LABS: BASO % 0.4 % (0.0-1.0); EOS # 0.2 10*3/uL (0.0-0.4); EOS % 3.9 % (1.0-4.0); HEMATOCRIT 36.1 % (42.0-52.0); HEMOGLOBIN 11.7 g/dl (14.0-18.0); LYMPH # 0.9 10*3/uL (1.3-4.4); LYMPH % 17.3 % (27.0-41.0); MEAN CELL VOLUME 96.5 fl (80.0-94.0); MEAN CORPUSCULAR HGB 31.3 pg (27.0-31.0); MEAN CORPUSCULAR HGB CONC 32.4 g/dl (33.0-37.0); MEAN PLATELET VOLUME 10.3 fl (9.6-12.3); MONO # 0.4 10*3/uL (0.1-1.0); MONO % 7.6 % (3.0-9.0); NEUT # 3.6 10*3/uL (2.3-7.9); NEUT % 70.4 % (47.0-73.0); PLATELET COUNT AUTOMATED 118 10*3/uL (130-400); RED BLOOD COUNT 3.74 10*6/uL (4.50-5.90); RED CELL DISTRI WIDTH 17.2 % (0-14.5); WHITE BLOOD COUNT 5.2 10*3/uL (4.8-10.8)
[2019-07-03 13:29] LABS: CREATININE 1.93 mg/dL (0.70-1.30); POTASSIUM 4.4 mmol/L (3.5-5.1)
== END | disposition home or self-care (01) ==
LOC: SDC 12:21
PROVIDERS: Specialist
DX: Z45.2 Encounter for adjustment and management of vascular access device (principal)

== ENCOUNTER 2019-07-31 10:10 | Emergency (ER) | payer MEDICARE ==
[~2019-07-31] VITALS: Ht 177.8 cm; Wt 89.8 kg
[2019-07-31 10:27] VITALS: BP 139/97
[2019-07-31 11:22] LABS: BASO # 0.1 10*3/uL (0.0-0.1); BASO % 0.7 % (0.0-1.0); EOS # 0.2 10*3/uL (0.0-0.4); EOS % 3.5 % (1.0-4.0); HEMATOCRIT 37.3 % (42.0-52.0); HEMOGLOBIN 12.2 g/dl (14.0-18.0); LYMPH # 1.1 10*3/uL (1.3-4.4); LYMPH % 15.6 % (27.0-41.0); MEAN CELL VOLUME 94.2 fl (80.0-94.0); MEAN CORPUSCULAR HGB 30.8 pg (27.0-31.0); MEAN CORPUSCULAR HGB CONC 32.7 g/dl (33.0-37.0); MEAN PLATELET VOLUME 10.2 fl (9.6-12.3); MONO # 0.7 10*3/uL (0.1-1.0); MONO % 9.5 % (3.0-9.0); NEUT # 4.8 10*3/uL (2.3-7.9); NEUT % 70.3 % (47.0-73.0); PLATELET COUNT AUTOMATED 212 10*3/uL (130-400); RED BLOOD COUNT 3.96 10*6/uL (4.50-5.90); WHITE BLOOD COUNT 6.8 10*3/uL (4.8-10.8)
[2019-07-31 11:36] LABS: ALBUMIN 2.5 gm/dl (3.1-4.5); CREATININE 2.01 mg/dL (0.70-1.30); POTASSIUM 4.4 mmol/L (3.5-5.1); TOTAL PROTEIN 5.6 gm/dL (6.4-8.2)
[2019-07-31 11:39] LABS: TROPONIN I 0.046 ng/ml (<0.045)
[2019-07-31 11:46] LABS: ACT PARTIAL THROMBO TIME 52.5 SECONDS (20.0-32.1)
[2019-07-31] MEDS ORDERED: ANTIBIOTIC28.4 GM T (13:07)
[2019-07-31 13:23] LABS: BACTERIA TRACE; BILIRUBIN NEGATIVE (NEGATIVE); BLOOD NEGATIVE (NEGATIVE); CLARITY SL CLOUDY (CLEAR); COLOR YELLOW (YELLOW); GLUCOSE NEGATIVE (NEGATIVE); HYALINE CAST 21-30; KETONE NEGATIVE (NEGATIVE); LEUKO ESTERASE NEGATIVE (NEGATIVE); NITRITE NEGATIVE (NEGATIVE); SPECIFIC GRAVITY 1.015 (1.005-1.030); UROBILINOGEN 0.2 E.U./dl (0.2-1.0)
== END 2019-07-31 13:43 | disposition home or self-care (01) ==
LOC: ED 10:10
PROVIDERS: Nurse Practitioner Family
DX: S51.812A Laceration without foreign body of left forearm, initial encounter (principal); D68.59 Other primary thrombophilia; M54.5 Low back pain; I25.10 Atherosclerotic heart disease of native coronary artery without angina pectoris; E78.5 Hyperlipidemia, unspecified; I11.0 Hypertensive heart disease with heart failure; I50.9 Heart failure, unspecified; I25.2 Old myocardial infarction; I48.91 Unspecified atrial fibrillation; Z86.73 Personal history of transient ischemic attack (TIA), and cerebral infarction without residual deficits; Z95.810 Presence of automatic (implantable) cardiac defibrillator; Z88.8 Allergy status to other drugs, medicaments and biological substances; Z79.899 Other long term (current) drug therapy; Z79.82 Long term (current) use of aspirin; Z98.61 Coronary angioplasty status; Z96.642 Presence of left artificial hip joint; Z96.612 Presence of left artificial shoulder joint; Z87.891 Personal history of nicotine dependence; Z95.9 Presence of cardiac and vascular implant and graft, unspecified; Z86.14 Personal history of Methicillin resistant Staphylococcus aureus infection; W18.30XA Fall on same level, unspecified, initial encounter; Y93.89 Activity, other specified; Y92.002 Bathroom of unspecified non-institutional (private) residence as the place of occurrence of the external cause; Y99.8 Other external cause status

== ENCOUNTER 2019-08-08 15:05 | Emergency (ER) | payer MEDICARE ==
[~2019-08-08] VITALS: Ht 177.8 cm; Wt 80.3 kg
[~2019-08-08 15:05] MED LIST changes: +ANTIBIOTIC28.4 GM T
[2019-08-08 16:03] LABS: BASO # 0.1 10*3/uL (0.0-0.1); BASO % 1.1 % (0.0-1.0); EOS # 0.3 10*3/uL (0.0-0.4); EOS % 5.7 % (1.0-4.0); HEMATOCRIT 36.5 % (42.0-52.0); LYMPH # 1.2 10*3/uL (1.3-4.4); LYMPH % 21.7 % (27.0-41.0); MEAN CELL VOLUME 95.8 fl (80.0-94.0); MEAN CORPUSCULAR HGB 30.4 pg (27.0-31.0); MEAN CORPUSCULAR HGB CONC 31.8 g/dl (33.0-37.0); MEAN PLATELET VOLUME 10.3 fl (9.6-12.3); MONO # 0.5 10*3/uL (0.1-1.0); MONO % 8.8 % (3.0-9.0); NEUT # 3.5 10*3/uL (2.3-7.9); NEUT % 62.3 % (47.0-73.0); PLATELET COUNT AUTOMATED 189 10*3/uL (130-400); RED BLOOD COUNT 3.81 10*6/uL (4.50-5.90); RED CELL DISTRI WIDTH 16.7 % (0-14.5); WHITE BLOOD COUNT 5.7 10*3/uL (4.8-10.8)
[2019-08-08 16:20] LABS: ALBUMIN 2.5 gm/dl (3.1-4.5); CREATININE 2.55 mg/dL (0.70-1.30); POTASSIUM 4.9 mmol/L (3.5-5.1); TOTAL PROTEIN 5.6 gm/dL (6.4-8.2)
[2019-08-08 16:31] LABS: INTERNATIONAL NORM RATIO > 9.3 (2.0-3.5)
[2019-08-08 16:55] VITALS: BP 112/52
== END 2019-08-08 16:49 | disposition home or self-care (01) ==
LOC: ED 15:05
PROVIDERS: Nurse Practitioner Family
DX: R79.1 Abnormal coagulation profile (principal); R53.1 Weakness; I25.10 Atherosclerotic heart disease of native coronary artery without angina pectoris; I11.0 Hypertensive heart disease with heart failure; I50.9 Heart failure, unspecified; E78.5 Hyperlipidemia, unspecified; E11.9 Type 2 diabetes mellitus without complications; I48.91 Unspecified atrial fibrillation; I25.2 Old myocardial infarction; Z95.1 Presence of aortocoronary bypass graft; Z79.899 Other long term (current) drug therapy

== ENCOUNTER 2019-09-30 18:35 | Inpatient (IN) | payer MEDICARE ==
[~2019-09-30] VITALS: Ht 177.8 cm; Wt 78.6 kg
[2019-09-30 18:35] VITALS: BP 113/66
[2019-09-30 19:25] VITALS: BP 155/63
[2019-09-30 20:27] LABS: INTERNATIONAL NORM RATIO 2.3 (2.0-3.5)
[2019-09-30 20:28] LABS: HEMATOCRIT 37.1 % (42.0-52.0); MEAN CELL VOLUME 92.5 fl (80.0-94.0); MEAN CORPUSCULAR HGB 30.4 pg (27.0-31.0); MEAN CORPUSCULAR HGB CONC 32.9 g/dl (33.0-37.0); MEAN PLATELET VOLUME 10.2 fl (9.6-12.3); PLATELET COUNT AUTOMATED 166 10*3/uL (130-400); RED BLOOD COUNT 4.01 10*6/uL (4.50-5.90); RED CELL DISTRI WIDTH 15.4 % (0-14.5); WHITE BLOOD COUNT 8.8 10*3/uL (4.8-10.8)
[2019-09-30 20:34] LABS: ALBUMIN 2.6 gm/dl (3.1-4.5); CREATININE 1.88 mg/dL (0.70-1.30); POTASSIUM 4.5 mmol/L (3.5-5.1)
[2019-09-30 20:40] LABS: TROPONIN I 0.046 ng/ml (<0.045)
[2019-09-30 20:47] LABS: BASOPHILS 1 % (0-1); TOTAL CELLS COUNTED 100 #CELLS
[2019-09-30 20:52] LABS: PLATELET SUFFICIENCY NORMAL (NORMAL)
[2019-09-30 21:15] VITALS: BP 125/53
[2019-09-30 21:29] LABS: BILIRUBIN NEGATIVE (NEGATIVE); BLOOD 1+ (NEGATIVE); CLARITY CLEAR (CLEAR); COLOR YELLOW (YELLOW); EPITHELIAL CELLS 0-2; GLUCOSE NEGATIVE (NEGATIVE); KETONE NEGATIVE (NEGATIVE); LEUKO ESTERASE NEGATIVE (NEGATIVE); NITRITE NEGATIVE (NEGATIVE); SPECIFIC GRAVITY 1.015 (1.005-1.030); UROBILINOGEN 0.2 E.U./dl (0.2-1.0)
[2019-09-30 21:30] LABS: BACTERIA 1+
[2019-10-01 00:24] VITALS: BP 96/44
[2019-10-01 01:00] VITALS: BP 100/40
[2019-10-01 01:30] LABS: ARTERIAL BLOOD GAS PH 7.421 (7.35-7.45)
[2019-10-01 04:56] LABS: CREATININE 2.23 mg/dL (0.70-1.30)
[2019-10-01 05:55] LABS: BASO # 0.1 10*3/uL (0.0-0.1); BASO % 0.6 % (0.0-1.0); EOS % 0.2 % (1.0-4.0); HEMATOCRIT 38.9 % (42.0-52.0); LYMPH # 0.8 10*3/uL (1.3-4.4); LYMPH % 8.7 % (27.0-41.0); MEAN CELL VOLUME 95.1 fl (80.0-94.0); MEAN CORPUSCULAR HGB 30.6 pg (27.0-31.0); MEAN CORPUSCULAR HGB CONC 32.1 g/dl (33.0-37.0); MEAN PLATELET VOLUME 9.7 fl (9.6-12.3); MONO # 0.7 10*3/uL (0.1-1.0); MONO % 7.1 % (3.0-9.0); NEUT % 83.1 % (47.0-73.0); PLATELET COUNT AUTOMATED 186 10*3/uL (130-400); RED BLOOD COUNT 4.09 10*6/uL (4.50-5.90); RED CELL DISTRI WIDTH 15.3 % (0-14.5); WHITE BLOOD COUNT 9.6 10*3/uL (4.8-10.8)
[2019-10-01 08:00] VITALS: BP 108/51; BP 142/78
[2019-10-01 12:00] VITALS: BP 96/48
[2019-10-01 16:00] VITALS: BP 111/48
[2019-10-01 20:00] VITALS: BP 125/53
[2019-10-02] VITALS: BP 114/59
[2019-10-02 04:00] VITALS: BP 116/69
[2019-10-02 06:37] LABS: BASO % 0.6 % (0.0-1.0); EOS # 0.2 10*3/uL (0.0-0.4); EOS % 3.2 % (1.0-4.0); HEMATOCRIT 36.8 % (42.0-52.0); LYMPH # 1.1 10*3/uL (1.3-4.4); MEAN CELL VOLUME 92.2 fl (80.0-94.0); MEAN CORPUSCULAR HGB 30.3 pg (27.0-31.0); MEAN CORPUSCULAR HGB CONC 32.9 g/dl (33.0-37.0); MEAN PLATELET VOLUME 9.8 fl (9.6-12.3); MONO # 0.7 10*3/uL (0.1-1.0); MONO % 9.9 % (3.0-9.0); NEUT # 4.8 10*3/uL (2.3-7.9); PLATELET COUNT AUTOMATED 177 10*3/uL (130-400); RED BLOOD COUNT 3.99 10*6/uL (4.50-5.90); RED CELL DISTRI WIDTH 14.8 % (0-14.5); WHITE BLOOD COUNT 6.8 10*3/uL (4.8-10.8)
[2019-10-02 07:02] LABS: INTERNATIONAL NORM RATIO 2.4 (2.0-3.5)
[2019-10-02 07:03] LABS: ALBUMIN 2.5 gm/dl (3.1-4.5); CREATININE 2.26 mg/dL (0.70-1.30); POTASSIUM 3.4 mmol/L (3.5-5.1); TOTAL PROTEIN 6.2 gm/dL (6.4-8.2)
[2019-10-02 08:00] VITALS: BP 126/66
[2019-10-02 12:00] VITALS: BP 131/60
[2019-10-02 16:00] VITALS: BP 141/58
[2019-10-02 20:00] VITALS: BP 96/49
[2019-10-03] VITALS: BP 107/62
[2019-10-03 01:24] LABS: CREATININE 2.4 mg/dL (0.70-1.30); POTASSIUM 3.8 mmol/L (3.5-5.1)
[2019-10-03 05:50] LABS: ALBUMIN 2.6 gm/dl (3.1-4.5); CREATININE 2.3 mg/dL (0.70-1.30); POTASSIUM 3.7 mmol/L (3.5-5.1)
[2019-10-03 06:07] LABS: BASO % 0.6 % (0.0-1.0); EOS # 0.3 10*3/uL (0.0-0.4); EOS % 3.8 % (1.0-4.0); HEMATOCRIT 34.4 % (42.0-52.0); LYMPH # 1.3 10*3/uL (1.3-4.4); LYMPH % 19.8 % (27.0-41.0); MEAN CORPUSCULAR HGB 30.5 pg (27.0-31.0); MEAN CORPUSCULAR HGB CONC 32.8 g/dl (33.0-37.0); MEAN PLATELET VOLUME 10.2 fl (9.6-12.3); MONO # 0.7 10*3/uL (0.1-1.0); MONO % 11.1 % (3.0-9.0); NEUT # 4.3 10*3/uL (2.3-7.9); NEUT % 64.4 % (47.0-73.0); PLATELET COUNT AUTOMATED 184 10*3/uL (130-400); RED CELL DISTRI WIDTH 14.8 % (0-14.5); WHITE BLOOD COUNT 6.7 10*3/uL (4.8-10.8)
[2019-10-03 06:17] LABS: INTERNATIONAL NORM RATIO 3.1 (2.0-3.5)
[2019-10-03 08:00] VITALS: BP 119/69
[2019-10-03] MEDS ORDERED: DOXYCYCLINE MO100 M1 PO (10:48)
[2019-10-03] MEDS ORDERED: FUROSEMIDE40 MG PO (10:48)
[2019-10-03 12:00] VITALS: BP 103/81
== END 2019-10-03 18:37 | disposition short-term general hospital (02) | DRG 871 ==
LOC: ED 18:35 → EDHOLD 22:57 → 4E 22:57
PROVIDERS: Emergency Medicine; Internal Medicine; Student in an Organized Health Care Education/Training Program; ADMIT Internal Medicine
DX: A41.9 Sepsis, unspecified organism (principal); I50.43 Acute on chronic combined systolic (congestive) and diastolic (congestive) heart failure; J18.9 Pneumonia, unspecified organism; G93.41 Metabolic encephalopathy; J96.01 Acute respiratory failure with hypoxia; E43 Unspecified severe protein-calorie malnutrition; I25.810 Atherosclerosis of coronary artery bypass graft(s) without angina pectoris; I13.0 Hypertensive heart and chronic kidney disease with heart failure and stage 1 through stage 4 chronic kidney disease, or unspecified chronic kidney disease; N18.4 Chronic kidney disease, stage 4 (severe); D68.59 Other primary thrombophilia; N17.9 Acute kidney failure, unspecified; I48.20 Chronic atrial fibrillation, unspecified; Z20.828 Contact with and (suspected) exposure to other viral communicable diseases; E87.8 Other disorders of electrolyte and fluid balance, not elsewhere classified; E11.65 Type 2 diabetes mellitus with hyperglycemia; E55.9 Vitamin D deficiency, unspecified; E78.2 Mixed hyperlipidemia; J43.9 Emphysema, unspecified; F41.9 Anxiety disorder, unspecified; D64.9 Anemia, unspecified; R65.20 Severe sepsis without septic shock; I25.5 Ischemic cardiomyopathy; J01.90 Acute sinusitis, unspecified; K57.90 Diverticulosis of intestine, part unspecified, without perforation or abscess without bleeding; B37.9 Candidiasis, unspecified; E11.22 Type 2 diabetes mellitus with diabetic chronic kidney disease; F51.01 Primary insomnia; E87.6 Hypokalemia; Z95.810 Presence of automatic (implantable) cardiac defibrillator; Z79.01 Long term (current) use of anticoagulants; Z79.4 Long term (current) use of insulin; Z82.49 Family history of ischemic heart disease and other diseases of the circulatory system; Z82.3 Family history of stroke; Z79.899 Other long term (current) drug therapy; Z96.642 Presence of left artificial hip joint; Z96.612 Presence of left artificial shoulder joint; Z95.2 Presence of prosthetic heart valve; Z95.1 Presence of aortocoronary bypass graft; Z88.8 Allergy status to other drugs, medicaments and biological substances; Z79.82 Long term (current) use of aspirin; Z95.5 Presence of coronary angioplasty implant and graft; Z68.25 Body mass index [BMI] 25.0-25.9, adult

== ENCOUNTER → 2019-11-05 | Outpatient (CLI) | payer MEDICARE ==
[2019-11-05 15:27] LABS: BASO # 0.1 10*3/uL (0.0-0.1); BASO % 0.9 % (0.0-1.0); EOS # 0.2 10*3/uL (0.0-0.4); EOS % 3.2 % (1.0-4.0); HEMATOCRIT 36.4 % (42.0-52.0); LYMPH # 1.5 10*3/uL (1.3-4.4); LYMPH % 20.1 % (27.0-41.0); MEAN CELL VOLUME 95.3 fl (80.0-94.0); MEAN CORPUSCULAR HGB 30.6 pg (27.0-31.0); MEAN CORPUSCULAR HGB CONC 32.1 g/dl (33.0-37.0); MONO # 0.7 10*3/uL (0.1-1.0); MONO % 8.7 % (3.0-9.0); NEUT % 66.8 % (47.0-73.0); PLATELET COUNT AUTOMATED 233 10*3/uL (130-400); RED BLOOD COUNT 3.82 10*6/uL (4.50-5.90); RED CELL DISTRI WIDTH 17.2 % (0-14.5); WHITE BLOOD COUNT 7.5 10*3/uL (4.8-10.8)
[2019-11-05 15:40] LABS: CREATININE 1.93 mg/dL (0.70-1.30); POTASSIUM 4.3 mmol/L (3.5-5.1); TOTAL PROTEIN 6.3 gm/dL (6.4-8.2)
[2019-11-05 15:52] LABS: INTERNATIONAL NORM RATIO 3.5 (2.0-3.5)
== END | disposition home or self-care (01) ==
LOC: RESCLI 14:14
PROVIDERS: Student in an Organized Health Care Education/Training Program
DX: I48.20 Chronic atrial fibrillation, unspecified (principal); E11.9 Type 2 diabetes mellitus without complications; E78.5 Hyperlipidemia, unspecified; I25.10 Atherosclerotic heart disease of native coronary artery without angina pectoris; Z91.19 Patient's noncompliance with other medical treatment and regimen; Z95.1 Presence of aortocoronary bypass graft; Z95.0 Presence of cardiac pacemaker; Z95.828 Presence of other vascular implants and grafts; Z79.899 Other long term (current) drug therapy

== ENCOUNTER → 2019-11-12 | Outpatient (CLI) | payer MEDICARE | END | disposition home or self-care (01) | LOC: RESCLI 03:14 | DX: I25.810 Atherosclerosis of coronary artery bypass graft(s) without angina pectoris (principal); E55.9 Vitamin D deficiency, unspecified; I15.0 Renovascular hypertension; I48.20 Chronic atrial fibrillation, unspecified; E78.2 Mixed hyperlipidemia; F51.04 Psychophysiologic insomnia; N18.4 Chronic kidney disease, stage 4 (severe); G89.29 Other chronic pain; F41.9 Anxiety disorder, unspecified; K21.9 Gastro-esophageal reflux disease without esophagitis; G47.00 Insomnia, unspecified; D50.8 Other iron deficiency anemias; E53.8 Deficiency of other specified B group vitamins ==

== ENCOUNTER → 2020-01-01 | Outpatient (CLI) | payer MEDICARE ==
[2020-01-01 13:48] LABS: ACT PARTIAL THROMBO TIME 40.4 SECONDS (20.0-32.1); INTERNATIONAL NORM RATIO 4.3 (2.0-3.5)
== END | disposition home or self-care (01) ==
LOC: LAB 00:16 → PICC 13:00 → LAB 13:00
PROVIDERS: ATTEND Specialist
DX: I50.22 Chronic systolic (congestive) heart failure (principal)

== ENCOUNTER 2020-01-08 10:59 | Emergency (ER) | payer MEDICARE ==
[2020-01-08 11:25] LABS: BASO # 0.1 10*3/uL (0.0-0.1); BASO % 0.8 % (0.0-1.0); EOS # 0.2 10*3/uL (0.0-0.4); EOS % 3.4 % (1.0-4.0); HEMATOCRIT 38.9 % (42.0-52.0); LYMPH # 0.9 10*3/uL (1.3-4.4); MEAN CELL VOLUME 94.6 fl (80.0-94.0); MEAN CORPUSCULAR HGB 29.7 pg (27.0-31.0); MEAN CORPUSCULAR HGB CONC 31.4 g/dl (33.0-37.0); MONO # 0.6 10*3/uL (0.1-1.0); MONO % 9.6 % (3.0-9.0); NEUT # 4.4 10*3/uL (2.3-7.9); PLATELET COUNT AUTOMATED 184 10*3/uL (130-400); RED BLOOD COUNT 4.11 10*6/uL (4.50-5.90); RED CELL DISTRI WIDTH 16.2 % (0-14.5); WHITE BLOOD COUNT 6.2 10*3/uL (4.8-10.8)
[2020-01-08 11:42] LABS: ACT PARTIAL THROMBO TIME 36.6 SECONDS (20.0-32.1); INTERNATIONAL NORM RATIO 2.3 (2.0-3.5)
[2020-01-08 11:46] LABS: ALBUMIN 2.6 gm/dl (3.1-4.5); CREATININE 2.12 mg/dL (0.70-1.30); POTASSIUM 4.6 mmol/L (3.5-5.1); TOTAL PROTEIN 5.8 gm/dL (6.4-8.2)
[2020-01-08 11:50] LABS: TROPONIN I 0.047 ng/ml (<0.045)
[2020-01-08 15:50] VITALS: BP 91/39
== END 2020-01-08 16:20 | disposition short-term general hospital (02) ==
LOC: ED 10:59
PROVIDERS: Emergency Medicine
DX: I11.0 Hypertensive heart disease with heart failure (principal); I50.9 Heart failure, unspecified; I25.10 Atherosclerotic heart disease of native coronary artery without angina pectoris; I25.2 Old myocardial infarction; E11.9 Type 2 diabetes mellitus without complications; Z79.899 Other long term (current) drug therapy; Z79.82 Long term (current) use of aspirin; Z79.2 Long term (current) use of antibiotics; Z95.1 Presence of aortocoronary bypass graft

== ENCOUNTER → 2020-01-13 | Outpatient (CLI) | payer MEDICARE ==
[~2020-01-13] MED LIST changes: +Coumadin2 MG PO
[2020-01-13 11:09] LABS: BASO % 0.4 % (0.0-1.0); EOS # 0.1 10*3/uL (0.0-0.4); HEMATOCRIT 39.7 % (42.0-52.0); LYMPH # 1.2 10*3/uL (1.3-4.4); LYMPH % 12.8 % (27.0-41.0); MEAN CELL VOLUME 92.5 fl (80.0-94.0); MEAN CORPUSCULAR HGB 30.1 pg (27.0-31.0); MEAN CORPUSCULAR HGB CONC 32.5 g/dl (33.0-37.0); MEAN PLATELET VOLUME 10.2 fl (9.6-12.3); MONO # 0.8 10*3/uL (0.1-1.0); MONO % 8.6 % (3.0-9.0); NEUT # 7.1 10*3/uL (2.3-7.9); PLATELET COUNT AUTOMATED 197 10*3/uL (130-400); RED BLOOD COUNT 4.29 10*6/uL (4.50-5.90); RED CELL DISTRI WIDTH 16.4 % (0-14.5); WHITE BLOOD COUNT 9.2 10*3/uL (4.8-10.8)
[2020-01-13 11:18] LABS: ACT PARTIAL THROMBO TIME 33.7 SECONDS (20.0-32.1); INTERNATIONAL NORM RATIO 1.5 (2.0-3.5)
[2020-01-13 11:22] LABS: CREATININE 2.07 mg/dL (0.70-1.30); POTASSIUM 4.5 mmol/L (3.5-5.1)
== END | disposition home or self-care (01) ==
LOC: EDSTATUS 01-01 13:00 → PICC 01-01 13:00 → RAD 01-01 13:00 → LAB 01:07 → PICC 01:07
PROVIDERS: ATTEND Specialist
DX: I48.21 Permanent atrial fibrillation (principal); I12.9 Hypertensive chronic kidney disease with stage 1 through stage 4 chronic kidney disease, or unspecified chronic kidney disease; N18.3 Chronic kidney disease, stage 3 (moderate); E78.5 Hyperlipidemia, unspecified; F41.9 Anxiety disorder, unspecified; F32.9 Major depressive disorder, single episode, unspecified; E11.22 Type 2 diabetes mellitus with diabetic chronic kidney disease; I25.10 Atherosclerotic heart disease of native coronary artery without angina pectoris; Z98.890 Other specified postprocedural states; Z79.899 Other long term (current) drug therapy; Z82.49 Family history of ischemic heart disease and other diseases of the circulatory system; Z88.8 Allergy status to other drugs, medicaments and biological substances

== ENCOUNTER 2020-02-08 14:50 | Emergency (ER) | payer MEDICARE ==
[~2020-02-08] VITALS: Ht 177.8 cm; Wt 77.1 kg
[2020-02-08 14:56] VITALS: BP 103/57
[2020-02-08 15:45] LABS: BASO # 0.1 10*3/uL (0.0-0.1); BASO % 0.7 % (0.0-1.0); EOS # 0.1 10*3/uL (0.0-0.4); EOS % 1.6 % (1.0-4.0); HEMATOCRIT 37.7 % (42.0-52.0); LYMPH # 0.9 10*3/uL (1.3-4.4); LYMPH % 11.8 % (27.0-41.0); MEAN CELL VOLUME 92.9 fl (80.0-94.0); MEAN CORPUSCULAR HGB 29.8 pg (27.0-31.0); MEAN CORPUSCULAR HGB CONC 32.1 g/dl (33.0-37.0); MEAN PLATELET VOLUME 9.7 fl (9.6-12.3); MONO # 0.5 10*3/uL (0.1-1.0); MONO % 6.8 % (3.0-9.0); NEUT # 5.9 10*3/uL (2.3-7.9); NEUT % 78.8 % (47.0-73.0); PLATELET COUNT AUTOMATED 184 10*3/uL (130-400); RED BLOOD COUNT 4.06 10*6/uL (4.50-5.90); RED CELL DISTRI WIDTH 17.8 % (0-14.5); WHITE BLOOD COUNT 7.5 10*3/uL (4.8-10.8)
[2020-02-08 15:55] LABS: ACT PARTIAL THROMBO TIME 39.6 SECONDS (20.0-32.1); INTERNATIONAL NORM RATIO 2.3 (2.0-3.5)
[2020-02-08 15:58] LABS: CREATININE 1.89 mg/dL (0.70-1.30); POTASSIUM 4.5 mmol/L (3.5-5.1)
== END 2020-02-08 16:56 | disposition home or self-care (01) ==
LOC: ED 14:50
PROVIDERS: Emergency Medicine
DX: S61.411A Laceration without foreign body of right hand, initial encounter (principal); S51.811A Laceration without foreign body of right forearm, initial encounter; I48.91 Unspecified atrial fibrillation; I25.10 Atherosclerotic heart disease of native coronary artery without angina pectoris; E11.9 Type 2 diabetes mellitus without complications; I10 Essential (primary) hypertension; J44.9 Chronic obstructive pulmonary disease, unspecified; Z88.8 Allergy status to other drugs, medicaments and biological substances; Z79.899 Other long term (current) drug therapy; Z79.82 Long term (current) use of aspirin; Z79.01 Long term (current) use of anticoagulants; W18.39XA Other fall on same level, initial encounter; Y93.89 Activity, other specified; Y92.89 Other specified places as the place of occurrence of the external cause; Y99.8 Other external cause status

== ENCOUNTER 2020-02-11 06:31 | Inpatient (IN) | payer MEDICARE ==
[~2020-02-11] VITALS: Ht 177.8 cm; Wt 83.6 kg
[2020-02-11] VITALS (7 sets, daily range): BP systolic 121–143; BP diastolic 53–65
[2020-02-11 07:55] LABS: BASO # 0.1 10*3/uL (0.0-0.1); BASO % 0.7 % (0.0-1.0); EOS # 0.1 10*3/uL (0.0-0.4); EOS % 1.4 % (1.0-4.0); HEMATOCRIT 33.9 % (42.0-52.0); LYMPH # 0.8 10*3/uL (1.3-4.4); LYMPH % 9.1 % (27.0-41.0); MEAN CELL VOLUME 92.1 fl (80.0-94.0); MEAN CORPUSCULAR HGB 30.2 pg (27.0-31.0); MEAN CORPUSCULAR HGB CONC 32.7 g/dl (33.0-37.0); MEAN PLATELET VOLUME 9.6 fl (9.6-12.3); MONO # 0.7 10*3/uL (0.1-1.0); MONO % 8.4 % (3.0-9.0); NEUT # 6.8 10*3/uL (2.3-7.9); PLATELET COUNT AUTOMATED 165 10*3/uL (130-400); RED BLOOD COUNT 3.68 10*6/uL (4.50-5.90); RED CELL DISTRI WIDTH 17.4 % (0-14.5); WHITE BLOOD COUNT 8.5 10*3/uL (4.8-10.8)
[2020-02-11 08:06] LABS: ACT PARTIAL THROMBO TIME 38.2 SECONDS (20.0-32.1); INTERNATIONAL NORM RATIO 2.1 (2.0-3.5)
[2020-02-11 08:12] LABS: ALBUMIN 2.3 gm/dl (3.1-4.5); CREATININE 1.84 mg/dL (0.70-1.30); TOTAL PROTEIN 5.4 gm/dL (6.4-8.2)
[2020-02-11 08:14] LABS: TROPONIN I 0.049 ng/ml (<0.045)
[2020-02-11 10:23] LABS: BILIRUBIN Negative (Negative); BLOOD Negative (Negative); CLARITY Clear (Clear); COLOR Yellow (Yellow); GLUCOSE Negative (Negative); KETONE Negative (Negative); LEUKO ESTERASE Negative (Negative); NITRITE Negative (Negative)
[2020-02-11 10:42] LABS: BACTERIA 2+; WBC 0-2 wbc/hpf (0-5)
[2020-02-11] MEDS ORDERED: LORAZEPAM1 MG PO (16:22)
[2020-02-11] MEDS ORDERED: SERTRALINE HYDR50 MG PO (16:24)
[2020-02-11] MEDS ORDERED: SERTRALINE HYD100 MG PO (16:25)
[2020-02-12] VITALS: BP 121/54
[2020-02-12 06:45] LABS: BASO # 0.1 10*3/uL (0.0-0.1); BASO % 0.8 % (0.0-1.0); EOS # 0.1 10*3/uL (0.0-0.4); EOS % 1.5 % (1.0-4.0); HEMATOCRIT 35.3 % (42.0-52.0); MEAN CELL VOLUME 93.1 fl (80.0-94.0); MEAN CORPUSCULAR HGB 30.1 pg (27.0-31.0); MEAN CORPUSCULAR HGB CONC 32.3 g/dl (33.0-37.0); MONO # 0.6 10*3/uL (0.1-1.0); MONO % 8.5 % (3.0-9.0); NEUT # 5.6 10*3/uL (2.3-7.9); NEUT % 76.1 % (47.0-73.0); PLATELET COUNT AUTOMATED 166 10*3/uL (130-400); RED BLOOD COUNT 3.79 10*6/uL (4.50-5.90); RED CELL DISTRI WIDTH 17.7 % (0-14.5); WHITE BLOOD COUNT 7.4 10*3/uL (4.8-10.8)
[2020-02-12 06:52] LABS: INTERNATIONAL NORM RATIO 2.2 (2.0-3.5)
[2020-02-12 06:58] LABS: ALBUMIN 2.3 gm/dl (3.1-4.5); CREATININE 1.68 mg/dL (0.70-1.30); POTASSIUM 3.5 mmol/L (3.5-5.1); TOTAL PROTEIN 5.4 gm/dL (6.4-8.2)
[2020-02-12 07:04] LABS: THYROID STIM HORMONE (HS) 4.2 uIU/ml (0.358-4.75)
[2020-02-12 08:00] VITALS: BP 120/71; BP 122/58
[2020-02-12 12:00] VITALS: BP 124/52
[2020-02-12 16:00] VITALS: BP 110/50
[2020-02-12 20:00] VITALS: BP 110/53
[2020-02-13] VITALS: BP 129/85
[2020-02-13 08:00] VITALS: BP 114/62
[2020-02-13 12:00] VITALS: BP 112/60
[2020-02-13 15:39] VITALS: BP 121/57
[2020-02-13 20:00] VITALS: BP 106/45
[2020-02-14] VITALS: BP 135/63
[2020-02-14 08:00] VITALS: BP 122/58
[2020-02-14] MEDS ORDERED: LORAZEPAM1 MG PO (09:59)
[2020-02-14 12:00] VITALS: BP 126/75
== END 2020-02-14 15:26 | disposition other institution (70) | DRG 884 ==
LOC: ED 06:31 → EDHOLD 08:52 → 5E 08:52
PROVIDERS: Emergency Medicine; Student in an Organized Health Care Education/Training Program; ADMIT Family Medicine; ATTEND Family Medicine
DX: R54 Age-related physical debility (principal); I48.21 Permanent atrial fibrillation; I50.42 Chronic combined systolic (congestive) and diastolic (congestive) heart failure; E87.2 Acidosis; D68.59 Other primary thrombophilia; I13.0 Hypertensive heart and chronic kidney disease with heart failure and stage 1 through stage 4 chronic kidney disease, or unspecified chronic kidney disease; N18.4 Chronic kidney disease, stage 4 (severe); R18.8 Other ascites; Z68.26 Body mass index [BMI] 26.0-26.9, adult; R26.2 Difficulty in walking, not elsewhere classified; Z79.01 Long term (current) use of anticoagulants; R62.7 Adult failure to thrive; I25.5 Ischemic cardiomyopathy; E78.2 Mixed hyperlipidemia; F41.9 Anxiety disorder, unspecified; E11.22 Type 2 diabetes mellitus with diabetic chronic kidney disease; K57.90 Diverticulosis of intestine, part unspecified, without perforation or abscess without bleeding; I25.118 Atherosclerotic heart disease of native coronary artery with other forms of angina pectoris; Z96.642 Presence of left artificial hip joint; Z96.612 Presence of left artificial shoulder joint; E55.9 Vitamin D deficiency, unspecified; Z20.828 Contact with and (suspected) exposure to other viral communicable diseases; I35.0 Nonrheumatic aortic (valve) stenosis; J44.9 Chronic obstructive pulmonary disease, unspecified; H93.8X3 Other specified disorders of ear, bilateral; R79.89 Other specified abnormal findings of blood chemistry; Z95.1 Presence of aortocoronary bypass graft; Z95.0 Presence of cardiac pacemaker; Z95.2 Presence of prosthetic heart valve; Z88.8 Allergy status to other drugs, medicaments and biological substances; Z87.01 Personal history of pneumonia (recurrent); Z82.49 Family history of ischemic heart disease and other diseases of the circulatory system; Z82.3 Family history of stroke; Z79.899 Other long term (current) drug therapy; Z79.82 Long term (current) use of aspirin

== ENCOUNTER 2020-02-24 09:00 | Emergency (ER) | payer MEDICARE ==
[~2020-02-24] VITALS: Wt 80.3 kg
[~2020-02-24 09:00] MED LIST changes: +LORAZEPAM1 MG PO; +SERTRALINE HYD100 MG PO; +SERTRALINE HYDR50 MG PO
[2020-02-24 09:04] VITALS: BP 111/49
== END 2020-02-24 11:57 | disposition home or self-care (01) ==
LOC: ED 09:00
DX: T82.524A Displacement of infusion catheter, initial encounter (principal); I25.10 Atherosclerotic heart disease of native coronary artery without angina pectoris; I10 Essential (primary) hypertension; I25.2 Old myocardial infarction; E11.9 Type 2 diabetes mellitus without complications; I48.91 Unspecified atrial fibrillation; Z95.0 Presence of cardiac pacemaker; Z88.8 Allergy status to other drugs, medicaments and biological substances; Z79.899 Other long term (current) drug therapy; Z79.82 Long term (current) use of aspirin; Z79.01 Long term (current) use of anticoagulants; Z98.61 Coronary angioplasty status; Z96.642 Presence of left artificial hip joint; Z96.612 Presence of left artificial shoulder joint; Z87.891 Personal history of nicotine dependence; Y83.8 Other surgical procedures as the cause of abnormal reaction of the patient, or of later complication, without mention of misadventure at the time of the procedure; Y92.89 Other specified places as the place of occurrence of the external cause

== ENCOUNTER 2020-02-26 15:07 | Inpatient (IN) | payer MEDICARE ==
--- NOTE | 2020-02-25 23:40 | NUR ---
ATIVAN APPEARS EFFECTIVE, PT ASLEEP
[~2020-02-26] VITALS: Ht 177.8 cm; Wt 88.5 kg
[2020-02-26 15:07] VITALS: BP 127/47
[2020-02-26 15:54] LABS: BASO # 0.1 10*3/uL (0.0-0.1); BASO % 0.8 % (0.0-1.0); EOS # 0.1 10*3/uL (0.0-0.4); EOS % 1.3 % (1.0-4.0); HEMATOCRIT 39.1 % (42.0-52.0); LYMPH # 0.8 10*3/uL (1.3-4.4); LYMPH % 10.2 % (27.0-41.0); MEAN CORPUSCULAR HGB 30.4 pg (27.0-31.0); MEAN PLATELET VOLUME 9.8 fl (9.6-12.3); MONO # 0.6 10*3/uL (0.1-1.0); MONO % 7.5 % (3.0-9.0); NEUT # 6.4 10*3/uL (2.3-7.9); NEUT % 79.9 % (47.0-73.0); PLATELET COUNT AUTOMATED 200 10*3/uL (130-400); RED BLOOD COUNT 4.25 10*6/uL (4.50-5.90); RED CELL DISTRI WIDTH 18.1 % (0-14.5)
[2020-02-26 16:05] LABS: ACT PARTIAL THROMBO TIME 43.9 SECONDS (20.0-32.1); INTERNATIONAL NORM RATIO 3.7 (2.0-3.5)
[2020-02-26 16:10] LABS: ALBUMIN 2.4 gm/dl (3.1-4.5); CREATININE 2.07 mg/dL (0.70-1.30); POTASSIUM 4.1 mmol/L (3.5-5.1); TOTAL PROTEIN 5.4 gm/dL (6.4-8.2)
[2020-02-26 16:13] LABS: TROPONIN I 0.048 ng/ml (<0.045)
[2020-02-26 17:42] VITALS: BP 127/63
--- NOTE | 2020-02-26 18:00 | NUR ---
WOUND ASSESSMENT COMPLETED PT HAS 4 WOUNDS DOCUMENTED IN INTERVENTION. PHOTOS TAKEN. MULTIPLE SCABS ON BILAT LEGS. COCCYX RED BUT BLANCHABLE.
[2020-02-26 18:16] VITALS: BP 110/57; BP 127/63
--- NOTE | 2020-02-26 18:16 | NUR ---
A 80, admitted to , under the services of ALBERTA Killian DO with a diagnosis of PNEUMONIA AND DYSPNEA. Chief complaint is 4 LB WEIGHT GAIN. Patient arrived via bed from ER. Monitor applied. Initial assessment completed. Vital signs taken and recorded. ALBERTA KILLIAN DO notified of admission to the unit. Orders received. See assessment for past medical history, medications and allergies. Patient and/or family oriented to unit. [facility] visitation policy reviewed. Clothing/patient valuable form completed. TIERA LAL
--- NOTE | 2020-02-26 19:18 | NUR ---
CONSULT CALLED TO DR NUÑEZ ANSWERING SERVICE.
--- NOTE | 2020-02-26 19:44 | NUR ---
DR. DECKER NOTIFIED OF CRITICAL TROPONIN OF 0.055
--- NOTE | 2020-02-26 19:48 | NUR ---
PHYSICIANS NOTIFIED THAT WOUND CARE ORDERS ARE NEEDED FOR PATIENT.
--- NOTE | 2020-02-26 19:51 | NUR ---
CALLED PT ROSELINE AND SHE STATES THAT PT HAS A [facility] PACEMAKER PLACED 03/02/2016. WILL NOTIFY PHYSICIANS OF THIS.
[2020-02-26] MEDS ORDERED: FISH OIL 1,0001 EAC2 PO (19:53)
[2020-02-26] MEDS ORDERED: LASIX40 MG PO (19:56)
--- NOTE | 2020-02-26 19:57 | NUR ---
ATTEMPTED TO CALL ULTRASOUND IN REGARDS TO ABDOMINAL ULTRASOUND.
[2020-02-26] MEDS ORDERED: NORMAL SALINE FL1 ML IV (19:58)
--- NOTE | 2020-02-26 20:18 | NUR ---
DR. AGUIRRE NOTIFIED OF COMPLETE MEDICATIONS AND MADE AWARE OF 24 H MILRINONE DRIP THAT PT MANAGES AT HOME WITH OWN PUMP
[2020-02-26 20:46] VITALS: BP 117/60
--- NOTE | 2020-02-26 21:15 | NUR ---
[facility] RETURNED PHONE CALL. WILL SEND SOMEONE TOMORROW 02/26 IN THE AFTERNOON TO INTERROGATE PT PACEMAKER.
--- NOTE | 2020-02-26 21:45 | NUR ---
SPOKE WITH PHARMACY ABOUT MILRINONE DRIP. PT HAS OWN FROM HOME, AND CAN BRING HIM ANOTHER BAG NEEDED. CAN USE ONE FROM PHARMACY IF NEED BE.
--- NOTE | 2020-02-26 22:43 | NUR ---
ATIVAN GIVEN PER ORDER FOR C/O INSOMNIA. WILL MONITOR
--- NOTE | 2020-02-26 23:20 | NUR ---
ATIVAN APPERS EFFECTIVE, PT ASLEEP
[2020-02-27] VITALS: BP 132/62
--- NOTE | 2020-02-27 03:00 | NUR ---
PT SLEEPING AT THIS TIME
--- NOTE | 2020-02-27 06:00 | NUR ---
IN TO SEE PT. NO COMPLAINTS. CALL LIGHT IN REACH
[2020-02-27 06:07] LABS: BASO # 0.1 10*3/uL (0.0-0.1); BASO % 0.9 % (0.0-1.0); EOS # 0.2 10*3/uL (0.0-0.4); EOS % 2.6 % (1.0-4.0); HEMATOCRIT 36.3 % (42.0-52.0); MEAN CORPUSCULAR HGB 29.6 pg (27.0-31.0); MEAN CORPUSCULAR HGB CONC 32.5 g/dl (33.0-37.0); MEAN PLATELET VOLUME 9.6 fl (9.6-12.3); MONO # 0.6 10*3/uL (0.1-1.0); MONO % 8.5 % (3.0-9.0); NEUT % 72.9 % (47.0-73.0); PLATELET COUNT AUTOMATED 191 10*3/uL (130-400); RED BLOOD COUNT 3.99 10*6/uL (4.50-5.90); RED CELL DISTRI WIDTH 18.1 % (0-14.5); WHITE BLOOD COUNT 6.8 10*3/uL (4.8-10.8)
[2020-02-27 06:15] LABS: INTERNATIONAL NORM RATIO 3.8 (2.0-3.5)
[2020-02-27 06:22] LABS: ALBUMIN 2.1 gm/dl (3.1-4.5); CREATININE 1.96 mg/dL (0.70-1.30); TOTAL PROTEIN 5.1 gm/dL (6.4-8.2)
[2020-02-27 08:00] VITALS: BP 121/58
--- NOTE | 2020-02-27 08:20 | NUR ---
PATIENT PRESENTS FROM [facility] AND CAN RETURN WHEN MEDICALLY STABLE.
--- NOTE | 2020-02-27 10:00 | NUR ---
PACEMAKER INTERROGATED BY THIS RN WITH DEVICE PROVIDED.
--- NOTE | 2020-02-27 10:12 | NUR ---
PHYSICAL THERAPY Physical Therapy evaluation completed on 5E with full evaluation to follow. Low complexity skilled PT evaluation per chart review and evaluation, [id number]. Recommend physical therapy per plan of care and SNF upon discharge. Thank you for this referral. Pauline Phipps,PT,DPT
--- NOTE | 2020-02-27 10:13 | NUR ---
DORNIA FROM [facility] CALLED AND STATES PACER IS "GOOD" AND ALL BEATS ARE PACED. PT HAS UNDERLYING CHRONIC AFIBB AND PVC'S ARE NOTED.
--- NOTE | 2020-02-27 11:15 | NUR ---
Occupational Therapy evaluation completed on 5E with full evaluation to follow. Recommend occupational therapy per plan of care and SNF upon discharge. Thank you for this referral. Lavern Partida OTR/L
--- NOTE | 2020-02-27 11:43 | NUR ---
PT IS CURRENTLY AT REHAB SUITES AND PLANS TO RETURN WHEN MEDICALLY STABLE. WILL CONTINUE TO FOLLOW.
[2020-02-27 12:00] VITALS: BP 120/90
[2020-02-27 16:00] VITALS: BP 119/55
--- NOTE | 2020-02-27 16:30 | NUR ---
Patient resting quietly with no c/o discomfort. Respirations easy and regular. Vital signs stable. No overt distress. CROW AUGUSTINE R
--- NOTE | 2020-02-27 19:30 | NUR ---
PT RESTING IN BED. RESPIRATIONS EASY AND UNLABORED. NO DISTRESS NOTED. IV MEDICATIONS INFUSING PER ORDER. PICC FLUSHING AND GIVING ADEQUATE BLOOD RETURN. CALL LIGHT IN REACH.
[2020-02-27 20:00] VITALS: BP 119/54
[2020-02-28] VITALS: BP 134/56
--- NOTE | 2020-02-28 00:05 | NUR ---
PT GIVEN ATIVAN FOR S/S OF ANXIETY/INSOMNIA. WILL MONITOR FOR EFFECTIVENESS. CALL LIGHT IN REACH.
--- NOTE | 2020-02-28 01:05 | NUR ---
ATIVAN EFFECTIVE. PT SLEEPING.
[2020-02-28 06:17] LABS: INTERNATIONAL NORM RATIO 3.4 (2.0-3.5)
[2020-02-28 08:00] VITALS: BP 126/60
--- NOTE | 2020-02-28 10:25 | NUR ---
PHYSICAL THERAPY Patient seen this am 1;1 for therapy visit and was relaxing supine in bed upon therapist arrival. Patient identified by name / and was very pleasant / talkative this morning. Patient presented with IV treatment and bouts of increased confusion as he transfered supine to sit EOB with MIN A x 1. Patient reports feeling increased generalized muscle weakness and instructed on seated B LE therex, completing 10 reps each, AROM all planes without c/o. Patient also performed several sit to stand transfers, CGA, use of wh walker standing support, tolerating approx 1 minute static stand each trial SBA. Patient then completed SPT to [facility] per his request for toilet use, wh walker, CGA, demonstrating slow cautious step sequence. Patient returned to supine in bed and reamained with call light, tray table, cell phone and bed alarm for safety. Will continue per POC as tolerated, total treatment time 20 minutes. Montrell Sloan, IRRIGATION FOREMAN
[2020-02-28 12:00] VITALS: BP 136/63
--- NOTE | 2020-02-28 12:38 | NUR ---
PT REQUESTED AND WAS MEIDCATED WITH TUMS FOR C/O INDIGESTION.
--- NOTE | 2020-02-28 13:26 | NUR ---
MEDICATION EFFECTIVE PER PT. WILL MONITOR
[2020-02-28 16:00] VITALS: BP 113/61
--- NOTE | 2020-02-28 19:30 | NUR ---
TOOK OVER CARE OF PT. PT RESTING IN BED, SLEEPING. RESPIRATIONS UNLABORED ON ROOM AIR. IV MEDICATIONS INFUSING PER ORDERS. CALL LIGHT IN REACH.
[2020-02-28 20:00] VITALS: BP 114/56
--- NOTE | 2020-02-28 23:37 | NUR ---
PT GIVEN ATIVAN FOR C/O INSOMNIA S/S. WILL MONITOR FOR EFFECTIVENESS.
[2020-02-29] VITALS: BP 124/60
--- NOTE | 2020-02-29 00:37 | NUR ---
ATIVAN APPEARS EFFECTIVE, PT SLEEPING AT THIS TIME.
--- NOTE | 2020-02-29 02:57 | NUR ---
PT SLEEPING. RESPIRATIONS UNLABORED. CALL LIGHT IN REACH.
--- NOTE | 2020-02-29 05:38 | NUR ---
PT MILRINONE DRIP INFUSING PER ORDERS INTO RIGHT ARM PICC. PT AWAKE AT THIS TIME , DENIES NEEDING ANYTHING. RESPIRATIONS EASY AND UNLABORED. CALL LIGHT IN REACH.
[2020-02-29 06:15] LABS: INTERNATIONAL NORM RATIO 2.6 (2.0-3.5)
[2020-02-29 06:18] LABS: BASO # 0.1 10*3/uL (0.0-0.1); BASO % 0.7 % (0.0-1.0); EOS # 0.2 10*3/uL (0.0-0.4); EOS % 1.8 % (1.0-4.0); HEMATOCRIT 35.2 % (42.0-52.0); LYMPH # 0.9 10*3/uL (1.3-4.4); LYMPH % 10.1 % (27.0-41.0); MEAN CELL VOLUME 91.2 fl (80.0-94.0); MEAN CORPUSCULAR HGB 29.5 pg (27.0-31.0); MEAN CORPUSCULAR HGB CONC 32.4 g/dl (33.0-37.0); MEAN PLATELET VOLUME 9.7 fl (9.6-12.3); MONO # 0.6 10*3/uL (0.1-1.0); NEUT # 6.7 10*3/uL (2.3-7.9); PLATELET COUNT AUTOMATED 177 10*3/uL (130-400); RED BLOOD COUNT 3.86 10*6/uL (4.50-5.90); RED CELL DISTRI WIDTH 17.8 % (0-14.5); WHITE BLOOD COUNT 8.4 10*3/uL (4.8-10.8)
[2020-02-29 06:31] LABS: POTASSIUM 3.9 mmol/L (3.5-5.1)
[2020-02-29 06:38] LABS: CREATININE 1.82 mg/dL (0.70-1.30)
[2020-02-29 08:00] VITALS: BP 128/56
[2020-02-29 12:00] VITALS: BP 141/50
[2020-02-29 16:00] VITALS: BP 120/55
--- NOTE | 2020-02-29 19:00 | NUR ---
REPORT RECEIVED. PT ASLEEP AT THIS TIME. NO S/S OF DISTRESS NOTED.
[2020-02-29 20:00] VITALS: BP 109/51
--- NOTE | 2020-02-29 21:00 | NUR ---
PT LYING IN BED SLEEPING. NO DISTRESS NOTICED. CALL LIGHT IN REACH
[2020-03-01] VITALS: BP 127/73
--- NOTE | 2020-03-01 | NUR ---
PT ASLEEP AT THIS TIME. IV INFUSING WITHOUT DIFFICULTY. CALL LIGHT IN REACH
--- NOTE | 2020-03-01 02:52 | NUR ---
24 HR chart check completed.
--- NOTE | 2020-03-01 05:00 | NUR ---
IN TO SEE PT. PT SLEEPING AT THIS TIME. AWAKENS EASILY. NO COMPLAINTS. CALL LIGHT IN REACH
[2020-03-01 06:46] LABS: BASO # 0.1 10*3/uL (0.0-0.1); BASO % 0.7 % (0.0-1.0); EOS # 0.2 10*3/uL (0.0-0.4); EOS % 1.8 % (1.0-4.0); HEMATOCRIT 36.3 % (42.0-52.0); LYMPH % 10.8 % (27.0-41.0); MEAN CELL VOLUME 93.6 fl (80.0-94.0); MEAN CORPUSCULAR HGB 30.4 pg (27.0-31.0); MEAN CORPUSCULAR HGB CONC 32.5 g/dl (33.0-37.0); MEAN PLATELET VOLUME 9.9 fl (9.6-12.3); MONO # 0.7 10*3/uL (0.1-1.0); MONO % 7.2 % (3.0-9.0); NEUT # 7.2 10*3/uL (2.3-7.9); NEUT % 79.1 % (47.0-73.0); PLATELET COUNT AUTOMATED 190 10*3/uL (130-400); RED BLOOD COUNT 3.88 10*6/uL (4.50-5.90); WHITE BLOOD COUNT 9.1 10*3/uL (4.8-10.8)
[2020-03-01 07:16] LABS: CREATININE 1.82 mg/dL (0.70-1.30); POTASSIUM 3.7 mmol/L (3.5-5.1)
[2020-03-01 07:25] LABS: INTERNATIONAL NORM RATIO 2.3 (2.0-3.5)
[2020-03-01 08:00] VITALS: BP 122/58
--- NOTE | 2020-03-01 08:57 | NUR ---
OT NOTE Attempted to see pt this A.M. for OT session and upon arrival pt was eating his breakfast. Will check back at a later time and continue with POC as able. SATYA Collins/Nirav
--- NOTE | 2020-03-01 10:10 | NUR ---
OT NOTE Pt was seen this A.M. 1:1 for 25 minute OT session. Upon arrival pt was supine in bed. Pt identified by name and and had no complaints at this time. Pt transferred supine to sit EOB with Fabiano X 2 for assist with upper body. While sitting EOB challenged pt's dynamic sitting balance while weight shifting, crossing midline, and reaching over all planes. Pt was able to maintain F+ sitting balance throughout. Sit to stand completed from bed level with Fabiano X 2 and use of w/w for UE support. Functional mobility completed into the bathroom with CGA and use of w/w, throughout pt presented with bouts of unsteady stance that required Fabiano to correct. Pt transferred on to the standard commode with Fabiano due to low surface and poor safety with alignment. Clothing management completed with maxA and toilet hygiene completed with modA due to multiple bouts of LOB while sitting on the commode that required mod-maxA to correct. Sit to stand from standard commode with modA X 2 and use of grab bar for UE support. Pt then stood sink side while washing his hands with Fabiano to correct retrograde LOB. Functional mobility completed back to the EOB where he transferred sit to supine with Fabiano and was repositioned with max Ax 2. There he was left with call light in hand, tray table in place, and bed alarm activited for safety. Continue with rec D/C plan to SNF. KHALIF Collins
--- NOTE | 2020-03-01 10:10 | NUR ---
PHYSICAL THERAPY TREATMENT TIME: OUT 10:10 AM 20 MINUTES TOTAL Patient presented to therapy in supine in bed with head bed elevated and bed alarm on. Patient gives informed consent for treatment. Patient was identified by name and on wristband. Patient reports that the Doctor did not have a good prognosis for him. Patient says the doctor doesn't think he has too long to live. Patient performed supine <> sit EOB with MIN A X 2. Patient sat on EOB without LOB. Patient completed STS from EOB with MIN A X 2. Patient required verbal cues for hand placement. Patient ambulated with Wh Walker and CGA FOR 15' X 1 with verbal cues for upright posture and pushing down on walker with hands. Patient STS <> commode with MOD A X 2. Patient ambulated back to sitting EOB with Wh Walker and CGA with mild LOB and some increased fatigue. Patient transferred back to supine in bed with SBA. Patient was left in supine in bed with head of bed elevated and bed alarm on. Patient was moved up in bed with MAX A X 2 with sheet. Patient was 1:1 with this SURGERY NURSE for 20 minutes total. BREANNE DEAN SURGERY NURSE
[2020-03-01 12:00] VITALS: BP 127/75
--- NOTE | 2020-03-01 14:23 | NUR ---
SPOKE WITH [facility] TO SEE IF THEY WOULD ACCEPT PT WITH [facility]. THEY STATE LONG THERE IS A DOCTOR TO FOLLOW IT BECAUSE THEIR PHYSICIAN WILL NOT. PT HAS A DOCTOR THAT FOLLOWS IT. DR HARRY INFORMED, TOLD HIM TO HAVE DR LARES TALK TO PT AND AND IF HOSPICE IS WHAT THEY WANT WE WILL SEND REFERRAL.
[2020-03-01 16:00] VITALS: BP 102/66
--- NOTE | 2020-03-01 16:21 | NUR ---
PICC LINE DRSG CHANGED PER POLICY. PT TOLERATED WELL.
[2020-03-01 20:00] VITALS: BP 129/87
--- NOTE | 2020-03-01 20:49 | NUR ---
PRN ATIVAN GIVEN FOR PT COMPLAINTS OF INSOMNIA. CALL LIGHT WITHIN REACH, WILL MONITOR
--- NOTE | 2020-03-01 21:30 | NUR ---
PATIENT RESTING IN BED. PRN ATIVAN APPEARS EFFECTIVE
--- NOTE | 2020-03-01 23:20 | NUR ---
PATIENT REMAINS ASLEEP. NO DISTRESS NOTED. IV MEDICATION INFUSING PER ORDER. CALL LIGHT WITHIN REACH, WILL MONITOR
[2020-03-02] VITALS: BP 120/56; BP 125/48
--- NOTE | 2020-03-02 01:48 | NUR ---
DR. CARRANZA SIGNED COMFORT CARE-ARREST PAPER FOR PATIENT PER ORDER WRITTEN BY DR. LARES
--- NOTE | 2020-03-02 03:20 | NUR ---
PATIENT SITTING UP IN BED. EATING BOXED LUNCH. NO COMPLAINTS AT THIS TIME. CALL LIGHT WITHIN REACH, WILL MONITOR
--- NOTE | 2020-03-02 04:31 | NUR ---
PATIENT SITTING UP IN BED. WATCHING TV. HAS NO COMPLAINTS AND STATES HE BELIEVES HE WILL GO HOME TODAY. CALL LIGHT WITHIN REACH, WILL MONITOR
--- NOTE | 2020-03-02 04:46 | NUR ---
24 HR chart check completed.
[2020-03-02 08:00] VITALS: BP 137/41
--- NOTE | 2020-03-02 10:34 | NUR ---
OT NOTE Pt was seen this A.M. 1:1 for 24 minute OT session. Upon arrival pt was supine in bed. Pt identified by name and and had complaints of 5-6/10 L hip, R groin, and L knee pain. Pt transferred supine to sit EOB with modA for assist with upper body. While sitting EOB challenged pt's dynamic sitting balance while weight shifting, crossing midline, and reaching over all planes. Pt was able to maintain F+ sitting balance throughout. Sit to stand completed from bed level with CGA and use of w/w for UE support. Functional mobility completed to the bathroom with CGA and use of w/w, throughout pt presented with unsteady stance that required Fabiano to correct. Pt transferred on to the standard commode with Fabiano due to poor safety with alignment and low surface. Clothing management completed with maxA due to fatigue and also being unsteady while standing without UE support. Toilet hygiene completed with SBA however presents with P- sitting balance requiring maxA to keep from LOB off the commode. Sit to stand from standard commode with maxA X 2 due to quick onset of fatigue. Functional mobility completed back to the EOB with CGA and use of w/w. There he transferred sit to supine with SBA and repositioned in bed with maxA X 2. Pt was left supine with call light in hand, tray table in place, and bed alarm activated for safety. Continue with POC as able. SATYA Collins/Nirav
--- NOTE | 2020-03-02 10:50 | NUR ---
FOUNDRY EQUIPMENT MECHANIC FAXED REFERRAL TO [facility].
--- NOTE | 2020-03-02 11:08 | NUR ---
PHYSICAL THERAPY TREATMENT TIME: IN 10:12 AM 21 MINUTES TOTAL Patient presented to therapy in supine with head of bed elevated and and bed alarm on. Patient is not on spO2. Patient has one IV infusing. Patient has a 5/10 pain level in the R groin, L knee, L hip. Patient gives informed consent for treatment. Patient was identified by name and on wristband. Patient perforemed supine <> sit EOB with MOD A X 2. Patient sat on EOB SBA. Patient STS <> EOB with SBA - CGA. Patient performed ambulation with Wh Walker and CGA for 15' X 2 <> commode WITH NO lob. Patient fatigued very quickly with ambulation. Patient STS <> COMMODE with MAX A X 2. Patient ambulated back to sitting on EOB with CGA using WH Walker. Patient transferred sit EOB > supine in bed with SBA. Patient moved up to head of bed with MAX A X 2. Patient was left in supine in bed with head of bed elevated , bed alarm on and call light within reach. Patient was 1:1 with this MEDICAL RESEARCH SCIENTIST for 21 minutes total. BREANNE DEAN MEDICAL RESEARCH SCIENTIST
[2020-03-02 12:00] VITALS: BP 132/49
--- NOTE | 2020-03-02 13:42 | NUR ---
WOOD PATTERNMAKER APPRENTICE NOTIFIED OF PATIENT DISCHARGE. WOOD PATTERNMAKER APPRENTICE SPOKE WITH ALIA CASILLAS. WOOD PATTERNMAKER APPRENTICE SPOKE WITH BRIAN HONG. WOOD PATTERNMAKER APPRENTICE ARRANGED FOR [facility] TO TRANSPORT THE PATIENT AT 2:30PM FOR THE PATIENT TO RETURN HOME. WOOD PATTERNMAKER APPRENTICE SPOKE WITH PATIENTS ROSELINE AND INFORMED HER, SHE IS AGREEABLE. WOOD PATTERNMAKER APPRENTICE ANSWERED ALL QUESTIONS. WOOD PATTERNMAKER APPRENTICE TO FAX DEMOGRAPHICS TO [facility].
--- NOTE | 2020-03-02 15:40 | NUR ---
Discharge instructions reviewed with patient/family. Patient receptive and verbalizes understanding. Follow-up care arranged. Written instructions given to patient/family. VINNY LU
--- NOTE | 2020-03-03 08:24 | NUR ---
OCCUPATIONAL THERAPY CO-SIGN I approve of the Occupational Therapy notes written above. NIDIA CLEMENTE OTR/Nirav
== END 2020-03-02 15:40 | disposition hospice, home (50) | DRG 177 ==
LOC: ED 15:07 → EDHOLD 16:38 → 5E 16:38
PROVIDERS: Internal Medicine; Nurse Practitioner Family; Student in an Organized Health Care Education/Training Program; ADMIT Family Medicine; ATTEND Family Medicine
PROC: 4B02XTZ Measurement of Cardiac Defibrillator, External Approach (ICD-10-PCS; principal; 2020-02-29)
DX: J15.6 Pneumonia due to other Gram-negative bacteria (principal); N17.0 Acute kidney failure with tubular necrosis; E43 Unspecified severe protein-calorie malnutrition; I50.43 Acute on chronic combined systolic (congestive) and diastolic (congestive) heart failure; I13.0 Hypertensive heart and chronic kidney disease with heart failure and stage 1 through stage 4 chronic kidney disease, or unspecified chronic kidney disease; J44.0 Chronic obstructive pulmonary disease with (acute) lower respiratory infection; I50.42 Chronic combined systolic (congestive) and diastolic (congestive) heart failure; I25.810 Atherosclerosis of coronary artery bypass graft(s) without angina pectoris; I38 Endocarditis, valve unspecified; I48.21 Permanent atrial fibrillation; Z68.27 Body mass index [BMI] 27.0-27.9, adult; J18.9 Pneumonia, unspecified organism; N18.30 Chronic kidney disease, stage 3 unspecified; Z96.642 Presence of left artificial hip joint; Z96.612 Presence of left artificial shoulder joint; K57.90 Diverticulosis of intestine, part unspecified, without perforation or abscess without bleeding; G47.00 Insomnia, unspecified; I25.5 Ischemic cardiomyopathy; E78.2 Mixed hyperlipidemia; D64.9 Anemia, unspecified; R73.9 Hyperglycemia, unspecified; E83.41 Hypermagnesemia; E80.6 Other disorders of bilirubin metabolism; Z66 Do not resuscitate; Z51.5 Encounter for palliative care; K74.60 Unspecified cirrhosis of liver; R74.01 Elevation of levels of liver transaminase levels; S61.511A Laceration without foreign body of right wrist, initial encounter; S51.012A Laceration without foreign body of left elbow, initial encounter; Z88.8 Allergy status to other drugs, medicaments and biological substances; Z95.1 Presence of aortocoronary bypass graft; Z95.5 Presence of coronary angioplasty implant and graft; X58.XXXA Exposure to other specified factors, initial encounter; Y93.89 Activity, other specified; Y92.89 Other specified places as the place of occurrence of the external cause; Y99.8 Other external cause status; Z95.810 Presence of automatic (implantable) cardiac defibrillator; Z82.49 Family history of ischemic heart disease and other diseases of the circulatory system; Z82.3 Family history of stroke; Z87.891 Personal history of nicotine dependence; Z45.018 Encounter for adjustment and management of other part of cardiac pacemaker; Z95.2 Presence of prosthetic heart valve